=== PATIENT | female | born 1960 | race Caucasian/White ===

== ENCOUNTER 2019-10-11 13:31 | Outpatient (CLI) | payer BC, SELFPAY ==
--- NOTE | ~2019-10-11 | XR_ITS ---
EXAMINATION: XR knee RT 2V DATE: 10/11/2019 13:54 INDICATION: Right knee pain. TECHNIQUE: 2 views of right knee were obtained. COMPARISON: Right knee radiograph 11/10/2016 FINDINGS: There is varus attenuation at the knee. No fracture. There is severe osteoarthritis of medi al and patellofemoral compartments and moderate osteoarthritis of lateral compartment. No knee joint effusion. IMPRESSION: 1. Severe right knee osteoarthritis. Reviewed, dictated and finalized at location A.
--- NOTE | ~2019-10-11 | XR_ITS ---
EXAMINATION: XR knee LT 2V DATE: 10/11/2019 13:54 INDICATION: Left knee pain. TECHNIQUE: 2 views of left knee were obtained. COMPARISON: Left knee radiograph 11/10/2016 FINDINGS: There is varus angulation at the knee. No fracture. There is severe osteoarthritis of media l and patellofemoral compartments and moderate osteoarthritis of lateral compartment. No knee joint e ffusion. IMPRESSION: 1. Severe left knee osteoarthritis. Reviewed, dictated and finalized at location A.
== END 2019-10-11 13:32 | disposition home or self-care (01) ==
LOC: ANHIMG 13:38
PROVIDERS: PCP Internal Medicine; Visit Provider Nurse Practitioner Family
DX: M17.0 Bilateral primary osteoarthritis of knee (principal)
CPT/HCPCS: 73560

== ENCOUNTER 2020-03-22 12:52 | Outpatient (CLI) | payer BC, SELFPAY ==
--- NOTE | ~2020-03-22 | CT_ITS ---
EXAMINATION: CT cervical spine wo [facility] EXAM DATE: 03/22/2020 13:25 INDICATION: Neck pain posteriorly, cervicalgia. TECHNIQUE: Spiral CT of the cervical spine was performed without contrast. Axial images were reviewe d. Coronal and sagittal reformatted images were also reviewed. The dose-length product (DLP) for thi s examination was 396.77 mGy-cm. The exposure was tailored according to patient size (auto mA exposu re control), and iterative reconstruction (ASIR) was used as additional dose reduction technique. Com parison is made to prior examination from 11/10/2016. FINDINGS: The odontoid process is intact. The lateral masses of C1 line up with C2. Prevertebral so ft tissue and pre-dens space are within normal limits. There is moderate to severe disc disease at C5 -6 and 6-7, moderate at C4-5. The vertebral bodies are aligned in the AP dimension. Left thyroid lo be nodule with decrease in size. Level by level evaluation: C2-C3: Disc does not extend beyond the endplate margin. Uncovertebral joint arthropathy: None. Facet joint arthropathy: Mild left. Neural foraminal stenosis: No stenosis. Central canal stenosis: No stenosis. C3-C4: There is a mild diffuse disc bulge. Uncovertebral joint arthropathy: Mild left. Facet joint arthropathy: Mild bilateral. Neural foraminal stenosis: No stenosis. Central canal stenosis: No stenosis. C4-C5: There is mild to moderate disc osteophyte complex. Uncovertebral joint arthropathy: Mild to moderate left, mild right. Facet joint arthropathy: Mild bilateral. Neural foraminal stenosis: Mild left. Central canal stenosis: Mild. C5-C6: There is mild to moderate disc osteophyte complex. Uncovertebral joint arthropathy: Moderate to severe right, mild to moderate left. Facet joint arthropathy: Mild bilateral. Neural foraminal stenosis: Mild right. Central canal stenosis: Mild. C6-C7: There is mild to moderate disc osteophyte complex asymmetric to the right. Uncovertebral joint arthropathy: Severe right, moderate to severe left. Facet joint arthropathy: Mild bilateral. Neural foraminal stenosis: Moderate bilateral. Central canal stenosis: Mild to moderate. C7-T1: Disc does not extend beyond the endplate margin. Uncovertebral joint arthropathy: None. Facet joint arthropathy: Moderate left, mild right. Neural foraminal stenosis: Mild left. Central canal stenosis: No stenosis. Minimal interval progression in cervical spondylosis compared to prior study. IMPRESSION: 1. Overall moderate cervical spondylosis. Reviewed, dictated and finalized at location A.
--- NOTE | ~2020-03-22 | XR_ITS ---
EXAMINATION: XR shoulder LT min 2V EXAM DATE: 03/22/2020 13:38 INDICATION: Left shoulder pain 2-3 months. No known recent injury. Arthritis. TECHNIQUE: The following left shoulder projections obtained: frontal projection with internal rotatio n, frontal projection with external rotation, Grashey, and axillary (4+ views). There is no prior st udy for comparison. FINDINGS: No evidence of left shoulder rotator cuff calcific tendinosis. There is moderate glenohu meral and acromioclavicular joint primary osteoarthritis. There are no acute fractures or dislocation s identified. There is no subcutaneous gas. The soft tissue is unremarkable. Dual lead pacemaker. IMPRESSION: Moderate left shoulder osteoarthritis. Reviewed, dictated and finalized at location A.
== END 2020-03-22 12:53 | disposition home or self-care (01) ==
PROVIDERS: PCP Nurse Practitioner Family; Visit Provider Nurse Practitioner Family
DX: M54.2 Cervicalgia (principal); M19.012 Primary osteoarthritis, left shoulder; M47.812 Spondylosis without myelopathy or radiculopathy, cervical region
CPT/HCPCS: 72125; 73030

== ENCOUNTER → 2020-10-07 13:12 | Outpatient (CLI) | payer BC, SELFPAY ==
--- NOTE | ~2020-10-07 | XR_ITS ---
EXAMINATION: XR sacroiliac joints min 3V DATE: 10/07/2020 13:46 INDICATION: Sacroiliac joint pain TECHNIQUE: AP and left and right oblique views of the sacrum and joints were obtained. COMPARISON: None. FINDINGS: Bone alignment is normal. Mild to moderate joint space narrowing at the bilateral sacroiliac joints. No erosions or subarticular sclerosis to suggest an inflammatory arthritis. There is also mild bilate ral hip osteoarthritis. Postoperative change with small metallic coil at the inferior right hemipelvi s multiple phleboliths in the pelvis. IMPRESSION: 1. Mild to moderate bilateral sacroiliac osteoarthritis. No erosions to suggest inflammatory sacroili itis. Reviewed, dictated and finalized at location A. IMPRESSION: 1. Mild to moderate bilateral sacroiliac osteoarthritis. No erosions to suggest inflammatory sacroiliitis.
== END ==
PROVIDERS: Visit Provider Nurse Practitioner Family
DX: M53.3 Sacrococcygeal disorders, not elsewhere classified (principal); M47.898 Other spondylosis, sacral and sacrococcygeal region
CPT/HCPCS: 72202

== ENCOUNTER 2021-01-26 07:16 | Outpatient (CLI) | payer BC, SELFPAY ==
--- NOTE | ~2021-01-26 | CT_ITS ---
EXAMINATION: CT abdomen pelvis wo con DATE: 01/26/2021 08:00 INDICATION: Abdominal pain TECHNIQUE: Computed tomography (CT) of the abdomen and pelvis was performed without intravenous contr ast. The dose-length product (DLP) was 1126.75 mGy-cm. Automated exposure control and iterative recon struction technique were employed. COMPARISON: 09/26/2013 FINDINGS: The lung bases are clear. The heart size is normal. The gallbladder is surgically absent. T here is mild enlargement of the common bile duct and central intrahepatic ducts which is likely due t o post cholecystectomy state. The liver, spleen, pancreas, and adrenal glands are normal. There is a 2 cm cyst of the left kidney lower pole. No pathologically enlarged abdominal or pelvic lymph nodes a re identified. There is no free intraperitoneal gas or evidence of bowel obstruction. There are zhou es of mesh ventral hernia repair. No definite recurrent hernia is identified. There is mild lumbar sp ondylosis. IMPRESSION: 1. No CT correlate for the patient's symptoms. Reviewed, dictated and finalized at location A.
== END 2021-01-26 07:17 | disposition home or self-care (01) ==
DX: E65 Localized adiposity (principal); L98.7 Excessive and redundant skin and subcutaneous tissue; Z98.890 Other specified postprocedural states; Z98.84 Bariatric surgery status
CPT/HCPCS: 74176

== ENCOUNTER 2021-07-10 02:59 | Day surgery (SDC) | payer BC, SELFPAY ==
[2021-06-26 15:16] VITALS: BMI 40.4
[2021-07-10 11:30] VITALS: BP 145/62; PULSE 60; RESP 20; TEMP 36.6; O2SAT 98; BMI 39.8
[2021-07-10] MEDS: LACTATED RINGERS 1,000 ML 150 ML IV CONT (11:38)
[2021-07-10] MEDS: AMPICILLIN 2 GM/NS 100 ML 2 GM/100 ML BAG IVPB (11:47)
[2021-07-10 11:48] LABS: Glucose Point of Care 102 mg/dl (65-105)
--- NOTE | 2021-07-10 12:00 | WPDGICN ---
Assessment and Plan Assessment and plan (1) Encounter for screening colonoscopy: Code(s): Z12.11 - Encounter for screening for malignant neoplasm of colon Status: Acute Assessment and Plan: Screening colonoscopy advised because of her age. Also to assess her constipation. Further recommendations will be given after endoscopy. (2) Constipation: Code(s): K59.00 - Constipation, unspecified Status: Acute Assessment and Plan: Constipation likely secondary to narcotic use. Continued laxatives as needed to compensate for her constipation is encouraged. Limit narcotics as much as Feasible. (3) Hx of bariatric surgery: Code(s): Z98.84 - Bariatric surgery status Status: Acute (4) Chronic bilateral low back pain with sciatica: Code(s): M54.40 - Lumbago with sciatica, unspecified side; G89.29 - Other chronic pain Status: Acute (5) Body mass index (BMI) of 50-59.9 in adult: Onset Date: 05/05/18 Code(s): Z68.43 - Body mass index [BMI] 50.0-59.9, adult Status: Acute Assessment and Plan: Weight loss by increased activity calorie restriction encouraged. GI Consult Note Consult date/time: 07/10/21 12:00 HPI: Maribeth Bautista is a 60 year old female Presents for screening colonoscopy. Patient reports she had a colonoscopy many years ago she is uncertain on findings. She recently has had difficulty with constipation. She reports having back pain arthritis. For pain she receives OxyContin. This made her constipated. She has had difficulty with her bowel habits subsequently. Currently takes laxatives routinely to counteract this affect. She denies any bleeding. Has had no abdominal pain. Review of Systems Review of Systems: All systems reviewed & are unremarkable except as noted in HPI and below PMFSH Past Medical History Medical History (Updated 07/10/21 @ 12:01 by Morgan Ayala MD) Chronic, continuous use of opioids COPD (chronic obstructive pulmonary disease) Depression Essential hypertension GERD (gastroesophageal reflux disease) Hyperlipidemia Hypothyroidism (acquired) Lumbar spondylosis Pacemaker Surgical History Surgical History (Updated 07/09/21 @ 10:06 by Sander Riddle DO) History of tubal ligation Family History Family History Father Family history of lung cancer Patient's father is Sibling Family history of alcoholism Patient's sister is Mother Family history of Alzheimer's disease Diabetes mellitus Other Family history of coronary artery disease Social History Social History Smoking status: Former smoker Smoking end date: 05/30/75 Alcohol intake: current Substance use: current Substance use type: marijuana Other substance usage details: medical marijuana Living arrangements: with family Spiritual care concerns: No Meds Home Medications and Allergies Home Medications Medication Instructions Recorded Confirmed Type albuterol sulfate 2.5 mg INHALATION Q6H PRN 03/23/19 07/10/21 History aspirin 81 mg tablet,delayed 81 mg PO DAILY 03/23/19 07/10/21 History release lisinopril 5 mg tablet 5 mg PO DAILY 03/23/19 07/10/21 History methocarbamol 500 mg tablet 500 mg PO BID tablet 03/23/19 07/10/21 History risperidone 0.5 mg tablet 0.5 mg PO BID 03/23/19 07/10/21 History sertraline 100 mg tablet 150 mg PO DAILY tablet 03/23/19 07/10/21 History venlafaxine 150 mg 150 mg PO DAILY 03/23/19 07/10/21 History capsule,extended release 24 hr topiramate 25 mg tablet 25 mg PO BID 03/30/19 07/10/21 History pravastatin 40 mg tablet 40 mg PO DAILY #90 tablet 09/23/19 07/10/21 Rx albuterol sulfate 90 mcg/actuation 2 puff INHALATION Q4-6H PRN #8.5 gm 11/15/19 07/10/21 Rx aerosol inhaler primidone 50 mg tablet See Rx Instruction
--- NOTE | 2021-07-10 12:05 | WPDANESEPP ---
Anes - Eval Pre Procedure Procedure: Operation Date: 07/10/21 13:00 Proposed Procedures p Screening Colonoscopy - Morgan Ayala MD Date/Time: 07/10/21 12:05 Pre Op Diagnosis: neoplasm screening Patient Data Age: 60 Gender: F Height: 1.52 m Weight: 92.5 kg Last Vital Signs Temp 36.6 C 07/10/21 11:30 Pulse 60 07/10/21 11:30 Resp 20 07/10/21 11:30 BP 145/62 H 07/10/21 11:30 Pulse Ox 98 07/10/21 11:30 Allergies Allergy/AdvReac Type Severity Reaction Status Date / Time morphine Allergy Unknown Itching Verified 07/10/21 11:48 adhesive tape Allergy Other Verified 07/10/21 11:48 Home Medications Medication Instructions Recorded Confirmed Type albuterol sulfate 2.5 mg INHALATION Q6H PRN 03/23/19 07/10/21 History aspirin 81 mg tablet,delayed 81 mg PO DAILY 03/23/19 07/10/21 History release lisinopril 5 mg tablet 5 mg PO DAILY 03/23/19 07/10/21 History methocarbamol 500 mg tablet 500 mg PO BID tablet 03/23/19 07/10/21 History risperidone 0.5 mg tablet 0.5 mg PO BID 03/23/19 07/10/21 History sertraline 100 mg tablet 150 mg PO DAILY tablet 03/23/19 07/10/21 History venlafaxine 150 mg 150 mg PO DAILY 03/23/19 07/10/21 History capsule,extended release 24 hr topiramate 25 mg tablet 25 mg PO BID 03/30/19 07/10/21 History pravastatin 40 mg tablet 40 mg PO DAILY #90 tablet 09/23/19 07/10/21 Rx albuterol sulfate 90 mcg/actuation 2 puff INHALATION Q4-6H PRN #8.5 gm 11/15/19 07/10/21 Rx aerosol inhaler primidone 50 mg tablet See Rx Instructions .ROUTE 11/28/19 07/10/21 Rx .COMPLEX #180 tablet levothyroxine 75 mcg tablet See Rx Instructions .ROUTE 01/14/20 07/10/21 Rx .COMPLEX #90 tablet pantoprazole 40 mg tablet,delayed See Rx Instructions .ROUTE 08/27/20 02/11/22 Rx release .COMPLEX #90 tablet oxycodone myristate [Xtampza ER] See Rx Instructions .ROUTE .COMPLEX 06/26/21 07/10/21 History Laboratory Tests 07/10/21 11:46 POC Capillary Glucose 102 mg/dl mg/dl (65-105) Patient hx anesthesia problems: none Family hx anesthesia problems: none Results Review: All pre-operative results and documents have been reviewed as part of the pre-operative evaluation. [facility] Past Medical History Medical History Chronic, continuous use of opioids COPD (chronic obstructive pulmonary disease) Depression Essential hypertension GERD (gastroesophageal reflux disease) Hyperlipidemia Hypothyroidism (acquired) Lumbar spondylosis Pacemaker Surgical History Surgical History History of tubal ligation Family History Family History Father Family history of lung cancer Patient's father is Sibling Family history of alcoholism Patient's sister is Mother Family history of Alzheimer's disease Diabetes mellitus Other Family history of coronary artery disease Social History Social History Smoking status: Former smoker Smoking end date: 05/30/75 Alcohol intake: current Substance use: current Substance use type: marijuana Other substance usage details: medical marijuana Living arrangements: with family Spiritual care concerns: No Exam Day of Procedure 07/10/21 12:05 Patient weight: obese Heart: regular rate and rhythm (pacemaker) Lungs: normal air movement Airway: Mallampati scale class III Neurological: alert and oriented
[2021-07-10 12:33] VITALS: BP 87/58; PULSE 56; RESP 17; O2SAT 96
--- NOTE | 2021-07-10 12:34 | WPDANESEFPP ---
Anes - Eval Final PreProcedure Day of Procedure 07/10/21 12:34 Patient weight: normal Heart: regular rate and rhythm Lungs: clear to auscultation and normal air movement Airway: Mallampati scale class III Neurological: alert and oriented Last oral intake: >/= 8 hours ASA classification: III Emergent: no Anesthetic plan: proceed Anesthesia type and monitoring: general GIVS and standard monitoring Results Review: All pre-operative results and documents have been reviewed as part of the pre-operative evaluation. Informed Consent: The patient's anesthetic plan and its attendant risks and benefits were discussed with the patient/family/POA. Questions were solicited and answers provided to the satisfaction of the patient/family/POA.
[2021-07-10 12:43] VITALS: BP 112/70; PULSE 55; RESP 19; O2SAT 100
[2021-07-10 12:53] VITALS: BP 117/78; PULSE 58; RESP 17; O2SAT 100
== END 2021-07-10 13:17 | disposition home or self-care (01) ==
PROVIDERS: PCP Nurse Practitioner Family; Visit Provider Internal Medicine Gastroenterology
PROC: 0DJD8ZZ Inspection of Lower Intestinal Tract, Via Natural or Artificial Opening Endoscopic (ICD-10-PCS; CPT 45378; principal; 2021-07-10 13:00)
DX: Z12.11 Encounter for screening for malignant neoplasm of colon (principal); K59.00 Constipation, unspecified; K64.8 Other hemorrhoids; E03.9 Hypothyroidism, unspecified; Z79.82 Long term (current) use of aspirin; Z79.51 Long term (current) use of inhaled steroids; J44.9 Chronic obstructive pulmonary disease, unspecified; I10 Essential (primary) hypertension; K21.9 Gastro-esophageal reflux disease without esophagitis; E78.5 Hyperlipidemia, unspecified; M47.816 Spondylosis without myelopathy or radiculopathy, lumbar region; Z95.0 Presence of cardiac pacemaker; Z87.891 Personal history of nicotine dependence; F12.90 Cannabis use, unspecified, uncomplicated; E66.9 Obesity, unspecified; Z68.39 Body mass index [BMI] 39.0-39.9, adult; Z98.84 Bariatric surgery status
CPT/HCPCS: 45378; 82948; J0290; J2704; J7120

== ENCOUNTER 2021-09-01 00:20 | Day surgery (SDC) | payer BC, SELFPAY ==
[2021-08-31 15:11] VITALS: BMI 45.3
[2021-09-01] VITALS (14 sets, daily range): BP systolic 92–132; BP diastolic 60–83; PULSE 60–74; RESP 14–18; TEMP 36.2–36.4; O2SAT 99–100
--- NOTE | ~2021-09-01 | XR_ITS ---
EXAMINATION: XR chest 1V portable DATE: 09/01/2021 11:36 INDICATION: Pacemaker lead revision. TECHNIQUE: A single frontal view of the chest was obtained. COMPARISON: Chest 2 views 10/12/2018 FINDINGS: The chest demonstrates clear lungs without pneumonia, pleural effusion, or pneumothorax. Th e heart size is normal. There is a left chest wall pacer with leads in the right atrium and right stephane tricle. There is a retained lead in right ventricle. IMPRESSION: 1. No acute cardiopulmonary disease. Reviewed, dictated and finalized at location A.
[2021-09-01 07:29] LABS: Basophils Percent Auto 0.7 % (0.2-1.2); Eosinophils Absolute Auto 0.4 K/mm3 (0-0.3); Eosinophils Percent Auto 7.2 % (0-4.4); Hematocrit 44.1 % (37.0-47.0); Hemoglobin 14.6 g/dL (12.0-15.0); Immature Granulocyte Absolute 0.01 K/mm3 (0.00-0.031); Immature Granulocyte Percent A 0.2 % (0-0.5); Lymphocytes Absolute Auto 1.87 K/mm3 (0.9-3.2); Lymphocytes Percent Auto 33.7 % (18.3-44.2); Mean Corpuscular HGB Conc 33.1 g/dl (32-36); Mean Corpuscular Hemoglobin 31.5 pg (26-34); Mean Corpuscular Volume 95.2 fl (80-100); Mean Platelet Volume 11.3 fl (7.4-10.4); Monocytes Absolute Auto 0.5 K/mm3 (0.1-0.6); Monocytes Percent Auto 8.6 % (2.6-8.5); Neutrophils Absolute Auto 2.8 K/mm3 (1.3-6.7); Neutrophils Percent Auto 49.6 % (45.5-73.1); Platelet Count Result 185 k/mm3 (150-375); Red Blood Count 4.63 M/mm3 (4.2-5.4); Red Cell Distribution Width 13.9 % (11.5-14.5); White Blood Count 5.6 K/mm3 (4.5-10.0)
[2021-09-01 07:40] LABS: Anion Gap 4 mmol/L (8-16); Blood Urea Nitrogen 11 mg/dL (7-17); Calcium 8.9 mg/dL (8.4-10.2); Carbon Dioxide 24 mmol/L (22-30); Chloride 110 mmol/L (98-107); Estimated Glomerular Filt Rate > 60; Glucose 85 mg/dL (65-110); Potassium 3.9 mmol/L (3.4-5.0); Sodium 138 mmol/L (137-145)
[2021-09-01 07:45] LABS: INR 1.1; Prothrombin Time 14.2 Seconds (11.1-14.7)
--- NOTE | 2021-09-01 08:38 | PM.IMHP ---
H&P: HPI History of Present Illness Date/Time: 09/01/21 08:38 Chief Complaint: Pacemaker at elective replacement interval Malfunction right ventricular lead Narrative: Maribeth Bautista is a 61-year-old female with a [employer] pacemaker [place] [address] Bruno for symptomatic bradycardia. She is currently followed by Dr. Connolly for her pacemaker, hypertension, and brief paroxysmal atrial fibrillation. Her right ventricular lead had had poor sensing for the last few years and a lot of noise reversion. Her current R-wave sensing is only 1.6 mV. She does not pace much in the right ventricle but we will attempt a right ventricular lead revision while we are doing the generator change. She is feeling well today, no fevers or shortness of breath. She has been NPO. Review of Systems Constitutional: Constitutional: Denies fatigue Eyes: Eyes: Reports no additional eye complaints Cardiovascular: Cardiovascular: Denies chest pain and Denies leg edema Respiratory: Respiratory: Denies dyspnea Gastrointestinal: Gastrointestinal: Denies abdominal pain Genitourinary: Genitourinary: Denies hematuria Musculoskeletal: Musculoskeletal: Reports arthralgias (s/p TKR) Integumentary/Breasts: Skin/Breast: Denies rash Neurologic: Denies confusion Psychiatric: Psychiatric: Reports anxiety (H/O anxiety) [facility] [place] Past Medical History Medical History (Updated 09/01/21 @ 08:44 by Letitia Olsen MD) Chronic, continuous use of opioids COPD (chronic obstructive pulmonary disease) Depression Essential hypertension GERD (gastroesophageal reflux disease) Hyperlipidemia Hypothyroidism (acquired) Lumbar spondylosis Pacemaker Pacemaker battery depletion Pacemaker lead malfunction Surgical History Surgical History (Updated 09/01/21 @ 08:42 by Letitia Olsen MD) History of tubal ligation Family History Family History Father Family history of lung cancer Patient's father is Sibling Family history of alcoholism Patient's sister is Mother Family history of Alzheimer's disease Diabetes mellitus Other Family history of coronary artery disease Social History Social History (Updated 09/01/21 @ 08:42 by Letitia Olsen MD) Social History: Smoking status: Never smoker Smoking end date: 05/30/75 Alcohol intake: never Substance use: current Substance use type: does not use Other substance usage details: medical marijuana Living arrangements: with family Spiritual care concerns: No Meds Home Medications and Allergies Home Medications Medication Instructions Recorded Confirmed Type albuterol sulfate 2.5 mg INHALATION Q6H PRN 03/23/19 08/31/21 History aspirin 81 mg tablet,delayed 81 mg PO DAILY 03/23/19 08/31/21 History release lisinopril 5 mg tablet 5 mg PO DAILY 03/23/19 08/31/21 History methocarbamol 500 mg tablet 500 mg PO BID tablet 03/23/19 08/31/21 History risperidone 0.5 mg tablet 0.5 mg PO BID 03/23/19 08/31/21 History sertraline 100 mg tablet 150 mg PO DAILY tablet 03/23/19 08/31/21 History venlafaxine 150 mg 150 mg PO DAILY 03/23/19 08/31/21 History capsule,extended release 24 hr topiramate 25 mg tablet 50 mg PO BID 03/30/19 08/31/21 History pravastatin 40 mg tablet 40 mg PO DAILY #90 tablet 09/23/19 08/31/21 Rx albuterol sulfate 90 mcg/actuation 2 puff INHALATION Q4-6H PRN #8.5 gm 11/15/19 08/31/21 Rx aerosol inhaler levothyroxine 75 mcg tablet See Rx Instructions .ROUTE 01/14/20 08/31/21 Rx .COMPLEX #90 tablet oxycodone myristate [Xtampza ER] 9 mg PO BID 06/26/21 08/31/21 History pantoprazole 40 mg PO DAILY 08/31/21 08/31/21 History primidone 100 mg PO BID 08/31/21 08/31/21 History semaglutide (weight loss) [Wegovy] 7.7 mg SUBCUT WEEKLY 08/31/21 08/31/21 History Allergies Allergy/AdvReac Type Severity Reaction Status Date / Time morphine Allergy Unknown Itc
--- NOTE | 2021-09-01 08:39 | SUR.PREOP ---
DR. JOHNSON AT BEDSIDE TO SEE PT.
--- NOTE | 2021-09-01 08:45 | WPDMODSED ---
Moderate Sedation Note-Pt Data Patient Data Diagnosis: Narrative: Maribeth Bautista is a 61-year-old female with a [employer] pacemaker [place] [address] Bruno for symptomatic bradycardia. She is currently followed by Dr. Connolly for her pacemaker, hypertension, and brief paroxysmal atrial fibrillation. Her right ventricular lead had had poor sensing for the last few years and a lot of noise reversion. Her current R-wave sensing is only 1.6 mV. She does not pace much in the right ventricle but we will attempt a right ventricular lead revision while we are doing the generator change. Present Complaint: Pacemaker at CAIT Right ventricular lead malfunction Procedure to be performed/Plan: Conscious sedation Venogram Generator change Right ventricular lead revision Allergies Allergy/AdvReac Type Severity Reaction Status Date / Time morphine Allergy Unknown Itching Verified 08/31/21 14:54 adhesive tape Allergy Other Verified 08/31/21 14:54 Home Medications Medication Instructions Recorded Confirmed Type albuterol sulfate 2.5 mg INHALATION Q6H PRN 03/23/19 08/31/21 History aspirin 81 mg tablet,delayed 81 mg PO DAILY 03/23/19 08/31/21 History release lisinopril 5 mg tablet 5 mg PO DAILY 03/23/19 08/31/21 History methocarbamol 500 mg tablet 500 mg PO BID tablet 03/23/19 08/31/21 History risperidone 0.5 mg tablet 0.5 mg PO BID 03/23/19 08/31/21 History sertraline 100 mg tablet 150 mg PO DAILY tablet 03/23/19 08/31/21 History venlafaxine 150 mg 150 mg PO DAILY 03/23/19 08/31/21 History capsule,extended release 24 hr topiramate 25 mg tablet 50 mg PO BID 03/30/19 08/31/21 History pravastatin 40 mg tablet 40 mg PO DAILY #90 tablet 09/23/19 08/31/21 Rx albuterol sulfate 90 mcg/actuation 2 puff INHALATION Q4-6H PRN #8.5 gm 11/15/19 08/31/21 Rx aerosol inhaler levothyroxine 75 mcg tablet See Rx Instructions .ROUTE 01/14/20 08/31/21 Rx .COMPLEX #90 tablet oxycodone myristate [Xtampza ER] 9 mg PO BID 06/26/21 08/31/21 History pantoprazole 40 mg PO DAILY 08/31/21 08/31/21 History primidone 100 mg PO BID 08/31/21 08/31/21 History semaglutide (weight loss) [Wegovy] 7.7 mg SUBCUT WEEKLY 08/31/21 08/31/21 History Sedation/Anesthesia: No previous sedation/anesthesia problems (including family history). [facility] Past Medical History Medical History (Updated 09/01/21 @ 08:44 by Letitia Olsen MD) Chronic, continuous use of opioids COPD (chronic obstructive pulmonary disease) Depression Essential hypertension GERD (gastroesophageal reflux disease) Hyperlipidemia Hypothyroidism (acquired) Lumbar spondylosis Pacemaker Pacemaker battery depletion Pacemaker lead malfunction Surgical History Surgical History (Updated 09/01/21 @ 08:42 by Letitia Olsen MD) History of tubal ligation Family History Family History Father Family history of lung cancer Patient's father is Sibling Family history of alcoholism Patient's sister is Mother Family history of Alzheimer's disease Diabetes mellitus Other Family history of coronary artery disease Social History Social History (Updated 09/01/21 @ 08:42 by Letitia Olsen MD) Social History: Smoking status: Never smoker Smoking end date: 05/30/75 Alcohol intake: never Substance use: current Substance use type: does not use Other substance usage details: medical marijuana Living arrangements: with family Spiritual care concerns: No Mod Sed Physical Exam Physical Exam Pre Procedural Exam: Normal: Appearance, Eyes, Ears, Nose, Neck, Throat, Lungs, Heart Size, Heart Rate, Heart Rhythm, Neuro Exam, Abdomen, Liver, Extremities and Skin (Pacemaker site is well healed) and Variation: Airway (Edentulous) Hours since solid foods: 12 Hours since liquid intake: 12 Mallampati Classification: class III Internal Medicine - PN: Obj Da Vital Signs Vit
--- NOTE | 2021-09-01 11:12 | ECG_ITS ---
Measurements Intervals [place] Rate: 70 P: -80 AL: 262 QRS: -32 QRSD: 137 T: 17 QT: 417 QTc: 452 Interpretive Statements ELECTRONIC ATRIAL PACEMAKER LEFTWARD AXIS RIGHT BUNDLE BRANCH BLOCK Electronically Signed On 09-01-2021 11:44:32 CDT by Jesse Connolly M.D.
--- NOTE | 2021-09-01 11:16 | P.OPB_ITS ---
Procedure Note - Brief Procedure Note - Brief Date of procedure: 09/01/21 Pre-op diagnosis: CAIT Pacemaker at elective replacement RV lead malfunction Post-op diagnosis: Same Procedure performed: conscious sedation venogram Implantation of a new right ventricular center director lead teacher change Description of procedure: uneventful procedure Anesthesia: local ( with conscious sedation) Surgeon: Letitia Olsen MD Complications: No immediate complications Condition: Stable Disposition: Observation Findings: uneventful RV lead revision, generator change
--- NOTE | 2021-09-01 11:18 | W.PM.PROC2 ---
Procedure Note - Detailed Date of Procedure 09/01/21 Pre-op Diagnosis Pacemaker pulse generator at elective replacement interval Right ventricular lead malfunction Post-op Diagnosis Same Procedure Performed Conscious sedation Venogram Implantation of a new transvenous right ventricular pacing lead Pacemaker Generator change Surgeon Letitia Olsen MD Anesthesia Local ( with conscious sedation) Indications Maribeth Bautista is a 61-year-old female with a [employer] pacemaker [place] [address] Bruno for symptomatic bradycardia. She is currently followed by Dr. Connolly for her pacemaker, hypertension, and brief paroxysmal atrial fibrillation. Her right ventricular lead had had poor sensing for the last few years and a lot of noise reversion, with worsening sensing noted today. Her current R-wave sensing is only 1.6 mV. I recommend we perform a right ventricular lead revision while doing the generator change. 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 Description of Procedure PROCEDURE PERFORMED: Conscious sedation Venogram Implantation of a new transvenous right ventricular lead Pacemaker pulse generator change SITE: Left prepectoral area MEDICATIONS GIVEN IN BILLING ASSISTANT: Ancef 2 gram IV piggyback CONSCIOUS SEDATION: Assessment: The patient has no history of anesthesia problems. The patient's oropharynx is clear. The patient was deemed to be a good candidate for conscious sedation. The patient had continuous hemodynamic monitoring during the procedure. Start time: 9:20 a.m. Completion time: 11:02 a.m. Total conscious sedation time: 102 minutes Medications: Versed 6 mg, fentanyl 150 mcg IV push Trained observer: Valentine Grace RN and Ezra Felder RN Outcome: The patient tolerated the procedure well with no complications. PROCEDURE: After informed consent , the patient was brought to the bed laborer and the left prepectoral area was prepped and draped in usual fashion . The patient received preop antibiotic and conscious sedation . The left prepectoral area was anesthetized with lidocaine. A venogram was performed showing the course of the left subclavian vein,which was patent, though there is a stenosis of > 50% in the proximal 1/3. Next a skin incision was made and carried down to the prepectoral fascia. Hemostasis was obtained using the Plasma Blade. The pacer pocket was formed. The left subclavian vein was accessed with the micropuncture technique, and a J-tipped guide wire was passed into the inferior vena cava under fluoroscopic guidance. The needle was withdrawn. The wire was pulled into the pacemaker pocket. A 6 Turkish safety sheath was passed over the wire, the wire withdrawn, and the right ventricular lead was passed into the inferior vena cava under fluoroscopic guidance without difficulty. The lead was then prolapsed through the tricuspid valve and advanced into the right ventricular apex. When suitable sensing and pacing thresholds were obtained, it was screwed into place. No extra cardiac stimulation was obtained using 10 volts. The sheath was withdrawn. The lead was secured to the prepectoral fascia overt sleeve with 2-0 silk suture. The pocket was cleansed with antibiotic containing solution . The pulse generator was introduced into the operative field, and both leads were secured into the generator . The old right ventricular lead was capped. A gentle tug showed the leads were securely fastened. The device was introduced into the pocket. There was oozing noted, and meticulous attention to this with the plasma blade was performed. Topical thrombin was applied. The subcutaneous tissues were closed in a double layer fashion with interrupted sutures, using 2-0 Vicryl suture , and the skin was closed in a continuous fashion using 4-0 Vicryl suture in a continuous fashion. The area was cleansed, and an Aquacel dressing as well as a pressure dressing were applied .
[2021-09-01] MEDS: HYDROcodone/acetaminophen (*CRX) 5-325 MG TABLET 2 TAB PO (13:16)
[2021-09-01] MEDS: ceFAZolin 2 GM/D5W 50 ML 2 GM/50 ML BAG IVPB (17:35)
== END 2021-09-01 19:05 | disposition home or self-care (01) ==
LOC: ANHCATHLAB 12:10 → ANHCPC 16:27
PROVIDERS: PCP Nurse Practitioner Family; Visit Provider Internal Medicine Cardiovascular Disease
PROC: 0JH604Z Insertion of Pacemaker, Single Chamber into Chest Subcutaneous Tissue and Fascia, Open Approach (ICD-10-PCS; CPT 33210; principal; 2021-09-01 08:30)
DX: Z45.010 Encounter for checking and testing of cardiac pacemaker pulse generator [battery] (principal); T82.110A Breakdown (mechanical) of cardiac electrode, initial encounter; Y83.8 Other surgical procedures as the cause of abnormal reaction of the patient, or of later complication, without mention of misadventure at the time of the procedure; R00.1 Bradycardia, unspecified; I10 Essential (primary) hypertension; I48.0 Paroxysmal atrial fibrillation; J44.9 Chronic obstructive pulmonary disease, unspecified; E78.5 Hyperlipidemia, unspecified; E03.9 Hypothyroidism, unspecified; F32.9 Major depressive disorder, single episode, unspecified; K21.9 Gastro-esophageal reflux disease without esophagitis; M47.816 Spondylosis without myelopathy or radiculopathy, lumbar region; Z79.891 Long term (current) use of opiate analgesic; Z79.51 Long term (current) use of inhaled steroids; Z79.82 Long term (current) use of aspirin; F12.90 Cannabis use, unspecified, uncomplicated
CPT/HCPCS: 33207; 36415; 71045; 80048; 85025; 85610; 93005; A9270; C1785; C1898; J0690; J2250; J3010; J7040

== ENCOUNTER 2021-09-07 11:35 | Outpatient (CLI) | payer BC, SELFPAY ==
--- NOTE | ~2021-09-07 | XR_ITS ---
EXAMINATION: XR chest 2V DATE: 09/07/2021 12:08 INDICATION: Breakdown (mechanical) of cardiac electrode. TECHNIQUE: Frontal and lateral views of the chest were obtained. COMPARISON: Chest single view 09/01/2021 FINDINGS: The chest demonstrates clear lungs without pneumonia, pleural effusion, or pneumothorax. Th e heart size is normal. There is a left chest wall pacer with leads in the right atrium and right stephane tricle. There is an additional retained lead in right ventricle. Surgical clips in the right upper qu adrant are likely from cholecystectomy. IMPRESSION: 1. No acute cardiopulmonary disease. Reviewed, dictated and finalized at location A.
== END 2021-09-07 11:36 | disposition home or self-care (01) ==
PROVIDERS: PCP Nurse Practitioner Family; Visit Provider Nurse Practitioner
DX: T82.110A Breakdown (mechanical) of cardiac electrode, initial encounter (principal); Z45.010 Encounter for checking and testing of cardiac pacemaker pulse generator [battery]
CPT/HCPCS: 71046

== ENCOUNTER 2021-10-01 13:21 | Outpatient (CLI) | payer BC, SELFPAY ==
--- NOTE | ~2021-10-01 | CT_ITS ---
EXAMINATION: CT brain wo con DATE: 10/01/2021 13:47 INDICATION: Dizziness. Right sensory deficit. Blurry vision. Headaches. Generalized weakness. TECHNIQUE: Computed tomography (CT) of the head was performed without intravenous contrast. The mA wa s adjusted according to patient size. Iterative reconstruction technique was employed. Exam dose: 60 5.33 mGy-cm total exam DLP. COMPARISON: 12/14/2012 CT brain FINDINGS: There is cortical atrophy affecting predominantly the frontal lobes. No intracranial mass lesion or hemorrhage or cerebrovascular accident is evident. No midline shift or mass effect effect. Normal ventricular size. Bilateral carotid siphon internal carotid artery calcification. Minimal basal ganglia calcification. No subdural or epidural hematoma. Partial opacification of left mastoid air cells. Right mastoid air cells are normally developed and a erated. Included paranasal sinuses are unremarkable. No fracture or bone destruction of the cranial vault. IMPRESSION: Cerebral atherosclerosis No acute intracranial finding or significant change since 12/14/2012 Partial opacification of mastoid air cells, chronic Reviewed, dictated and finalized at Location A. Reviewed, dictated and finalized at location A.
== END 2021-10-01 13:22 | disposition home or self-care (01) ==
PROVIDERS: PCP Nurse Practitioner Family; Visit Provider Internal Medicine
DX: R20.8 Other disturbances of skin sensation (principal); I67.2 Cerebral atherosclerosis
CPT/HCPCS: 70450

== ENCOUNTER 2021-11-20 15:31 | Emergency (ER) | payer BC, SELFPAY ==
[2021-11-20] VITALS (10 sets, daily range): BP systolic 136; BP diastolic 69; PULSE 59–61; RESP 15–23; TEMP 36.8; O2SAT 96–100
--- NOTE | ~2021-11-20 | CT_ITS ---
EXAMINATION: CT abdomen pelvis w con DATE: 11/20/2021 16:44 INDICATION: Right lower quadrant abdominal pain, nausea, vomiting and diarrhea TECHNIQUE: Computed tomography (CT) of the abdomen and pelvis was performed with 100 mL Omnipaque-300 intravenous contrast. Automated exposure control and iterative reconstruction technique were employe d. The dose-length product was 827.47 mGy-cm. COMPARISON: 01/26/2021 FINDINGS: Lung bases are clear. Heart size is normal. No pericardial or pleural effusion. Cardiac pacemaker wit h 2 ventricular leads extending to the apex of the right ventricle and a third lead at the right atri al appendage. Small sliding-type hiatal hernia. Mild intra and extra hepatic biliary ductal dilation which is within normal limits post cholecystectomy with surgical clips at the gallbladder fossa. Sple en, pancreas, right kidney and right adrenal gland are normal. No interval change in a 9 mm left adre nal nodule with low-attenuation on prior noncontrast CT consistent with an adenoma. [address] at the lower pole of the left kidney. Normal appendix. Postoperative changes in the central abdome n with a couple surgical clips and a small bowel anastomotic suture line. Bladder, anteverted uterus and bilateral adnexa are unremarkable. No free intraperitoneal gas or fluid. No pathologically enlarg ed abdominal or pelvic lymphadenopathy. Postoperative change of prior ventral hernia mesh repair. Mil d lumbar levocurvature with mild to moderate thoracolumbar spondylosis. IMPRESSION: 1. No acute intra-abdominal/pelvic process. Reviewed, dictated and finalized at location B.
[2021-11-20 15:52] LABS: Basophils Percent Auto 0.4 % (0.2-1.2); Eosinophils Percent Auto 0.6 % (0-4.4); Hematocrit 44.3 % (37.0-47.0); Hemoglobin 14.7 g/dL (12.0-15.0); Immature Granulocyte Absolute 0.01 K/mm3 (0.00-0.031); Immature Granulocyte Percent A 0.1 % (0-0.5); Lymphocytes Absolute Auto 1.69 K/mm3 (0.9-3.2); Lymphocytes Percent Auto 25.1 % (18.3-44.2); Mean Corpuscular HGB Conc 33.2 g/dl (32-36); Mean Corpuscular Hemoglobin 30.6 pg (26-34); Mean Corpuscular Volume 92.3 fl (80-100); Mean Platelet Volume 11.5 fl (7.4-10.4); Monocytes Absolute Auto 0.4 K/mm3 (0.1-0.6); Monocytes Percent Auto 6.2 % (2.6-8.5); Neutrophils Absolute Auto 4.6 K/mm3 (1.3-6.7); Neutrophils Percent Auto 67.6 % (45.5-73.1); Platelet Count Result 199 k/mm3 (150-375); Red Cell Distribution Width 12.7 % (11.5-14.5); White Blood Count 6.7 K/mm3 (4.5-10.0)
[2021-11-20 16:04] LABS: Alanine Aminotransferase 22 U/L (6-35); Albumin Level 4.2 g/dL (3.5-5.1); Alkaline Phosphatase 82 U/L (38-126); Anion Gap 6 mmol/L (8-16); Aspartate Amino Transferase 33 U/L (14-36); Bilirubin,Total 0.3 mg/dL (0.2-1.3); Blood Urea Nitrogen 10 mg/dL (7-17); Calcium 9.4 mg/dL (8.4-10.2); Carbon Dioxide 24 mmol/L (22-30); Chloride 111 mmol/L (98-107); Estimated CRCL calculation 92 ml/min; Estimated Glomerular Filt Rate > 60; Glucose 128 mg/dL (65-110); Lipase 161 U/L (23-300); Potassium 4.3 mmol/L (3.4-5.0); Sodium 141 mmol/L (137-145)
--- NOTE | 2021-11-20 16:08 | ED.GENADULT ---
HPI - General Adult General Chief complaint: Nausea/Vomiting/Diarrhea Stated complaint: vomiting and diarrhea Time Seen by Provider: 11/20/21 16:01 Source: RN notes reviewed History of Present Illness HPI narrative: Patient presents emergency department from home for abdominal pain. Patient states that symptoms began yesterday states she has had numerous episodes of nausea vomiting as well as diarrhea states she has diffuse abdominal pain described as cramping in nature. She denies any fevers or chills, chest pain shortness of breath or any other symptoms states she does not take any medication for the symptoms today Related Data Home Medications Medication Instructions Recorded Confirmed albuterol sulfate 2.5 mg/3 mL 2.5 mg inhalation Q6H PRN 03/23/19 08/31/21 (0.083 %) solution for nebulization Shortness Of Breath aspirin 81 mg tablet,delayed 81 mg PO DAILY 03/23/19 08/31/21 release (Adult Low Dose Aspirin) lisinopril 5 mg tablet 5 mg PO DAILY 03/23/19 08/31/21 methocarbamol 500 mg tablet 500 mg PO BID 03/23/19 08/31/21 risperidone 0.5 mg tablet 0.5 mg PO BID 03/23/19 08/31/21 sertraline 100 mg tablet 150 mg PO DAILY 03/23/19 08/31/21 venlafaxine 150 mg 150 mg PO DAILY 03/23/19 08/31/21 capsule,extended release 24 hr topiramate 25 mg tablet (Topamax) 50 mg PO BID 03/30/19 08/31/21 oxycodone myristate 9 mg capsule 9 mg PO BID 06/26/21 08/31/21 sprinkle extended release 12 hr(DON'T CRUSH) (Xtampza ER) pantoprazole 40 mg tablet,delayed 40 mg PO DAILY 08/31/21 08/31/21 release primidone 50 mg tablet 100 mg PO BID 08/31/21 08/31/21 semaglutide (weight loss) 1.7 7.7 mg subcut WEEKLY 08/31/21 08/31/21 mg/0.75 mL subcutaneous pen injector ([employer]eg[employer]) Allergies Allergy/AdvReac Type Severity Reaction Status Date / Time morphine Allergy Unknown Itching Verified 08/31/21 14:54 adhesive tape Allergy Other Verified 08/31/21 14:54 Review of Systems Review of Systems: Gen.: Denies fevers or chills ENT: Denies congestion Respiratory: Denies shortness of breath or cough CV: Denies chest pain or palpitations GI: See HPI denies burning, urgency, frequency or hematuria Musculoskeletal: Denies back pain or muscle pain Neuro: Denies numbness, tingling, weakness or focal weakness Skin: Denies rash Except as documented, all other systems reviewed and negative PMFSH Past Medical History Medical History Chronic, continuous use of opioids COPD (chronic obstructive pulmonary disease) Depression Essential hypertension GERD (gastroesophageal reflux disease) Hyperlipidemia Hypothyroidism (acquired) Lumbar spondylosis Pacemaker Pacemaker battery depletion Pacemaker lead malfunction Surgical History Surgical History (Updated 09/01/21 @ 08:42 by Letitia Olsen MD) History of tubal ligation Family History Family History Father Family history of lung cancer Patient's father is Sibling Family history of alcoholism Patient's sister is Mother Family history of Alzheimer's disease Diabetes mellitus Other Family history of coronary artery disease Social History Social History Social History: Smoking status: Never smoker Smoking end date: 05/30/75 Alcohol intake: never Substance use: current Substance use type: does not use Other substance usage details: medical marijuana Spiritual care concerns: No Exam Narrative: APPEARANCE: No acute distress, nontoxic, resting in bed HEENT: Normocephalic, atraumatic, OMM RESPIRATORY: No respiratory distress, clear to auscultation bilaterally with no rhonchi wheezing or rales CARDIOVASCULAR: RRR s murmur ABDOMINAL: Soft nondistended diffusely tender to palpation no rebound or guarding MUSCULOSKELETAl: Moves all extremities. No club
[2021-11-20] MEDS: SODIUM CHLORIDE 0.9% IV 1,000 ML 999 ML IV CONT (16:22)
[2021-11-20] MEDS: FAMOTIDINE 20 MG/2 ML VIAL IV PUSH (16:23)
[2021-11-20] MEDS: ONDANSETRON INJ 4 MG/2 ML VIAL IV PUSH (16:23)
--- NOTE | 2021-11-20 18:57 | PC.NURSE ---
Patient given water and Annalisa Mist for PO challenge.
--- NOTE | 2021-11-20 19:10 | PC.NURSE ---
Patient vomited after she drank some water. Dr. Prieto notified by content writer.
[2021-11-20] MEDS: PROMETHAZINE HCL 25 MG/ML AMPUL 12.5 MG IV PUSH (19:24)
[2021-11-20] MEDS: SODIUM CHLORIDE 0.9% IV 50 ML (19:27)
[2021-11-20 20:50] LABS: Appearance Urine Slightly Cloudy (Clear); Bilirubin Urine Negative (Negative); Blood Urine Trace-lysed (Negative); Color Urine Yellow (Yellow); Glucose Urine UA Negative (Negative); Ketones Urine Negative (Negative); Leukocyte Esterase Ur 1+ LEU/UL (Negative); Nitrate Urine Negative (Negative); Protein Urine Negative (Negative); Specific Grav Ur 1.015 (1.001-1.035); Urobilinogen Urine 0.2 mg/dL (<2.0); pH Urine 8.5 (5.0-9.0)
[2021-11-20 20:55] LABS: Add Urine Microscopic? YES; Bacteria Urine Trace /hpf; Mucus Urine Rare /lpf; RBC Urine 0-2 /hpf (0-2); WBC Urine 31-50 /hpf
[2021-11-20] MEDS: NITROFURANTOIN MONOHYD MACROCR 100 MG CAP PO (21:18)
== END 2021-11-20 21:29 | disposition home or self-care (01) ==
PROVIDERS: Emergency Provider Emergency Medicine; PCP Nurse Practitioner Family
DX: N39.0 Urinary tract infection, site not specified (principal); R10.9 Unspecified abdominal pain; R11.2 Nausea with vomiting, unspecified; R19.7 Diarrhea, unspecified; Z79.82 Long term (current) use of aspirin; J44.9 Chronic obstructive pulmonary disease, unspecified; I10 Essential (primary) hypertension; K21.9 Gastro-esophageal reflux disease without esophagitis; E78.5 Hyperlipidemia, unspecified; E03.9 Hypothyroidism, unspecified; Z95.0 Presence of cardiac pacemaker
CPT/HCPCS: 36415; 74177; 80053; 81001; 83690; 85025; 87077; 87086; 87088; 96361; 96365; 96375; 99284; A9270; J0131; J2405; J2550; J7030; Q9967

== ENCOUNTER 2022-03-02 15:14 | Outpatient (CLI) | payer BC, SELFPAY ==
--- NOTE | ~2022-03-02 | CT_ITS ---
EXAMINATION: CT cervical spine wo con DATE: 03/02/2022 15:30 INDICATION: Neck pain. TECHNIQUE: Computed tomography (CT) of the cervical spine was performed without intravenous contrast. Automated exposure control and iterative reconstruction technique were employed. The dose-length pro duct was 277.75 mGy-cm. COMPARISON: Cervical spine CT 03/22/2020 FINDINGS: There is 10 degrees dextroscoliosis of cervical spine. There is kyphosis of cervical spine. Vertebral body heights are normal. There is mildly decreased disc height at C4-C5, severely decrease d disc height at C5-C6 and C6-C7, and mildly decreased disc height at C7-T1. There is ossification of posterior longitudinal ligament from C4 to C7. There is a left mastoid effusion. The following disc levels are specifically discussed: C2-C3: There is no uncovertebral joint osteoarthritis. There is mild right and severe left facet join t osteoarthritis. There is mild left neural foraminal stenosis. There is no central canal stenosis. C3-C4: There is mild bilateral uncovertebral joint osteoarthritis. There is mild right and moderate l eft facet joint osteoarthritis. There is mild left neural foraminal stenosis. There is mild central c anal stenosis. C4-C5: There is moderate bilateral uncovertebral joint osteoarthritis. There is mild right and severe left facet joint osteoarthritis. There is mild left neural foraminal stenosis. There is mild central canal stenosis. C5-C6: There is severe bilateral uncovertebral joint osteoarthritis. There is severe bilateral facet joint osteoarthritis. There is mild bilateral neural foraminal stenosis. There is mild central canal stenosis. C6-C7: There is severe bilateral uncovertebral joint osteoarthritis. There is moderate bilateral face t joint osteoarthritis. There is mild bilateral neural foraminal stenosis. There is mild central domenico l stenosis. C7-T1: There is no uncovertebral joint osteoarthritis. There is severe bilateral facet joint osteoart hritis. There is mild bilateral neural foraminal stenosis. There is no central canal stenosis. IMPRESSION: 1. Severe cervical spondylosis, stable from 03/22/2020. Reviewed, dictated and finalized at location A.
== END 2022-03-02 15:15 | disposition home or self-care (01) ==
PROVIDERS: PCP Nurse Practitioner Family; Visit Provider Nurse Practitioner Family
DX: M47.23 Other spondylosis with radiculopathy, cervicothoracic region (principal); M48.03 Spinal stenosis, cervicothoracic region
CPT/HCPCS: 72125

== ENCOUNTER 2022-07-27 16:26 | Emergency (ER) | payer BC, SELFPAY ==
[2022-07-27 16:58] VITALS: BP 138/72; PULSE 58; RESP 16; TEMP 37.3; O2SAT 100
[2022-07-27 17:23] LABS: Basophils Percent Auto 0.6 % (0.2-1.2); Eosinophils Absolute Auto 0.1 K/mm3 (0-0.3); Eosinophils Percent Auto 1.1 % (0-4.4); Hematocrit 42.8 % (37.0-47.0); Hemoglobin 14.3 g/dL (12.0-15.0); Immature Granulocyte Absolute 0.01 K/mm3 (0.00-0.031); Immature Granulocyte Percent A 0.2 % (0-0.5); Lymphocytes Absolute Auto 1.35 K/mm3 (0.9-3.2); Mean Corpuscular HGB Conc 33.4 g/dl (32-36); Mean Corpuscular Hemoglobin 31.2 pg (26-34); Mean Corpuscular Volume 93.2 fl (80-100); Mean Platelet Volume 10.6 fl (7.4-10.4); Monocytes Absolute Auto 0.3 K/mm3 (0.1-0.6); Monocytes Percent Auto 5.8 % (2.6-8.5); Neutrophils Absolute Auto 3.6 K/mm3 (1.3-6.7); Neutrophils Percent Auto 67.3 % (45.5-73.1); Platelet Count Result 196 k/mm3 (150-375); Red Blood Count 4.59 M/mm3 (4.2-5.4); Red Cell Distribution Width 14.2 % (11.5-14.5); White Blood Count 5.4 K/mm3 (4.5-10.0)
[2022-07-27 17:33] LABS: Alanine Aminotransferase 27 U/L (6-35); Alkaline Phosphatase 77 U/L (38-126); Anion Gap 6 mmol/L (8-16); Aspartate Amino Transferase 32 U/L (14-36); Bilirubin,Total 0.5 mg/dL (0.2-1.3); Blood Urea Nitrogen 8 mg/dL (7-17); Calcium 9.2 mg/dL (8.4-10.2); Carbon Dioxide 26 mmol/L (22-30); Chloride 111 mmol/L (98-107); Estimated CRCL calculation 89 ml/min; Estimated Glomerular Filt Rate > 60; Glucose 103 mg/dL (65-110); Lipase 190 U/L (23-300); Sodium 143 mmol/L (137-145)
[2022-07-27 17:50] LABS: Appearance Urine Clear (Clear); Bacteria Urine 4+ /hpf; Bilirubin Urine Negative (Negative); Blood Urine Negative (Negative); Color Urine Yellow (Yellow); Glucose Urine UA Negative (Negative); Ketones Urine Negative (Negative); Leukocyte Esterase Ur Trace LEU/UL (Negative); Nitrate Urine Positive (Negative); Non Pathogenic Casts 0-2; Protein Urine Negative (Negative); RBC Urine 0-2 /hpf (0-2); Specific Grav Ur 1.013 (1.001-1.035); Squamous Epithelial Cell Urine None seen /hpf (Few); Urobilinogen Urine 0.2 mg/dL (<2.0); pH Urine 8.5 (5.0-9.0)
[2022-07-27 17:57] LABS: Add Urine Microscopic? YES
--- NOTE | 2022-07-27 18:30 | PC.NURSE ---
Notified by the ED triage tech that the patient informed her that she no longer wanted to wait to be seen and that she didn't have all night to wait here .
== END 2022-07-27 18:30 | disposition left against medical advice (07) ==
LOC: ANHED 18:37
PROVIDERS: Emergency Provider Emergency Medicine; PCP Nurse Practitioner Family
DX: R11.2 Nausea with vomiting, unspecified (principal); R19.7 Diarrhea, unspecified; Z53.21 Procedure and treatment not carried out due to patient leaving prior to being seen by health care provider
CPT/HCPCS: 36415; 80053; 81001; 83690; 85025; 87086; 87147; 87181; 87186; 99199

== ENCOUNTER 2022-08-03 22:04 | Observation (INO) | payer BC, SELFPAY ==
[2022-08-03] VITALS (9 sets, daily range): BP systolic 109–122; BP diastolic 57–72; PULSE 60–62; RESP 10–20; O2SAT 99–100
--- NOTE | ~2022-08-03 | XR_ITS ---
EXAMINATION: XR chest 1V portable Exam Date/Time: 08/03/2022 22:35 NURSING HOME ASSISTANT ADMINISTRATOR HISTORY: CVA, PACEMAKER 12 YRS AGO Comparison: 09/07/2021. RESULT: Lines, tubes, and devices: Left chest pacer. One of the 3 leads remains disconnected and may represe nt a retained lead. Lungs and pleura: Clear. Cardiomediastinal silhouette: Stable. Other: No acute osseous or upper abdominal finding. IMPRESSION: No acute cardiopulmonary process. Reviewed, dictated and finalized at location K. ING HOME ASSISTANT ADMINISTRATOR
--- NOTE | ~2022-08-03 | CT_ITS ---
EXAMINATION: CTA brain carotid DATE: 08/03/2022 22:27 INDICATION: R hand numbness TECHNIQUE: Computed tomographic angiography (CTA) of the head and neck was performed with 100 mL Omni paque-350 intravenous contrast. Automated exposure control and iterative reconstruction technique wer e employed. The dose-length product was 971.87 mGy-cm. Maximum intensity projection and volume render ed 3D-reconstructions were created by the technologist on a separate workstation. COMPARISON: CT brain, same date. FINDINGS: CTA HEAD: No large vessel occlusion, aneurysm, high flow vascular malformation, nidus or extravasation. Calcifi ed plaques in the cavernous carotids, without significant stenosis. Slight irregularity of the bilate ral M1 segments likely due to mild noncalcified atherosclerotic disease. The communicating arteries a re patent. Symmetric parenchymal enhancement. Patent dural venous sinuses. Somewhat prominent drainin g cerebral veins in the right cerebral hemisphere. CTA NECK: Aortic arch and proximal great vessels: Mild arch ectasia. Minimal arch calcification. Normal arch an atomy. Right common carotid, carotid bifurcation, and internal carotid artery: No plaque.There is 0% stenosi s of the proximal right internal carotid artery relative to normal distal artery lumen diameter (NASC ET criteria). Left common carotid, carotid bifurcation, and internal carotid artery: No plaque.There is 0% stenosis of the proximal left internal carotid artery relative to normal distal artery lumen diameter (NASCET criteria). Vertebral arteries: No significant plaque or stenosis. The right vertebral artery is minimally domina nt. Other findings: 2.7 cm heterogeneous left thyroid nodule. 1.2 cm heterogeneous thyroid isthmus nodule . Tree-in-bud opacities in the lungs. Right mastoid fluid. Tortuous draining veins in the posterior n familia soft tissues. Degenerative changes in the cervical spine IMPRESSION: 1. No large vessel occlusion. No significant carotid or vertebral stenosis. 2. Prominent draining veins in the right cerebral hemisphere and posterior neck which may indicate an occult vascular malformation, recommend nonemergent MRI/MRA of the brain for further evaluation. 3. Pulmonary opacities may represent atypical infection or respiratory bronchiolitis. 4. 2.7 cm left thyroid nodule, recommend nonemergent thyroid ultrasound for characterization. Reviewed, dictated and finalized at location K. AGE BATTERY INSPECTOR AND TESTER IMPRESSION: 1. No large vessel occlusion. No significant carotid or vertebral stenosis. 2. Prominent draining veins in the right cerebral hemisphere and posterior neck which may indicate an occult vascular malformation, recommend nonemergent MRI/ MRA of the brain for further evaluation. 3. Pulmonary opacities may represent atypical infection or respiratory bronchio litis. 4. 2.7 cm left thyroid nodule, recommend nonemergent thyroid ultrasound for pelon racterization.
--- NOTE | ~2022-08-03 | CT_ITS ---
EXAMINATION: CT brain wo con DATE: 08/03/2022 22:13 INDICATION: CVA. L arm numbness . TECHNIQUE: Computed tomography (CT) of the head was performed without intravenous contrast. The mA wa s adjusted according to patient size. Iterative reconstruction technique was employed. The dose-lengt h product was 605.33 mGy-cm. COMPARISON: 10/01/2021. FINDINGS: No acute intracranial hemorrhage or extra-axial fluid collection. No hydrocephalus, mass, or herniation. No acute ischemic infarct. Unremarkable dural venous sinus attenuation. No acute osseous abnormality. Left mastoid fluid without erosion, the remaining aerated spaces are clear. Mild atrophy, particularly notable within the frontal lobes, and mild chronic white matter change. At herosclerotic intracranial calcification. Bilateral basal ganglia calcification. Bilateral lens repla cements. IMPRESSION: No acute intracranial process. Results reported telephonically to Dr. Caballero by Dr. Martinez at 10:23 PM on 08/03/2022. Reviewed, dictated and finalized at location K. OR SILVERER IMPRESSION: No acute intracranial process. Results reported telephonically to Dr. Caballero by Dr. Martinez at 10:23 PM on 08/04/19 23.
--- NOTE | 2022-08-03 22:07 | ECG_ITS ---
Measurements Intervals Turner Rate: 60 P: 147 MT: 191 QRS: -29 QRSD: 142 T: 4 QT: 440 QTc: 440 Interpretive Statements ELECTRONIC ATRIAL PACEMAKER RIGHT BUNDLE BRANCH BLOCK BASELINE ARTIFACT- I, II, III, AVR, AVL, AVF ABNORMAL ECG COMPARED TO ECG 09/01/2021 11:29:11 NO SIGNIFICANT CHANGES Electronically Signed On 08-04-2022 6:38:50 ASSISTANT CLINICAL NURSE MANAGER by Glynn Lovelace D.O.
--- NOTE | 2022-08-03 22:25 | ED.NEUROSD ---
HPI - Neuro Symptoms/Deficit General Chief Complaint: Suspected CVA Stated Complaint: cva Time Seen by Provider: 08/03/22 22:06 History of Present Illness HPI Narrative: This is a 61-year-old female presenting ED with stroke-like symptoms. Last known normal was 9:15 p.m. Patient had smoked her nightly marijuana and then 30 minutes later she to act bizarrely and said Do not shoot me! to her family. She then had altered speech and was speaking slowly. When EMS arrived they noticed left-sided facial droop and left arm weakness and numbness. She was then brought to the hospital and activated as a stroke alert. At the time my initial evaluation the facial droop and weakness had resolved but the patient did note decreased sensation over her left arm. Patient denies any other physical complaints at this time. Related Data Home Medications Medication Instructions Recorded Confirmed albuterol sulfate 2.5 mg/3 mL 2.5 mg inhalation Q6H PRN 03/23/19 05/17/22 (0.083 %) solution for nebulization Shortness Of Breath aspirin 81 mg tablet,delayed 81 mg PO DAILY 03/23/19 05/17/22 release (Adult Low Dose Aspirin) lisinopril 5 mg tablet 5 mg PO DAILY 03/23/19 05/17/22 methocarbamol 500 mg tablet 500 mg PO BID 03/23/19 05/17/22 risperidone 0.5 mg tablet 0.5 mg PO BID 03/23/19 05/17/22 sertraline 100 mg tablet 150 mg PO DAILY 03/23/19 05/17/22 venlafaxine 150 mg 150 mg PO DAILY 03/23/19 05/17/22 capsule,extended release 24 hr topiramate 25 mg tablet (Topamax) 50 mg PO BID 03/30/19 05/17/22 oxycodone myristate 9 mg capsule 9 mg PO BID 06/26/21 05/17/22 sprinkle extended release 12 hr(DON'T CRUSH) (Xtampza ER) pantoprazole 40 mg tablet,delayed 40 mg PO DAILY 08/31/21 05/17/22 release primidone 50 mg tablet 100 mg PO BID 08/31/21 05/17/22 semaglutide (weight loss) 1.7 7.7 mg subcut WEEKLY 04/04/22 12/19/22 mg/0.75 mL subcutaneous pen injector ([facility]) Allergies Allergy/AdvReac Type Severity Reaction Status Date / Time adhesive tape Allergy Intermediate Other Verified 07/27/22 17:02 morphine Allergy Mild Itching Verified 07/27/22 17:02 [facility] Past Medical History Medical History Anxiety Asthma Bulging disc Chronic, continuous use of opioids COPD (chronic obstructive pulmonary disease) Depression Diabetes Essential hypertension GERD (gastroesophageal reflux disease) Hyperlipidemia Hypothyroidism (acquired) Lumbar spondylosis Pacemaker Pacemaker battery depletion Pacemaker lead malfunction Pneumonia Scoliosis Surgical History Surgical History H/O abdominoplasty H/O total knee replacement bilateral History of 01/10/78 12/06/80 01/10/82 History of hernia repair 10/28/84 07/28/00 05/30/04 06/30/06 05/30/12 History of laparoscopic adjustable gastric banding (~2009) insertion and removal History of tubal ligation Family History Family History Father Family history of lung cancer Patient's father is Family history of alcoholism Sibling Family history of alcoholism Patient's sister is Mother Family history of Alzheimer's disease Diabetes mellitus Family history of alcoholism Other Family history of coronary artery disease Social History Social History Social History: Smoking status: Never smoker Smoking end date: 05/30/75 Alcohol intake: never Substance use: current Substance use type: marijuana Other substance usage details: medical marijuana Living arrangements: other Additional living arrangements comments: Occupation/Education: unemployed Additional occupation/education comments: disabled Gender identity (if verbalized by the patient): Female Sexual Orientation (if Silver
[2022-08-03 22:29] LABS: Basophils Absolute Auto 0.1 K/mm3 (0.0-0.1); Eosinophils Absolute Auto 0.3 K/mm3 (0-0.3); Hematocrit 35.3 % (37.0-47.0); Hemoglobin 11.4 g/dL (12.0-15.0); Immature Granulocyte Absolute 0.01 K/mm3 (0.00-0.031); Immature Granulocyte Percent A 0.2 % (0-0.5); Lymphocytes Absolute Auto 1.99 K/mm3 (0.9-3.2); Lymphocytes Percent Auto 41.5 % (18.3-44.2); Mean Corpuscular HGB Conc 32.3 g/dl (32-36); Mean Corpuscular Hemoglobin 31.5 pg (26-34); Mean Corpuscular Volume 97.5 fl (80-100); Mean Platelet Volume 11.4 fl (7.4-10.4); Monocytes Absolute Auto 0.5 K/mm3 (0.1-0.6); Monocytes Percent Auto 10.8 % (2.6-8.5); Neutrophils Absolute Auto 1.9 K/mm3 (1.3-6.7); Neutrophils Percent Auto 40.5 % (45.5-73.1); Platelet Count Result 151 k/mm3 (150-375); Red Blood Count 3.62 M/mm3 (4.2-5.4); White Blood Count 4.8 K/mm3 (4.5-10.0)
[2022-08-03 22:46] LABS: Alanine Aminotransferase 23 U/L (6-35); Alkaline Phosphatase 52 U/L (38-126); Anion Gap 3 mmol/L (8-16); Aspartate Amino Transferase 28 U/L (14-36); Bilirubin,Total 0.3 mg/dL (0.2-1.3); Blood Urea Nitrogen 13 mg/dL (7-17); Carbon Dioxide 25 mmol/L (22-30); Chloride 103 mmol/L (98-107); Estimated CRCL calculation 67 ml/min; Estimated Glomerular Filt Rate > 60; Glucose 59 mg/dL (65-110); Potassium 3.8 mmol/L (3.4-5.0); Sodium 131 mmol/L (137-145)
[2022-08-03 22:51] LABS: INR 1.4; Partial Thromboplastin Time 25.7 SECONDS (22.3-36.8); Prothrombin Time 16.5 Seconds (11.1-14.7); Troponin I < 0.012 ng/mL (0.000-0.034)
[2022-08-04] VITALS (15 sets, daily range): BP systolic 100–129; BP diastolic 52–79; PULSE 59–64; RESP 14–20; TEMP 36.6–36.9; O2SAT 97–100; BMI 36.6
--- NOTE | 2022-08-04 00:30 | ECHO_ITS ---
Patient Info Name: Maribeth Bautista Age: 61 years : 1960 Gender: Female Ht: 60 in Wt: 180 lbs BSA: 1.90 m2 HR: 60 bpm BP: 129 / 79 mmHg Heart Rhythm: Sinus Rhythm Technical Quality: Fair Exam Date: 08/04/2022 11:32 AM Exam Location: [facility] Exam Room: 254 Patient Status: Outpatient Admit Date: 08/04/2022 Staff Ordering Physician: Amanda Millan M.A., MD Alt[employer] Chamber Technician: Alisha San RDCS Attending Provider: Amanda Millan M.A., MD Referring Physician: Suhail JAMESON; Exam Type: CA echo doppler color flow Study Info Indications - TIA Complete two-dimensional, color flow and Doppler transthoracic echocardiogram is performed. Summary 1. Complete two-dimensional, color flow and Doppler transthoracic echocardiogram is performed. 2. Left ventricular chamber dimension is normal. 3. Left ventricular systolic function is normal, estimated at 60-65%. 4. The left ventricular diastolic function is grade I diastolic dysfunction. 5. Right ventricular systolic function is normal. 6. Linear artifact in right ventricle suggestive of catheter(s), pacemaker lead(s), or ICD lead(s). 7. Linear artifact in the right atrium suggestive of catheter(s), pacemaker lead(s), or ICD lead(s). 8. There is trace mitral valve regurgitation. 9. There is trace tricuspid valve regurgitation. Left Ventricle Left ventricular chamber dimension is normal. Left ventricular systolic function is normal, estimated at 60-65%. There is no increased left ventricular wall thickness. The left ventricular diastolic function is grade I diastolic dysfunction. Right Ventricle Linear artifact in right ventricle suggestive of catheter(s), pacemaker lead(s), or ICD lead(s). Right ventricular chamber dimension is normal. Right ventricular systolic function is normal. Left Atria Left atrial chamber dimension is normal. Right Atria Linear artifact in the right atrium suggestive of catheter(s), pacemaker lead(s), or ICD lead(s). Right atrial chamber dimension is normal. Atrial Septum Intact interatrial septum visualized by color flow imaging. Aortic Valve The aortic valve is trileaflet. There is mild aortic valve sclerosis. There is no aortic valve stenosis. There is no aortic valve regurgitation. Pulmonic Valve The pulmonic valve is not well visualized. Mitral Valve The mitral valve has normal leaflets. There is no mitral valve stenosis. There is trace mitral valve regurgitation. Tricuspid Valve There is no significant tricuspid valve stenosis. There is trace tricuspid valve regurgitation. Pericardium/Pleural There is no pericardial effusion. Inferior Vena Cava Normal inferior vena cava with >50% collapse upon inspiration consistent with normal right atrial pressure, 3 mmHg. Aorta The aortic root size at the sinus of Valsalva is normal. Left Ventricular Outflow Tract Name Value Normal LVOT 2D LVOT Diameter 2.0 cm LVOT Doppler LVOT Peak Gradient 6 mmHg LVOT Mean Gradient 3 mmHg LVOT VTI 25 cm
--- NOTE | 2022-08-04 00:33 | PM.IMHP ---
H&P: HPI History of Present Illness Date/Time: 08/04/22 00:33 Chief Complaint: 61 years old female with past medical history of asthma diabetes hypertension bradycardia status post pacemaker presented to the hospital with stroke-like symptoms patient was shopping done showed main was brought to the ER per her family was having facial droop slowed speech and left arm numbness and weakness his symptoms completely resolved in the ER CT scan of the head was negative for acute finding neurology was consulted patient was given aspirin statin admitted to the hospital for further evaluation and treatment of acute stroke Review of Systems Review of Systems: Twelve system review was done negative except above PMFSH Past Medical History Medical History Anxiety Asthma Bulging disc Chronic, continuous use of opioids COPD (chronic obstructive pulmonary disease) Depression Diabetes Essential hypertension GERD (gastroesophageal reflux disease) Hyperlipidemia Hypothyroidism (acquired) Lumbar spondylosis Pacemaker Pacemaker battery depletion Pacemaker lead malfunction Pneumonia Scoliosis Surgical History Surgical History H/O abdominoplasty H/O total knee replacement bilateral History of 01/10/78 12/06/80 01/10/82 History of hernia repair 10/28/84 07/28/00 05/30/04 06/30/06 05/30/12 History of laparoscopic adjustable gastric banding (~2009) insertion and removal History of tubal ligation Family History Family History Father Family history of lung cancer Patient's father is Family history of alcoholism Sibling Family history of alcoholism Patient's sister is Mother Family history of Alzheimer's disease Diabetes mellitus Family history of alcoholism Other Family history of coronary artery disease Social History Social History Social History: Smoking status: Never smoker Smoking end date: 05/30/75 Alcohol intake: never Substance use: current Substance use type: marijuana Other substance usage details: medical marijuana Living arrangements: other Additional living arrangements comments: Occupation/Education: unemployed Additional occupation/education comments: disabled Gender identity (if verbalized by the patient): Female Sexual Orientation (if Verbalized by the Patient): Straight or Heterosexual Spiritual care concerns: No Meds Home Medications and Allergies Home Medications Medication Instructions Recorded Confirmed Type albuterol sulfate 2.5 mg/3 mL 2.5 mg inhalation Q6H PRN 03/23/19 05/17/22 History (0.083 %) solution for nebulization Shortness Of Breath aspirin 81 mg tablet,delayed 81 mg PO DAILY 03/23/19 05/17/22 History release (Adult Low Dose Aspirin) lisinopril 5 mg tablet 5 mg PO DAILY 03/23/19 05/17/22 History methocarbamol 500 mg tablet 500 mg PO BID 03/23/19 05/17/22 History risperidone 0.5 mg tablet 0.5 mg PO BID 03/23/19 05/17/22 History sertraline 100 mg tablet 150 mg PO DAILY 03/23/19 05/17/22 History venlafaxine 150 mg 150 mg PO DAILY 03/23/19 05/17/22 History capsule,extended release 24 hr topiramate 25 mg tablet (Topamax) 50 mg PO BID 03/30/19 05/17/22 History pravastatin 40 mg tablet 40 mg PO DAILY #90 tabs 09/23/19 05/17/22 Rx albuterol sulfate 90 mcg/actuation 2 puff inhalation Q4-6H PRN 11/15/19 05/17/22 Rx aerosol inhaler (ProAir HFA) shortness of breath or wheezing #8.5 grams levothyroxine 75 mcg tablet See Rx Instructions .Route 01/14/20 05/17/22 Rx .COMPLEX #90 tabs oxycodone myristate 9 mg capsule 9 mg PO BID 06/26/21 05/17/22 History sprinkle extended release 12 hr(DON'T CRUSH) (Xtampza ER) pantoprazole 40 mg tablet,delayed 40 mg PO
[2022-08-04 01:03] LABS: Appearance Urine Clear (Clear); Bilirubin Urine Negative (Negative); Blood Urine Negative (Negative); Color Urine Yellow (Yellow); Glucose Urine UA 1+ mg/dL (Negative); Ketones Urine Negative (Negative); Leukocyte Esterase Ur Negative LEU/UL (Negative); Nitrate Urine Negative (Negative); Protein Urine Negative (Negative); pH Urine 6.5 (5.0-9.0)
[2022-08-04 01:07] LABS: Add Urine Microscopic? NO; Specific Grav Ur 1.067 (1.001-1.035)
[2022-08-04 02:14] LABS: Glucose Point of Care 91 mg/dl (65-105)
--- NOTE | 2022-08-04 02:19 | ADMGEN ---
This patient, Maribeth Bautista, was admitted to 2 Medical Room 251-01. Patient/family oriented to hospital policies and general routines including ID bracelet, bed and alarms, visiting hours, pain management, procedures, bathroom and other care routines, personal items, smoking policy, room service/diet, and visiting hours. Information on how to activate the Rapid Response Team has been discussed. Patient/Family are encouraged to report perceived risks to care and to ask questions if they do not understand what they are told or what they should do.
[2022-08-04 06:38] LABS: Alanine Aminotransferase 24 U/L (6-35); Albumin Level 3.1 g/dL (3.5-5.1); Alkaline Phosphatase 65 U/L (38-126); Anion Gap 4 mmol/L (8-16); Aspartate Amino Transferase 26 U/L (14-36); Bilirubin,Total 0.3 mg/dL (0.2-1.3); Blood Urea Nitrogen 15 mg/dL (7-17); Calcium 8.5 mg/dL (8.4-10.2); Carbon Dioxide 26 mmol/L (22-30); Chloride 109 mmol/L (98-107); Estimated CRCL calculation 79 ml/min; Estimated Glomerular Filt Rate > 60; Glucose 92 mg/dL (65-110); Potassium 3.8 mmol/L (3.4-5.0); Sodium 139 mmol/L (137-145)
--- NOTE | 2022-08-04 09:02 | PC.NURSE ---
Spoke to Dr Encarnacion regarding 324mg of aspirin ordered in ed at 0024. Should it be given now or give aspirin 81 mg po as ordered for 9am. Give the 81 mg as ordered.
[2022-08-04] MEDS: ATORVASTATIN 40 MG TABLET 80 MG PO (09:57)
[2022-08-04] MEDS: methocarbamoL 500 MG TABLET PO (09:57)
[2022-08-04] MEDS: ASPIRIN 81 MG ENTERIC TABLET PO (09:57)
[2022-08-04] MEDS: FLUTICASONE PROPIONATE 0.05% NA SPR 16 GM BTL (*BKC) 2 SPRAY NASAL (09:57)
[2022-08-04] MEDS: PRAVASTATIN SODIUM 20 MG TABLET 40 MG PO (09:57)
[2022-08-04] MEDS: PANTOPRAZOLE 40 MG TABLET PO (09:57)
[2022-08-04] MEDS: VENLAFAXINE HCL XR 75 MG CAP.ER.24H 150 MG PO (09:58)
[2022-08-04] MEDS: TOPIRAMATE 25 MG TABLET 75 MG PO (09:58)
[2022-08-04] MEDS: PRIMIDONE 50 MG TABLET 150 MG PO (09:58)
[2022-08-04] MEDS: SERTRALINE HCL 50 MG TABLET 200 MG PO (09:58)
[2022-08-04] MEDS: CEPHALEXIN 500 MG CAPSULE PO (12:04)
--- NOTE | 2022-08-04 12:17 | PM.DS ---
DS: Admitting Diagnosis Discharge Date August 04, 2022 Admitting Diagnosis TIA, marijuana intoxication DS: Discharge Diagnosis Discharge Diagnosis (1) Hypothyroidism (acquired): Code(s): E03.9 - Hypothyroidism, unspecified Status: Acute Assessment and Plan: TSH Resume home medication once reconciled (2) Mixed hyperlipidemia: Code(s): E78.2 - Mixed hyperlipidemia Status: Acute Assessment and Plan: Started atorvastatin check lipid panel (3) Moderate asthma: Code(s): J45.909 - Unspecified asthma, uncomplicated Status: Acute Assessment and Plan: Stable resume home medication (4) GERD (gastroesophageal reflux disease): Code(s): K21.9 - Gastro-esophageal reflux disease without esophagitis Status: Acute Assessment and Plan: Pepcid stable (5) Essential hypertension: Code(s): I10 - Essential (primary) hypertension Status: Acute Assessment and Plan: Permissive hypertension goal blood pressure in the next 24 hours less than 180/100 (6) Impaired glucose tolerance (oral): Code(s): R73.02 - Impaired glucose tolerance (oral) Status: Acute Assessment and Plan: Insulin sliding scale (7) Stroke-like symptoms: Code(s): R29.90 - Unspecified symptoms and signs involving the nervous system Status: Acute Assessment and Plan: Review CT scan of the head Discussed with ER physician Neurology eval Echo was ordered Mentation may need MRI of the brain DS: Summary Hospital Course Hospital Course: 61-year-old female came in with altered mental status thought to be related to a TIA however she gives me a different history of smoking marijuana which caused her to be confused. She has no focal deficits today. Workup was unrevealing. Patient can be discharged home. Follow-up with neurology as outpatient. Continue aspirin and statin. Time Spent with Patient Time attestation: Total time spent providing and/or coordinating discharge services: Exam Narrative: GENERAL: Well appearing, well-nourished, non-toxic, in no acute distress. HEAD: Normocephalic, atraumatic. NECK: Supple. No adenopathy, no masses. RESPIRATORY: Airway patent, respirations nonlabored. Clear to auscultation bilaterally, no rales, rhonchi, wheezing. CARDIOVASCULAR: Regular rate and rhythm without murmurs, rubs, or gallops. Peripheral pulses 2+ and equal bilaterally. ABDOMINAL: Soft, nontender, nondistended, no hepatosplenomegaly. Normoactive BS. MUSCULOSKELETAL: Moves all extremities. Strength/ROM intact without gross deformities or TTP. No edema. No calf tenderness. No chest wall tenderness palpation. SKIN: Warm, dry, normal color. No rashes. NEURO: A&O X3. Speech clear. Cranial nerves II-XII grossly intact. Steady gait. No ataxic movements. PSYCHIATRIC: Appropriate mood and affect. Normal interaction. DS: Data Data Completed and Pending Labs on day of discharge: Labs from last 24 hours 08/04/22 08/04/22 08/04/22 05:56 02:11 00:43 WBC RBC Hgb Hct MCV MCH MCHC RDW Plt Count MPV Immature Gran % (Auto) Neut % (Auto) Lymph % (Auto) [place] % (Auto) Eos % (Auto) Baso % (Auto) Lymph # (Auto) [place] # (Auto) Eos # (Auto) Baso # (Auto) Abs Immat Gran (auto) Absolute Neuts (auto) Absolute Nucleated RBC Nucleated RBC % PT INR APTT Sodium 139 Potassium 3.8 Chloride 109 H Carbon Dioxide 26 Anion Gap 4 L BUN 15 Creatinine 0.60 L Estim Creat Clear Calc 79 Estimated GFR > 60 Glucose 92 POC Capillary Glucose 91 Calcium 8.5 Total Bilirubin 0.3 AST 26 ALT 24 Alkaline Phosphatase 65 Troponin I Total Protein 6.0 L Albumin 3.1 L TSH (Reflex) 0.840 Urine Color Urine Appearance Urine pH Ur Specific [place] Urine Protein Urine Glucose (UA) Urine Ketones Ur Blood (Man)
--- NOTE | 2022-08-04 12:20 | WPDNEURCNPN ---
Assessment and Plan Assessment and plan (1) Brain TIA: Code(s): G45.9 - Transient cerebral ischemic attack, unspecified Status: Acute Plan question TIA considering multiple underlying factors surface echocardiogram will be obtained in addition to the MRV to clarify the abnormality noted on CTA of the brain Consult date: 08/04/22 HPI: Maribeth Bautista is a 61 year old femaleAdmitted to the hospital through the emergency room for the possibility of the stroke with information that last known normal was 9:15 p.m. and patient had a smoker nightly marijuana and 30 minutes later she started acting bizarre and started saying do not shoot me her family her speech became altered and she started speaking slowly when the EMS arrived to the scene they noted left-sided facial droop and left upper extremity weakness and she was brought to the hospital with activated stroke alert at the time of initial evaluation in the emergency room had left-sided face was drooping. By the time she was evaluated by the physician the left-sided neuro deficit had resolved. Patient had been taking multiple medication as an outpatient which include aspirin 81 mg daily, lisinopril 5 mg daily, sertraline 150 mg daily, venlafaxine 150 mg daily, topiramate 50 mg b.i.d., primidone 50 mg 2 of them twice a day, and semi grew tied 1.7 mg subcu weekly. She is reportedly allergic to morphine and has gone ongoing history of chronic continuous use of opioids, COPD, diabetes mellitus, hypertension, hyperlipidemia, hypothyroidism, pacemaker, with history of battery depletion in the past and scoliosis, she has never smoked never alcohol intake current substance user, initial NIH stroke scale was 1 vital signs were normal CT of the head documented chronic white matter disease but no epidural or subdural bleed prominence of the veins in the right cerebral hemisphere and posterior neck raising the possibility of occult vascular malformation for which an MRA was recommended by the radiologist on CTA there was 2.75cm left thyroid nodule also EKG was without atrial fibrillation her routine lab work with BUN of 59 and sodium of 131 otherwise normal [facility] Past Medical History Medical History Anxiety Asthma Bulging disc Chronic, continuous use of opioids COPD (chronic obstructive pulmonary disease) Depression Diabetes Essential hypertension GERD (gastroesophageal reflux disease) Hyperlipidemia Hypothyroidism (acquired) Lumbar spondylosis Pacemaker Pacemaker battery depletion Pacemaker lead malfunction Pneumonia Scoliosis Surgical History Surgical History H/O abdominoplasty H/O total knee replacement bilateral History of 01/10/78 12/06/80 01/10/82 History of hernia repair 10/28/84 07/28/00 05/30/04 06/30/06 05/30/12 History of laparoscopic adjustable gastric banding (~2009) insertion and removal History of tubal ligation Family History Family History Father Family history of lung cancer Patient's father is Family history of alcoholism Sibling Family history of alcoholism Patient's sister is Mother Family history of Alzheimer's disease Diabetes mellitus Family history of alcoholism Other Family history of coronary artery disease Social History Social History Social History: Smoking status: Former smoker Tobacco type: cigarettes Second hand tobacco smoke exposure: Yes Smoking end date: 05/30/75 Alcohol intake: never Substance use: current Substance use type: marijuana Other substance usage details: medical marijuana Lack of Transportation: No Lack of Food: Never True Current Housing: I Have Housing Concerned About Future Housing: No Difficulty Paying Gas/Electric Bi
== END 2022-08-04 14:46 | disposition home or self-care (01) ==
LOC: ANHED 08-04 00:40 → ANH2MED 08-04 12:17
PROVIDERS: Admitting Provider Internal Medicine; Emergency Provider Emergency Medicine; PCP Nurse Practitioner Family; Visit Provider Chiropractor
DX: E03.9 Hypothyroidism, unspecified (principal); E78.2 Mixed hyperlipidemia; J45.909 Unspecified asthma, uncomplicated; K21.9 Gastro-esophageal reflux disease without esophagitis; I11.9 Hypertensive heart disease without heart failure; R29.90 Unspecified symptoms and signs involving the nervous system; R47.89 Other speech disturbances; R53.1 Weakness; R06.02 Shortness of breath; F41.9 Anxiety disorder, unspecified; R00.1 Bradycardia, unspecified; F32.A Depression, unspecified; R94.02 Abnormal brain scan; E11.9 Type 2 diabetes mellitus without complications; F12.90 Cannabis use, unspecified, uncomplicated; Z95.0 Presence of cardiac pacemaker; Z79.82 Long term (current) use of aspirin; Z79.51 Long term (current) use of inhaled steroids; Z79.891 Long term (current) use of opiate analgesic; Z79.899 Other long term (current) drug therapy; Z83.3 Family history of diabetes mellitus
CPT/HCPCS: 36415; 70450; 70496; 70498; 71045; 80053; 81003; 82948; 84443; 84484; 85025; 85610; 85730; 93005; 93306; 97161; 97165; 99285; A9270; G0378; Q9967

== ENCOUNTER → 2023-03-17 14:30 | Outpatient (CLI) | payer BC, SELFPAY ==
--- NOTE | ~2023-03-17 | XR_ITS ---
EXAMINATION: XR hip RT min 2V DATE: 03/17/2023 14:43 INDICATION: Right hip pain TECHNIQUE: Two views of right hip were obtained. COMPARISON: 07/24/2010 FINDINGS: Bone alignment is normal. There is no fracture. There is mild osteoarthritis of the hip. Ph leboliths are noted in the pelvis. IMPRESSION: 1. Osteoarthritis without acute osseous abnormality. Reviewed, dictated and finalized at location F.
== END ==
PROVIDERS: PCP Nurse Practitioner Family; Visit Provider Nurse Practitioner Family
DX: M16.11 Unilateral primary osteoarthritis, right hip (principal); M25.551 Pain in right hip
CPT/HCPCS: 73502

== ENCOUNTER 2023-04-05 07:59 | Outpatient (CLI) | payer BC, SELFPAY ==
[2023-04-05 09:12] LABS: Basophils Percent Auto 0.8 % (0.2-1.2); Eosinophils Absolute Auto 0.3 K/mm3 (0-0.3); Eosinophils Percent Auto 5.7 % (0-4.4); Hematocrit 45.9 % (37.0-47.0); Hemoglobin 14.4 g/dL (12.0-15.0); Lymphocytes Absolute Auto 2.14 K/mm3 (0.9-3.2); Lymphocytes Percent Auto 40.9 % (18.3-44.2); Mean Corpuscular HGB Conc 31.4 g/dl (32-36); Mean Corpuscular Hemoglobin 30.6 pg (26-34); Mean Corpuscular Volume 97.7 fl (80-100); Mean Platelet Volume 11.1 fl (7.4-10.4); Monocytes Absolute Auto 0.5 K/mm3 (0.1-0.6); Monocytes Percent Auto 9.6 % (2.6-8.5); Neutrophils Absolute Auto 2.3 K/mm3 (1.3-6.7); Platelet Count Result 171 k/mm3 (150-375); Red Cell Distribution Width 12.8 % (11.5-14.5); White Blood Count 5.2 K/mm3 (4.5-10.0)
[2023-04-05 09:16] LABS: Appearance Urine Cloudy (Clear); Bacteria Urine 4+ /hpf; Bilirubin Urine Negative (Negative); Blood Urine Negative (Negative); Color Urine Yellow (Yellow); Glucose Urine UA 2+ mg/dL (Negative); Ketones Urine Negative (Negative); Leukocyte Esterase Ur 2+ LEU/UL (Negative); Nitrate Urine Positive (Negative); Non Pathogenic Casts 0-2; Protein Urine Negative (Negative); RBC Urine 0-2 /hpf (0-2); Specific Grav Ur 1.012 (1.001-1.035); Squamous Epithelial Cell Urine None seen /hpf (Few); WBC Urine 51-100 /hpf; pH Urine 6.5 (5.0-9.0)
[2023-04-05 09:26] LABS: Add Urine Microscopic? YES
[2023-04-05 09:59] LABS: Vitamin D 25 Hydroxy 68.4 ng/mL
[2023-04-05 10:14] LABS: Alanine Aminotransferase 30 U/L (6-35); Albumin Level 3.2 g/dL (3.5-5.1); Alkaline Phosphatase 56 U/L (38-126); Anion Gap 3 mmol/L (8-16); Aspartate Amino Transferase 33 U/L (14-36); Bilirubin,Total 0.5 mg/dL (0.2-1.3); Blood Urea Nitrogen 11 mg/dL (7-17); Calcium 8.7 mg/dL (8.4-10.2); Carbon Dioxide 28 mmol/L (22-30); Chloride 109 mmol/L (98-107); Cholesterol 144 mg/dL (0-200); Creatine Kinase 82 U/L (30-135); Estimated Glomerular Filt Rate > 60; Glucose 79 mg/dL (65-110); HDL Direct 52 mg/dL; Magnesium 2.1 mg/dL (1.6-2.3); Potassium 3.9 mmol/L (3.4-5.0); Sodium 140 mmol/L (137-145); Triglycerides 82 mg/dL (<150); Uric Acid 3.9 mg/dL (2.5-7.5)
[2023-04-05 10:27] LABS: LDL Cholesterol Direct 72 mg/dL
[2023-04-05 11:23] LABS: Folic Acid > 20.0 ng/mL (2.76->20); Vitamin B12 > 1000.0 pg/mL (239-931)
[2023-04-05 11:54] LABS: Microalbumin Urine Random < 6.0 mg/L (0-16.7)
[2023-04-05 11:55] LABS: MALB Creatinine Ratio < 8.5 mg/g (0-30)
== END 2023-04-05 08:00 | disposition home or self-care (01) ==
PROVIDERS: PCP Nurse Practitioner Family; Visit Provider Nurse Practitioner Family
DX: E78.2 Mixed hyperlipidemia (principal); E53.8 Deficiency of other specified B group vitamins; I10 Essential (primary) hypertension; E03.9 Hypothyroidism, unspecified
CPT/HCPCS: 36415; 80053; 80061; 81001; 82043; 82306; 82550; 82607; 82746; 83735; 84443; 84550; 85025; 87077; 87086; 87186

== ENCOUNTER 2023-10-06 13:20 | Inpatient (IN) | payer BC, MEDICARE, SELFPAY ==
--- NOTE | ~2023-10-06 | CT_ITS ---
EXAMINATION: CT abdomen pelvis w con DATE: 10/06/2023 17:08 INDICATION: Left pelvis cellulitis. TECHNIQUE: Computed tomography (CT) of the abdomen and pelvis was performed with 100 mL Omnipaque 350 intravenous contrast. Automated exposure control and iterative reconstruction technique were employe d. The dose-length product was 1257.85 mGy-cm. COMPARISON: CT abdomen and pelvis 11/20/2021 FINDINGS: The visualized portions of the lung bases demonstrate mild atelectasis. No pleural effusion . The heart size is normal. There are pacer wires in right atrium and right ventricle. No pericardial effusion. The liver is normal. There are changes of cholecystectomy. The spleen, pancreas, and adren al glands are normal. There is cortical thinning of the kidneys. There are no dilated loops of bowel. The appendix is normal. There are no pathologically enlarged lymph nodes. There is no free intraperi toneal fluid. There is subcutaneous fat stranding in left buttock. There is mild thoracic and lumbar spondylosis. IMPRESSION: 1. Subcutaneous fat stranding in left buttock, consistent with cellulitis. No abscess. Reviewed, dictated and finalized at location A. IMPRESSION: 1. Subcutaneous fat stranding in left buttock, consistent with cellulitis. No a bscess.
[2023-10-06 13:38] VITALS: BP 147/92; PULSE 62; RESP 14; O2SAT 99
--- NOTE | 2023-10-06 15:20 | ED.GENADULT ---
HPI - General Adult General Chief complaint: Skin/Abscess/Foreign Body <Demi Jauregui, ROOM SERVICE MANAGER - Last Filed: 10/06/23 21:01> Stated complaint: cellulitis <Demi Jauregui, ROOM SERVICE MANAGER - Last Filed: 10/06/23 21:01> Time Seen by Provider: 10/06/23 15:20 <Demi Jauregui, ROOM SERVICE MANAGER - Last Filed: 10/06/23 21:01> Focused HPI: Maribeth Bautista is a 63 y/o female with reports of having left buttock hip pain with a fever that started Tuesday 4 days ago, she went to an on Tuesday and was told she had cellulitis and started on antibiotics. She has been taking the antibiotics Bactrim but she feels that the area looks worse. Area to left buttock/ hip + erythema/ ecchymosis - possible signs of shingles near the hip? No trauma/falls GENERAL: Well-appearing, well-nourished, and in no acute distress. HEAD: Normocephalic, atraumatic. CHEST: Clear to auscultation. ?No respiratory distress. HEART: Regular rate and rhythm.? NEURO: ?Alert and oriented x3. Patient screened in triage and initial orders placed.? ?Additional care and disposition to be based upon?diagnostic testing and treatment. <Demi Jauregui, ROOM SERVICE MANAGER - Last Filed: 10/06/23 21:01> History of Present Illness HPI narrative: As per MSE <Akbar Valdes III DO - Last Filed: 10/06/23 22:17> Related Data Home medications: Home Medications Medication Instructions Recorded Confirmed aspirin 81 mg tablet,delayed 81 mg PO DAILY 03/23/19 10/06/23 release (Adult Low Dose Aspirin) methocarbamol 500 mg tablet 500 mg PO BID 03/23/19 10/06/23 sertraline 100 mg tablet 200 mg PO DAILY 03/23/19 10/06/23 venlafaxine 150 mg 150 mg PO DAILY 03/23/19 10/06/23 capsule,extended release 24 hr topiramate 25 mg tablet (Topamax) 75 mg PO BID 03/30/19 10/06/23 oxycodone myristate 9 mg capsule 9 mg PO BID 06/26/21 10/06/23 sprinkle extended release 12 hr(DON'T CRUSH) (Xtampza ER) primidone 50 mg tablet 150 mg PO BID 08/31/21 10/06/23 semaglutide (weight loss) 1.7 7.7 mg subcut WEEKLY 08/31/21 10/06/23 mg/0.75 mL subcutaneous pen injector (Wegovy) aripiprazole 5 mg tablet 5 mg PO HS 08/04/22 10/06/23 empagliflozin 10 mg tablet 10 mg PO DAILY 08/04/22 10/06/23 (Jardiance) fluticasone propionate 50 2 spray intranasal DAILY 08/04/22 10/06/23 mcg/actuation nasal spray,suspension levothyroxine 75 mcg tablet 75 mcg PO DAILY 08/04/22 10/06/23 naloxegol 25 mg tablet (Movantik) 25 mg PO DAILY 08/04/22 10/06/23 pantoprazole 40 mg tablet,delayed 40 mg PO DAILY 08/04/22 10/06/23 release <Demi Jauregui, ROOM SERVICE MANAGER - Last Filed: 10/06/23 21:01> Allergies/adverse reactions: Allergies Allergy/AdvReac Type Severity Reaction Status Date / Time adhesive tape Allergy Intermediate Other Verified 07/27/22 17:02 morphine Allergy Mild Itching Verified 07/27/22 17:02 <Demi Jauregui, ROOM SERVICE MANAGER - Last Filed: 10/06/23 21:01> Review of Systems Review of Systems: All systems reviewed & are unremarkable except as noted in HPI and below <Akbar Valdes III, DO - Last Filed: 10/06/23 22:17> [facility] Past Medical History Medical History: Medical History Anxiety Asthma Bulging disc Chronic, continuous use of opioids COPD (chronic obstructive pulmonary disease) Depression Diabetes Essential hypertension GERD (gastroesophageal reflux disease) Hyperlipidemia Hypothyroidism (acquired) Lumbar spondylosis Pacemaker Pacemaker battery depletion Pacemaker lead malfunction Pneumonia Scoliosis <Demi Jauregui, ROOM SERVICE MANAGER - Last Filed: 10/06/23 21:01> Surgical History Surgical History: Surgical History H/O abdominoplasty H/O total knee replacement bilateral History of 01/10/78 12/06/80 01/10/82 History of hernia repair 10/28/84 07/28/00 05/30/04 06/30/06 05/30/12 History of laparoscopic adjustable gastric banding (~2009) insertion and removal History of tubal ligation
[2023-10-06 15:38] VITALS: BP 125/73; PULSE 63; RESP 15; O2SAT 99
[2023-10-06 15:45] LABS: Basophils Percent Auto 0.4 % (0.2-1.2); Eosinophils Percent Auto 0.8 % (0-4.4); Hematocrit 43.1 % (37.0-47.0); Hemoglobin 14.5 g/dL (12.0-15.0); Immature Granulocyte Absolute 0.02 K/mm3 (0.00-0.031); Immature Granulocyte Percent A 0.4 % (0-0.5); Lymphocytes Absolute Auto 1.06 K/mm3 (0.9-3.2); Lymphocytes Percent Auto 22.1 % (18.3-44.2); Mean Corpuscular HGB Conc 33.6 g/dl (32-36); Mean Corpuscular Hemoglobin 31.8 pg (26-34); Mean Corpuscular Volume 94.5 fl (80-100); Mean Platelet Volume 11.1 fl (7.4-10.4); Monocytes Absolute Auto 0.4 K/mm3 (0.1-0.6); Monocytes Percent Auto 8.5 % (2.6-8.5); Neutrophils Absolute Auto 3.3 K/mm3 (1.3-6.7); Neutrophils Percent Auto 67.8 % (45.5-73.1); Platelet Count Result 176 k/mm3 (150-375); Red Blood Count 4.56 M/mm3 (4.2-5.4); Red Cell Distribution Width 12.9 % (11.5-14.5); White Blood Count 4.8 K/mm3 (4.5-10.0)
[2023-10-06 15:56] LABS: Alanine Aminotransferase 31 U/L (6-35); Alkaline Phosphatase 67 U/L (38-126); Anion Gap 8 mmol/L (4-12); Aspartate Amino Transferase 37 U/L (14-36); Bilirubin,Total 0.5 mg/dL (0.2-1.3); Blood Urea Nitrogen 8 mg/dL (7-17); Calcium 9.2 mg/dL (8.4-10.2); Carbon Dioxide 23 mmol/L (22-30); Chloride 108 mmol/L (98-107); Estimated CRCL calculation 84 ml/min; Estimated Glomerular Filt Rate > 60; Glucose 103 mg/dL (65-110); Potassium 3.7 mmol/L (3.4-5.0); Sodium 139 mmol/L (137-145)
[2023-10-06 15:57] LABS: INR 1.1; Prothrombin Time 14.7 Seconds (11.1-14.7)
[2023-10-06 15:58] LABS: Partial Thromboplastin Time 25.8 Seconds (22.3-36.8)
[2023-10-06] MEDS: fentaNYL CITRATE INJ (*CRX) 100 MCG/2 ML VIAL 25 MCG IV PUSH (17:06)
[2023-10-06 18:26] VITALS: BP 124/77; PULSE 59; RESP 16; O2SAT 100
[2023-10-06] MEDS: VANCOMYCIN 1,250 MG/NS 250 ML 1,250 MG/250 ML BAG 166.67 MG IVPB ×2 (18:28→20:15)
[2023-10-06 19:03] VITALS: BP 126/60; PULSE 60; RESP 16; TEMP 36.4; O2SAT 100
[2023-10-06 20:00] VITALS: O2SAT 100
--- NOTE | 2023-10-06 20:34 | PM.IMHP ---
H&P: HPI History of Present Illness Date/Time: 10/06/23 20:34 Chief Complaint: tenderness left buttock Narrative: This is a 63-year-old female with past medical history significant for obesity, type diabetes mellitus, hypothyroidism, COPD, GERD, hypertension, asthma, pacemaker in situs, gastric lap band. patient presents to the emergency room due to 1 week of left buttock redness, swelling, tenderness, warmth had been to the urgent care which she was prescribed p.o. antibiotics but did not resolve got worse. Patient denies any fevers, rigors, chills, nausea, vomiting, diarrhea, abdominal pain, generalized malaise, body aches or pains. CT of abdomen and pelvis was significant for subcutaneous fat stranding of the left buttock. patient has been admitted for further evaluation management and treatment. EXAMINATION: CT abdomen pelvis w con DATE: 10/06/2023 17:08 INDICATION: Left pelvis cellulitis. TECHNIQUE: Computed tomography (CT) of the abdomen and pelvis was performed with 100 mL Omnipaque 350 intravenous contrast. Automated exposure control and iterative reconstruction technique were employed. The dose-length product was 1257.85 mGy-cm. COMPARISON: CT abdomen and pelvis 11/20/2021 FINDINGS: The visualized portions of the lung bases demonstrate mild atelectasis. No pleural effusion. The heart size is normal. There are pacer wires in right atrium and right ventricle. No pericardial effusion. The liver is normal. There are changes of cholecystectomy. The spleen, pancreas, and adrenal glands are normal. There is cortical thinning of the kidneys. There are no dilated loops of bowel. The appendix is normal. There are no pathologically enlarged lymph nodes. There is no free intraperitoneal fluid. There is subcutaneous fat stranding in left buttock. There is mild thoracic and lumbar spondylosis. IMPRESSION: 1. Subcutaneous fat stranding in left buttock, consistent with cellulitis. No abscess. Review of Systems Review of Systems: left buttock tenderness, redness, warmth for 1 week duration Constitutional: Constitutional: Denies chills, Denies fever(s), Denies malaise, Denies night sweats, Denies poor appetite and Denies weakness Eyes: Eyes: Denies change in vision ENT: Denies dysphagia and Denies odynophagia Cardiovascular: Cardiovascular: Denies chest pain, Denies radiating jaw, neck or arm pain and Denies palpitations Respiratory: Respiratory: Denies chest congestion and Denies cough Gastrointestinal: Gastrointestinal: Denies abdominal pain, Denies diarrhea, Denies nausea and Denies vomiting Genitourinary: Genitourinary: Denies dysuria Musculoskeletal: Musculoskeletal: Denies myalgias Integumentary/Breasts: Skin/Breast: Reports swelling, Reports erythema, Reports rash, Reports skin pain and Reports skin swelling Neurologic: Denies focal weakness and Denies Sensory deficit (Neuro) Psychiatric: Psychiatric: Reports no additional psychiatric complaints and Reports as per HPI Endocrine: Endocrine: Denies cold intolerance, Denies fatigue, Denies flushing, Denies heat intolerance, Denies polyphagia, Denies polydipsia, Denies polyuria and Denies palpitations Hematologic/Lymphatic: Hematologic/Lymphatic: Reports no additional hematologic/lymphatic complaints and Reports as per HPI Allergic/Immunologic: Allergic/Immunologic: Reports no additional allergic/immunologic complaints and Reports as per HPI PMFSH Past Medical History Medical History (Updated 10/07/23 @ 01:37 by Uche Gagnon MD) Anxiety Asthma Bulging disc Chronic, continuous use of opioids COPD (chronic obstructive pulmonary disease) Depression Diabetes Essential hypertension GERD (gastroesophageal reflux disease) Hyperlipidemia Hypothyroidism (acquired) Lumbar spondylosis Pacemaker Pacemaker battery depletion Pacemaker lead malfunction Pneumonia Scoliosis Surgical History Surgical History H/O abd
[2023-10-06 22:00] VITALS: BP 120/68; PULSE 62; RESP 18; TEMP 36.8; O2SAT 100
[2023-10-06] MEDS: traMADol HCL (*CRX) 50 MG TABLET PO (22:41)
[2023-10-07] MEDS: LEVOTHYROXINE SODIUM 75 MCG TABLET PO (05:24)
[2023-10-07] MEDS: VANCOMYCIN 1,500 MG/NS 500 ML 1,500 MG/500 ML BAG 250 MG IVPB ×2 (05:24→18:03)
[2023-10-07 06:00] VITALS: BP 115/71; PULSE 60; RESP 18; TEMP 36.5; O2SAT 97
[2023-10-07 06:16] LABS: Estimated CRCL calculation 84 ml/min; Estimated Glomerular Filt Rate > 60
[2023-10-07 08:03] LABS: Hematocrit 37.8 % (37.0-47.0); Hemoglobin 12.3 g/dL (12.0-15.0); Mean Corpuscular HGB Conc 32.5 g/dl (32-36); Mean Corpuscular Hemoglobin 31.2 pg (26-34); Mean Corpuscular Volume 95.9 fl (80-100); Mean Platelet Volume 11.8 fl (7.4-10.4); Platelet Count Result 154 k/mm3 (150-375); Red Blood Count 3.94 M/mm3 (4.2-5.4); Red Cell Distribution Width 12.9 % (11.5-14.5); White Blood Count 4.2 K/mm3 (4.5-10.0)
[2023-10-07 08:06] LABS: Anion Gap 4 mmol/L (4-12); Blood Urea Nitrogen 7 mg/dL (7-17); Calcium 8.8 mg/dL (8.4-10.2); Carbon Dioxide 23 mmol/L (22-30); Chloride 112 mmol/L (98-107); Estimated CRCL calculation 84 ml/min; Estimated Glomerular Filt Rate > 60; Glucose 80 mg/dL (65-110); Potassium 4.1 mmol/L (3.4-5.0); Sodium 139 mmol/L (137-145)
[2023-10-07] MEDS: SERTRALINE HCL 50 MG TABLET 200 MG PO (08:09)
[2023-10-07] MEDS: VENLAFAXINE HCL XR 75 MG CAP.ER.24H 150 MG PO (08:09)
[2023-10-07] MEDS: PRIMIDONE 50 MG TABLET 150 MG PO ×2 (08:09→20:55)
[2023-10-07] MEDS: PRAVASTATIN SODIUM 20 MG TABLET 40 MG PO (08:09)
[2023-10-07] MEDS: methocarbamoL 500 MG TABLET PO ×2 (08:10→16:11)
[2023-10-07] MEDS: ASPIRIN 81 MG ENTERIC TABLET PO (08:10)
[2023-10-07] MEDS: PANTOPRAZOLE 40 MG TABLET PO (08:10)
[2023-10-07] MEDS: FLUTICASONE PROPIONATE 0.05% NA SPR 16 GM BTL (*BKC) 2 SPRAY NASAL (09:33)
[2023-10-07] MEDS: TOPIRAMATE 25 MG TABLET 75 MG PO ×2 (09:34→20:55)
--- NOTE | 2023-10-07 13:51 | PM.IMPN ---
Progress Note: A&P Assessment and Plan (1) Cellulitis: Code(s): L03.90 - Cellulitis, unspecified Status: Acute Assessment and Plan: CT abdomen pelvis showing subcutaneous fat stranding in the left buttock consistent with cellulitis. Patient started on vancomycin and Rocephin on 10/06 Blood cultures pending. Analgesics p.r.n.. (2) Hypothyroidism (acquired): Code(s): E03.9 - Hypothyroidism, unspecified Status: Acute Assessment and Plan: Continue home med (3) Moderate asthma: Code(s): J45.909 - Unspecified asthma, uncomplicated Status: Acute Assessment and Plan: not actively wheezing continue home meds (4) Recurrent major depressive disorder in partial remission: Code(s): F33.41 - Major depressive disorder, recurrent, in partial remission Status: Acute Assessment and Plan: continue home med follow-up in outpatient setting (5) GERD (gastroesophageal reflux disease): Code(s): K21.9 - Gastro-esophageal reflux disease without esophagitis Status: Acute Assessment and Plan: PPI (6) Essential hypertension: Code(s): I10 - Essential (primary) hypertension Status: Acute Assessment and Plan: continue home meds (7) Pacemaker: Code(s): Z95.0 - Presence of cardiac pacemaker Status: Acute Assessment and Plan: continue to monitor Subjective Date/time seen: 10/07/23 13:51 Interval history: Patient is resting pleasantly in bed. She is having discomfort in her buttock. Upon visualizing patient's buttock there was no signs of abscess, induration, fluctuance or drainage. Patient states that she did have body aches and chills while she was at home but it is did not check a temperature. She denies history of cellulitis. There is no trauma to the site of infection Exam Narrative: GENERAL: Comfortable, no acute distress , obesity HENMT: moist mucous membranes EYES: EOM intact b/l NECK: no lymphadenopathy RESPIRATORY: clear to auscultation, no increased respiratory effort CARDIO: Regular rate and rhythm GI: soft, nontender, bowel sounds present SKIN/EXTREMITIES: left buttock erythema, light pink in nature. no signs of fluctuance, induration, or drainage. NEURO: PROM intact, answers questions appropriately, A&O x4 Objective Data Vital Signs Vital Signs: Vital Signs - 24 hr 10/06/23 15:38 05/09/24 18:26 10/06/23 19:03 Temperature 97.5 F L Pulse Rate 63 59 L 60 Respiratory Rate 15 16 16 Blood Pressure 125/73 124/77 126/60 Pulse Oximetry 99 100 100 Oxygen Delivery 10/06/23 22:00 10/06/23 20:00 10/07/23 06:00 Temperature 98.2 F 97.7 F Pulse Rate 62 60 Respiratory Rate 18 18 Blood Pressure 120/68 115/71 Pulse Oximetry 100 100 97 Oxygen Delivery Room Air 10/07/23 08:00 Temperature Pulse Rate Respiratory Rate Blood Pressure Pulse Oximetry Oxygen Delivery Room Air Intake/Output Intake/Output: Intake & Output 10/04/23 10/05/23 10/06/23 10/07/23 23:59 23:59 23:59 23:59 Intake Total 368 Output Total 600 Balance -232 Meds/Results Medications: Active Medications Generic Name Dose Route Start Last Admin Trade Name Freq PRN Reason Stop Dose Admin Albuterol 2 puff 10/07/23 01:33 Albuterol Sulfate (*Sp) Aerosol 1 Puff INHALATION Q4-6H PRN shortness of breath or wheezing Aripiprazole 5 mg 10/07/23 21:00 Aripiprazole 5 Mg Tablet PO HS CALI Aspirin 81 mg 10/07/23 09:00 10/07/23 08:10 Aspirin 81 Mg Enteric Tablet PO 81 mg DAILY CALI Administration Fluticasone Propionate 2 spray 10/07/23 09:00 10/07/23 09:33 Fluticasone Propionate 0.05% Na Spr 16 Gm Btl (*Bkc) NASAL 2 spray DAILY CALI Administration Vancomycin HCl 1,500 mg in 500 mls @ 250 mls/hr 10/07/23 06:00 10/07/23 05:24 Vancomycin 1,500 Mg/Ns 500 Ml IVPB 250 mls/hr Q12H CALI Administration Levothy
[2023-10-07 14:00] VITALS: BP 120/68; PULSE 58; RESP 16; TEMP 36.3; O2SAT 98
--- NOTE | 2023-10-07 15:00 | PHAR ---
RX [id number] IDNETIFIED TO CONTAIN DRUG NAME: XTAMPZA ER INGREDIENTS: OXYCODONE -- 13.5 MG COLOR: ORANGE , WHITE SHAPE: CAPSULE-SHAPE IMPRINT: XTAMPZA ER; 13.5 MG ROUTE: ORAL ROUTE FORM: CAPSULE, EXTENDED RELEASE RX [id number] IDENTIFIED TO CONTAIN DRUG NAME: MOVANTIManjinder INGREDIENTS: NALOXEGOL -- 25 MG COLOR: PINK SHAPE: OVAL IMPRINT: NGL ; 25 IMPRINT CODE DESCRIPTION: INTAGLIATED WITH NGL ON ONE SIDE AND 25 ON THE OTHER SIDE. FORM: ORAL TABLET
[2023-10-07] MEDS: ARIPiprazole 5 MG TABLET PO (20:55)
[2023-10-07 21:33] VITALS: BP 116/64; PULSE 59; RESP 13; TEMP 36.3; O2SAT 97
[2023-10-08 05:32] VITALS: BP 114/59; PULSE 59; RESP 12; TEMP 36.2; O2SAT 99
[2023-10-08 05:51] LABS: Hematocrit 38.3 % (37.0-47.0); Hemoglobin 12.4 g/dL (12.0-15.0); Mean Corpuscular HGB Conc 32.4 g/dl (32-36); Mean Corpuscular Volume 95.8 fl (80-100); Mean Platelet Volume 10.8 fl (7.4-10.4); Platelet Count Result 176 k/mm3 (150-375); Red Cell Distribution Width 12.9 % (11.5-14.5); White Blood Count 4.1 K/mm3 (4.5-10.0)
[2023-10-08 06:05] LABS: Anion Gap 4 mmol/L (4-12); Blood Urea Nitrogen 8 mg/dL (7-17); Calcium 8.8 mg/dL (8.4-10.2); Carbon Dioxide 22 mmol/L (22-30); Chloride 113 mmol/L (98-107); Estimated CRCL calculation 99 ml/min; Estimated Glomerular Filt Rate > 60; Glucose 89 mg/dL (65-110); Potassium 3.5 mmol/L (3.4-5.0); Sodium 139 mmol/L (137-145)
[2023-10-08 06:10] LABS: Vancomycin Trough 17.7 ug/mL (10.0-20.0)
[2023-10-08] MEDS: VANCOMYCIN 1,500 MG/NS 500 ML 1,500 MG/500 ML BAG 250 MG IVPB (06:42)
[2023-10-08] MEDS: LEVOTHYROXINE SODIUM 75 MCG TABLET PO (06:43)
[2023-10-08] MEDS: ASPIRIN 81 MG ENTERIC TABLET PO (09:22)
[2023-10-08] MEDS: methocarbamoL 500 MG TABLET PO (09:22)
[2023-10-08] MEDS: VENLAFAXINE HCL XR 75 MG CAP.ER.24H 150 MG PO (09:22)
[2023-10-08] MEDS: TOPIRAMATE 25 MG TABLET 75 MG PO (09:22)
[2023-10-08] MEDS: PRAVASTATIN SODIUM 20 MG TABLET 40 MG PO (09:22)
[2023-10-08] MEDS: PRIMIDONE 50 MG TABLET 150 MG PO (09:22)
[2023-10-08] MEDS: PANTOPRAZOLE 40 MG TABLET PO (09:22)
[2023-10-08] MEDS: SERTRALINE HCL 50 MG TABLET 200 MG PO (09:22)
[2023-10-08] MEDS: FLUTICASONE PROPIONATE 0.05% NA SPR 16 GM BTL (*BKC) 2 SPRAY NASAL (09:23)
[2023-10-08] MEDS: ACETAMINOPHEN 325 MG TABLET 650 MG PO (09:23)
--- NOTE | 2023-10-08 13:49 | PM.DS ---
DS: Admitting Diagnosis Discharge Date 10/08/23 Admitting Diagnosis Cellulitis DS: Discharge Diagnosis Discharge Diagnosis (1) Cellulitis: Code(s): L03.90 - Cellulitis, unspecified Status: Acute (2) Hypothyroidism (acquired): Code(s): E03.9 - Hypothyroidism, unspecified Status: Acute (3) Moderate asthma: Code(s): J45.909 - Unspecified asthma, uncomplicated Status: Acute (4) Recurrent major depressive disorder in partial remission: Code(s): F33.41 - Major depressive disorder, recurrent, in partial remission Status: Acute (5) GERD (gastroesophageal reflux disease): Code(s): K21.9 - Gastro-esophageal reflux disease without esophagitis Status: Acute (6) Essential hypertension: Code(s): I10 - Essential (primary) hypertension Status: Acute (7) Pacemaker: Code(s): Z95.0 - Presence of cardiac pacemaker Status: Acute DS: Summary Hospital Course Hospital Course: this is a 63-year-old female with past medical history of diabetes, obesity, hypothyroidism, COPD, GERD, hypertension, asthma, pacemaker in situs, gastric lap band the presents to the ED on 10/06/2023 due to left buttock redness swelling and tenderness. Patient had been prescribed p.o. antibiotics an urgent care but swelling did not resolve. CT abdomen pelvis showed subcutaneous fat stranding of the left buttock. She was admitted started on vancomycin. Patient improved during hospital stay. Blood cultures negative times 48 hours. Patient transition to doxycycline for total antibiotic therapy of 10 days. Her labs and vital signs are stable and she is medically clear for discharge is this time Time Spent with Patient Time attestation: Total time spent providing and/or coordinating discharge services: Exam Narrative: GENERAL: Comfortable, no acute distress , obesity HENMT: moist mucous membranes EYES: EOM intact b/l NECK: no lymphadenopathy RESPIRATORY: clear to auscultation, no increased respiratory effort CARDIO: Regular rate and rhythm GI: soft, nontender, bowel sounds present SKIN/EXTREMITIES: left buttock light pink coloring. Difficult to differentiate between cellulitis or pink tint due to pressure of sitting on her bottom. no signs of fluctuance, induration, or drainage. NEURO: PROM intact, answers questions appropriately, A&O x4 DS: Data Data Completed and Pending Labs on day of discharge: Labs from last 24 hours 10/08/23 05:41 WBC 4.1 L RBC 4.00 L Hgb 12.4 Hct 38.3 MCV 95.8 MCH 31.0 MCHC 32.4 RDW 12.9 Plt Count 176 MPV 10.8 H Sodium 139 Potassium 3.5 Chloride 113 H Carbon Dioxide 22 Anion Gap 4 BUN 8 Creatinine 0.50 L Estim Creat Clear Calc 99 Estimated GFR > 60 Glucose 89 Calcium 8.8 Vancomycin Trough 17.7 Preliminary micro results at discharge 10/06/23 18:29 Blood Culture - Preliminary Blood 10/06/23 18:29 Blood Culture - Preliminary Blood Discharge Plan Discharge Consulting providers: Demi Jauregui Discharging Clinician: Jyothi Small Patient Disposition: Home, Self-Care Activity: no preference Diet: heart healthy Discharge Instructions: Return to the emergency department if: -your wound gets larger and more painful -you feel cracking under skin when you touch it. -you purple dots or bones under skin or you see bleeding under your skin. -you see red streaks coming from the infected area. Call your doctor if: -the red/warm, swollen area gets larger. -your fever or pain does not go away or gets worse. -the areas does not get smaller after 3 days of antibiotics. -you have questions or concerns about your conditioner care. Medications: Doxycycline 100 mg twice a day for 8 more days. Next dose tonight. Can take acetaminophen or ibuprofen for pain and fever. Care: -wash the area with soap and water every day. -apply cream or ointment as directed. -placed a
[2023-10-08 13:52] VITALS: BP 123/72; PULSE 65; RESP 20; TEMP 37.2; O2SAT 98
== END 2023-10-08 14:35 | disposition home or self-care (01) | DRG 603 ==
LOC: ANHED 17:44 → ANH3MEDSUR 18:05
PROVIDERS: Internal Medicine Critical Care Medicine; Nurse Practitioner Family; Admitting Provider Hospitalist; Emergency Provider Emergency Medicine; PCP Nurse Practitioner Family; Visit Provider Hospitalist
DX: L03.317 Cellulitis of buttock (principal); Z68.41 Body mass index [BMI] 40.0-44.9, adult; E03.9 Hypothyroidism, unspecified; E11.9 Type 2 diabetes mellitus without complications; J45.909 Unspecified asthma, uncomplicated; E78.5 Hyperlipidemia, unspecified; K21.9 Gastro-esophageal reflux disease without esophagitis; I10 Essential (primary) hypertension; J44.9 Chronic obstructive pulmonary disease, unspecified; M47.816 Spondylosis without myelopathy or radiculopathy, lumbar region; M41.9 Scoliosis, unspecified; F17.210 Nicotine dependence, cigarettes, uncomplicated; F33.41 Major depressive disorder, recurrent, in partial remission; E66.9 Obesity, unspecified; Z96.653 Presence of artificial knee joint, bilateral; Z95.0 Presence of cardiac pacemaker; Z79.82 Long term (current) use of aspirin; Z98.84 Bariatric surgery status
CPT/HCPCS: 36415; 74177; 80048; 80053; 80202; 82565; 85025; 85027; 85610; 85730; 87040; 96374; 99285; A9270; J3010; J3370; Q9967

== ENCOUNTER 2024-02-28 12:27 | Outpatient (CLI) | payer BC, SELFPAY ==
--- NOTE | 2024-02-28 14:00 | NEURO_ITS ---
Impression: # Complains of numbness in upper extremities. # Normal Nerve Conduction Study; No Carpal Tunnel Syndrome or ulnar neuropathy. # Needle/EMG exam not requested. # Clinical correlation recommended; Higher involvement cannot be ruled out. Nerve Conduction Studies Anti Sensory Summary Table Stim Site NR Peak (ms) P-T Amp (?V) Site1 Site2 Delta-P (ms) Dist (cm) Rico (m/s) Left Median Anti Sensory (2-3nd Digit) Wrist 2.5 40.3 Wrist 2-3nd Digit 2.5 14.0 56 Wrist 2.5 43.8 Wrist 2-3nd Digit 2.5 14.0 56 Right Median Anti Sensory (2-3nd Digit) Wrist 2.5 69.6 Wrist 2-3nd Digit 2.5 14.0 56 Wrist 2.5 50.6 Wrist 2-3nd Digit 2.5 14.0 56 Left Radial Anti Sensory (Base 1st Digit) Wrist 1.8 22.5 Wrist Base 1st Digit 1.8 0.0 Right Radial Anti Sensory (Base 1st Digit) Wrist 2.1 17.5 Wrist Base 1st Digit 2.1 0.0 Left Ulnar Anti Sensory (5th Digit) Wrist 2.2 50.0 Wrist 5th Digit 2.2 14.0 64 Right Ulnar Anti Sensory (5th Digit) Wrist 2.0 56.0 Wrist 5th Digit 2.0 14.0 70 Motor Summary Table Stim Site NR Onset (ms) O-P Amp (mV) Site1 Site2 Delta-0 (ms) Dist (cm) Rico (m/s) Left Median Motor (Abd Poll Brev) Wrist 3.0 3.5 Elbow Wrist 4.5 28.0 62 Elbow 7.5 6.3 Right Median Motor (Abd Poll Brev) Wrist 2.9 1.9 Elbow Wrist 4.1 26.0 63 Elbow 7.0 3.9 Left Ulnar Motor (Abd Dig Minimi) Wrist 2.4 6.7 A Elbow Wrist 4.8 30.0 62 A Elbow 7.2 5.4 Right Ulnar Motor (Abd Dig Minimi) Wrist 2.0 5.8 A Elbow Wrist 4.6 27.0 59 A Elbow 6.6 3.0 F Wave Studies NR F-Lat (ms) L-R F-Lat (ms) Left Median (Mrkrs) (Abd Poll Brev) 24.38 2.49 Right Median (Mrkrs) (Abd Poll Brev) 26.86 2.49 Left Ulnar (Mrkrs) (Abd Dig Min) 25.29 0.03 Right Ulnar (Mrkrs) (Abd Dig Min) 25.31 0.03 MTDD
== END 2024-02-28 12:28 | disposition home or self-care (01) ==
PROVIDERS: PCP Nurse Practitioner Family; Visit Provider Nurse Practitioner Family
DX: R20.0 Anesthesia of skin (principal)
CPT/HCPCS: 95911

== ENCOUNTER 2024-06-01 14:30 | Outpatient (CLI) | payer BC, SELFPAY ==
--- NOTE | ~2024-06-01 | XR_ITS ---
XR abdomen/kub 1V Ordering provider: Theresa Somers APRN History: . change in bowel habits-diarrhea X 2 MONTHS . Comparison: None. FINDINGS: BOWEL: Nonobstructive bowel gas pattern. ORGANOMEGALY: None. SIGNIFICANT PATHOLOGIC CALCIFICATIONS: None. OTHER: No free air is seen under the diaphragm. Degenerative changes of the spine. Bilateral hip oste oarthritic changes. Opacification in the mid pelvis most likely metastatic fibroid. IMPRESSION: NO ACUTE ABDOMINAL FINDINGS. Reviewed, dictated and finalized at location A. EL ENGINE II PIPE FITTER
[2024-06-04 11:24] LABS: Lactoferrin, Stool COMMENT:
== END 2024-06-01 14:31 | disposition home or self-care (01) ==
PROVIDERS: PCP Nurse Practitioner Family; Visit Provider Nurse Practitioner Family
DX: K59.00 Constipation, unspecified (principal); R19.7 Diarrhea, unspecified
CPT/HCPCS: 74018; 82653; 83630

== ENCOUNTER 2024-07-19 13:36 | Outpatient (CLI) | payer BC, SELFPAY ==
--- OUTSIDE RECORDS SUMMARY | 2024-07-19 13:46 | XMS_ITS | Encounter Summary ---
Author Organization [facility] Address [address] [place] [address] Care Team Providers Care Clergy Member Name Role Phone Diamond Clark Primary Care Provider [phone] Encounter Details Date Type Department Care Team (Late st Contact Info) Description 11/24/2022 MyChart Message [facility] [address] [place], [place] [id number] [place], [facility] Provider Air Quality Message Social History Tobacco Use Types Packs/Day Years Used Date Smoking Tobacco: Former Cigarettes 0.3 1 Passive Smoke Exposure: Current Smokeless Tobacco: Never Alcohol Use Standard Drinks/Week Comments Yes 1.7 (1 standard drink = 0.6 oz p ure alcohol) occ glass of wine PHQ-2 Answer Date Recorded Patient Health Questionnaire-2 Score 0 06/24/2022 Comments No Sex and Gender Information Value Date Recorded Sex Assigned at Female 06/19/2024 2:08 PM MESS COOK Legal Sex Female 5:20 PM CDT Gender Identity Female 09/18/2021 9:21 AM CDT Sexual Orientation Not on file documented as of this encounter Plan of Treatment Not on file documented as of this encounter Visit Diagnoses Not on filedocumented in this encounter Additional Health Concerns Assessment Noted Time PHQ-9 Depression Total Score: 3 06/24/19 23 2:35 PM MESS COOK documented as of this encounter Care Teams Clergy Member Relationship Specialty Start Date End Date Diamond Clark FNP [address] [place] [address] PCP - General Nurse Practitioner Family 01/02/20 documented as of this encounter
--- OUTSIDE RECORDS SUMMARY | 2024-07-19 13:46 | XMS_ITS | Encounter Summary ---
Author Organization [facility] Facility Care Team Providers Care Town Administrator Name Role Phone Imelda Trinidad Primary Care Pr ovider Rachel Garces VIDEO EDITING INTERNSHIP Primary Care Provider Todd Lima DO Primary Care Provider [phone] Ree Ca MD Primary Care Provider [phone] Todd Lima DO Primary Care Provider [phone] Diamond Clark NP Primary Care Provider + [phone] Jesse Connolly MD Unavailable Mary Bethea MD Unavailable [phone] Erki Gamble DPM Unavailable [phone] Encounter Details Date Type Department Care Team (Latest Contact Info) Description 01/12/2016 Orders Only [facility] CLINCONV ProviderGinny MD [address] [place] [id number] Social History Tobacco Use Types Packs/Day Years Used Date Smoking Tobacco: Never Alcohol Use Standard Drinks/Week Comments Yes 0 (1 standard drink = 0.6 oz pur e alcohol) Comments Unknown Sex and Gender Information Value Date Recorded Sex Assigned at Not on file 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 us Historical Provider Final Res ult documented in this encounter Visit Diagnoses Not on filedocumented in this encounter Care Teams Town Administrator Relationship Specialty Start Date End Date Imelda Trinidad PA PCP - General 07/17/14 01/12/17 Rachel Garces NP [address] [id number] PCP - General Nurse Practitioner 01/13/17 07/04/18 Todd Lima DO [address] [address] PCP - General Internal Medicine 07/05/18 10/09/18 Ree Ca MD [address] [facility] [address] [place] [address] [place] [address] PCP - General Internal Medicine 10/10/18 07/03/19 Todd Lima DO [address] [facility] [address] [place] [address] [place] [address] PCP - General Internal Medicine 07/04/19 05/04/20 Diamond Clark NP [address] [place] [address] PCP - General Nurse Practitioner 05/05/20 Jesse Connolly MD [address] [facility] [address] [place] [address] Consulting Physician Cardiology 11/20/21 Mary Bethea MD [address] [id number] Fellow Neurology 11/20/21 Erik Gamble, DPMadiha [address] [address] Consulting Physician Podiatry 11/25/21 documented as of this encounter
--- OUTSIDE RECORDS SUMMARY | 2024-07-19 13:46 | XMS_ITS | Encounter Summary ---
Author Organization [facility] Facility Care Team Providers Care Justice Professor Name Role Phone Imelda Trinidda Primary Care Pr ovider Rachle Garces ROOM SERVICE FOOD SERVER Primary Care Provider Todd Lima DO Primary Care Provider [phone] Ree Ca MD Primary Care Provider [phone] Todd Lima DO Primary Care Provider [phone] Diamond Clark NP Primary Care Provider [phone] Jesse Connolly MD Unavailable Mary Bethea MD Unavailable [phone] Erik Gamble DPM Unavailable [phone] Encounter Details Date Type Department Care Team (Latest Contact Info) Description 12/04/2015 Orders Only [facility] CLINCONV ProviderGinny MD [address] [place] [address] Social History Tobacco Use Types Packs/Day Years Used Date Smoking Tobacco: Never Alcohol Use Standard Drinks/Week Comments Yes 0 (1 standard drink = 0.6 oz pur e alcohol) Comments Unknown Sex and Gender Information Value Date Recorded Sex Assigned at Not on file Legal Sex Female 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 us Historical Provider MD Final Res ult documented in this encounter Visit Diagnoses Not on filedocumented in this encounter Care Teams Justice Professor Relationship Specialty Start Date End Date Imelda Trinidad PA PCP - General 07/17/14 01/12/17 Rachel Garces NP [address] [address] PCP - General Nurse Practitioner 01/13/17 07/04/18 Todd Lima DO [address] [address] PCP - General Internal Medicine 07/05/18 10/09/18 Ree Ca MD [address] [facility] [address] [address] [place] [address] PCP - General Internal Medicine 10/10/18 07/03/19 Todd Lima DO [address] [facility] [address] [place] [address] PCP - General Internal Medicine 07/04/19 05/04/20 Diamond Clark NP [address] [place] [address] PCP - General Nurse Practitioner 05/05/20 Jesse Connolly MD [address] [facility] [address] [place] [address] Consulting Physician Cardiology 11/20/21 Mary Bethea MD [address] [id number] Fellow Neurology 11/20/21 Erik Gamble, DPMadiha [address] [address] Consulting Physician Podiatry 11/25/21 documented as of this encounter
--- OUTSIDE RECORDS SUMMARY | 2024-07-19 13:46 | XMS_ITS | Clinical Summary ---
Author Organization [facility] Address [address] [place] [address] Care Team Providers Care Manager Truck Name Role Phone Diamond Clark NP Primary Care Provider [phone] Jesse Connolly MD Unavailable Mary Bethea MD Unavailable [phone]- [phone] Erik Gamble DPM Unavailable [phone] Allergies Active Allergy Reactions Criticality Noted Date Comments Adhesive Tape-Silicones Rash Medium 10/10/2018 Morphine Sulfate Itching,Nausea & Vomiting Low 10/10/2018 abdominal pain, breathing issues Medications methocarbamol (ROBAXIN) 750 mg tablet take 1 tablet (750MG) by oral route 2 times every day 0 1 Active Additional Information Patient taking differently: 500 mg oral As needed, Reported on 04/18/2024 aspirin (ASPIRIN LOW DOSE) 81 mg tablet take 1 tablet (81MG) by oral route every day 0 2 Active Additional Information Patient taking differently:81 mgoral Daily, Informant: Self, Reported on 04/18/2024 pravastatin (PRAVACHOL) 40 mg tablet take 1 tablet by oral route every day 0 0 5 Active Additional Information Patient taking differently:40 mgoral Nightly, Informant: Self, Reported on 10/06/[address] (PROTONIX) 40 mg EC tablet take 1 tablet by oral route every day 0 0 5 Active Additional Information Patient taking differently:40 mgoral Daily, Informant: Self, Reported on 04/18/2024 topiramate (QUDEXY XR) 50 mg capsule,sprinkl e,ER 24hr take 1 capsule by oral route every day 0 0 6 Active Additional Information Patient taking differently:50 mgoral 2 times daily, Take 3 tablets BID, Informant: Self, Reported on 04/18/2024 albuterol HFA (PROAIR HFA) 90 mcg/actuation inhaler inhale 2 puff by inhalation route every 4 - 6 hours as needed 0 Inhaler 0 6 Active sertraline (ZOLOFT) 50 mg tablet Take 2 tablets (100 mg total) by mouth daily Take 2 tablets by mouth once daily 5 7 Active venlafaxine XR (EFFEXOR-XR) 150 mg 24 hr capsule Take 1 capsule (150 mg total) by mouth daily 5 7 Active fluticasone propionate (FLONASE) 50 mcg/actuation nasal spray Administer 2 sprays into each nostril 2 (two) times a day 1 Inhaler 3 9 Active Additional Information Patient taking differently:2 spray each nostrilAs needed, Reported on 08/05/2021 loratadine (CLARITIN) 10 mg tablet Take 1 tablet (10 mg total) by mouth daily Active primidone (MYSOLINE) 50 mg tablet Take 3 tablets (150 mg total) by mouth 2 (two) times a day Take 3 tablets in the AM and 3 tables in the PM. 0 Active traZODone (DESYREL) 50 mg tablet Take 2 tablets (100 mg total) by mouth nightly Take 2 tablets at bedtime. 0 Active oqulcjpq-ekn-AE -lycopen-lutein 0.4-300-250 mg-mcg-mcg tabletIndicatio ns:Vitamin Deficiency Prevention Take 1 tablet by mouth daily Active ferrous sulfate ER 324 mg (65 mg iron) EC tabletIndicatio ns:Iron Deficiency Anemia Take 65 mg by mouth daily with breakfast Active ARIPiprazole (ABILIFY) 5 mg tablet Take 1 tablet (5 mg total) by mouth nightly 0 Active cyanocobalamin (Vitamin B-12) 100 mcg tabletIndicatio ns:Prevention of Vitamin B12 Deficiency Take 1 tablet (100 mcg total) by mouth daily Active cholecalciferol (VITAMIN D-3) 2000 unit capsule Take 1 capsule (2,000 Units total) by mouth daily Active calcium carbonate (CALCIUM 600 ORAL) Take 600 mg by mouth daily Active Xtampza ER 9 mg capsule,sprinkl e,ER 12hr tmprr Take 9 mg by mouth 2 (two) times a day as needed 2 Active Nystop powder Apply 1 application topically as needed 2 Active levothyroxine (SYNTHROID) 75 mcg tablet Take 1 tablet (75 mcg total) by mouth communication clerk before breakfast Active alendronate (FOSAMAX) 70 mg tablet Take 1 tablet (70 mg total) by mouth once a week 4 Active cetirizine (ZyrTEC) 10 mg tablet Take 1 tablet (10 mg total) by mouth daily Active eszopiclone (LUNESTA) 2 mg tablet Take 1 tablet (2 mg total) by mouth nightly Active krxcwoxv-yuu-lu on-FA-vit K-lut 8 mg iron-400 mcg-50 mcg tablet 1 tablet(s), Oral, daily, 30 tablet(s), Tablet(s), 0 1 Active hydroCHLOROthia zide (HYDRODIURIL) 25 mg tablet Take 1 tablet (25 mg total) by mouth communication clerk before breakfast 4 Active benzonatate (TESSALON) 200 mg capsule Take 1 capsule (200 mg total) by mouth 3 (three) times a day as needed 4 Active semaglutide (Ozempic) 2 mg/dose (8 mg/3 mL) pen injector injection Inject 2 mg under the skin every 7 days 9 mL 3 4 Active Jardiance 10 mg tabletIndicatio ns:Metabolic syndrome Take 1 tablet (10 mg total) by mouth daily 90 tablet 1 4 Active Active Problems Problem Noted Date Diagnosed Date Urinary tract infection 05/17/2024 Assessment & Plan (05/17/2024 3:14 PM STATION EXAMINER): Keflex sent in, feeling better H/O papillary adenocarcinoma of thyroid 04/18/20 24 Encounter for weight loss counseling 03/21/2024 Assessment & Plan (05/17/2024 3:21 PM STATION EXAMINER): Relevant weight management chart notes reviewed. I counseled the patient on nutrition: Implementing First Line therapy was discussed. Furthermore, we recommend a diet with a slightly higher high protein content, lower glycemic index with carbohydrate restriction yet without daily energy restriction. This approach will need to a weight loss because of higher satiety sensation. Recommend avoiding food persevered in plastic, eating out or processed food. Avoid eating out and ultraprocessed foods. Recommend fresh/frozen protein and vegetables. Study YES and NO list. I counseled the patient on exercise: Recommend 36 min. cardio daily. Based on availiable data on the secondary prevention of coronary heart disease, stroke and prediabetes, physical activity is potentially as active as many drug interventions.Arlet Sanchez: BMJ 2013 [id number]:f5577;02/2013; Diabetes Care, Volume 35, Apr 2012. Pharmacotherapy: Reviewed medications; discussed with the patient changes in details, discussed side effects and risks of taking the medications in details with the patient. Patient expressed understanding of the new orders; see attached new treatment and orders. Jardiance 10 mg daily - decrease to every other day due to UTI Semaglutide 2.0mg weekly - off label for metabolic syndrome Metabolic syndrome 03/21/2024 Assessment & Plan (05/17/2024 3:21 PM STATION EXAMINER): Continue ozempic 2mg and jardiance every other day Acquired hypothyroidism 03/21/2024 Assessment & Plan (05/17/2024 3:14 PM STATION EXAMINER): Recent labs faxed to PCP to adjust thyroid medication Weight gain due to medication 03/21/2024 Class 3 obesity with alveola r hypoventilation without serious comorbidity with body mass index (BMI) greater than or equal to 70 in adult 03/21/2024 Assessment & Plan (05/17/2024 3:14 PM STATION EXAMINER): High weight 438 Obesity is one of the leading risk factor for mortality. Metabolically healthy obese individuals had 49% increased risk of coronary artery disease, 7% increased risk of cerebrovascular disease and 96% increased risk of heart failure. In other words, even individuals who are normal weight can have metabolic abnormalities and similar risk for cardiac vascular disease events. Thus, the complications that may result from metabolic syndrome and frequently serious and chronic. They include atherosclerosis, diabetes, myocardial infarction, renal disease, cardiovascular events such as stroke, nonalcoholic fatty liver disease, peripheral artery disease, and cardiovascular diseases. His diabetes develops; there is an increased risk of retinopathy, neuropathy, renal disease and amputation of labs. Therefore, treating obesity, obesity related diseases is exceedingly crucial. Improving the hypertrophic adipocytes function and decrease insulin resistance is the main goal of the treatment. Furthermore, an emerging concept that the anti-obesity agents must not only reduce the hypertrophic adipocytes but must also correct the fat dysfunction, adiposopathy. Weight loss is associated with increases in mean suppression of glucose production from baseline, is associated with increase insulin stimulated in glucose disposal from fat-free mass and weight loss increased beta cell function. In other words, weight loss change in hepatic insulin sensitivity and muscle insulin sensitivity, beta cell function and a 24-hour plasma glucose and insulin profiles. Our goal is and decreasing the weight between 16 and 20% which will significantly decrease the risk of morbidity and mortality. Lymphedema 03/21/2024 Assessment & Plan (05/17/2024 3:21 PM STATION EXAMINER): In therapy at [facility] Cardiac pacemaker in situ 11/04/2017 Overview (09/01/2021): [employer] Assurity Dual Pacemaker. Dx; SSS, PAF. Generator Replacement and new RV lead 09/01/2021-Dr Olsen. Chronic A-Lead 12/22/2010. Chronic V-Lead capped. [place] remote monitoring Q3 mo, office pacer checks Q1 yr. Atypical chest pain 07/17/2014 Overview (09/03/2016): Atypical chest pain Hernia of anterior abdominal wall 07/19/2012 Morbid obesity with BMI of 40.0-44.9, adult 07/01 Mild intermittent asthma, uncomplicated Encounters Date Type Department Care Team Description 06/11/2024 Orders Only [facility] Cardiology [address] [place] [address] SASHA Hernandez [phone] Jesse Connolly MD Cardiac pacemaker in situ (Primary Dx); SSS (sick sinus syndrome) (CMS/HCC) (HCC); Paroxysmal atrial fibrillation (CMS/HCC) (HCC) 06/05/2024 7:30 AM STATION EXAMINER Ancillary Procedure [facility] Cardiology [address] [place] [address] [address] [id number] SSS (sick sinus syndrome) (CMS/HCC) (HCC); Paroxysmal atrial fibrillation (CMS/HCC) (HCC); Cardiac pacemaker in situ 05/28/2024 Telephone [facility] [address] [place] [address] Floor [address] [place] [phone] Stefanie Thompson DPT 05/17/2024 3:00 PM STATION EXAMINER Telemedicine [facility] [address] [place] [address] Medical Office Building [address], [address] [place] [phone] July Weaver PA Class 3 obesity with alveolar hypoventilation without serious comorbidity with body mass index (BMI) greater than or equal to 70 in adult (HCC) (Primary Dx); Acquired hypothyroidism; Acute cystitis without hematuria; Encounter for weight loss counseling; Lymphedema; Metabolic syndrome 05/14/2024 Telephone [facility] [address] [place] [address] Medical Office [address], [address] [place] [phone] Ximena Jolley, DIGESTER OPERATOR HELPER Labs Only 05/01/2024 11:30 AM STATION EXAMINER Therapy [facility] [address] [place] [address] 1st Floor [address] [place] [phone] Tiara López PTA Lymphedema (Primary Dx) 04/18/2024 1:20 PM STATION EXAMINER Office Visit [facility] [address] [place] [address] Medical Office [address], [address] [place] [phone] Gypsy Fontana MD Encounter for weight management (Primary Dx); Metabolic disorder; Dietary counseling; Exercise counseling; H/O papillary adenocarcinoma of thyroid; Weight gain due to medication; Lymphedema; Class 3 obesity with alveolar hypoventilation without serious comorbidity with body mass index (BMI) greater than or equal to 70 in adult (HCC) from Last 3 Months Immunizations Immunization Administration Dates Next Due Influenza, Quadrivalent, Split, Intramuscular Influenza, Quadrivalent, Spl it, Preservative Free, Intramuscular 04/05/2018 Surgical History Surgery Date Site/Laterality Comments HERNIA REPAIR Hernia repair umbilical x 5 CARDIAC PACEMAKER PLACEMENT Cardiac pacemaker; L chest; 2010; [facility] CHOLECYSTECTOMY COLONOSCOPY 2020 SECTION x 3 LAPAROSCOPIC GASTRIC BANDING 2009; lost band after 15 months OTHER SURGICAL HISTORY pacemaker generator change w/lead replacement 09/01/2021 JOINT REPLACEMENT Bilateral knee arthroscopies; R 05/2020, L 02/2021 BREAST SURGERY Right per EMR Medical History Medical History Date Comments Hypertension Hypertension Sleep apnea pt reports she n o longer has sleep apnea since wt loss Hypothyroidism Hypothyroidism Obesity Hyperlipidemia GERD (gastroesophageal reflux disease) Depression PONV (postoperative nausea and vomiting) Bipolar disorder (HCC) Anemia DJD (degenerative joint disease) bulging discs in my back and neck Chronic back pain Chronic anxiety History of atrial fibrillation Covid positive 05/2020 not hospitalized History of cardiovascular stress test on 11/11/21 (had CP on 2021) reports none since Pacemaker placed 2010, L c hest, [facility] History of pneumonia 2014 History of migraine last one 0 Cataracts, bilateral Wears glasses reading History of cellulitis to arms Arthritis Teeth missing no dentures yet , may get implants Asthma Lung disease COPD PTSD (post-traumatic stress disorder) per EMR Family History Medical History Relation Name Comments Other Brother 2 healthy; Lung cancer Father Cancer, lung; C ause of : Cancer, lung Diabetes type II Mother Diabetes Ty pe II; Cause of : Diabetes Type II Cirrhosis Sister 4 Cirrhosis; Caus e of : Cirrhosis Valvular heart disease Sister 5 Valvu lar Heart Disease; Other Sister 6 healthy; Relation Name Status Comments Brother 1 Alive Brother 2 Father (Age 73) Mother (Age 80) Sister 1 (Age 47) Sister 2 Alive Sister 3 Alive Sister 4 Sister 5 Sister 6 Social History Tobacco Use Types Packs/Day Years Used Date Smoking Tobacco: Every Day Cigarettes Smokeless Tobacco: Never Tobacco Cessation:Ready to Q uit: No; Counseling Given: Not Answered Alcohol Use Standard Drinks/Week Comments Not Currently 0 (1 standard drink = 0.6 oz pur e alcohol) AUDIT-C Answer Date Recorded Q1: How often do you have a drink containing alc ohol? Monthly or less 04/18/2024 Q2: How many drinks containi ng alcohol do you have on a typical day when you are drinking? 1 or 2 04/18/2024 Q3: How often do you have si x or more drinks on one occasion? Never 04/18/2024 PHQ-2 Answer Date Recorded PHQ-2 Score 1 01/18/2019 Comments No Sex and Gender Information Value Date Recorded Sex Assigned at Not on file Legal Sex Female 9:33 AM STATION EXAMINER Gender Identity Not on file Sexual Orientation Not on file Obstetrics History Last Filed Vital Signs Vital Sign Reading Time Taken Comments Blood Pressure 116/79 04/18/2024 1:10 PM STATION EXAMINER Pulse 65 04/18/2024 1:10 PM STATION EXAMINER Temperature 36.3 C (97.4 F) 04/18/2024 1:10 PM STATION EXAMINER Respiratory Rate 18 04/18/2024 1:10 PM STATION EXAMINER Oxygen Saturation 98% 04/18/2024 1:10 PM STATION EXAMINER Inhaled Oxygen Concentration - - Weight 99.9 kg (220 lb 3.2 oz) 04/18/2024 1:10 P M STATION EXAMINER Height 152.4 cm (5') 04/18/2024 1:10 PM STATION EXAMINER Body Mass Index 43 04/18/2024 1:10 PM STATION EXAMINER Plan of Treatment Health Maintenance Due Date Last Done Comments Cervical Cancer Screening 1960 Colon Cancer Screening-Colonoscopy 1960 Hepatitis C Screening 1958 Hepatitis B Screening 1976 Depression Screening 10/11/2019 10/10/2018 Pneumococcal vaccine 65+ (2 of 2 - PCV) 03/17/2022 03/17/2021, 02/11/2012 Fall Risk Assessment 11/25/2022 11/25/2021, 10/11/19 19 Well Visit 65+ 08/15/2023 Covid-19 Vaccine ( - 2023-2 5 season) 2024 06/30/2021, 09/07/2020, 08/12/2020 Breast Cancer Screening-Mammogram 03/16/2024 03/16/2023, 03/16/2023, 01/21/2020 Osteoporosis Screening-Bone Density Scan 03/16/2025 03/16/2023, 01/21/2020 DTaP/Tdap/Td Vaccine (3 - Td or Tdap) 05/21/2034 05/21/2024, 08/09/2013 Zoster Vaccine Completed 11/03/2022, 08/25/2022 Influenza Vaccine Completed 02/10/2024, , 04/28/2022, Additional history exists Medical Devices Implanted Type Area Chemical Dependency Professional Device Identifier Shelf Expiration Date Model / Serial / Lot Pacemaker-12/22 Implanted:11/28 (Quantity not on file) Pacemaker Chest [facility] [employer] SSS, Afib Knee Components Bilateral : Knee [employer] Fuseforce L10 Mm X W10 Mm Hand Staple Bone Sterile 2 Mm Reamer [id number] - Sn/A - [id number] Implanted:Qty: 1 on 11/25/2021 by Erik Gamble DPM at [facility] Right: Foot [employer] 10/07/2026 [id number] / N/A / [id number] Procedures Procedure Name Priority Date/Time Associated Diagnosis Comments DEVICE CHECK - REMOTE Routine 06/11/2024 2:24 PM STATION EXAMINER SSS (sick sinus syndrome) (CMS/HCC) (HCC) Paroxysmal atrial fibrillation (CMS/HCC) (HCC) Cardiac pacemaker in situ SELENIUM Routine 05/09/2024 9:57 AM STATION EXAMINER VITAMIN E Routine 05/09/2024 9:57 AM STATION EXAMINER VITAMIN A Routine 05/09/2024 9:57 AM STATION EXAMINER ZINC Routine 05/09/2024 9:57 AM STATION EXAMINER COPPER, SERUM Routine 05/09/2024 9:57 AM STATION EXAMINER VITAMIN B1 Routine 05/09/2024 9:57 AM STATION EXAMINER VITAMIN B6 Routine 05/09/2024 9:57 AM STATION EXAMINER LIPASE Routine 05/09/2024 9:57 AM STATION EXAMINER AMYLASE Routine 05/09/2024 9:57 AM STATION EXAMINER T4, FREE Routine 05/09/2024 9:57 AM STATION EXAMINER PTH Routine 05/09/2024 9:57 AM STATION EXAMINER T3, FREE Routine 05/09/2024 9:57 AM STATION EXAMINER CRP, HIGH SENSITIVITY Routine 05/09/2024 9:57 AM STATION EXAMINER PROTIME-INR Routine 05/09/2024 9:57 AM STATION EXAMINER ALBUMIN CREATININE RATIO, URINE Routine 05/09/2024 9:57 AM STATION EXAMINER URIC ACID Routine 05/09/2024 9:57 AM STATION EXAMINER PHOSPHORUS Routine 05/09/2024 9:57 AM STATION EXAMINER MAGNESIUM Routine 05/09/2024 9:57 AM STATION EXAMINER GAMMA GT Routine 05/09/2024 9:57 AM STATION EXAMINER CBC WITHOUT DIFFERENTIAL Routine 05/09/2024 9:57 AM STATION EXAMINER Encounter for weight management Metabolic disorder Dietary counseling Exercise counseling H/O papillary adenocarcinoma of thyroid Weight gain due to medication Lymphedema Class 3 obesity with alveolar hypoventilation without serious comorbidity with body mass index (BMI) greater than or equal to 70 in adult (HCC) COMPREHENSIVE METABOLIC PANEL Routine 05/09/2024 9:57 AM STATION EXAMINER Encounter for weight management Metabolic disorder Dietary counseling Exercise counseling H/O papillary adenocarcinoma of thyroid Weight gain due to medication Lymphedema Class 3 obesity with alveolar hypoventilation without serious comorbidity with body mass index (BMI) greater than or equal to 70 in adult (HCC) FERRITIN Routine 05/09/2024 9:57 AM STATION EXAMINER Encounter for weight management Metabolic disorder Dietary counseling Exercise counseling H/O papillary adenocarcinoma of thyroid Weight gain due to medication Lymphedema Class 3 obesity with alveolar hypoventilation without serious comorbidity with body mass index (BMI) greater than or equal to 70 in adult (HCC) FOLATE Routine 05/09/2024 9:57 AM STATION EXAMINER Encounter for weight management Metabolic disorder Dietary counseling Exercise counseling H/O papillary adenocarcinoma of thyroid Weight gain due to medication Lymphedema Class 3 obesity with alveolar hypoventilation without serious comorbidity with body mass index (BMI) greater than or equal to 70 in adult ([facility]) HEMOGLOBIN A1C Routine 05/09/2024 9:57 AM STATION EXAMINER Encounter for weight management Metabolic disorder Dietary counseling Exercise counseling H/O papillary adenocarcinoma of thyroid Weight gain due to medication Lymphedema Class 3 obesity with alveolar hypoventilation without serious comorbidity with body mass index (BMI) greater than or equal to 70 in adult ([facility]) INSULIN, TOTAL Routine 05/09/2024 9:57 AM STATION EXAMINER Encounter for weight management Metabolic disorder Dietary counseling Exercise counseling H/O papillary adenocarcinoma of thyroid Weight gain due to medication Lymphedema Class 3 obesity with alveolar hypoventilation without serious comorbidity with body mass index (BMI) greater than or equal to 70 in adult ([facility]) IRON PROFILE W/ IBC Routine 05/09/2024 9 :57 AM STATION EXAMINER Encounter for weight management Metabolic disorder Dietary counseling Exercise counseling H/O papillary adenocarcinoma of thyroid Weight gain due to medication Lymphedema Class 3 obesity with alveolar hypoventilation without serious comorbidity with body mass index (BMI) greater than or equal to 70 in adult ([facility]) LIPID PANEL Routine 05/09/2024 9:57 AM STATION EXAMINER Encounter for weight management Metabolic disorder Dietary counseling Exercise counseling H/O papillary adenocarcinoma of thyroid Weight gain due to medication Lymphedema Class 3 obesity with alveolar hypoventilation without serious comorbidity with body mass index (BMI) greater than or equal to 70 in adult ([facility]) VITAMIN D 25 HYDROXY Routine 05/09/2024 9:57 AM STATION EXAMINER Encounter for weight management Metabolic disorder Dietary counseling Exercise counseling H/O papillary adenocarcinoma of thyroid Weight gain due to medication Lymphedema Class 3 obesity with alveolar hypoventilation without serious comorbidity with body mass index (BMI) greater than or equal to 70 in adult ([facility]) VITAMIN B12 Routine 05/09/2024 9:57 AM STATION EXAMINER Encounter for weight management Metabolic disorder Dietary counseling Exercise counseling H/O papillary adenocarcinoma of thyroid Weight gain due to medication Lymphedema Class 3 obesity with alveolar hypoventilation without serious comorbidity with body mass index (BMI) greater than or equal to 70 in adult (HCC) THYROID FUNCTION CASCADE Routine 05/09/2024 9:57 AM STATION EXAMINER Encounter for weight management Metabolic disorder Dietary counseling Exercise counseling H/O papillary adenocarcinoma of thyroid Weight gain due to medication Lymphedema Class 3 obesity with alveolar hypoventilation without serious comorbidity with body mass index (BMI) greater than or equal to 70 in adult (HCC) URINE CULTURE Routine 05/09/2024 9:57 AM STATION EXAMINER REFLEXIVE URINE CULTURE Routine 05/09/2024 9:57 AM STATION EXAMINER URINALYSIS AND REFLEX TO MICROSCOPIC AND CULTURE Routine 05/09/2024 9:57 AM STATION EXAMINER from Last 3 Months Results * DEVICE CHECK - REMOTE (06/11/2024 2:24 PM STATION EXAMINER) Anatomical Region Laterality Modality Other Narrative 07/06/2024 3:49 PM STATION EXAMINER [employer] Assurity Dual Pacemaker. Dx; SSS, PAF. Generator Replacement and new RV lead 09/01/2021-Dr Olsen. Chronic A-Lead 12/22/2010. Chronic V-Lead capped. [place] remote monitoring. Routine DDD Pacemaker remote. Normal device function. Battery function-3.01V, 7.2 years remaining battery life to CAIT. Appropriate lead measurements noted. Presenting rhythm: AP-VS. AP-70%, WELT WHEELER-1.5%. 91-Atrial high rate episode noted, <1 minute duration, iegm's oversensing noise. 1 Ventricular high rate episode noted, iegm suggestive of NSVT, 7 beat duration. Medications; ASA. See scanned report. Office pacemaker f/u and ROV with Dr Connolly scheduled 12/12/2024. [place] remote f/u 09/04/2024. Sheyla More, RN us Jesse Connolly MD [facility] C[facility] SERVICES PROCEDURES F inal Result * REFLEXIVE URINE CULTURE (05/09/2024 9:57 AM STATION EXAMINER) Urine culture [facility] Comment:CULTURE INDICATED - RESULTS TO FOLLOW 05/09/2024 9:57 AM STATION EXAMINER 05/09/2024 10:04 AM STATION EXAMINER Narrative [facility] - 05/14/2024 10:56 AM STATION EXAMINER FASTING:YES FASTING: YES us Gypsy Fontana MD LAB MICROBIOLOGY - GENERAL ORD ERABLES Final Result Performing Organization Address [facility] Co de Phone Number [facility] [address] [place] [address] * (ABNORMAL) Thyroid Function [place] (05/09/2024 9:57 AM STATION EXAMINER) Pathologist [facility] TSH 4.98(H) 0.40 - 4.50 mIU/L [facility] Blood 05/09/2024 9:57 AM STATION EXAMINER 05/09/2024 10:04 AM STATION EXAMINER Narrative [facility] - 05/14/2024 10:56 AM STATION EXAMINER FASTING:YES FASTING: YES us Gypsy Fontana MD LAB BLOOD ORDERABLES Final Res ult Performing Organization Address [facility] Co de Phone Number [facility] [address] [place] [address] * (ABNORMAL) Iron profile w/ IBC (05/09/2024 9:57 AM STATION EXAMINER) Iron 94 45 - 160 mcg/dL [facility] TIBC 205(L) 250 - 450 mcg/dL (calc) [facility] Iron saturation 46(H) 16 - 45 % (calc) [facility] Blood 05/09/2024 9:57 AM STATION EXAMINER 05/09/2024 10:04 AM STATION EXAMINER Narrative QUEST - 05/14/2024 10:56 AM STATION EXAMINER FASTING:YES FASTING: YES us Gypsy Fontana MD LAB BLOOD ORDERABLES Final Res ult QUEST [facility] [address] [phone] * (ABNORMAL) Urinalysis reflex to microscopic and culture (05/09/2024 9:57 AM STATION EXAMINER) Color, ur YELLOW YELLOW [facility] Appearance, ur TURBID(A) CLEAR [facility] Specific gravity 1.014 1.001 - 1.035 [facility] pH, ur 7.0 5.0 - 8.0 [facility] Glucose, ur NEGATIVE NEGATIVE [facility] Bilirubin, ur NEGATIVE NEGATIVE [facility] Ketones, ur NEGATIVE NEGATIVE [facility] Blood, ur NEGATIVE NEGATIVE [facility] Protein, ur, quant NEGATIVE NEGATIVE [facility] Nitrites, ur POSITIVE(A) NEGATIVE [facility] Leukocyte esterase, ur 3+(A) NEGATIVE [facility] WBC, ur > OR = 60(A) < OR = 5 /HPF [facility] RBC, ur NONE SEEN < OR = 2 /HPF [facility] Epithelial cells, squamous, ur 0-5 < OR = 5 /HPF [facility] Bacteria, ur, quant MANY(A) NONE SEEN /HPF [facility] Hyaline cast NONE SEEN NONE SEEN /LPF [facility] 05/09/2024 9:57 AM STATION EXAMINER 05/09/2024 10:04 AM STATION EXAMINER Narrative QUEST - 05/14/2024 10:56 AM STATION EXAMINER FASTING:YES FASTING: YES us Gypsy Fontana MD LAB MICROBIOLOGY - GENERAL ORD ERABLES Final Result Performing Organization Address [facility]/ZIP Co de Phone Number CARISA [facility] [address] [phone] * Copper, serum (05/09/2024 9:57 AM STATION EXAMINER) Copper 104 70 - 175 mcg/dL [facility] Comment: This test was developed and its analytical performance characteristics have been determined by [facility] [employer]. It has not been cleared or approved by the FDA. This assay has been validated pursuant to the CLIA regulations and is used for clinical purposes. 05/09/2024 9:57 AM STATION EXAMINER 05/09/2024 10:04 AM STATION EXAMINER Narrative QUEST - 05/14/2024 10:56 AM STATION EXAMINER FASTING:YES FASTING: YES Gypsy Fontana MD LAB BLOOD ORDERABLES Final Res ult Performing Organization Address [facility] Co de Phone Number QUEST [facility] [address] [place] [address] * Albumin Creatinine Ratio, Urine (05/09/2024 9:57 AM STATION EXAMINER) [facility] Creatinine, ur 89 20 - 275 mg/dL [facility] Microalbumin, ur 0.4 See Note: mg/dL [facility] Comment: Reference Range: Reference Range Not established Microalbumin/creat ratio 4 <30 mg/g creat [facility] Comment: The ADA defines abnormalities in albumin excretion as follows: Albuminuria Category Result (mg/g creatinine) Normal to Mildly increased <30 Moderately increased 30-299 Severely increased > OR = 300 The ADA recommends that at least two of three specimens collected within a 3-6 month period be abnormal before considering a patient to be within a diagnostic category. 05/09/2024 9:57 AM STATION EXAMINER 05/09/2024 10:04 AM STATION EXAMINER Narrative QUEST - 05/14/2024 10:56 AM STATION EXAMINER FASTING:YES FASTING: YES Gypsy Fontana MD LAB URINE ORDERABLES Final Res ult QUEST [facility] [address] [place] [address] * Zinc (05/09/2024 9:57 AM STATION EXAMINER) ZINC 79 60 - 130 mcg/dL [facility] Comment: This test was developed and its analytical performance characteristics have been determined by [employer]. It has not been cleared or approved by the FDA. This assay has been validated pursuant to the CLIA regulations and is used for clinical purposes. 05/09/2024 9:57 AM STATION EXAMINER 05/09/2024 10:04 AM STATION EXAMINER Narrative QUEST - 05/14/2024 10:56 AM STATION EXAMINER FASTING:YES FASTING: YES Gypsy Fontana MD LAB BLOOD ORDERABLES Final Res ult Performing Organization Address City/[facility]/ZIP Co de Phone Number [facility] [address] [place] [address] * Vitamin A (05/09/2024 9:57 AM STATION EXAMINER) [facility] VITAMIN A (RETINOL) 48 38 - 98 mcg/dL [facility] Comment: (Note) Clin Chem Vol. 34.No.8. [id number]. 1998 Vitamin supplementation within 24 hours prior to blood draw may affect the accuracy of results. This test was developed and its analytical performance characteristics have been determined by [employer]. It has not been cleared or approved by the FDA. This assay has been validated pursuant to the CLIA regulations and is used for clinical purposes. [facility] [address] [address],[address] [facility] [id number] Jewels Hardin MD, PhD 05/09/2024 9:57 AM STATION EXAMINER 05/09/2024 10:04 AM STATION EXAMINER Narrative QUEST - 05/14/2024 10:56 AM STATION EXAMINER FASTING:YES FASTING: YES Gypsy Fontana MD LAB BLOOD ORDERABLES Final Res ult Kera[facility] [address] [place] [address], [address] [place] [address] * Selenium (05/09/2024 9:57 AM STATION EXAMINER) [facility] Selenium 119 63 - 160 mcg/L [facility] Comment: (Note) This test was developed and its analytical performance characteristics have been determined by [employer]. It has not been cleared or approved by the FDA. This assay has been validated pursuant to the CLIA regulations and is used for clinical purposes. [facility] med fusion [address] [facility] [address] [facility] [id number] Jewels Hardin MD, PhD 05/09/2024 9:57 AM STATION EXAMINER 05/09/2024 10:04 AM STATION EXAMINER Narrative QUEST - 05/14/2024 10:56 AM STATION EXAMINER FASTING:YES FASTING: YES Gypsy Fontana MD LAB BLOOD ORDERABLES Final Res ult [facility] [address] [place] [address], [address] [place] [address] * Vitamin D 25 hydroxy (05/09/2024 9:57 AM STATION EXAMINER) [facility] Vitamin D 25-OH 68 30 - 100 ng/mL [facility] Comment: Vitamin D Status 25-OH Vitamin D: Deficiency: <20 ng/mL Insufficiency: 20 - 29 ng/mL Optimal: > or = 30 ng/mL For 25-OH Vitamin D testing on patients on D2-supplementation and patients for whom quantitation of D2 and D3 fractions is required, the QuestAssureD(TM) 25-OH VIT D, (D2,D3), LC/MS/MS is recommended: order code 50385 (patients >2yrs). See Note 1 Note 1 For additional information, please refer to http://education.[email or web address]/faq/AMI472 (This link is being provided for informational/ educational purposes only.) Blood 05/09/2024 9:57 AM STATION EXAMINER 05/09/2024 10:04 AM STATION EXAMINER Narrative QUEST - 05/14/2024 10:56 AM STATION EXAMINER FASTING:YES FASTING: YES Gypsy Fontana MD LAB BLOOD ORDERABLES Final Res ult Performing Organization Address [facility] de Phone Number [facility] [address] [place] [address] * Insulin, total (05/09/2024 9:57 AM STATION EXAMINER) Pathologist [facility] INSULIN 9.0 uIU/mL [facility] Comment: Reference Range < or = 18.4 Risk: Optimal < or = 18.4 Moderate NA High >18.4 Adult cardiovascular event risk category cut points (optimal, moderate, high) are based on Insulin Reference Interval studies performed at [facility] in 2021. Blood 05/09/2024 9:57 AM STATION EXAMINER 05/09/2024 10:04 AM STATION EXAMINER Narrative QUEST - 05/14/2024 10:56 AM STATION EXAMINER FASTING:YES FASTING: YES us Gypsy Fontana MD LAB BLOOD ORDERABLES Final Res ult Performing Organization Address [facility] de Phone Number [facility] [address] [place] [address] * (ABNORMAL) Protime-INR (05/09/2024 9:57 AM STATION EXAMINER) [facility] INR 1.1 [facility]very Comment: Reference Range 0.9-1.1 Moderate-intensity Warfarin Therapy 2.0-3.0 Higher-intensity Warfarin Therapy 3.0-4.0 PT 12.2(H) 9.0 - 11.5 sec gro[facility]olar[facility]to [facility] Avery Comment: For additional information, please refer to http://education.[email or web address]/faq/CPR091 (This link is being provided for informational/ educational purposes only.) 05/09/2024 9:57 AM STATION EXAMINER 05/09/2024 10:04 AM STATION EXAMINER Narrative QUEST - 05/14/2024 10:56 AM STATION EXAMINER FASTING:YES FASTING: YES Gypsy Fontana MD LAB BLOOD ORDERABLES Final Res ult Performing Organization Address [facility] Co de Phone Number [facility] [address] [place] [address] * CBC without differential (05/09/2024 9:57 AM STATION EXAMINER) WBC 5.1 3.8 - 10.8 Thousand/u L [facility] RBC, POC 4.36 3.80 - 5.10 Million/uL [facility] Hgb 14.1 11.7 - 15.5 g/dL [facility] Hct 42.4 35.0 - 45.0 % [facility] MCV 97.2 80.0 - 100.0 fL [facility] MCH 32.3 27.0 - 33.0 pg [facility] MCHC 33.3 32.0 - 36.0 g/dL [facility] Comment: For adults, a slight decrease in the calculated MCHC value (in the range of 30 to 32 g/dL) is most likely not clinically significant; however, it should be interpreted with caution in correlation with other red cell parameters and the patient's clinical condition. Rdw 12.4 11.0 - 15.0 % [facility] Platelets 178 140 - 400 Thousand/u L [facility] MPV 11.4 7.5 - 12.5 fL [facility] Blood 05/09/2024 9:57 AM STATION EXAMINER 05/09/2024 10:04 AM STATION EXAMINER Narrative QUEST - 05/14/2024 10:56 AM STATION EXAMINER FASTING:YES FASTING: YES us Gypsy Fontana MD LAB BLOOD ORDERABLES Final Res ult QUEST [facility] [address] [place] [address] * (ABNORMAL) Urine culture (05/09/2024 9:57 AM STATION EXAMINER) Urine culture (A) [facility] Comment: CULTURE, URINE, ROUTINE Micro Number: [id number] Test Status: Final Specimen Source: Urine Specimen Quality: Adequate Result: Greater than 100,000 CFU/mL of Klebsiella species Klebsiella sp. INT DRISS AMOX/CLAVULANATE R 4 AMP/SULBACTAM R 4 CEFAZOLIN R <=4 1 CEFEPIME S <=0.12 CEFTAZIDIME S <=1 CEFTRIAXONE S <=0.25 CIPROFLOXACIN S <=0.06 GENTAMICIN S <=1 IMIPENEM S <=0.25 LEVOFLOXACIN S <=0.12 MEROPENEM S <=0.25 NITROFURANTOIN I 64 PIP/TAZOBACTAM S <=4 TRIMETHOPRIM/SULFA S <=20 S = Susceptible I = Intermediate R = Resistant NS = Not susceptible SDD = Susceptible Dose Dependent * = Not Tested NR = Not Reported NN = See Therapy Comments THERAPY COMMENTS Note 1: For uncomplicated UTI caused by E. coli, K. pneumoniae or P. mirabilis: Cefazolin is susceptible if DRISS <32 mcg/mL and predicts susceptible to the oral agents cefaclor, cefdinir, cefpodoxime, cefprozil, cefuroxime, cephalexin and loracarbef. 05/09/2024 9:57 AM STATION EXAMINER 05/09/2024 10:04 AM STATION EXAMINER Narrative QUEST - 05/14/2024 10:56 AM STATION EXAMINER FASTING:YES FASTING: YES us Gypsy Fontana MD LAB MICROBIOLOGY - GENERAL ORD ERABLES Final Result [facility] [address] [place] [address] * CRP (cardiac risk) (05/09/2024 9:57 AM STATION EXAMINER) Pathologist [facility] hsCRP 0.6 mg/L [facility] Comment: Reference Range Optimal <1.0 Jeanna PS et al. Endocr Pract.2017;23(Suppl 2):1-87. For ages >17 Years: hs-CRP mg/L Risk According to AHA/CDC Guidelines <1.0 Lower relative cardiovascular risk. 1.0-3.0 Average relative cardiovascular risk. 3.1-10.0 Higher relative cardiovascular risk. Consider retesting in 1 to 2 weeks to exclude a benign transient elevation in the baseline CRP value secondary to infection or inflammation. >10.0 Persistent elevation, upon retesting, may be associated with infection and inflammation. Kala TA, Carolyn GA, Jared RW, et al. Markers of inflammation and cardiovascular disease: application to clinical and public health practice: A statement for healthcare professionals from the Centers for Disease Control and Prevention and the [place] [employer] Association. Circulation 2003; 107(3): 499-511. 05/09/2024 9:57 AM STATION EXAMINER 05/09/2024 10:04 AM STATION EXAMINER Narrative QUEST - 05/14/2024 10:56 AM STATION EXAMINER FASTING:YES FASTING: YES Gypsy Fontana MD LAB BLOOD ORDERABLES Final Res ult Performing Organization Address [facility] Co de Phone Number QUEST [facility] [address] [place] [address] * Uric acid (05/09/2024 9:57 AM STATION EXAMINER) Uric acid 3.6 2.5 - 7.0 mg/dL [facility] Comment: Therapeutic target for gout patients: <6.0 mg/dL 05/09/2024 9:57 AM STATION EXAMINER 05/09/2024 10:04 AM STATION EXAMINER Narrative QUEST - 05/14/2024 10:56 AM STATION EXAMINER FASTING:YES FASTING: YES Gypys Fontana MD LAB BLOOD ORDERABLES Final Res ult Performing Organization Address [facility] Co de Phone Number QUEST [facility] [address] [place] [address] * T3, free (05/09/2024 9:57 AM STATION EXAMINER) Free T3 2.5 2.3 - 4.2 pg/mL [facility] 05/09/2024 9:57 AM STATION EXAMINER 05/09/2024 10:04 AM STATION EXAMINER Narrative QUEST - 05/14/2024 10:56 AM STATION EXAMINER FASTING:YES FASTING: YES us Gypsy Fontana MD LAB BLOOD ORDERABLES Final Res ult QUEST [facility] [address] [place] [address] * Vitamin E (05/09/2024 9:57 AM STATION EXAMINER) Alpha-tocopherol 14.8 5.7 - 19.9 mg/L [facility] Comment:Levels of alpha-toco pherol <5 mg/L are consistent with Vitamin E deficiency in adults. Jgvo-Cojlm-Jxwvcurcv l 1.7 <4.4 mg/L [facility] Comment: (Note) Vitamin supplementation within 24 hours prior to blood draw may affect the accuracy of results. This test was developed and its analytical performance characteristics have been determined by [employer]. It has not been cleared or approved by the FDA. This assay has been validated pursuant to the CLIA regulations and is used for clinical purposes. [facility] [address] [address],[address] [place], [place] [id number] Jewels Hardin MD, PhD 05/09/2024 9:57 AM STATION EXAMINER 05/09/2024 10:04 AM STATION EXAMINER Narrative QUEST - 05/14/2024 10:56 AM STATION EXAMINER FASTING:YES FASTING: YES Gypsy Fontana MD LAB BLOOD ORDERABLES Final Res ult QUEST [facility] [address] [address], [address] [place] [address] * (ABNORMAL) T4, free (05/09/2024 9:57 AM STATION EXAMINER) Free T4 0.7(L) 0.8 - 1.8 ng/dL [facility] 05/09/2024 9:57 AM STATION EXAMINER 05/09/2024 10:04 AM STATION EXAMINER Narrative QUEST - 05/14/2024 10:56 AM STATION EXAMINER FASTING:YES FASTING: YES Gypsy Fontana MD LAB BLOOD ORDERABLES Final Res ult QUEST [facility] [address] [place] [address] * Vitamin B1 (05/09/2024 9:57 AM STATION EXAMINER) Thiamine (Vit B1) 138 78 - 185 nmol/L [facility] Comment: (Note) Vitamin supplementation within 24 hours prior to blood draw may affect the accuracy of the results. This test was developed and its analytical performance characteristics have been determined by [employer]. It has not been cleared or approved by FDA. This assay has been validated pursuant to the CLIA regulations and is used for clinical purposes. [facility] [address] [place] [address],[address] [place] [address] Jewels Hardin MD, PhD 05/09/2024 9:57 AM STATION EXAMINER 05/09/2024 10:04 AM STATION EXAMINER Narrative QUEST - 05/14/2024 10:56 AM STATION EXAMINER FASTING:YES FASTING: YES Gypsy Fontana MD LAB BLOOD ORDERABLES Final Res ult [facility] [address] [place] [address], [address] [place] [address] * Vitamin B6 (05/09/2024 9:57 AM STATION EXAMINER) VITAMIN B6 13.9 2.1 - 21.7 ng/mL [facility] Comment: (Note) Vitamin supplementation within 24 hours prior to blood draw may affect the accuracy of results. This test was developed and its analytical performance characteristics have been determined by [employer]. It has not been cleared or approved by the FDA. This assay has been validated pursuant to the CLIA regulations and is used for clinical purposes. [facility] [address] [address],[address] [place] [address] Jewels Hardin MD, PhD 05/09/2024 9:57 AM STATION EXAMINER 05/09/2024 10:04 AM STATION EXAMINER Narrative QUEST - 05/14/2024 10:56 AM STATION EXAMINER FASTING:YES FASTING: YES Gypsy Fontana MD LAB BLOOD ORDERABLES Final Res ult [facility] [address] [facility] [address], [address] [place] [address] * Phosphorus (05/09/2024 9:57 AM STATION EXAMINER) Phosphorus, sr 3.9 2.1 - 4.3 mg/dL [facility] 05/09/2024 9:57 AM STATION EXAMINER 05/09/2024 10:04 AM STATION EXAMINER Narrative QUEST - 05/14/2024 10:56 AM STATION EXAMINER FASTING:YES FASTING: YES Gypsy Fontana MD LAB BLOOD ORDERABLES Final Res ult Performing Organization Address [facility] de Phone Number [facility] [address] [place] [address] * PTH (05/09/2024 9:57 AM STATION EXAMINER) Parathyroid hormone, intact 41 16 - 77 pg/mL [facility] Comment: Interpretive Guide Intact PTH Calcium ------- Normal Parathyroid Normal Normal Hypoparathyroidism Low or Low Normal Low Hyperparathyroidism Primary Normal or High High Secondary High Normal or Low Tertiary High High Non-Parathyroid Hypercalcemia Low or Low Normal High 05/09/2024 9:57 AM STATION EXAMINER 05/09/2024 10:04 AM STATION EXAMINER Narrative QUEST - 05/14/2024 10:56 AM STATION EXAMINER FASTING:YES FASTING: YES Gypsy Fontana MD LAB BLOOD ORDERABLES Final Res ult Performing Organization Address City/[facility]/ZIP Co de Phone Number [facility] [address] [place] [address] * Magnesium (05/09/2024 9:57 AM STATION EXAMINER) Magnesium 2.0 1.5 - 2.5 mg/dL [facility] 05/09/2024 9:57 AM STATION EXAMINER 05/09/2024 10:04 AM STATION EXAMINER Narrative QUEST - 05/14/2024 10:56 AM STATION EXAMINER FASTING:YES FASTING: YES Gypsy Fontana MD LAB BLOOD ORDERABLES Final Res ult Performing Organization Address City/[facility] Co de Phone Number QUEST [facility] [address] [place] [address] * Lipase (05/09/2024 9:57 AM STATION EXAMINER) Pathologist [facility] LIPASE 29 7 - 60 U/L [facility] 05/09/2024 9:57 AM STATION EXAMINER 05/09/2024 10:04 AM STATION EXAMINER Narrative QUEST - 05/14/2024 10:56 AM STATION EXAMINER FASTING:YES FASTING: YES Gypsy Fontana MD LAB BLOOD ORDERABLES Final Res ult Performing Organization Address [facility] de Phone Number [facility] [address] [place] [address] * Hemoglobin A1c (05/09/2024 9:57 AM STATION EXAMINER) Pathologist [facility] Hgb A1C 4.9 <5.7 % of total Hgb [facility] Comment: For the purpose of screening for the presence of diabetes: <5.7% Consistent with the absence of diabetes 5.7-6.4% Consistent with increased risk for diabetes (prediabetes) > or =6.5% Consistent with diabetes This assay result is consistent with a decreased risk of diabetes. Currently, no consensus exists regarding use of hemoglobin A1c for diagnosis of diabetes in children. According to [place] [employer] (ADA) guidelines, hemoglobin A1c <7.0% represents optimal control in non- diabetic patients. Different metrics may apply to specific patient populations. Standards of Medical Care in Diabetes(ADA). Blood 05/09/2024 9:57 AM STATION EXAMINER 05/09/2024 10:04 AM STATION EXAMINER Narrative QUEST - 05/14/2024 10:56 AM STATION EXAMINER FASTING:YES FASTING: YES Gypsy Fontana MD LAB BLOOD ORDERABLES Final Res ult [facility] [address] [place] [address] * Gamma GT (05/09/2024 9:57 AM STATION EXAMINER) GGT 19 3 - 65 U/L [facility] 05/09/2024 9:57 AM STATION EXAMINER 05/09/2024 10:04 AM STATION EXAMINER Narrative QUEST - 05/14/2024 10:56 AM STATION EXAMINER FASTING:YES FASTING: YES Gypsy Fontana MD LAB BLOOD ORDERABLES Final Res ult Performing Organization Address [facility] de Phone Number QUEST [facility] [address] [place] [address] * Folate (05/09/2024 9:57 AM STATION EXAMINER) Pathologist [facility] Folate, Serum >24.0 ng/mL [facility] Comment: Reference Range Low: <3.4 Borderline: 3.4-5.4 Normal: >5.4 Blood 05/09/2024 9:57 AM STATION EXAMINER 05/09/2024 10:04 AM STATION EXAMINER Narrative QUEST - 05/14/2024 10:56 AM STATION EXAMINER FASTING:YES FASTING: YES Gypsy Fontana MD LAB BLOOD ORDERABLES Final Res ult Performing Organization Address [facility] Co de Phone Number QUEST [facility] [address] [place] [address] * Ferritin (05/09/2024 9:57 AM STATION EXAMINER) Pathologist [facility] Ferritin 49 16 - 288 ng/mL [facility] Blood 05/09/2024 9:57 AM STATION EXAMINER 05/09/2024 10:04 AM STATION EXAMINER Narrative QUEST - 05/14/2024 10:56 AM STATION EXAMINER FASTING:YES FASTING: YES Gypsy Fontana MD LAB BLOOD ORDERABLES Final Res ult Performing Organization Address [facility]/ZIP Co de Phone Number QUEST [facility] [address] [place] [address] * (ABNORMAL) Vitamin B12 (05/09/2024 9:57 AM STATION EXAMINER) Vitamin B12 >2000(H) 200 - 1100 pg/mL [facility] Blood 05/09/2024 9:57 AM STATION EXAMINER 05/09/2024 10:04 AM STATION EXAMINER Narrative QUEST - 05/14/2024 10:56 AM STATION EXAMINER FASTING:YES FASTING: YES Gypsy Fontana MD LAB BLOOD ORDERABLES Final Res ult Performing Organization Address [facility] de Phone Number QUEST [facility] [address] [place] [address] * Amylase (05/09/2024 9:57 AM STATION EXAMINER) Amylase 59 21 - 101 U/L [facility] 05/09/2024 9:57 AM STATION EXAMINER 05/09/2024 10:04 AM STATION EXAMINER Narrative QUEST - 05/14/2024 10:56 AM STATION EXAMINER FASTING:YES FASTING: YES Gypsy Fontana MD LAB BLOOD ORDERABLES Final Res ult Performing Organization Address [facility] de Phone Number QUEST [facility] [address] [place] [address] * Lipid panel (05/09/2024 9:57 AM STATION EXAMINER) Cholesterol 169 <200 mg/dL [facility] HDL 69 > OR = 50 mg/dL [facility] Triglycerides 73 <150 mg/dL [facility] LDL 84 mg/dL (calc) [facility] Comment: Reference range: <100 Desirable range <100 mg/dL for primary prevention; <70 mg/dL for patients with CHD or diabetic patients with > or = 2 CHD risk factors. LDL-C is now calculated using the Lakisha calculation, which is a validated novel method providing better accuracy than the Friedewald equation in the estimation of LDL-C. Gaurang SS et al. MARLYS. 2013;310(19): 5843-9405 (http://education.[employer].com/faq/WWR268) Chol/HDL ratio 2.4 <5.0 (calc) [facility] Non-HDL, (LDL+VLDL) 100 <130 mg/dL (calc) [facility] Comment: For patients with diabetes plus 1 major ASCVD risk factor, treating to a non-HDL-C goal of <100 mg/dL (LDL-C of <70 mg/dL) is considered a therapeutic option. Blood 05/09/2024 9:57 AM STATION EXAMINER 05/09/2024 10:04 AM STATION EXAMINER Narrative [facility] - 05/14/2024 10:56 AM STATION EXAMINER FASTING:YES FASTING: YES us Gypsy Fontana MD LAB BLOOD ORDERABLES Final Res ult [facility] [address] [place] [address] * (ABNORMAL) Comprehensive metabolic panel (05/09/2024 9:57 AM STATION EXAMINER) [facility] Glucose 81 65 - 99 mg/dL [facility] Comment: Fasting reference interval BUN 8 7 - 25 mg/dL [facility] Creatinine 0.60 0.50 - 1.05 mg/dL [facility] eGFR 100 > OR = 60 mL/min/1.7 3m2 [facility] BUN/creat ratio SEE NOTE: 6 - 22 (calc) [facility] Comment: Not Reported: BUN and Creatinine are within reference range. Sodium 141 135 - 146 mmol/L [facility] Potassium, pl 4.0 3.5 - 5.3 mmol/L [facility] Chloride 110 98 - 110 mmol/L [facility] CO2 25 20 - 32 mmol/L [facility] Calcium 8.6 8.6 - 10.4 mg/dL [facility] Protein, sr 6.0(L) 6.1 - 8.1 g/dL [facility] Albumin 3.7 3.6 - 5.1 g/dL [facility] GLOBULIN 2.3 1.9 - 3.7 g/dL (calc) [facility] Alb/glob ratio 1.6 1.0 - 2.5 (calc) [facility] Bilirubin, total 0.4 0.2 - 1.2 mg/dL [facility] Alk phos 60 37 - 153 U/L [facility] AST 21 10 - 35 U/L [facility] ALT (SGPT) 21 6 - 29 U/L [facility] Blood 05/09/2024 9:57 AM STATION EXAMINER 05/09/2024 10:04 AM STATION EXAMINER Narrative [facility] - 05/14/2024 10:56 AM STATION EXAMINER FASTING:YES FASTING: YES us Gypsy Fontana MD LAB BLOOD ORDERABLES Final Res ult [facility] [address] [place] [address] from Last 3 [place] [id number] [facility] Just [employer] [address] [employer] [address] MEDICARE Care Teams Manager Truck Relationship Specialty Start Date End Date Diamond Clark NP [address] [place] [address] PCP - General Nurse Practitioner 05/05/20 Jesse Connolly MD [address] [facility] [address] [address] Consulting Physician Cardiology 11/20/21 Mary Bethea MD [address] [address] Fellow Neurology 11/20/21 Erik Gamble, DPMadiha [address] [address] Consulting Physician Podiatry 11/25/21
--- OUTSIDE RECORDS SUMMARY | 2024-07-19 13:46 | XMS_ITS | Encounter Summary ---
Author Organization [facility] Facility Care Team Providers Care Director Of Neurology Name Role Phone Imelda Trinidad Primary Care Pr ovider Rachel Garces CUTTING AND PRINTING MACHINE OPERATOR Primary Care Provider Todd Lima DO Primary Care Provider [phone] Ree Ca MD Primary Care Provider [phone] Todd Lima DO Primary Care Provider [phone] Diamond Clark NP Primary Care Provider + [phone] Jesse Connolly MD Unavailable Mary Bethea MD Unavailable [phone]- [phone] Erik Gamble DPM Unavailable [phone] Encounter Details Date Type Department Care Team (Latest Contact Info) Description 08/19/2016 Orders Only [facility] CLINCON[facility] ProviderGinny MD [address] [place] [address] Social History Tobacco Use Types Packs/Day Years Used Date Smoking Tobacco: Never Alcohol Use Standard Drinks/Week Comments Yes 0 (1 standard drink = 0.6 oz pur e alcohol) Comments Unknown Sex and Gender Information Value Date Recorded Sex Assigned at Not on file 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 us Historical Provider MD Final Res ult documented in this encounter Visit Diagnoses Not on filedocumented in this encounter Care Teams Director Of Neurology Relationship Specialty Start Date End Date Imelda Trinidad PA PCP - General 07/17/14 01/12/17 Rachel Garces NP [address] [address] PCP - General Nurse Practitioner 01/13/17 07/04/18 Todd Lima DO [address] [address] PCP - General Internal Medicine 07/05/18 10/09/18 Ree Ca MD [address] [facility] [address] [place] [address] PCP - General Internal Medicine 10/10/18 07/03/19 Todd Lima DO [address] [facility] [place] [address] PCP - General Internal Medicine 07/04/19 05/04/20 Diamond Clark NP [address] [place] [address] PCP - General Nurse Practitioner 05/05/20 Jesse Connolly MD [address] [facility] [address] [place] [address] Consulting Physician Cardiology 11/20/21 Mary Bethea MD [address] [place] [id number] Fellow Neurology 11/20/21 Erik Gamble, DPMadiha [address] [address] Consulting Physician Podiatry 11/25/21 documented as of this encounter
--- OUTSIDE RECORDS SUMMARY | 2024-07-19 13:46 | XMS_ITS | Encounter Summary ---
Author Organization [facility]/Health system Facility Care Team Providers Care Sales Appointment Coordinator Name Role Phone Imelda Trinidad Primary Care Pr ovider Rachel Garces [employer] DEAN Primary Care Provider Todd Lima DO Primary Care Provider [phone] Ree Ca MD Primary Care Provider [phone] Todd Lima DO Primary Care Provider [phone] Diamond Clark NP Primary Care Provider + [phone] Jesse Connolly MD Unavailable Mary Bethea MD Unavailable [phone]- [phone] Erik Gamble DPM Unavailable [phone] Encounter Details Date Type Department Care Team (Latest Contact Info) Description 08/15/2015 Orders Only [facility] CLINCONV ProviderGinny MD [address] [place] [address] Social History Tobacco Use Types Packs/Day Years Used Date Smoking Tobacco: Never Alcohol Use Standard Drinks/Week Comments Yes 0 (1 standard drink = 0.6 oz pur e alcohol) Comments Unknown Sex and Gender Information Value Date Recorded Sex Assigned at Not on file 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 us Historical Provider MD Final Res ult documented in this encounter Visit Diagnoses Not on filedocumented in this encounter Care Teams Sales Appointment Coordinator Relationship Specialty Start Date End Date Imelda Trinidad PA PCP - General 07/17/14 01/12/17 Rachel Garces NP [address] [address] PCP - General Nurse Practitioner 01/13/17 07/04/18 Todd Lima DO [address] [address] PCP - General Internal Medicine 07/05/18 10/09/18 Ree Ca MD [address] [facility] [address] [place] [address] PCP - General Internal Medicine 10/10/18 07/03/19 Todd Lima DO [address] [facility] [place] [address] PCP - General Internal Medicine 07/04/19 05/04/20 Diamond Clark NP [address] [place] [address] PCP - General Nurse Practitioner 05/05/20 Jesse Connolly MD [address] [facility] [address] [place] [address] Consulting Physician Cardiology 11/20/21 Mary Bethea MD [address] [place] [id number] Fellow Neurology 11/20/21 Erik Gamble, DPMadiha [address] [address] Consulting Physician Podiatry 11/25/21 documented as of this encounter
--- OUTSIDE RECORDS SUMMARY | 2024-07-19 13:46 | XMS_ITS | Referral Summary ---
Author Organization [facility] Address [address] [place] [phone] Care Team Providers Care Steward/Stewardess Lounge Name Role Phone Diamond Clark NP Primary Care Provider [phone] Jesse Connolly MD Unavailable Mary Bethea MD Unavailable + [phone] Erik Gambel DPM Unavailable [phone] Encounters Date Type Department Care Team Description 06/11/2024 Orders Only [facility] [address] [place] [address] [place] [phone] Jesse Connolly MD Cardiac pacemaker in situ (Primary Dx); SSS (sick sinus syndrome) (CMS/HCC) (HCC); Paroxysmal atrial fibrillation (CMS/HCC) (HCC) 06/05/2024 7:30 AM MEND WORKER Ancillary Procedure [facility] [address] [place] [address] [place] [phone] SSS (sick sinus syndrome) (CMS/HCC) (HCC); Paroxysmal atrial fibrillation (CMS/HCC) (HCC); Cardiac pacemaker in situ 05/28/2024 Telephone [facility] [address] [facility] 1st Floor [address] [place] [address] Stefanie Thompson DPT 05/17/2024 3:00 PM MEND WORKER Telemedicine [facility] [address] [place] [address] Medical Office [address], [address] [place] [address] July Weaver PA Class 3 obesity with alveolar hypoventilation without serious comorbidity with body mass index (BMI) greater than or equal to 70 in adult (HCC) (Primary Dx); Acquired hypothyroidism; Acute cystitis without hematuria; Encounter for weight loss counseling; Lymphedema; Metabolic syndrome 05/14/2024 Telephone [facility] [address] [place] [address] Medical [address], [address] [place] [phone] Ximena Jolley, SOLAR SALES SPECIALIST Labs Only 05/01/2024 11:30 AM MEND WORKER Therapy [facility] [address] [place] [phone] Tiara López PTA Lymphedema (Primary Dx) 04/18/2024 1:20 PM MEND WORKER Office Visit [facility] [address] [place] [address] Medical [address] [place] [phone] Gypsy Fontana MD Encounter for weight management (Primary Dx); Metabolic disorder; Dietary counseling; Exercise counseling; H/O papillary adenocarcinoma of thyroid; Weight gain due to medication; Lymphedema; Class 3 obesity with alveolar hypoventilation without serious comorbidity with body mass index (BMI) greater than or equal to 70 in adult (HCC) from Last 3 Months Allergies Active Allergy Reactions Criticality Noted Date [...] Take 2 tablets at bedtime. 0 Active jafojxfm-zkj-XF -lycopen-lutein 0.4-300-250 mg-mcg-mcg tabletIndicatio ns:Vitamin Deficiency Prevention [...] 1 tablet (75 mcg total) by mouth can reconditioner before breakfast Active alendronate (FOSAMAX) 70 mg tablet Take 1 tablet (70 mg total) by mouth once a week 4 Active cetirizine (ZyrTEC) 10 mg tablet Take 1 tablet (10 mg total) by mouth daily Active eszopiclone (LUNESTA) 2 mg tablet Take 1 tablet (2 mg total) by mouth nightly Active rbzxhyov-svd-pa on-FA-vit K-lut 8 mg iron-400 mcg-50 mcg tablet 1 tablet(s), Oral, daily, 30 tablet(s), Tablet(s), 0 1 Active hydroCHLOROthia zide (HYDRODIURIL) 25 mg tablet Take 1 tablet (25 mg total) by mouth can reconditioner before breakfast 4 Active benzonatate (TESSALON) 200 [...] 05/17/2024 Assessment & Plan (05/17/2024 3:14 PM MEND WORKER): Keflex sent in, feeling better H/O papillary adenocarcinoma of thyroid 04/18/20 24 Encounter for weight loss counseling 03/21/2024 Assessment & Plan (05/17/2024 3:21 PM MEND WORKER): Relevant weight management chart notes reviewed. I [...] 03/21/2024 Assessment & Plan (05/17/2024 3:21 PM MEND WORKER): Continue ozempic 2mg and jardiance every other day Acquired hypothyroidism 03/21/2024 Assessment & Plan (05/17/2024 3:14 PM MEND WORKER): Recent labs faxed to PCP to adjust thyroid medication Weight gain due to medication 03/21/2024 Class 3 obesity with alveola r hypoventilation without serious comorbidity with body mass index (BMI) greater than or equal to 70 in adult 03/21/2024 Assessment & Plan (05/17/2024 3:14 PM MEND WORKER): High weight 438 Obesity is one of [...] 03/21/2024 Assessment & Plan (05/17/2024 3:21 PM MEND WORKER): In therapy at [facility] Cardiac pacemaker in situ 11/04/2017 Overview (09/01/2021): Singletary Assurity Dual Pacemaker. Dx; SSS, PAF. Generator Replacement and new RV lead 09/01/2021-Dr Olsen. Chronic A-Lead 12/22/2010. Chronic V-Lead capped. Reilly remote monitoring Q3 mo, office pacer checks Q1 yr. Atypical chest pain 07/17/2014 Overview (09/03/2016): Atypical chest pain Hernia of anterior abdominal wall 07/19/2012 Morbid obesity with BMI of 40.0-44.9, adult 07/01 Mild intermittent asthma, uncomplicated Immunizations Immunization Administration Dates Next Due Influenza, Quadrivalent, Split, Intramuscular Influenza, Quadrivalent, Spl it, Preservative Free, Intramuscular 04/05/2018 Social History Tobacco Use Types Packs/Day Years [...] on file Legal Sex Female 9:33 AM MEND WORKER Gender Identity Not on file Sexual Orientation Not on file Last Filed Vital Signs Vital Sign Reading Time Taken Comments Blood Pressure 116/79 04/18/2024 1:10 PM MEND WORKER Pulse 65 04/18/2024 1:10 PM MEND WORKER Temperature 36.3 C (97.4 F) 04/18/2024 1:10 PM MEND WORKER Respiratory Rate 18 04/18/2024 1:10 PM MEND WORKER Oxygen Saturation 98% 04/18/2024 1:10 PM MEND WORKER Inhaled Oxygen Concentration - - Weight 99.9 kg (220 lb 3.2 oz) 04/18/2024 1:10 P M MEND WORKER Height 152.4 cm (5') 04/18/2024 1:10 PM MEND WORKER Body Mass Index 43 04/18/2024 1:10 PM MEND WORKER Plan of Treatment Not on file Medical Devices Implanted Type Area Soldering Machine Setter Device Identifier Shelf Expiration Date Model / Serial / Lot Pacemaker-12/22 Implanted:11/28 (Quantity not on file) Pacemaker Chest [employer] SSS, Afib Knee Components Bilateral : Knee [employer] Fuseforce L10 Mm X W10 Mm Hand Staple Bone Sterile 2 Mm Reamer [id number] - Sn/A - [id number] Implanted:Qty: 1 on 11/25/2021 by Erik Gamble DPM at [facility] Right: [employer] 10/07/2026 [id number] / N/A / [id number] Procedures Procedure Name Priority Date/Time Associated Diagnosis Comments DEVICE CHECK - REMOTE Routine 06/11/2024 2:24 PM MEND WORKER SSS (sick sinus syndrome) (CMS/HCC) (HCC) Paroxysmal atrial fibrillation (CMS/HCC) (HCC) Cardiac pacemaker in situ SELENIUM Routine 05/09/2024 9:57 AM MEND WORKER VITAMIN E Routine 05/09/2024 9:57 AM MEND WORKER VITAMIN A Routine 05/09/2024 9:57 AM MEND WORKER ZINC Routine 05/09/2024 9:57 AM MEND WORKER COPPER, SERUM Routine 05/09/2024 9:57 AM MEND WORKER VITAMIN B1 Routine 05/09/2024 9:57 AM MEND WORKER VITAMIN B6 Routine 05/09/2024 9:57 AM MEND WORKER LIPASE Routine 05/09/2024 9:57 AM MEND WORKER AMYLASE Routine 05/09/2024 9:57 AM MEND WORKER T4, FREE Routine 05/09/2024 9:57 AM MEND WORKER PTH Routine 05/09/2024 9:57 AM MEND WORKER T3, FREE Routine 05/09/2024 9:57 AM MEND WORKER CRP, HIGH SENSITIVITY Routine 05/09/2024 9:57 AM MEND WORKER PROTIME-INR Routine 05/09/2024 9:57 AM MEND WORKER ALBUMIN CREATININE RATIO, URINE Routine 05/09/2024 9:57 AM MEND WORKER URIC ACID Routine 05/09/2024 9:57 AM MEND WORKER PHOSPHORUS Routine 05/09/2024 9:57 AM MEND WORKER MAGNESIUM Routine 05/09/2024 9:57 AM MEND WORKER GAMMA GT Routine 05/09/2024 9:57 AM MEND WORKER CBC WITHOUT DIFFERENTIAL Routine 05/09/2024 9:57 AM MEND WORKER Encounter for weight management Metabolic disorder Dietary counseling Exercise counseling H/O papillary adenocarcinoma of thyroid Weight gain due to medication Lymphedema Class 3 obesity with alveolar hypoventilation without serious comorbidity with body mass index (BMI) greater than or equal to 70 in adult (HCC) COMPREHENSIVE METABOLIC PANEL Routine 05/09/2024 9:57 AM MEND WORKER Encounter for weight management Metabolic disorder Dietary counseling Exercise counseling H/O papillary adenocarcinoma of thyroid Weight gain due to medication Lymphedema Class 3 obesity with alveolar hypoventilation without serious comorbidity with body mass index (BMI) greater than or equal to 70 in adult (HCC) FERRITIN Routine 05/09/2024 9:57 AM MEND WORKER Encounter for weight management Metabolic disorder Dietary counseling Exercise counseling H/O papillary adenocarcinoma of thyroid Weight gain due to medication Lymphedema Class 3 obesity with alveolar hypoventilation without serious comorbidity with body mass index (BMI) greater than or equal to 70 in adult (HCC) FOLATE Routine 05/09/2024 9:57 AM MEND WORKER Encounter for weight management Metabolic disorder Dietary counseling Exercise counseling H/O papillary adenocarcinoma of thyroid Weight gain due to medication Lymphedema Class 3 obesity with alveolar hypoventilation without serious comorbidity with body mass index (BMI) greater than or equal to 70 in adult (HCC) HEMOGLOBIN A1C Routine 05/09/2024 9:57 AM MEND WORKER Encounter for weight management Metabolic disorder Dietary counseling Exercise counseling H/O papillary adenocarcinoma of thyroid Weight gain due to medication Lymphedema Class 3 obesity with alveolar hypoventilation without serious comorbidity with body mass index (BMI) greater than or equal to 70 in adult (HCC) INSULIN, TOTAL Routine 05/09/2024 9:57 AM MEND WORKER Encounter for weight management Metabolic disorder Dietary counseling Exercise counseling H/O papillary adenocarcinoma of thyroid Weight gain due to medication Lymphedema Class 3 obesity with alveolar hypoventilation without serious comorbidity with body mass index (BMI) greater than or equal to 70 in adult (HCC) IRON PROFILE W/ IBC Routine 05/09/2024 9 :57 AM MEND WORKER Encounter for weight management Metabolic disorder Dietary counseling Exercise counseling H/O papillary adenocarcinoma of thyroid Weight gain due to medication Lymphedema Class 3 obesity with alveolar hypoventilation without serious comorbidity with body mass index (BMI) greater than or equal to 70 in adult (HCC) LIPID PANEL Routine 05/09/2024 9:57 AM MEND WORKER Encounter for weight management Metabolic disorder Dietary counseling Exercise counseling H/O papillary adenocarcinoma of thyroid Weight gain due to medication Lymphedema Class 3 obesity with alveolar hypoventilation without serious comorbidity with body mass index (BMI) greater than or equal to 70 in adult (HCC) VITAMIN D 25 HYDROXY Routine 05/09/2024 9:57 AM MEND WORKER Encounter for weight management Metabolic disorder Dietary counseling Exercise counseling H/O papillary adenocarcinoma of thyroid Weight gain due to medication Lymphedema Class 3 obesity with alveolar hypoventilation without serious comorbidity with body mass index (BMI) greater than or equal to 70 in adult (HCC) VITAMIN B12 Routine 05/09/2024 9:57 AM MEND WORKER Encounter for weight management Metabolic disorder Dietary counseling Exercise counseling H/O papillary adenocarcinoma of thyroid Weight gain due to medication Lymphedema Class 3 obesity with alveolar hypoventilation without serious comorbidity with body mass index (BMI) greater than or equal to 70 in adult (HCC) THYROID FUNCTION CASCADE Routine 05/09/2024 9:57 AM MEND WORKER Encounter for weight management Metabolic disorder Dietary counseling Exercise counseling H/O papillary adenocarcinoma of thyroid Weight gain due to medication Lymphedema Class 3 obesity with alveolar hypoventilation without serious comorbidity with body mass index (BMI) greater than or equal to 70 in adult (HCC) URINE CULTURE Routine 05/09/2024 9:57 AM MEND WORKER REFLEXIVE URINE CULTURE Routine 05/09/2024 9:57 AM MEND WORKER URINALYSIS AND REFLEX TO MICROSCOPIC AND CULTURE Routine 05/09/2024 9:57 AM MEND WORKER from Last 3 Months Results * DEVICE CHECK - REMOTE (06/11/2024 2:24 PM MEND WORKER) Anatomical Region Laterality Modality Other Narrative 07/06/2024 3:49 PM MEND WORKER Singletary Assurity Dual Pacemaker. Dx; SSS, PAF. Generator Replacement and new RV lead 09/01/2021-Dr Olsen. Chronic A-Lead 12/22/2010. Chronic V-Lead capped. Reilly remote monitoring. Routine DDD Pacemaker remote. Normal device function. Battery function-3.01V, 7.2 years remaining battery life to CAIT. Appropriate lead measurements noted. Presenting rhythm: AP-VS. AP-70%, PAYMENT REP-1.5%. 91-Atrial high rate episode noted, <1 minute duration, iegm's oversensing noise. 1 Ventricular high rate episode noted, iegm suggestive of NSVT, 7 beat duration. Medications; ASA. See scanned report. Office pacemaker f/u and ROV with Dr Connolly scheduled 12/12/2024. Reilly remote f/u 09/04/2024. Sheyla More, RN Jesse Connolly MD [facility] PROCEDURES F inal Result * REFLEXIVE URINE CULTURE (05/09/2024 9:57 AM MEND WORKER) Urine culture [facility] Comment:CULTURE INDICATED - RESULTS TO FOLLOW 05/09/2024 9:57 AM MEND WORKER 05/09/2024 10:04 AM MEND WORKER Narrative [facility] - 05/14/2024 10:56 AM MEND WORKER FASTING:YES FASTING: YES Gypsy Fontana MD LAB MICROBIOLOGY - GENERAL ORD ERABLES Final Result Performing Organization Address [facility] de Phone Number [facility] [address] [facility] [place] [address] * (ABNORMAL) Thyroid Function Estill (05/09/2024 9:57 AM MEND WORKER) TSH 4.98(H) 0.40 - 4.50 mIU/L [facility] Blood 05/09/2024 9:57 AM MEND WORKER 05/09/2024 10:04 AM MEND WORKER Narrative [facility] - 05/14/2024 10:56 AM MEND WORKER FASTING:YES FASTING: YES us Gypsy Fontana MD LAB BLOOD ORDERABLES Final Res ult Performing Organization Address [facility] Phone Number [facility] [address] [facility] [place] [address] * (ABNORMAL) Iron profile w/ IBC (05/09/2024 9:57 AM MEND WORKER) Pathologist [facility] Iron 94 45 - 160 mcg/dL [facility] TIBC 205(L) 250 - 450 mcg/dL (calc) [facility] Iron saturation 46(H) 16 - 45 % (calc) [facility] Blood 05/09/2024 9:57 AM MEND WORKER 05/09/2024 10:04 AM MEND WORKER Narrative [facility] - 05/14/2024 10:56 AM MEND WORKER FASTING:YES FASTING: YES us Gypsy Fontana MD LAB BLOOD ORDERABLES Final Res ult Performing Organization Address [facility] Co de Phone Number [facility] [address] [facility] [place] [address] * (ABNORMAL) Urinalysis reflex to microscopic and culture (05/09/2024 9:57 AM MEND WORKER) Color, ur YELLOW YELLOW [facility] [place] Appearance, ur TURBID(A) CLEAR [facility] [place] Specific gravity 1.014 1.001 - 1.035 [facility] [place] pH, ur 7.0 5.0 - 8.0 [facility] [place] Glucose, ur NEGATIVE NEGATIVE [facility] [place] Bilirubin, ur NEGATIVE NEGATIVE [facility] [place] Ketones, ur NEGATIVE NEGATIVE [facility] [place] Blood, ur NEGATIVE NEGATIVE [facility] [place] Protein, ur, quant NEGATIVE NEGATIVE [facility] [place] Nitrites, ur POSITIVE(A) NEGATIVE [facility] [place] Leukocyte esterase, ur 3+(A) NEGATIVE [facility] [place] WBC, ur > OR = 60(A) < OR = 5 /HPF [facility] [place] RBC, ur NONE SEEN < OR = 2 /HPF [facility] [place] Epithelial cells, squamous, ur 0-5 < OR = 5 /HPF [facility] [place] Bacteria, ur, quant MANY(A) NONE SEEN /HPF [facility] [place] Hyaline cast NONE SEEN NONE SEEN /LPF [facility] [place] 05/09/2024 9:57 AM MEND WORKER 05/09/2024 10:04 AM MEND WORKER Narrative [facility] - 05/14/2024 10:56 AM MEND WORKER FASTING:YES FASTING: YES Gypsy Fontana MD LAB MICROBIOLOGY - GENERAL ORD ERABLES Final Result Performing Organization Address City/State/[facility] Co de Phone Number [facility] [address] [place] [address] * Copper, serum (05/09/2024 9:57 AM MEND WORKER) Copper 104 70 - 175 mcg/dL [facility] Comment: This test was developed and its analytical performance characteristics have been determined by [employer]. It has not been cleared or approved by the FDA. This assay has been validated pursuant to the CLIA regulations and is used for clinical purposes. 05/09/2024 9:57 AM MEND WORKER 05/09/2024 10:04 AM MEND WORKER Narrative [facility] - 05/14/2024 10:56 AM MEND WORKER FASTING:YES FASTING: YES Gypsy Fontana MD LAB BLOOD ORDERABLES Final Res ult Performing Organization Address City/[facility] de Phone Number [facility] [address] [place] [address] * Albumin Creatinine Ratio, Urine (05/09/2024 9:57 AM MEND WORKER) Creatinine, ur 89 20 - 275 mg/dL [...] within a diagnostic category. 05/09/2024 9:57 AM MEND WORKER 05/09/2024 10:04 AM MEND WORKER Narrative [facility] - 05/14/2024 10:56 AM MEND WORKER FASTING:YES FASTING: YES Gypsy Fontana MD LAB URINE ORDERABLES Final Res ult Performing Organization Address [facility] de Phone Number [facility] [address] [place] [address] * Zinc (05/09/2024 9:57 AM MEND WORKER) ZINC 79 60 - 130 mcg/dL [facility] Comment: This test was developed and its analytical performance characteristics have been determined by [employer]. It has not been cleared or approved by the FDA. This assay has been validated pursuant to the CLIA regulations and is used for clinical purposes. 05/09/2024 9:57 AM MEND WORKER 05/09/2024 10:04 AM MEND WORKER Narrative [facility] - 05/14/2024 10:56 AM MEND WORKER FASTING:YES FASTING: YES Gypsy Fontana MD LAB BLOOD ORDERABLES Final Res ult Performing Organization Address [facility]/ZIP Co de Phone Number [facility] [address] [place] [address] * Vitamin A (05/09/2024 9:57 AM MEND WORKER) VITAMIN A (RETINOL) 48 38 - 98 mcg/dL [facility] Comment: (Note) Clin Chem Vol. 34.No.8. [id number]. 1998 Vitamin supplementation within 24 hours prior to blood draw may affect the accuracy of results. This test was developed and its analytical performance characteristics have been determined by [employer]. It has not been cleared or approved by the FDA. This assay has been validated pursuant to the CLIA regulations and is used for clinical purposes. [facility] [address] [place] [address],[address] [address] Jewels Hardin MD, PhD 05/09/2024 9:57 AM MEND WORKER 05/09/2024 10:04 AM MEND WORKER Narrative [facility] - 05/14/2024 10:56 AM MEND WORKER FASTING:YES FASTING: YES us Gypsy Fontana MD LAB BLOOD ORDERABLES Final Res ult Performing Organization Address [facility] Co de Phone Number [employer] [address] [place] [address], [address] [address] * Selenium (05/09/2024 9:57 AM MEND WORKER) [facility] Selenium 119 63 - 160 mcg/L [facility] Comment: (Note) This test was developed and its analytical performance characteristics have been determined by [employer]. It has not been cleared or approved by the FDA. This assay has been validated pursuant to the CLIA regulations and is used for clinical purposes. [facility] [address] [place] [address],[address] [place] [id number] Jewels Hardin MD, PhD 05/09/2024 9:57 AM MEND WORKER 05/09/2024 10:04 AM MEND WORKER Narrative [facility] - 05/14/2024 10:56 AM MEND WORKER FASTING:YES FASTING: YES Gypsy Fontana MD LAB BLOOD ORDERABLES Final Res ult [facility] [address] [facility] [address] [place] [address] * Vitamin D 25 hydroxy (05/09/2024 9:57 AM MEND WORKER) Vitamin D 25-OH 68 30 - 100 ng/mL [facility] Comment: Vitamin D Status 25-OH Vitamin D: Deficiency: <20 ng/mL Insufficiency: 20 - 29 ng/mL Optimal: > or = 30 ng/mL For 25-OH Vitamin D testing on patients on D2-supplementation and patients for whom quantitation of D2 and D3 fractions is required, the [facility]ure[facility](TM) 25-OH VIT D, (D2,D3), LC/MS/MS is recommended: order code 72088 (patients >2yrs). See Note 1 Note 1 For additional information, please refer to http://education.[employer]/faq/TGR171 (This link is being provided for informational/ educational purposes only.) Blood 05/09/2024 9:57 AM MEND WORKER 05/09/2024 10:04 AM MEND WORKER Narrative [facility] - 05/14/2024 10:56 AM MEND WORKER FASTING:YES FASTING: YES Gypsy Fontana MD LAB BLOOD ORDERABLES Final Res ult [facility] [address] [place] [address] * Insulin, total (05/09/2024 9:57 AM MEND WORKER) INSULIN 9.0 uIU/mL [facility] Comment: Reference Range < or = 18.4 Risk: Optimal < or = 18.4 Moderate NA High >18.4 Adult cardiovascular event risk category cut points (optimal, moderate, high) are based on Insulin Reference Interval studies performed at [facility] in 2021. Blood 05/09/2024 9:57 AM MEND WORKER 05/09/2024 10:04 AM MEND WORKER Narrative [facility] - 05/14/2024 10:56 AM MEND WORKER FASTING:YES FASTING: YES Gypsy Fontana MD LAB BLOOD ORDERABLES Final Res ult Performing Organization Address [facility] Co de Phone Number [facility] [address] [address] [address] * (ABNORMAL) Protime-INR (05/09/2024 9:57 AM MEND WORKER) Pathologist [facility] INR 1.1 [facility] Comment: Reference Range 0.9-1.1 Moderate-intensity Warfarin Therapy 2.0-3.0 Higher-intensity Warfarin Therapy 3.0-4.0 PT 12.2(H) 9.0 - 11.5 sec [facility] Comment: For additional information, please refer to http://education.[employer]/faq/YDM593 (This link is being provided for informational/ educational purposes only.) 05/09/2024 9:57 AM MEND WORKER 05/09/2024 10:04 AM MEND WORKER Narrative [facility] - 05/14/2024 10:56 AM MEND WORKER FASTING:YES FASTING: YES Result [facility] Gypsy Fontana MD LAB BLOOD ORDERABLES Final Res ult Performing Organization Address [facility] Co de Phone Number QUEST [facility] [address] [place] [address] * CBC without differential (05/09/2024 9:57 AM MEND WORKER) WBC 5.1 3.8 - 10.8 Thousand/u L [...] [facility] Blood 05/09/2024 9:57 AM MEND WORKER 05/09/2024 10:04 AM MEND WORKER Narrative [facility] - 05/14/2024 10:56 AM MEND WORKER FASTING:YES FASTING: YES us Gypsy Fontana MD LAB BLOOD ORDERABLES Final Res ult [facility] [address] [place] [address] * (ABNORMAL) Urine culture (05/09/2024 9:57 AM MEND WORKER) Urine culture (A) [facility] Comment: CULTURE, URINE, ROUTINE Micro Number: [id number] Test Status: Final Specimen Source: Urine Specimen [...] cefuroxime, cephalexin and loracarbef. 05/09/2024 9:57 AM MEND WORKER 05/09/2024 10:04 AM MEND WORKER Narrative [facility] - 05/14/2024 10:56 AM MEND WORKER FASTING:YES FASTING: YES Gypsy Fontana MD LAB MICROBIOLOGY - GENERAL ORD ERABLES Final Result [facility] [address] [address] [address] * CRP (cardiac risk) (05/09/2024 9:57 AM MEND WORKER) hsCRP 0.6 mg/L [facility] Comment: Reference Range Optimal <1.0 Jeanna [...] may be associated with infection and inflammation. Armendariz TA, Carolyn GA, Jared RW, et al. Markers of inflammation and cardiovascular disease: application to clinical and public health practice: A statement for healthcare professionals from the Centers for Disease Control and Prevention and the [employer]. Circulation 2003; 107(3): 499-511. 05/09/2024 9:57 AM MEND WORKER 05/09/2024 10:04 AM MEND WORKER Narrative [facility] - 05/14/2024 10:56 AM MEND WORKER FASTING:YES FASTING: YES Gypsy Fontana MD LAB BLOOD ORDERABLES Final Res ult Performing Organization Address [facility] [facility] Co de Phone Number [facility] [address] [place] [address] * Uric acid (05/09/2024 9:57 AM MEND WORKER) Uric acid 3.6 2.5 - 7.0 mg/dL [facility] Comment: Therapeutic target for gout patients: <6.0 mg/dL 05/09/2024 9:57 AM MEND WORKER 05/09/2024 10:04 AM MEND WORKER Narrative [facility] - 05/14/2024 10:56 AM MEND WORKER FASTING:YES FASTING: YES Gypsy Fontana MD LAB BLOOD ORDERABLES Final Res ult Performing Organization Address [facility] Co de Phone Number [facility] [address] [facility] [place] [address] * T3, free (05/09/2024 9:57 AM MEND WORKER) Free T3 2.5 2.3 - 4.2 pg/mL [facility] 05/09/2024 9:57 AM MEND WORKER 05/09/2024 10:04 AM MEND WORKER Narrative [facility] - 05/14/2024 10:56 AM MEND WORKER FASTING:YES FASTING: YES Gypsy Fontana MD LAB BLOOD ORDERABLES Final Res ult Performing Organization Address [facility] Co de Phone Number [facility] [address] [facility] [place] [address] * Vitamin E (05/09/2024 9:57 AM MEND WORKER) Alpha-tocopherol 14.8 5.7 - 19.9 mg/L [facility] Comment:Levels of alpha-toco pherol <5 mg/L are consistent with Vitamin E deficiency in adults. Bzfp-Odayl-Tkojtmpgo l 1.7 <4.4 mg/L [facility] Comment: [...] regulations and is used for clinical purposes. [facility] [address] [facility] [place] [address],[address] [facility] [address] Jewels Hardin MD, PhD 05/09/2024 9:57 AM MEND WORKER 05/09/2024 10:04 AM MEND WORKER Narrative [facility] - 05/14/2024 10:56 AM MEND WORKER FASTING:YES FASTING: YES Gypsy Fontana MD LAB BLOOD ORDERABLES Final Res ult Performing Organization Address City/[facility]/ZIP Co de Phone Number [facility] [address] [place] [address], [address] [place] [address] * (ABNORMAL) T4, free (05/09/2024 9:57 AM MEND WORKER) Free T4 0.7(L) 0.8 - 1.8 ng/dL [facility] 05/09/2024 9:57 AM MEND WORKER 05/09/2024 10:04 AM MEND WORKER Narrative [facility] - 05/14/2024 10:56 AM MEND WORKER FASTING:YES FASTING: YES Gypsy Fontana MD LAB BLOOD ORDERABLES Final Res ult [facility] [address] [place] [address] * Vitamin B1 (05/09/2024 9:57 AM MEND WORKER) Thiamine (Vit B1) 138 78 - 185 nmol/L [facility] Comment: (Note) Vitamin supplementation within 24 hours prior to blood draw may affect the accuracy of the results. This test was developed and its analytical performance characteristics have been determined by [employer]. It has not been cleared or approved by FDA. This assay has been validated pursuant to the CLIA regulations and is used for clinical purposes. [facility] [address] [place] [address],[address] [place] [address] Jewels Hardin MD, PhD 05/09/2024 9:57 AM MEND WORKER 05/09/2024 10:04 AM MEND WORKER Narrative [facility] - 05/14/2024 10:56 AM MEND WORKER FASTING:YES FASTING: YES Gypsy Fontana MD LAB BLOOD ORDERABLES Final Res ult [facility] [address] [place] [address], [address] [place] [phone] * Vitamin B6 (05/09/2024 9:57 AM MEND WORKER) [facility] VITAMIN B6 13.9 2.1 - 21.7 ng/mL [facility] Comment: (Note) Vitamin supplementation within 24 hours prior to blood draw may affect the accuracy of results. This test was developed and its analytical performance characteristics have been determined by [employer]. It has not been cleared or approved by the FDA. This assay has been validated pursuant to the CLIA regulations and is used for clinical purposes. [facility] [address] [place] [address],[address] [place] [address] eJwels Hardin MD, PhD 05/09/2024 9:57 AM MEND WORKER 05/09/2024 10:04 AM MEND WORKER Narrative [facility] - 05/14/2024 10:56 AM MEND WORKER FASTING:YES FASTING: YES Gypsy Fontana MD LAB BLOOD ORDERABLES Final Res ult [facility] [address] [place] [address], [address] [place] [phone] * Phosphorus (05/09/2024 9:57 AM MEND WORKER) Pathologist [facility] Phosphorus, sr 3.9 2.1 - 4.3 mg/dL [facility] 05/09/2024 9:57 AM MEND WORKER 05/09/2024 10:04 AM MEND WORKER Narrative [facility] - 05/14/2024 10:56 AM MEND WORKER FASTING:YES FASTING: YES Gypsy Fontana MD LAB BLOOD ORDERABLES Final Res ult Performing Organization Address [facility] Co de Phone Number [facility] [address] [place] [address] * PTH (05/09/2024 9:57 AM MEND WORKER) Parathyroid hormone, intact 41 16 - 77 pg/mL [facility] Comment: Interpretive Guide Intact PTH Calcium ------- Normal Parathyroid Normal Normal Hypoparathyroidism Low or Low Normal Low Hyperparathyroidism Primary Normal or High High Secondary High Normal or Low Tertiary High High Non-Parathyroid Hypercalcemia Low or Low Normal High 05/09/2024 9:57 AM MEND WORKER 05/09/2024 10:04 AM MEND WORKER Narrative [facility] - 05/14/2024 10:56 AM MEND WORKER FASTING:YES FASTING: YES Gypsy Fontana MD LAB BLOOD ORDERABLES Final Res ult Performing Organization Address [facility] de Phone Number [facility] [address] [place] [address] * Magnesium (05/09/2024 9:57 AM MEND WORKER) Pathologist [facility] Magnesium 2.0 1.5 - 2.5 mg/dL [facility] 05/09/2024 9:57 AM MEND WORKER 05/09/2024 10:04 AM MEND WORKER Narrative [facility] - 05/14/2024 10:56 AM MEND WORKER FASTING:YES FASTING: YES Gypsy Fontana MD LAB BLOOD ORDERABLES Final Res ult Performing Organization Address [facility] Co de Phone Number [facility] [address] [place] [address] * Lipase (05/09/2024 9:57 AM MEND WORKER) LIPASE 29 7 - 60 U/L [facility] 05/09/2024 9:57 AM MEND WORKER 05/09/2024 10:04 AM MEND WORKER Narrative [facility] - 05/14/2024 10:56 AM MEND WORKER FASTING:YES FASTING: YES Gypsy Fontana MD LAB BLOOD ORDERABLES Final Res ult [facility] [address] [place] [address] * Hemoglobin A1c (05/09/2024 9:57 AM MEND WORKER) Hgb A1C 4.9 <5.7 % of total Hgb [facility] Comment: For the purpose of screening for the presence of diabetes: <5.7% Consistent with the absence of diabetes 5.7-6.4% Consistent with increased risk for diabetes (prediabetes) > or =6.5% Consistent with diabetes This assay result is consistent with a decreased risk of diabetes. Currently, no consensus exists regarding use of hemoglobin A1c for diagnosis of diabetes in children. According to [place] [employer] (ADA) guidelines, hemoglobin A1c <7.0% represents optimal control in non- diabetic patients. Different metrics may apply to specific patient populations. Standards of Medical Care in Diabetes(ADA). Blood 05/09/2024 9:57 AM MEND WORKER 05/09/2024 10:04 AM MEND WORKER Narrative [facility] - 05/14/2024 10:56 AM MEND WORKER FASTING:YES FASTING: YES us Gypsy Fontana MD LAB BLOOD ORDERABLES Final Res ult [facility] [address] [place] [address] * Gamma GT (05/09/2024 9:57 AM MEND WORKER) GGT 19 3 - 65 U/L [facility] 05/09/2024 9:57 AM MEND WORKER 05/09/2024 10:04 AM MEND WORKER Narrative [facility] - 05/14/2024 10:56 AM MEND WORKER FASTING:YES FASTING: YES Gypsy Fontana MD LAB BLOOD ORDERABLES Final Res ult Performing Organization Address [facility] Co de Phone Number [facility] [address] [place] [address] * Folate (05/09/2024 9:57 AM MEND WORKER) Pathologist [facility] Folate, Serum >24.0 ng/mL [facility] Comment: Reference Range Low: <3.4 Borderline: 3.4-5.4 Normal: >5.4 Blood 05/09/2024 9:57 AM MEND WORKER 05/09/2024 10:04 AM MEND WORKER Narrative [facility] - 05/14/2024 10:56 AM MEND WORKER FASTING:YES FASTING: YES Gypsy Fontana MD LAB BLOOD ORDERABLES Final Res ult Performing Organization Address [facility] de Phone Number [facility] [address] [place] [address] * Ferritin (05/09/2024 9:57 AM MEND WORKER) Pathologist [facility] Ferritin 49 16 - 288 ng/mL [facility] Blood 05/09/2024 9:57 AM MEND WORKER 05/09/2024 10:04 AM MEND WORKER Narrative [facility] - 05/14/2024 10:56 AM MEND WORKER FASTING:YES FASTING: YES Gypsy Fontana MD LAB BLOOD ORDERABLES Final Res ult Performing Organization Address [facility] Co de Phone Number [facility] [address] [place] [address] * (ABNORMAL) Vitamin B12 (05/09/2024 9:57 AM MEND WORKER) Pathologist [facility] Vitamin B12 >2000(H) 200 - 1100 pg/mL [facility] Blood 05/09/2024 9:57 AM MEND WORKER 05/09/2024 10:04 AM MEND WORKER Narrative [facility] - 05/14/2024 10:56 AM MEND WORKER FASTING:YES FASTING: YES Gypsy Fontana MD LAB BLOOD ORDERABLES Final Res ult Performing Organization Address [facility]/ZIP Co de Phone Number [facility] [address] [place] [address] * Amylase (05/09/2024 9:57 AM MEND WORKER) Amylase 59 21 - 101 U/L [facility] 05/09/2024 9:57 AM MEND WORKER 05/09/2024 10:04 AM MEND WORKER Narrative [facility] - 05/14/2024 10:56 AM MEND WORKER FASTING:YES FASTING: YES Gypsy Fontana MD LAB BLOOD ORDERABLES Final Res ult Performing Organization Address [facility] de Phone Number [facility] [address] [place] [address] * Lipid panel (05/09/2024 9:57 AM MEND WORKER) Cholesterol 169 <200 mg/dL [facility] [...] equation in the estimation of LDL-C. Gaurang CASTRO et al. MARLYS. 2013;310(19): 5549-1936 (http://education.[employer]faq/DYN732) Chol/HDL ratio 2.4 <5.0 (calc) [facility] Non-HDL, (LDL+VLDL) 100 <130 mg/dL (calc) [facility] Comment: For patients with diabetes plus 1 major ASCVD risk factor, treating to a non-HDL-C goal of <100 mg/dL (LDL-C of <70 mg/dL) is considered a therapeutic option. Blood 05/09/2024 9:57 AM MEND WORKER 05/09/2024 10:04 AM MEND WORKER Narrative [facility] - 05/14/2024 10:56 AM MEND WORKER FASTING:YES FASTING: YES us Gypsy Fontana MD LAB BLOOD ORDERABLES Final Res ult [facility] [address] [facility] [place] [address] * (ABNORMAL) Comprehensive metabolic panel (05/09/2024 9:57 AM MEND WORKER) Pathologist [facility] Glucose 81 65 - 99 mg/dL [facility] [...] [facility] Blood 05/09/2024 9:57 AM MEND WORKER 05/09/2024 10:04 AM MEND WORKER Narrative [facility] - 05/14/2024 10:56 AM MEND WORKER FASTING:YES FASTING: YES us Gypsy Fontana MD LAB BLOOD ORDERABLES Final Res ult [facility] [address] [place] [address] from Last 3 Months Insurance [employer] [place] [employer] [place] [employer] [place] [facility] Address: [address] [address] [place] [address] Care Teams Steward/Stewardess Lounge Relationship Specialty Start Date End Date Diamond Clark, CERAMICS MACHINE OPERATOR [facility] [place] [address] PCP - General Nurse Practitioner 05/05/20 Jesse Connolly MD [address] [address] Consulting Physician Cardiology 11/20/21 Mary Bethea MD [address] [address] Fellow Neurology 11/20/21 Erik Gamble, DPM [address] [address] Consulting Physician Podiatry 11/25/21
--- OUTSIDE RECORDS SUMMARY | 2024-07-19 13:46 | XMS_ITS | Encounter Summary ---
Author Organization [facility] Address [address] [place] [address] Care Team Providers Care Veterans Rehabilitation Counselor Name Role Phone Diamond Clark Primary Care Provider [phone] Encounter Details Date Type Department Care Team (Latest Contact Info) Description 07/12/2024 Scan HEALTH INFO SRVCS Scanned, Doc [facility] Social History Tobacco Use Types Packs/Day Years Used Date Smoking Tobacco: Every Day Cigarettes 0.3 1 Passive Smoke Exposure: Current Smokeless Tobacco: Never Comments:Quit 2019 Alcohol Use Standard Drinks/Week Comments Not Currently 1.7 (1 standard drink = 0.6 oz p ure alcohol) occ glass of wine PHQ-2 Answer Date Recorded Patient Health Questionnaire-2 Score 2 08/16/2023 Comments No Sex and Gender Information Value Date Recorded Sex Assigned at Female 06/19/2024 2:08 PM LAUNDRY MACHINE OPERATOR Legal Sex Female 5:20 PM CDT Gender Identity Female 09/18/2021 9:21 AM CDT Sexual Orientation Not on file documented as of this encounter Plan of Treatment Not on file documented as of this encounter Visit Diagnoses Not on filedocumented in this encounter Additional Health Concerns Assessment Noted Time PHQ-9 Depression Total Score: 6 08/16/19 24 9:37 AM CDT documented as of this encounter Care Teams [facility] Rehabilitation Counselor Relationship Specialty Start Date End Date Diamond Clark FNP [address] [place] [id number] PCP - General Nurse Practitioner Family 01/02/20 documented as of this encounter
--- OUTSIDE RECORDS SUMMARY | 2024-07-19 13:46 | XMS_ITS | Encounter Summary ---
Author Organization [facility] Address [address] [address] Care Team Providers Care Broodmare Foreman Name Role Phone Imelda Trinidad Primary Care Pr ovider Rachel Garces BULLET SWAGING MACHINE ADJUSTER Primary Care Provider Todd Lima DO Primary Care Provider [phone] Ree aC MD Primary Care Provider [phone] Todd Lima DO Primary Care Provider [phone] Diamond Clark BULLET SWAGING MACHINE ADJUSTER Primary Care Provider + [phone] Jesse Connolly MD Unavailable Mary Bethea MD Unavailable + [phone] Erik Gamble DPM Unavailable [phone] Encounter Details Date Type Department Care Team (Late st Contact Info) Description 09/07/2016 Orders Only [facility] ProviderGinny MD [address] [place] [address] Social History Tobacco Use Types Packs/Day Years Used Date Smoking Tobacco: Never Alcohol Use Standard Drinks/Week Comments Yes 0 (1 standard drink = 0.6 oz pur e alcohol) Comments Unknown Sex and Gender Information Value Date Recorded Sex Assigned at Not on file Legal Sex Female 9:33 AM TUTORING ASSISTANT Gender Identity Not on file Sexual Orientation Not on file documented as of this encounter Plan of Treatment Not on file documented as of this encounter Procedures Procedure Name Priority Date/Time Associated Diagnosis Comments CARDIOLOGY REPORT 09/07/2016 documented in this encounter Results * CARDIOLOGY REPORT (09/07/2016) Anatomical Region Laterality Modality Other Narrative 09/07/2016 Ordered by an unspecified provider. us Historical Provider [facility] Final Result documented in this encounter Visit Diagnoses Not on filedocumented in this encounter Care Teams Broodmare Foreman Relationship Specialty Start Date End Date Imelda Trinidad PA PCP - General 07/17/14 01/12/17 Rachel Garces NP [address] [address] PCP - General Nurse Practitioner 01/13/17 07/04/18 Todd Lima DO [address] [facility] [address] [id number] PCP - General Internal Medicine 07/05/18 10/09/18 Ree Ca MD [address] [facility] [address] [place] [address] [place] [address] PCP - General Internal Medicine 10/10/18 07/03/19 Todd Lima DO [address] [facility] [address] [place] [address] [place] [address] PCP - General Internal Medicine 07/04/19 05/04/20 Diamond Clark NP [address] [place] [address] PCP - General Nurse Practitioner 05/05/20 Jesse Connolly MD [address] [address] Consulting Physician Cardiology 11/20/21 Mary Bethea MD [address] [address] Fellow Neurology 11/20/21 Erik Gamble, ROSEANNE [address] [address] Consulting Physician Podiatry 11/25/21 documented as of this encounter
--- OUTSIDE RECORDS SUMMARY | 2024-07-19 13:46 | XMS_ITS | Continuity of Care Document ---
Author Organization [id number] [facility] Address [address] [place] [address] Phone Care Team Providers Care Battery Inspector Name Role Phone Gypsy Fontana MD Unavailable Unavailable Allergies, Adverse Reactions, Alerts Substance Reaction Status Criticality No Known Allergies Active No Inform ation Medications Medication Instructions Dosage Effective Dates (start - stop) Status Comments Qudexy XR 50 mg capsule sprinkle,extended release TAKE 1 CAPSULE BY ORAL ROUTE EVERY DAY 50 MG - Active aspirin 81 mg tablet,delayed release take 1 tablet by oral route every day 81 MG - Active Victoza 3-George 0.6 mg/0.1 mL (18 mg/3 mL) subcutaneous pen injector 2.4 mg Sub cut q d - Active nystatin 100,000 unit/gram topical cream apply by topical route 3 times every day to the affected area(s) Not Available - Active levothyroxine 75 mcg tablet take 1 tablet by oral route every day 75 MCG - Active Amitiza 24 mcg capsule take 1 capsule by oral route every day with food and water 24 MCG - Active ProAir HFA 90 mcg/actuation aerosol inhaler inhale 2 puff by inhalation route every 4 - 6 hours as needed - Active Novofine 32 32 gauge x 1/4 needle inject by Subcutaneous route use with victoza pen - Active albuterol sulfate HFA 90 mcg/actuation aerosol inhaler inhale 2 puff by inhalation route every 4 - 6 hours as needed - Active Effexor XR 37.5 mg capsule,extended release take 1 capsule by oral route every day with food 37.5 MG - Active Align 4 mg capsule one po qd - Active clonazepam 0.5 mg tablet take 1 tablet by oral route 4 times every day as needed - Active methocarbamol 750 mg tablet take 1 tablet by oral route 2 times every day - Active [place]-3 1,050 mg-1,200 mg capsule take 2 tablets by oral route every day - Active pravastatin 40 mg tablet take 1 tablet by oral route every day 40 MG - Active trazodone 50 mg tablet take 1 tablet by oral route every bedtime - Active diclofenac sodium 75 mg tablet,delayed release take 1 tablet by oral route 2 times every day 75 MG - Active Breo Ellipta 100 mcg-25 mcg/dose powder for inhalation inhale 1 puff by inhalation route every day at the same time each day 1.00 puff - Active Viibryd 20 mg tablet take 2 tablet by oral route every day with food 40 MG - Active Qudexy XR 50 mg capsule sprinkle,extended release take 1 capsule by oral route every day 50 MG - No Longer Active Procedures Procedure Date OFFICE/OUTPT EM EST DETAILED/MODERATE 25 MINS OFFICE/OUTPT EM EST EXP PROB FOCUS/LOW 1 5 MINS OFFICE/OUTPT EM EST DETAILED/MODERATE 25 MINS OFFICE/OUTPT EM EST DETAILED/MODERATE 25 MINS OFFICE/OUTPT EM EST DETAILED/MODERATE 25 MINS OFFICE/OUTPT EM EST DETAILED/MODERATE 25 MINS OFFICE/OUTPT EM EST DETAILED/MODERATE 25 MINS OFFICE/OUTPT EM EST DETAILED/MODERATE 25 MINS OFFICE/OUTPT EM EST DETAILED/MODERATE 25 MINS OFFICE/OUTPT EM EST DETAILED/MODERATE 25 MINS OFFICE/OUTPT EM EST DETAILED/MODERATE 25 MINS OFFICE/OUTPT EM EST DETAILED/MODERATE 25 MINS OFFICE/OUTPT EM EST DETAILED/MODERATE 25 MINS OFFICE/OUTPT EM EST DETAILED/MODERATE 25 MINS OFFICE/OUTPT EM EST DETAILED/MODERATE 25 MINS OFFICE/OUTPT EM EST DETAILED/MODERATE 25 MINS Advance Directives Directive Yes / No Effective Date File Name No Information Encounters Encounter Description Practice Location Reason(s) For Visit Diagnoses Date Provider Providers Copied on Encounter [id number] - Mysterio, [address], [place], [address], tel: [phone] PMS Katerina Aissatou 2 No Information 7 Addi Betancur. [address], [place], [place], [id number]. tel:[phone] [id number] - Mysterio, [address] [facility] [address], [place], [address], tel: [phone] [facility] Katerina Aissatou 2 No Information 6 Addi Betancur. [address], [place], [place], [address]. tel:[phone] OFFICE/OUTPT EM EST DETAILED/MOD ERATE 25 MINS [id number] - Mysterio, [address], [place], [address], tel: [phone] [facility] Katerina Aissatou 2 obesity (chief complaint) Body mass index (BMI) 45.0-49.9, adultMetabolic syndromeIntestinal motility disorderParoxysmal atrial fibrillationMixed hyperlipidemiaEssent ial hypertensionElectrol yte and fluid disorderObesity, Class III, BMI 40-49.9 (morbid obesity)Dietary counseling and surveillanceExercise counselingPrimary osteoarthritis involving multiple jointsOther assisted (current) drug therapy 6 Addi Betancur. [address], [place], [place], [address]. tel:[phone] Referring Provider: Gypsy Mandel, [address] [facility] [address], [place], [address] . tel:[phone] [id number] - [employer], [address] [address], [place], [address], [place] tel: [phone] [facility] Katerina Reyez 2 No Information 6 Addi Betancur. [address] [place] [address] [address], [place], [place], [address]. tel:[phone] OFFICE/OUTPT EM EST EXP PROB FOCUS/LOW 15 MINS [id number] - [employer], [address] [facility] [address], [place], [address], [place] tel: [phone] [facility] Katerina Reyez 2 Obesity (chief complaint) Body mass index (BMI) 45.0-49.9, adultParoxysmal atrial fibrillationIntestin al motility disorderEssential hypertensionMetaboli c syndromeMixed hyperlipidemiaElectr olyte and fluid disorderMorbid obesity with BMI of 45.0-49.9, adultDietary counseling and surveillanceExercise counselingGall bladder stones 6 Addi Betancur. [address] [place] [address], [place], [place], [address]. tel:[phone] Referring Provider: Gypsy Mandel, [address] [place] [address], [place], [address] . tel:[phone] OFFICE/OUTPT EM EST DETAILED/MOD ERATE 25 MINS [id number] - [employer], [address] [facility] [address], [place], [address], [place] tel: [phone] [facility] Katerina Leijas 2 obesity (chief complaint) abnormal CXR (chief complaint) Body mass index (BMI) 45.0-49.9, adultIntestinal motility disorderEssential hypertensionParoxysm al atrial fibrillationMixed hyperlipidemiaWheezi ngElectrolyte and fluid disorderMorbid obesity with body mass index of 45.0-49.9 in adultDietary counseling and surveillanceExercise counselingMetabolic syndromeAbnormal CXR (chest x-ray) 6 Addi Betancur. [address], [place], [place], [address]. tel:[phone] Referring Provider: Gypsy Mandel, [address], [place], [address] . tel:[phone] [id number] - [facility] [employer], [address] [facility] [address], [place], [address], [place] tel: [phone] PMS Katerina Aissatou 2 No Information Addi Betancur. [address] [facility] [address], [place], [place], [address]. tel:[phone] OFFICE/OUTPT EM EST DETAILED/MOD ERATE 25 MINS [id number] - [facility] [employer], [address] [facility] [address], [place], [address], [place] tel: [phone] [facility] Katerina Aissatou 2 obesity (chief complaint) cough (chief complaint) anxiety (chief complaint) Body mass index (BMI) 45.0-49.9, adultWheezingEssenti al (primary) hypertensionParoxysm al atrial fibrillationMixed hyperlipidemiaElectr olyte and fluid disorderMorbid obesity with body mass index of 45.0-49.9 in adultDietary counseling and surveillanceExercise counselingMetabolic syndromeIntestinal motility disorder 6 Addi Betancur. [address] [facility] [address], [place], [place], [address]. tel:[phone] Referring Provider: Gypsy Mandel, [address], [place], [address] . tel:[phone] OFFICE/OUTPT EM EST DETAILED/MOD ERATE 25 MINS [id number] - [facility] [employer], [address] [facility] [address], [place], [address], [place] tel: [phone] PMS Katerina Aissatou 2 obesity (chief complaint) cough (chief complaint) Body mass index (BMI) 45.0-49.9, adultMetabolic disorderEssential hypertensionParoxysm al atrial fibrillationHyperlip idemia, unspecifiedOther disorders of electrolyte and fluid balance, not elsewhere classifiedMorbid obesity with BMI of 45.0-49.9, adultDietary surveillance and counselingExercise counselingWheezing 5 Tashiarigoberto Cunninghamyarely. [address] [address], [place], [place], [address]. tel:[phone] Referring Provider: Gypsy Mandel, [address] [facility] [address], [place], [address] . tel:[phone] OFFICE/OUTPT EM EST DETAILED/MOD ERATE 25 MINS [id number] - [facility] [employer], [address] [facility] [address], [place], [address], [place] tel: [phone] [facility] Katerina Reyez 2 Obesity (chief complaint) Body mass index (BMI) 45.0-49.9, adultLipoedemaParoxy smal a-fibDietary surveillance and counselingEssential hypertensionExercise counselingMetabolic disorderObesity, morbid, BMI 40.0-49.9Oth disorders of electrolyte and fluid balance, NECOther and unspecified hyperlipidemia 5 Tashiarigoberto Gypsy. [address] [address], [place], [place], [address]. tel:[phone] Referring Provider: Gypsy Mandel, [facility] [address] [address], [place], [address] . tel:[phone] [id number] - [facility] [employer] [facility] [employer], [address] [facility] [address], [place], [address], [place] tel: [phone] [facility] Katerina Reyez No Information 5 Addi Betancur. [address] [address], [place], [place], [address]. tel:[phone] Referring Provider: Gypsy Mandel, [facility] [address] [facility] [address], [place], [address] . tel:[phone] OFFICE/OUTPT EM EST DETAILED/MOD ERATE 25 MINS [id number] - [place] [employer], [address] [facility] [address], [place], [address], [place] tel: [phone] PMS Katerina Aissatou Obesity (chief complaint) Cardiac (chief complaint) Body mass index (BMI) 45.0-49.9, adultLipoedemaObesit y, Class III, BMI 40-49.9 (morbid obesity)Dietary surveillance and counselingEssential hypertensionExercise counselingMetabolic disorderOth disorders of electrolyte and fluid balance, NECOther and unspecified hyperlipidemiaPrimar y osteoarthritis of left kneeParoxysmal a-fibHypothyroidism, unspecified hypothyroidism type Oct 5 Addi Betancur. [address], [place], [place], [address]. tel:[phone] Referring Provider: Gypsy Mandel, [address] [facility] [address], [place], [address] . tel:[phone] OFFICE/OUTPT EM EST DETAILED/MOD ERATE 25 MINS [id number] - [facility] [employer], [address] [facility] [address], [place], [address], [place] tel: [phone] PMS Katerina Aissatou Obesity (chief complaint) Dietary counseling and surveillanceElectrol yte and fluid disorderEssential hypertensionExercise counselingHyperlipid emiaLipoedemaObesity , MorbidUnspecified disorder of metabolismOA (osteoarthritis) of knee 5 Addi Betancur. [address] [facility] [address], [place], [place], [address]. tel:[phone] Referring Provider: Gypsy Mandel, [address] [facility] [address], [place], [address] . tel:[phone] OFFICE/OUTPT EM EST DETAILED/MOD ERATE 25 MINS [id number] - [facility] [employer], [address] [facility] [address], [place], [address], [place] tel: [phone] PMS Katerina Aissatou Obesity (chief complaint) Dietary counseling and surveillanceElectrol yte and fluid disorderEssential hypertensionExercise counselingHyperlipid emiaLipoedemaUnspeci fied disorder of metabolismObesity, Morbid Aug- 7-201 5 Addi Betancur. [address], [place], [place], [address]. tel:[phone] Referring Provider: Gypsy Mandel, [address] [facility] [address], [place], [address] . tel:[phone] OFFICE/OUTPT EM EST DETAILED/MOD ERATE 25 MINS [id number] - [facility] [employer], [address] [facility] [address], [place], [address], [place] tel: [phone] PMS Katerina Aissatou Obesity (chief complaint) ObesityMetabolic syndromeEssential hypertensionHyperlip idemiaLipoedemaConst ipationElectrolyte and fluid disorderDietary counseling and surveillanceExercise counseling Jul-0 9201 5 Addi Betancur. [address] [facility] [address], [place], [place], [address]. tel:[phone] Referring Provider: Gypsy Mandel, [address] [facility] [address], [place], [address] . tel:[phone] OFFICE/OUTPT EM EST DETAILED/MOD ERATE 25 MINS [id number] - [facility], [address] [facility] [address], [place], [address], [place] tel: [phone] PMS Katerina Aissatou Obesity (chief complaint) abdominal pain (chief complaint) ObesityMetabolic syndromeConstipation Essential hypertensionLipoedem aElectrolyte and fluid disorderDietary counseling and surveillanceExercise counseling Apr-0 8201 4 Addi Betancur. [address], [place], [place], [address]. tel:[phone] Referring Provider: Gypsy Mandel, [address] [facility] [address], [place], [address] . tel:[phone] OFFICE/OUTPT EM EST DETAILED/MOD ERATE 25 MINS [id number] - [facility] [employer], [address] [facility] [address], [place], [address], tel: [phone] PMS Katerina Aissatou Obesity (chief complaint) ObesityEssential hypertensionHyperlip idemiaMetabolic syndromeArthralgiaEl ectrolyte and fluid disorderExercise counselingDietary counseling and surveillanceLipoedem a 4 Addi Betancur. [address], [place], [place], [address]. tel:[phone] Referring Provider: Gypsy Mandel, [address], [place], [address] . tel:[phone] OFFICE/OUTPT EM EST DETAILED/MOD ERATE 25 MINS [id number] - [facility], [address] [facility] [address], [place], [address], tel: [phone] PMS Katerina Aissatou Obesity (chief complaint) ObesityMetabolic syndromeEssential hypertensionHyperlip idemiaArthralgiaElec trolyte and fluid disorderDietary counseling and surveillanceExercise counseling 4 Addi Betancur. [address], [place], [place], [address]. tel:[phone] Referring Provider: Gypsy Mandel, [address] [address], [place], [address] . tel:[phone] OFFICE/OUTPT EM EST DETAILED/MOD ERATE 25 MINS [id number] - [facility], [address] [facility] [address], [place], [address], tel: [phone] PMS Katerina Aissatou Obesity (chief complaint) Obesity, MorbidMetabolic syndromeEssential hypertensionHyperlip idemiaDietary counseling and surveillanceMixed disorder as reaction to stressArthralgiaExer cise counseling 4 Addi Betancur. [address], [place], [place], [address]. tel:[phone] Referring Provider: Gypsy Mandel, [address] [facility] [address], [place], [address] . tel:[phone] OFFICE/OUTPT EM EST DETAILED/MOD ERATE 25 MINS [id number] - [facility], [address] [facility] [address], [place], [address], tel: [phone] PMS Katerina Aissatou obesity (chief complaint) constipati on (chief complaint) Obesity, MorbidUnspecified disorder of metabolismHypertensi on, Unspec.Other and unspecified hyperlipidemiaConsti pationDietary counseling and surveillanceExercise counseling 4 Addi Betancur. [address] [facility] [address], [place], [place], [address]. tel:[phone] Referring Provider: Gypsy Mandel, [address] [facility] [address], [place], [address] . tel:[phone] OFFICE/OUTPT EM EST DETAILED/MOD ERATE 25 MINS [id number] - [employer],[facility], [address] [facility] [address], [place], [address], tel: [phone] PMS Katerina Aissatou obesity (chief complaint) URI (chief complaint) Obesity, MorbidUnspecified disorder of metabolismOther and unspecified hyperlipidemiaHypert ension Unspecified essentialBronchitisD ietary counseling and surveillanceExercise counseling 4 Addi Betancur. [address] [facility] [address], [place], [place], [address]. tel:[phone] Referring Provider: Gypsy Mandel, [address] [facility] [address], [place], [address] . tel:[phone] [id number] - [facility] [employer] [facility], [address] [facility] [address], [place], [address], tel: [phone] PMS Katerina Aissatou No Information 4 Add[address] Betanc[address]. [address] [facility] [address], [place], [place], [address]. tel:[phone] Family History Family Member Type Diagnosis Age At Onset No Information Payers Payer name Insurance type Covered alliance party ID Serenity gregorio(nadiya Kinsey [facility] [id number] Social History Type Description Quantity Date Captured Comments Sex Female Smoking Status No Information Chief Complaint And Reason For Visit No Information Reason For Referral Reason For Referral No Information Plan Of Treatment Date Type Action Status Patient Education Body Mass Index: Care I nstructions completed Patient Education Body Mass Index: Care I nstructions completed Patient Education Diet and Exercise for Madiha Zavala completed Future Order: Lab Order T3, Free , Dialysis, LC/MS-MS ([id number]), Ordered on: Ordered Future Order: Lab Order TSH ([id number]), Ord ered on: Ordered Future Order: Lab Order Thyroxin e (T4) Free, Direct, S ([id number]), Ordered on: Ordered History Of Present Illness Encounter Date Complaint History Of Prese nt Illness obesity Onset: gradually ., Date of First Bariatric Visit: 01/05/2016. Patient's initial weight: 148. The severity of the problem is mild. The patient is gaining weight. Risk factors include annual weight gain of > 2 lbs (1kg) / year, high fat diet and sedentary lifestyle. Associated conditions include hyperlipidemia, hypertension, hypothyroidism, Past Procedures include:Lab Band and Laparoscopic. Aggravating factors include high fat diet, lack of exercise and stress. The denies relieving factors. Symptoms are not relieved by medication. Pertinent negatives include abdominal pain, anhidrosis, anorexia, anxiety, cold intolerance, constipation, depression, fatigue, generalized weakness, headache, hirsutism, hoarseness, lethargy, low self-esteem, paresthesias, striae or vision changes. Additional information: See attached symptom sheet. Obesity , Date of First Bariatric Visit: 10/02/2010. Risk factors include high fat diet. Associated conditions include hyperlipidemia, hypertension, Past Procedures include:Lab Band and Laparoscopic. Relieving factors include diet(s) and exercise. Associated symptoms include abdominal pain, anxiety, depression and fatigue. Pertinent negatives include cold intolerance, constipation, generalized weakness, headache, hirsutism, lethargy, low self-esteem, paresthesias or vision changes. abnormal CXR (comments) Recent c hest x-ray showed a questionable abnormal positioning of the atrial lead. It would have only the report. However the patient reports no symptoms. abnormal CXR obesity Risk factors inc lude high fat diet. Associated conditions include hyperlipidemia, hypertension, Past Procedures include: Lab Band and . Relieving factors include diet(s) and exercise. Pertinent negatives include abdominal pain, anxiety, cold intolerance, constipation, depression, fatigue, hair loss, headache, hirsutism, lethargy, low self-esteem or vision changes. anxiety This is a follow up visit. The patient reports functioning as somewhat difficult. The patient does not present with anxious/fearful thoughts, compulsive thoughts, depressed mood, difficulty concentrating, difficulty staying asleep, diminished interest or pleasure, fatigue, feelings of guilt, hallucinations, restlessness or thoughts of or suicide. The patient's risk factors include family history of depression and family history of anxiety. The patient's risk factors exclude relationship problems and social isolation. The anxiety is not with drug use or lack of sleep. The patient's relieving factors are medication. The anxiety is associated with nausea and weight gain. The patient denies any headache and vomiting. Additional information: Increasaed stress 2/2 living situation of her daughter. cough The patient desc ribes the cough as hacking and productive (of yellow sputum). Context: known asthmatic. Symptoms are aggravated by allergens, exertion and lying down. There are no relieving factors. Associated symptoms include dyspnea, fatigue, fever, nasal congestion and wheezing. Pertinent negatives include chills, cough, hoarseness, night sweats and post-nasal drainage. obesity Risk factors inc lude high fat diet. Associated conditions include hyperlipidemia, hypertension, Past Procedures include: Lab Band and . Relieving factors include diet(s) and exercise. Pertinent negatives include abdominal pain, anxiety, cold intolerance, constipation, depression, fatigue, hair loss, headache, hirsutism, lethargy, low self-esteem or vision changes. cough The patient desc ribes the cough as hacking and productive (of yellow sputum). Context: known asthmatic. Symptoms are aggravated by allergens, exertion and lying down. There are no relieving factors. Associated symptoms include dyspnea, fatigue, fever, nasal congestion, sinus pressure and wheezing. Pertinent negatives include chills, cough, hoarseness, night sweats and post-nasal drainage. Additional information: her pmd gave her po abx. obesity Risk factors inc lude high fat diet. Associated conditions include hyperlipidemia, hypertension, Past Procedures include: Lab Band and . Relieving factors include diet(s) and exercise. Pertinent negatives include abdominal pain, anxiety, cold intolerance, constipation, depression, fatigue, hair loss, headache, hirsutism, lethargy, low self-esteem or vision changes. Obesity Associated condi tions include hyperlipidemia, hypertension, hypothyroidism, Past Procedures include: Lab Band and . The denies relieving factors. Pertinent negatives include abdominal pain, anxiety, cold intolerance, constipation, depression, fatigue, hair loss, headache, hirsutism or vision changes. Cardiac Pain severity le haritha is 0/10. The patient describes it as Paroxysmal afib. Associated symptoms include dizziness, fatigue, headache and nausea. Pertinent negatives include chest pain, claudication, dyspnea, edema, irregular heartbeat/palpitations and visual changes. Additional information: has a pacemaker and She was found to have afib when she got her pacemaker checked in December.. Obesity Associated condi tions include hypertension, Past Procedures include: Lab Band and . Relieving factors include diet(s) and medication. Associated symptoms include abdominal pain, anxiety, depression, fatigue and headache. Pertinent negatives include cold intolerance, constipation, hair loss, hirsutism or vision changes. Obesity , Date of first Bariatric Visit: 20101002. The problem is severe. The patient is gaining weight. Associated conditions include hypertension. Aggravating factors include high fat diet. The denies relieving factors. Associated symptoms include anxiety, cold intolerance, depression, fatigue and headache. Pertinent negatives include abdominal pain, constipation, hair loss, hirsutism or vision changes. Obesity , Date of first Bariatric Visit: [id number]. The problem is severe. The patient is maintaining weight. Associated conditions include hypertension. Aggravating factors include high fat diet. The denies relieving factors. Associated symptoms include abdominal pain, anxiety, cold intolerance, constipation, depression and fatigue. Pertinent negatives include hair loss, headache, hirsutism or vision changes. Obesity , Date of first Bariatric Visit: 20101002. Risk factors include annual weight gain of > 2 lbs (1kg) / year and socioeconomic status. Associated conditions include hypertension. Aggravating factors include high fat diet. Symptoms are not relieved by diet(s), exercise, medication and surgery. Associated symptoms include anorexia, anxiety, cold intolerance, fatigue, generalized weakness, headache and striae. Pertinent negatives include abdominal pain, constipation, depression, delayed development, facial plethora, hirsutism, hoarseness, lethargy, low self-esteem or vision changes. Obesity Onset: gradually ., Date of first Bariatric Visit: 20101002. The severity of the problem is moderate. Risk factors include annual weight gain of > 2 lbs (1kg) / year and socioeconomic status. Associated conditions include hypertension. Aggravating factors include high fat diet. Symptoms are not relieved by diet(s), exercise, medication and surgery. Associated symptoms include anorexia, anxiety, cold intolerance, fatigue, generalized weakness, headache and striae. Pertinent negatives include abdominal pain, constipation, depression, delayed development, facial plethora, hirsutism, hoarseness, lethargy, low self-esteem or vision changes. abdominal pain Pain scale: 8/10 . Associated symptoms include bloating, change in appetite, diarrhea and flatulence. Pertinent negatives include blood in stool, constipation, diaphoresis, dyspnea, fever, hematuria, jaundice, myalgia, nausea, rash, vaginal discharge and vomiting. Obesity Onset: gradually ., Date of first Bariatric Visit: 20101002. The problem is severe. The patient is losing weight. Associated conditions include Insulin Dependent , hyperlipidemia and hypertension. Aggravating factors include high fat diet, lack of exercise and stress. Relieving factors include diet(s) and exercise. Associated symptoms include abdominal pain, anxiety, constipation, depression and fatigue. Pertinent negatives include cold intolerance, headache, hirsutism or vision changes. Obesity Onset: gradually ., Date of first Bariatric Visit: 20101002. The problem is severe. Associated conditions include Insulin Dependent , hyperlipidemia, hypertension and hypothyroidism. Aggravating factors include high fat diet, lack of exercise and stress. Relieving factors include diet(s) and exercise. Associated symptoms include abdominal pain, cold intolerance, constipation, fatigue and headache. Pertinent negatives include anxiety, depression, hirsutism or vision changes. Obesity Onset: gradually ., Date of first Bariatric Visit: 20101002., Patient's initial weight: 275. The problem is severe. The patient is losing weight. Associated conditions include hyperlipidemia and hypothyroidism. Aggravating factors include high fat diet, lack of exercise and stress. Relieving factors include diet(s) and exercise. Associated symptoms include abdominal pain, anxiety, cold intolerance, constipation, depression, fatigue, hair loss and headache. Pertinent negatives include vision changes. constipation Onset: gradual. Severity level 5. The patient describes it as pus. It occurs daily. She is also experiencing abdominal pain, bloating, flatulence and weight loss. Pertinent negatives include black tarry stools, bleeding with bowel movement, sedentary activity, vomiting and weight gain. Additional information: colonoscopy 5 years ago was negative. obesity Onset: gradually . The severity of the problem is moderate. Risk factors include high fat diet and socioeconomic status. Associated conditions include hyperlipidemia and hypertension. The denies aggravating factors such as high fat diet, medications and recent surgery. Relieving factors include diet(s) and exercise. Associated symptoms include abdominal pain, anxiety, cold intolerance, constipation, depression and headache. Pertinent negatives include fatigue, hirsutism or vision changes. URI The patient pres ents with back pain, cough, fatigue, headache and nausea. The patient does not present with abdominal pain, anorexia, chills, diarrhea, fever, generalized weakness or vomiting. The illness is associated with weight loss. The patient denies constipation, dyspnea, hoarseness, pruritus and rash. Additional information: had po abx consevative. obesity Onset: gradually . The severity of the problem is moderate. Associated conditions include hyperlipidemia and hypertension. Aggravating factors include high fat diet, lack of exercise and stress. Relieving factors include diet(s) and exercise. Associated symptoms include cold intolerance, fatigue and headache. Pertinent negatives include abdominal pain, acne, amenorrhea, anhidrosis, anorexia, anxiety, constipation, depression, delayed development, facial plethora, generalized weakness, hair loss, hirsutism, hoarseness, lethargy, low self-esteem, oligomenorrhea, paresthesias, striae or vision changes. Functional Status Date Functional Assessmen t No Information Instructions Date Instruction Additional Infor mation No Information Assessments Type Assessment Date No Information Patient Care Teams Name Effective Dates (start - stop) Status Members No Information
--- OUTSIDE RECORDS SUMMARY | 2024-07-19 13:46 | XMS_ITS | Clinical Summary ---
Author Organization [facility] Address [facility] [place] [address] Care Team Providers Care Business Continuity Analyst Name Role Phone Delbert Coleman CLAISTA Primary Care Provider [phone] Allergies Active Allergy Reactions Criticality Noted Date Comments Morphine Itching,Nausea and Vomiting,Other (see comment) Low 10/10/2018 abdominal pain, breathing issues Tape Rash Medium 10/10/2018 Plastic tape Medications traZODone 50 MG tablet Take 2 tablets (100 mg total) by mouth nightly at bedtime. 11/30/19 20 Active methocarbamol 500 MG tablet Take 1 tablet (500 mg total) by mouth 2 (two) times a day. 12/27/19 20 Active sertraline 100 MG tablet Take 2 tablets (200 mg total) by mouth daily. 12/22/19 20 Active NOVOFINE 32G X 6 MM Misc USE ONE D WITH INJECTION 01/27/20 19 Active NARCAN 4 MG/0.1ML nasal spray DAVID REP ALN 10/13/19 20 Active calcium carbonate 1500 (600 Ca) MG tablet Take 1 tablet (1,500 mg total) by mouth daily. Active cetirizine 10 MG tablet Take 1 tablet (10 mg total) by mouth daily. Active vitamin D3, cholecalciferol, 1000 UNIT Tab tablet Take 1 tablet (1,000 Units total) by mouth daily. Active albuterol (2.5 MG/3ML) 0.083% nebulizer solution albuterol sulfate 2.5 mg/3 mL (0.083 %) solution for nebulization Active ferrous sulfate EC 324 (65 Fe) MG tablet Take 65 mg by mouth. Active docusate sodium (COLACE) 100 MG capsule 1 capsule (100 mg total). 01/28/20 22 Active Blood Glucose Monitoring Suppl ([employer]) w/Device KitIndications:Typ e 2 diabetes mellitus with diabetic polyneuropathy, without long-term current use of insulin ([facility]) Use to check blood glucose daily 1 kit 08/21/19 23 Active Lancets (iYogi ULTRASOFT) lancetsIndications :Type 2 diabetes mellitus with diabetic polyneuropathy, without long-term current use of insulin ([facility]) Use to check blood glucose daily 100 each 2 08/21/19 23 Active Glucose Blood ([employer]) test stripIndications:T ype 2 diabetes mellitus with diabetic polyneuropathy, without long-term current use of insulin ([facility]) 1 strip by Other route daily. Use to check blood glucose daily 100 strip 2 08/21/19 23 Active ondansetron (ZOFRAN-ODT) 4 MG disintegrating tablet Take 1 tablet (4 mg total) by mouth every 8 (eight) hours as needed for Nausea. 10 tablet 10/08/19 23 Active Cyanocobalamin 100 MCG Tab Take 100 mcg by mouth daily. Active JARDIANCE 10 MG tablet Take 1 tablet (10 mg total) by mouth daily. 11/21/19 23 Active XTAMPZA ER 13.5 MG Capsule Extended Release 12 hour Abuse-Deterrent 12 hr abuse-deterrent capsule Take 1 capsule by mouth 2 (two) times a day. 12/18/19 23 Active fluticasone propionate (FLONASE) 50 MCG/ACT nasal sprayIndications:A llergic rhinitis, unspecified seasonality, unspecified trigger 2 sprays by Each Nostril route 2 (two) times daily. 16 g 5 08/16/19 24 Active pantoprazole EC (PROTONIX) 40 MG tabletIndications: Gastroesophageal reflux disease, unspecified whether esophagitis present Take 1 tablet (40 mg total) by mouth every morning. 90 tablet 3 08/16/19 24 Active pravastatin (PRAVACHOL) 40 MG tabletIndications: Mixed hyperlipidemia Take 1 tablet (40 mg total) by mouth daily. 90 tablet 3 08/16/19 24 Active ARIPiprazole (ABILIFY) 10 MG tabletIndications: Mixed anxiety depressive disorder Take 1 tablet (10 mg total) by mouth nightly at bedtime. 90 tablet 3 10/12/19 24 Active semaglutide (OZEMPIC) 1 mg/dose injection (PEN)Indications:T ype 2 diabetes mellitus with diabetic polyneuropathy, without long-term current use of insulin ([facility]/HCC HHS/HCC) Inject 1 mg into the skin once a week. 9 mL 1 10/12/19 24 Active primidone (MYSOLINE) 50 MG tabletIndications: Tremor, essential TAKE 3 TABLETS(150 MG) BY MOUTH TWICE DAILY 180 tablet 5 11/18/19 24 Active topiramate (TOPAMAX) 25 MG tabletIndications: Essential tremor Take 3 tablets (75 mg total) by mouth 2 (two) times daily. 540 tablet 3 11/18/19 24 025 Active albuterol sulfate HFA 108 (90 Base) MCG/ACT inhalerIndications :Mild intermittent asthma, uncomplicated ([facility]) INHALE 2 PUFFS BY MOUTH EVERY 4 TO 6 HOURS NEEDED FOR SHORTNESS OF BREATH OR WHEEZING 8.5 g 1 04/10/20 24 Active alendronate (FOSAMAX) 70 MG tabletIndications: Osteopenia of multiple sites TAKE ONE TABLET BY MOUTH EVERY 7 DAYS ON FRIDAYS 4 tablet 3 05/14/20 24 Active eszopiclone (LUNESTA) 2 MG tablet Take 1 tablet (2 mg total) by mouth nightly at bedtime. at bedtime 03/27/20 24 Active venlafaxine XR (EFFEXOR-XR) 37.5 MG 24 hr capsule Take 1 capsule (37.5 mg total) by mouth daily. 03/27/20 24 Active levothyroxine (SYNTHROID) 100 MCG tabletIndications: Acquired hypothyroidism Take 1 tablet (100 mcg total) by mouth every morning. 90 tablet 1 05/21/20 24 Active potassium chloride CR (K-TAB) 20 MEQ tabletIndications: Hypokalemia TAKE 1 TABLET(20 MEQ) BY MOUTH TWICE DAILY 60 tablet 06/13/19 25 Active nicotine (NICODERM CQ) 21 MG/24HRIndications :Encounter for smoking cessation counseling Place 1 patch (21 mg total) onto the skin daily for 30 days. 28 patch 05/21/20 24 025 Active Problems Problem Noted Date Diagnosed Date Diarrhea, unspecified type 05/21/2024 Prediabetes 01/25/2024 Cigarette smoker 01/25/2024 Intestinal malabsorption ([facility]/HCC) 10/12/2023 Allergic rhinitis, unspecifi ed seasonality, unspecified trigger 08/16/2023 Osteopenia of multiple sites 08/16/2023 Sacroiliitis 06/28/2023 Facet hypertrophy of lumbar region 06/28/2023 Other intervertebral disc degeneration, lumbar r egion 06/28/2023 Radiculopathy, lumbar region 05/16/2023 Adrenal nodule (CMS/HCC HHS/HCC) 12/30/2022 Left adrenal mass (CMS/HCC HHS/HCC) 11/15/2022 Adrenal mass 1 cm to 4 cm in diameter (CMS/HCC H HS/HCC) 11/15/2022 Acquired hypothyroidism 09/13/2022 TIA (transient ischemic attack) 08/11/2022 Marijuana use 08/11/2022 Cervical spondylosis with radiculopathy 06/25/19 23 Vitamin B 12 deficiency 06/24/2022 Osteoarthritis 01/07/2022 Mixed anxiety depressive disorder 01/07/2022 Panniculitis 08/25/2021 Chronic midline low back pain with bilateral sci atica 05/25/2021 Tremor, essential 10/01/2020 Family history of Parkinson's disease 10/01/2020 Seasonal allergic rhinitis due to pollen 021 Gastroesophageal reflux dise ase, unspecified whether esophagitis present 08/11/2020 Status post right knee replacement 08/11/2020 Hyperlipidemia 05/08/2020 Primary osteoarthritis of right knee 05/08/2020 History of sick sinus syndrome 05/08/2020 Mild intermittent asthma, uncomplicated (HHS/HCC ) 02/07/2020 Rash and nonspecific skin eruption 01/06/2020 Post-menopausal 01/06/2020 Irritable bowel syndrome with constipation 01/05 Primary hypertension 01/06/2020 Vitamin D deficiency 01/06/2020 Neuropathy 01/06/2020 History of colonic polyps 01/06/2020 Cardiac pacemaker in situ 11/04/2017 Overview (02/07/2020): [employer] Dual Pacemaker. Dx; SSS, PAF. DOI 12/22/2010. Reilly remote monitoring Q3 mo, office pacer checks Q1 yr. Class 3 severe obesity due t o excess calories with serious comorbidity and body mass index (BMI) of 40.0 to 44.9 in adult ([facility]) 07/19/2012 Hernia of anterior abdominal wall 07/19/2012 Resolved Problems Problem Noted Date Diagnosed Date Resolved Date Leg swelling 01/25/2024 05/21/2024 Cellulitis of buttock 10/12/20232023 Thoracolumbar back pain 05/16/202304/30 Spondylolisthesis of lumbar region 05/16/2023 05/21/2024 Spinal stenosis of lumbar re gion with neurogenic claudication 05/16/2023 05/21/2024 Phlebitis 06/25/2022 05/21/2024 Clicking left shoulder 06/25/202205/21 Sick sinus syndrome ([facility]) 01/07/2022 05/21/2024 Bunion of right foot 11/06/2021 024 Acute cystitis without hematuria 08/25/2021 09/13/2022 Ear popping, left 04/27/2021 05/21/2024 Axillary mass, right 08/13/2020 023 Abscess 08/13/2020 04/27/2021 Abscess of right axilla 08/11/202003/31 Asthma ([facility]) 05/08/2020 04/27/2021 Breast lump 05/08/2020 05/21/2024 Dyspareunia 05/08/2020 05/21/2024 Pain of breast 05/08/2020 04/27/2021 Obesity 05/08/2020 04/27/2021 JELLY (obstructive sleep apnea) 05/08/2020 11/15/2022 Generalized abdominal pain 02/10/2020 1 06/27/2020 Need for immunization against influenza 02/10/2020 02/18/2020 Leukocytes in urine 02/10/2020 04/27/20 Drug-induced constipation 02/10/2020 Type 2 diabetes mellitus wit h diabetic polyneuropathy, without long-term current use of insulin ([facility]) 01/06/2020 01/25/2024 Atypical chest pain 07/17/2014 04/27/20 Overview (02/07/2020): Atypical chest pain Encounters Date Type Department Care Team Description 07/12/2024 12:30 PM PHARMACY CUSTOMER CARE SPECIALIST - 07/12/2024 11:59 PM PHARMACY CUSTOMER CARE SPECIALIST Hospital Encounter [facility] [address] Munir Cheung MD Discharge Disposition: Home or Self Care (Routine Discharge) 07/12/2024 Scan [facility] SRVCS Scanned, [facility] 07/12/2024 Travel 07/04/2024 Scan [facility] INFO SRVCS Scanned, Doc Med [facility] 06/26/2024 Scan [facility] INFO SRVCS Scanned, Doc Med [facility] 06/19/2024 2:12 PM PHARMACY CUSTOMER CARE SPECIALIST - 06/19/2024 11:59 PM PHARMACY CUSTOMER CARE SPECIALIST Hospital Encounter [facility] [address] Munir Cheung MD Discharge Disposition: Home or Self Care (Routine Discharge) 06/19/2024 Travel 06/01/2024 Scan [facility] INFO SRVCS Scanned, Doc [facility] Image (SCAN); Lab (SCAN) 05/22/2024 Telephone [facility] [address] [address] Delbert Coleman FNP Prior Authorization 05/21/2024 1:20 PM PHARMACY CUSTOMER CARE SPECIALIST Office Visit [facility] [address] [address] Delbert Coleman FNP Follow Up; Stomach Pains (C/o of having diarehha for couple months now) 05/21/2024 Scan [facility] INFO SRVCS Scanned, Doc Med [facility] 05/21/2024 Travel 05/14/2024 Scan [facility] INFO SRVCS Scanned, Doc [facility] Lab (SCAN) 05/09/2024 Scan [facility] INFO SRVCS Scanned, Doc [facility] Lab (SCAN) 05/09/2024 Scan [facility] INFO SRVCS Scanned, Doc [facility] Lab (SCAN) from Last 3 Months Immunizations Name Administration Dates Next Due Arexvy Respiratory Syncytial Virus (RSV, adjuvanted) 0.5 mL, PF 01/29/2023 FLUAD (IIV, Trivalent, 0.5 M L Pre-filled Syringe) 02/10/2024 Fluarix 02/11/2015 Flucelvax 6 Months+ (Prefill ed Syringe) 08/01/2019 Fluzone 6 Months+ Quad (0.5 mL Prefilled Syringe) 03/15/2023,04/28/2022,02/07/2020 Influenza (Generic) 02/23/2021 Influenza Adult (Generic) 04/05/2018,08/2015,02/09/2014,2012 Influenza Virus, Split 6-35 Mo 02/20/2013,2012 PFIZER COVID-19 (BURNETTE CAP), MRNA, LNP-S, PF, 30 MCG/0.3 ML JASMIN-SUCROSE, IM 01/07/2022,06/30/2021 PFIZER COVID-19 (ORIGINAL FORMULATION, PURPLE CAP) mRNA, LNP-S, PF, 30 MCG/0.3 ML DOSE 09/07/2020,08/12/2020 Pneumococcal (Pneumovax 23) 03/17/2021 Pneumococcal (Prevnar 20) 12/30/2022 Pneumococcal Vaccine 02/11/2012 Shingrix 11/03/2022,08/25/2022 Tdap (Adacel) 05/21/2024 Tdap (Generic) 08/09/2013 Family History Medical History Relation Comments Seizures Brother Thyroid Brother Cancer Father lung Alzheimers Mother Thyroid Mother Relation Status Comments Brother Father Mother Social History Tobacco Use Types Packs/Day Years Used Date Smoking Tobacco: Every Day Cigarettes 0.3 1 Passive Smoke Exposure: Current Smokeless Tobacco: Never Tobacco Cessation:Ready to Q uit: Yes; Counseling Given: Yes Comments:Quit 2019 Alcohol Use Standard Drinks/Week Comments Not Currently 1.7 (1 standard drink = 0.6 oz p ure alcohol) occ glass of wine PHQ-2 Answer Date Recorded Patient Health Questionnaire-2 Score 2 08/16/2023 Comments No Sex and Gender Information Value Date Recorded Sex Assigned at Female 06/19/2024 2:08 PM PHARMACY CUSTOMER CARE SPECIALIST Legal Sex Female 5:20 PM CDT Gender Identity Female 09/18/2021 9:21 AM CDT Sexual Orientation Not on file Last Filed Vital Signs Vital Sign Reading Time Taken Comments Blood Pressure 116/75 05/21/2024 1:08 PM PHARMACY CUSTOMER CARE SPECIALIST Pulse 62 05/21/2024 1:08 PM PHARMACY CUSTOMER CARE SPECIALIST Temperature 36.7 C (98.1 F) 05/21/2024 1:08 PM PHARMACY CUSTOMER CARE SPECIALIST Respiratory Rate 16 05/21/2024 1:08 PM PHARMACY CUSTOMER CARE SPECIALIST Oxygen Saturation 95% 05/21/2024 1:08 PM PHARMACY CUSTOMER CARE SPECIALIST Inhaled Oxygen Concentration - - Weight 99.6 kg (219 lb 9.6 oz) 05/21/2024 1:08 P M PHARMACY CUSTOMER CARE SPECIALIST Height 152.4 cm (5') 05/21/2024 1:08 PM PHARMACY CUSTOMER CARE SPECIALIST Body Mass Index 42.89 05/21/2024 1:08 PM PHARMACY CUSTOMER CARE SPECIALIST Plan of Treatment Health Maintenance Due Date Last Done Comments Diabetes: Retinopathy Eye Exam 1978 Hepatitis C 1978 PHQ-2 ([facility]) 05/30/2024 08/16/2023 Lipid Panel 08/15/2024 08/16/2023, 09/27, 03/09/2021, Additional history exists Hemoglobin A1C 11/12/2024 05/14/2024, 04/29, 12/27/2023, Additional history exists Mammogram Screening 03/16/2025 03/16/2023, Kidney Health Evaluation 05/09/2025 05/09/2024 Colorectal Cancer Screening Colonoscopy (10 Years) 07/10/2031 07/10/2021 DTaP, Tdap and Td Vaccines (3 - Td or Tdap) 05/21/2034 05/21/2024, 08/09/2013 Zoster Vaccines Completed 11/03/2022, 08/25/2022 Pneumococcal Vaccine: 65+ Years Completed 12/30/2022, 03/17/2021 Pneumococcal Vaccine: Pediatrics (0 to 5 Years) and At-Risk Patients (6 to 64 Years) Completed 12/30/2022, 03/17/2021, 02/11/2012 RSV Immunization or 60+ Years Completed 01/29/2023 Dexa Scan (General) Completed 03/16/2023, 0 COVID-19 Vaccine Completed 02/10/2024, , 01/07/2022, Additional history exists Influenza Adult Completed 02/10/2024, 02/27, 04/28/2022, Additional history exists Meningococcal B Vaccine Aged Out No l onger eligible based on patient's age to complete this topic Meningococcal Vaccine Aged Out No kalen rob eligible based on patient's age to complete this topic RSV Immunizations Under 20 Months Aged Out No longer eligible based on patient's age to complete this topic Procedures Procedure Name Priority Date/Time Associated Diagnosis Comments US GD LYMPH NODE BX Routine 07/12/2024 1 :13 PM PHARMACY CUSTOMER CARE SPECIALIST Adenopathy, cervical CYTOLOGY GENERIC Routine 07/12/2024 12:0 0 AM PHARMACY CUSTOMER CARE SPECIALIST Adenopathy, cervical US THYROID Routine 06/19/2024 3:09 PM PHARMACY CUSTOMER CARE SPECIALIST Thyroid nodule OUTSIDE LAB (SCAN ORDER) 06/01/2024 IMAGE GENERIC 06/01/2024 OUTSIDE LAB (SCAN ORDER) Routine 05/14/2024 OUTSIDE LAB (SCAN ORDER) Routine 05/09/2024 OUTSIDE LAB (SCAN ORDER) 05/09/2024 OUTSIDE LAB (SCAN ORDER) 05/09/2024 OUTSIDE LAB (SCAN ORDER) 05/09/2024 OUTSIDE LAB (SCAN ORDER) 05/09/2024 OUTSIDE LAB (SCAN ORDER) 05/09/2024 OUTSIDE LAB (SCAN ORDER) 05/09/2024 OUTSIDE LAB (SCAN ORDER) 05/09/2024 OUTSIDE LAB (SCAN ORDER) 05/09/2024 OUTSIDE LAB (SCAN ORDER) 05/09/2024 OUTSIDE LAB (SCAN ORDER) 05/09/2024 OUTSIDE LAB (SCAN ORDER) 05/09/2024 OUTSIDE LAB (SCAN ORDER) 05/09/2024 OUTSIDE LAB (SCAN ORDER) 05/09/2024 OUTSIDE LAB (SCAN ORDER) 05/09/2024 OUTSIDE LAB (SCAN ORDER) 05/09/2024 OUTSIDE LAB (SCAN ORDER) 05/09/2024 OUTSIDE LAB (SCAN ORDER) 05/09/2024 OUTSIDE LAB (SCAN ORDER) 05/09/2024 OUTSIDE LAB (SCAN ORDER) 05/09/2024 OUTSIDE LAB (SCAN ORDER) 05/09/2024 OUTSIDE LAB (SCAN ORDER) 05/09/2024 OUTSIDE LAB (SCAN ORDER) 05/09/2024 OUTSIDE LAB (SCAN ORDER) 05/09/2024 OUTSIDE LAB (SCAN ORDER) 05/09/2024 OUTSIDE LAB (SCAN ORDER) 05/09/2024 OUTSIDE LAB (SCAN ORDER) 05/09/2024 OUTSIDE PT/INR (SCAN ORDER) 05/09/2024 OUTSIDE LAB (SCAN ORDER) 05/09/2024 OUTSIDE LAB (SCAN ORDER) 05/09/2024 OUTSIDE LAB (SCAN ORDER) 05/09/2024 OUTSIDE LAB (SCAN ORDER) 05/09/2024 LIPID PANEL Routine 08/16/2023 10:17 AM CDT Type 2 diabetes mellitus with diabetic polyneuropathy, without long-term current use of insulin ([facility]) Mixed hyperlipidemia BONE DENSITY/DEXA Routine 03/16/2023 3:3 2 PM CDT Post-menopausal MG SCREENING W ALESSIO JAZ DIGI Routine 03/16/2023 9:12 AM CDT Encounter for screening mammogram for breast cancer COLONOSCOPY GENERIC (SCAN ORDER) 07/10/2021 from Last 3 Months or Most Recently Relevant to Health Maintenance Results * US GD LYMPH NODE BX (07/12/2024 1:13 PM PHARMACY CUSTOMER CARE SPECIALIST) Anatomical Region Laterality Modality Undefined Ultrasound 07/12/2024 8:44 PM PHARMACY CUSTOMER CARE SPECIALIST Impressions 07/12/2024 8:45 PM PHARMACY CUSTOMER CARE SPECIALIST IMPRESSION: 1. Ultrasound performed for imaging guidance of lymph node biopsy performed by Dr. Cheung without radiologist present. Referred By: MUNIR CHEUNG Interpreted By: Raúl Cheung MD, 07/12/2024 8:44 PM Narrative 07/12/2024 8:45 PM PHARMACY CUSTOMER CARE SPECIALIST [address] [address] Examination: Ultrasound guided lymph node biopsy. Exam Date/Time: 07/12/2024 12:34 PM Reason For Exam: adenopathy Comparison: Thyroid ultrasound 06/19/2024 Technique: Transcutaneous ultrasound evaluation of the left neck was performed for analysis of grayscale imaging characteristics and guidance for FNA. Findings: Multiple lymph nodes are identified in the left neck. A dominant mass labelled lymph node is demonstrated with needle placement within the mass lesion for biopsy. Procedure Note Raúl Cheung MD - 07/12/[address] [address] Examination: Ultrasound guided lymph node biopsy. Exam Date/Time: 07/12/2024 12:34 PM Reason For Exam: adenopathy Comparison: Thyroid ultrasound 06/19/2024 Technique: Transcutaneous ultrasound evaluation of the left neck wasperformed for analysis of grayscale imaging characteristics and guidancefor FNA. Findings: Multiple lymph nodes are identified in the left neck. Adominant mass labelled lymph node is demonstrated with needle placementwithin the mass lesion for biopsy. IMPRESSION: 1. Ultrasound performed for imaging guidance of lymph node biopsyperformed by Dr. Cheung without radiologist present. Referred By: MUNIR CHEUNG Interpreted By: Raúl Cheung MD, 07/12/2024 8:44 PM us Munir Cheung MD ULTRASOUND Final Result * CYTOLOGY GENERIC (07/12/2024 12:00 AM PHARMACY CUSTOMER CARE SPECIALIST) CYTOLOGY OTHER [facility] Medicine [address] [place] [address] , extension [phone] Pathology Report FNA Cytology Report Name: TRU BAUTISTA Specimen #: [id number] Age: 3 1960 (Age: 63) Location: [facility] Sex: F Procedure Date: 07/12/2024 Hospital #: [id number] Date Received: 07/13/2024 Date Reported: 07/17/2024 Provider: MUNIR CHEUNG MD Source: LYMPH NODE, LEFT LEVEL 2 CERVICAL, FINE NEEDLE ASPIRATION Clinical History: History of thyroid cancer FINAL DIAGNOSIS: Lymph node, left level 2 cervical, fine needle aspiration: -Satisfactory for evaluation -Negative for malignant cells -Lymphocytes present Diagnosis Comment: The history of thyroid carcinoma is noted. There is no evidence of metastatic thyroid carcinoma in this sample. Immunohistochemical stains performed on the cell block demonstrate the following: CD45: Highlights the lymphocytes Cam5.2: Essentially negative PAX8: Highlights a subset of lymphocytes; no evidence of thyroid-derived elements IC: CEF Gross Description: PASSES MADE: 3 SPECIMEN RECEIVED: 2 Diff-Quik slides, 2 alcohol-fixed slides and cell block slide(s), all microscopically examined by a pathologist SLIDES PREPARED: 4 smears STAINS: Papanicolaou, Diff-Quik, H&E Initial cytologic screening, interpretation, and sign out were performed at [facility], [address] [place] [address]. All immunohistochemical and histochemical tests were developed by and performed at [facility], [address] [place] [address]. All tests reported here have not been cleared or approved by the U.S. Food and Drug Administration (FDA). This laboratory is regulated under CLIA as qualified to perform high-complexity testing. These tests are used for clinical purposes. They should not be regarded as investigational or for research. Positive and negative controls show appropriate reactivity. Electronically Signed Out BETTYE DALE MD [facility] 07/12/2024 07/13/2024 7:3 8 AM PHARMACY CUSTOMER CARE SPECIALIST Comment:LYMPH NODE, LEFT LEV EL 2 CERVICAL, FINE NEEDLE ASPIRATION us Munir Cheung MD PATHOLOGY/CYTOLOGY ORDERABLES F inal Result [facility] [address] [place] [address], [place] [phone] [id number] * US THYROID (06/19/2024 3:09 PM PHARMACY CUSTOMER CARE SPECIALIST) Anatomical Region Laterality Modality Neck Ultrasound 06/22/2024 4:05 PM PHARMACY CUSTOMER CARE SPECIALIST Impressions 06/22/2024 4:36 PM PHARMACY CUSTOMER CARE SPECIALIST =====IMPRESSION:===== 1. Two small right thyroid nodules that do not meet imaging criteria for sampling or follow-up, 2. Status post left thyroidectomy with residual subcentimeter thyroid tissue versus TR 3 nodule. Initial 6 month short-term follow-up recommended to exclude growth. 2 additional left neck lymph nodes can also be reassessed at the time. Ordered By: MUNIR CHEUNG Interpreted By: Ap Hunter MD, 06/22/2024 4:05 PM Narrative 06/22/2024 4:36 PM PHARMACY CUSTOMER CARE SPECIALIST [facility] [address] [place], [place] [address] Exam: Thyroid ultrasound Exam date and time: 06/19/2024 2:21 PM Indication: 63 female. Thyroid nodule follow-up. Reported thyroid CA status post left thyroidectomy November 2023. Comparison: Ultrasound thyroid 06/16/2023 Technique: Grayscale and color flow ultrasound examination of the thyroid gland was performed. Ultrasound findings: Right lobe: Size: Measures 2.7 x 1.1 x 1.2 cm. Parenchyma: Homogeneous echotexture. Normal echogenicity and vascularity. Nodule(s): 1. Superior round isoechoic with hypoechoic 0.7 cm. TR 3 2. Mid isoechoic solid 0.5 cm. TR 3 Left lobe: The reported left thyroidectomy. There is a round isoechoic nodule in the left thyroid bed measuring 0.8 x 0.8 x 0.5 cm. Uncertain reasons residual thyroid tissue or a TR 3 nodule. There are couple of regional mildly prominent lymph nodes in the left neck. Index largest lymph node measures 1.9 x 0.5 x 1.2 cm. Isthmus: Not seen Procedure Note Ap Hunter MD - 06/22/2024 [facility] [address] [place], [place] [address] Exam: Thyroid ultrasound Exam date and time: 06/19/2024 2:21 PM Indication: 63 female. Thyroid nodule follow-up. Reported thyroid CAstatus post left thyroidectomy November 2023. Comparison: Ultrasound thyroid 06/16/2023 Technique: Grayscale and color flow ultrasound examination of the thyroidgland was performed. Ultrasound findings: Right lobe: Size: Measures 2.7 x 1.1 x 1.2 cm. Parenchyma: Homogeneous echotexture. Normal echogenicity andvascularity. Nodule(s): 1. Superior round isoechoic with hypoechoic 0.7 cm. TR 3 2. Mid isoechoic solid 0.5 cm. TR 3 Left lobe: The reported left thyroidectomy. There is a round isoechoic nodule in the left thyroid bed measuring 0.8 x0.8 x 0.5 cm. Uncertain reasons residual thyroid tissue or a TR 3nodule. There are couple of regional mildly prominent lymph nodes in the leftneck. Index largest lymph node measures 1.9 x 0.5 x 1.2 cm. Isthmus: Not seen =====IMPRESSION:===== 1. Two small right thyroid nodules that do not meet imaging criteria forsampling or follow-up, 2. Status post left thyroidectomy with residual subcentimeter thyroidtissue versus TR 3 nodule. Initial 6 month short-term follow-uprecommended to exclude growth. 2 additional left neck lymph nodes can alsobe reassessed at the time. Ordered By: MUNIR CHEUNG Interpreted By: Ap Hunter MD, 06/22/2024 4:05 PM Munir Cheung MD ULTRASOUND Final Result * OUTSIDE LAB (SCAN ORDER) (06/01/2024) Only the most recent of33 resultswithin the time period is included. 06/01/2024 [facility] Scanned SCANNING Final Resu lt * IMAGE GENERIC (06/01/2024) Anatomical Region Laterality Modality Other 06/01/2024 [facility] Scanned SCANNING Final Resu lt * OUTSIDE PT/INR (SCAN ORDER) (05/09/2024) 05/09/2024 Result [employer] [facility] Scanned SCANNING Final Resu lt * (ABNORMAL) LIPID PANEL (08/16/2023 10:17 AM CDT) CHOLESTEROL 195 <200 MG/DL 08/16/2023 8:53 PM CDT [facility] TRIGLYCERIDES 49 <150 MG/DL 08/16/2023 8:53 PM CDT [facility] HDL 75 >40 MG/DL 08/16/2023 8:53 PM CDT [facility] LDL-C 110(H) <100 MG/DL 08/16/2023 8:53 PM CDT [facility] VLDL CALCULATION 10 5 - 28 MG/DL 08/16/2023 8:53 PM CDT [facility] CHOL/HDL RATIO 2.6 0.0 - 4.0 08/16/2023 8:53 PM CDT [facility] LDL/HDL 1.5 0.41 - 2.13 08/16/2023 8:53 PM CDT [facility] NON HDL CHOLESTEROL 120 <140 MG/DL 08/16/2023 8:53 PM CDT [facility] 08/16/2023 10:1 7 AM CDT us Delbert Coleman [facility] [employer] Final Result [facility] [address] [place] [address], * BONE DENSITY/DEXA (03/16/2023 3:32 PM CDT) Anatomical Region Laterality Modality Bone Mammography 03/16/2023 10:3 4 AM CDT Impressions 03/16/2023 10:36 AM CDT IMPRESSION: WHO Classification: osteopenia. FRAX: 0.7% chance of hip fracture and 7.7% chance of major osteoporotic fracture over the next 10 years. Referred By: DELBERT COLEMAN Interpreted By: Raúl Cheung MD, 03/16/2023 10:34 AM Narrative 03/16/2023 10:36 AM CDT Examination: Bone Density Axial Exam Date/Time: 03/16/2023 8:45 AM Reason For Exam: Screening for osteoporosis. Postmenopausal. Comparison: None Findings: DEXA bone densitometry The bone mineral density (BMD) was determined by dual-energy x-ray absorptiometry, the results are as follows: AP Lumbar Spine L1 through L4 BMD Patient (GM/SQCM): 1.001 T-Score (Standard deviations from young adult peak bone density): -0.4 Left femoral neck: BMD Patient (GM/SQCM): 0.678 T-Score (Standard deviations from young adult peak bone density): -1.5 Total Right femur: BMD Patient (GM/SQCM): 0.734 T-Score (Standard deviations from young adult peak bone density): -1.7 Recommendations: All patients should ensure an adequate intake of dietary calcium and vitamin D. The NOF recommend adults under the age of 50 need 1000 mg of calcium and 400-800 IU of vitamin D daily. Effective therapy for the prevention and treatment of osteoporosis include biphosphonates. Follow-up: People with diagnosed cases of osteoporosis or at high risk for fracture should have regular bone mineral density test. For patients eligible for Medicare, routine testing is allowed once every 2 years. Testing frequency can be increased to one year for patients who have rapidly progressing disease, those who are receiving or discontinuing medical therapy to restore bone mass, or have additional risk factors. Procedure Note Raúl Cheung MD - 03/16/2023 Examination: Bone Density Axial Exam Date/Time: 03/16/2023 8:45 AM Reason For Exam: Screening for osteoporosis. Postmenopausal. Comparison: None Findings: DEXA bone densitometry The bone mineral density (BMD) was determined bydual-energy x-ray absorptiometry, the results are as follows: AP Lumbar Spine L1 through L4 BMD Patient (GM/SQCM): 1.001 T-Score (Standard deviations from young adult peak bonedensity): -0.4 Left femoral neck: BMD Patient (GM/SQCM): 0.678 T-Score (Standard deviations from young adult peak bonedensity): -1.5 Total Right femur: BMD Patient (GM/SQCM): 0.734 T-Score (Standard deviations from young adult peak bonedensity): -1.7 Recommendations: All patients should ensure an adequate intake of dietary calcium andvitamin D. The NOF recommend adults under the age of 50 need 1000 mg ofcalcium and 400-800 IU of vitamin D daily. Effective therapy for theprevention and treatment of osteoporosis include biphosphonates. Follow-up: People with diagnosed cases of osteoporosis or at high risk for fractureshould have regular bone mineral density test. For patients eligible forMedicare, routine testing is allowed once every 2 years. Testing frequencycan be increased to one year for patients who have rapidly progressingdisease, those who are receiving or discontinuing medical therapy torestore bone mass, or have additional risk factors. IMPRESSION: WHO Classification: osteopenia. FRAX: 0.7% chance of hip fracture and 7.7% chance of major osteoporoticfracture over the next 10 years. Referred By: DELBERT COLEMAN Interpreted By: Raúl Cheung MD, 03/16/2023 10:34 AM Delbert Coleman GEM SETTER DEXA Final Result * MG SCREENING W ALESSIO JAZ SUDHAKARI (03/16/2023 9:12 AM CDT) Anatomical Region Laterality Modality Breast Bilateral Mammography 03/22/2023 10:1 8 AM CDT Narrative 03/22/2023 10:19 AM CDT Examination: Screening bilateral mammogram Exam Date/Time: 03/16/2023 8:46 AM Clinical history: Benign right biopsy in the 1980s. No current complaints. Comparison: 01/21/2020 Technique: Digital screening mammography of both breasts was performed. Breast tomosynthesis acquisitions were obtained and reviewed. This study was read with the assistance of a computer-aided detection system. Tissue density: The breast tissue is almost entirely fatty. Findings: No suspicious masses, malignant appearing calcifications, skin thickening or other abnormalities are present. No significant change from the prior exam. IMPRESSION: No suspicious mammographic findings. Recommendation: 1. Routine Screening, Bilateral Assessment: ACR BI-RADS 2 - BENIGN FINDING(S) Ordered By: DELBERT COLEMAN Interpreted By: Joe Manriquez, 03/22/2023 10:18 AM us Delbert CRISTOBALP MAMMO Final Result * COLONOSCOPY GENERIC (07/10/2021) 07/10/2021 Narrative 07/10/2021 Ordered by an unspecified provider. us Documents Scanned SCANNING Final Result from Last 3 Months or Most Recently Relevant to Health Maintenance Insurance MEDICARE PART A Care Teams Business Continuity Analyst Relationship Specialty Start Date End Date Delbert Coleman FNP [address] [place] [id number] PCP - General Nurse Practitioner Family 01/02/20
--- OUTSIDE RECORDS SUMMARY | 2024-07-19 13:46 | XMS_ITS | Clinical Summary ---
Author Organization [facility] Address [address] [place] [address] Phone Care Team Providers Care Reading Efficiency Course Director Name Role Phone Unavailable Primary Care Provider Unavailabl e Social History Tobacco Use Types Packs/Day Years Used Date Smoking Tobacco: Never Assessed Comments Unknown Sex and Gender Information Value Date Recorded Sex Assigned at Not on file Legal Sex Female 10:38 AM CDT Gender Identity Not on file Sexual Orientation Not on file Plan of Treatment Health Maintenance Due Date Last Done Comments DTAP/TDAP/TD VACCINES (1 - Tdap) 1977 BREAST CANCER SCREENING 1998 COLORECTAL SCREENING 08/15/2003 Colorectal Cancer Screening 08/15/2003 FIT-DNA Q 3 years 08/15/2003 FIT/FOBT Q 1 year 08/15/2003 Flex Sig/CT Colonography Q 5 years 08/15/2003 PNEUMOCOCCAL VACCINE 65+ YEARS (1 of 1 - PCV) 08/15/19 09 ZOSTER VACCINE (1 of 2) 2008 OSTEOPOROSIS SCREENING 08/15/2023 INFLUENZA VACCINE (#1) 2023 RSV VACCINE (60+ or ) (1 - 1-dose 75+ series) 2033
--- OUTSIDE RECORDS SUMMARY | 2024-07-19 13:46 | XMS_ITS | Encounter Summary ---
Author Organization [facility] Address [address] [address] Care Team Providers Care Slag Production Worker Name Role Phone Imelda Trinidad Primary Care Pr ovider Rachel Garces PALEOBOTANIST Primary Care Provider Todd Lima DO Primary Care Provider [phone] Ree Ca MD Primary Care Provider [phone] Todd Lima DO Primary Care Provider [phone] Diamond Clark PALEOBOTANIST Primary Care Provider + [phone] Jesse oCnnolly MD Unavailable Mary Bethea MD Unavailable + [phone] Erik Gamble DPM Unavailable [phone] Encounter Details Date Type Department Care Team (Late st Contact Info) Description 06/02/2016 Orders Only [facility] ProviderGinny MD [address] [place] [address] Social History Tobacco Use Types Packs/Day Years Used Date Smoking Tobacco: Never Alcohol Use Standard Drinks/Week Comments Yes 0 (1 standard drink = 0.6 oz pur e alcohol) Comments Unknown Sex and Gender Information Value Date Recorded Sex Assigned at Not on file Legal Sex Female 9:33 AM MASTER CONTROL SUPERVISOR Gender Identity Not on file Sexual Orientation Not on file documented as of this encounter Plan of Treatment Not on file documented as of this encounter Procedures Procedure Name Priority Date/Time Associated Diagnosis Comments CARDIOLOGY REPORT 06/02/2016 documented in this encounter Results * CARDIOLOGY REPORT (06/02/2016) Anatomical Region Laterality Modality Other Narrative 06/02/2016 Ordered by an unspecified provider. us Historical Provider [facility] JAGRUTI AUGUSTE Final Result documented in this encounter Visit Diagnoses Not on filedocumented in this encounter Care Teams Slag Production Worker Relationship Specialty Start Date End Date Imelda Trinidad PA PCP - General 07/17/14 01/12/17 Rachel Garces NP [address] [address] PCP - General Nurse Practitioner 01/13/17 07/04/18 Todd Lima DO [address] [facility] [address] [address] PCP - General Internal Medicine 07/05/18 10/09/18 Ree Ca MD [address] [facility] [address] [place] [address] PCP - General Internal Medicine 10/10/18 07/03/19 Todd Lima DO [address] [facility] [address] [place] [address] PCP - General Internal Medicine 07/04/19 05/04/20 Diamond Clark NP [address] [place] [address] PCP - General Nurse Practitioner 05/05/20 Jesse Connolly MD [address] [address] Consulting Physician Cardiology 11/20/21 Mary Bethea MD [address] [address] Fellow Neurology 11/20/21 Erik Gamble, ROSEANNE [address] [address] Consulting Physician Podiatry 11/25/21 documented as of this encounter
[2024-07-19 14:50] LABS: Toxigenic C. Diff NEGATIVE (NEGATIVE)
[2024-07-22 21:54] LABS: Norovirus RNA PCR, Stool NOT DETECTED
== END 2024-07-19 13:37 | disposition home or self-care (01) ==
LOC: ANHLAB 13:38
PROVIDERS: PCP Nurse Practitioner Family; Visit Provider Nurse Practitioner Family
DX: R19.4 Change in bowel habit (principal); R19.7 Diarrhea, unspecified
CPT/HCPCS: 83993; 87045; 87425; 87427; 87449; 87493; 87798

== ENCOUNTER 2024-08-22 11:29 | Outpatient (CLI) | payer BC, SELFPAY ==
--- NOTE | ~2024-08-22 | MM_ITS ---
EXAMINATION: MM screening [facility] BI w pat HISTORY: Screening TECHNIQUE: Craniocaudal and mediolateral oblique 3-D tomosynthesis images were obtained and synthetic 2-D images were generated. CAD analysis was submitted and interpreted. COMPARISON: 12/26/2007 BREAST PARENCHYMAL COMPOSITION: There are scattered areas of fibroglandular density. FINDINGS: Punctate and bulky calcifications are detected bilaterally, stable and benign in appearance . Punctate calcifications detected bilaterally, vascular in origin and benign in appearance. Stable parenchymal pattern without suspicious microcalcifications, architectural distortion, discrete masses or significant asymmetry. IMPRESSION: 1. No mammographic evidence of malignancy. 2. Recommend routine screening mammography in one year. BI-RADS Category 2: Benign finding(s). Reviewed, dictated and finalized at location A.
--- NOTE | ~2024-08-22 | DEXA_ITS ---
Bone Density Report Name: TRU SLOAN Age: 64 Sex: Female Ethnicity: White Date of : 1960 Indication: hyperparathyroidism; parental hip fracture; height loss; Referring Provider: SUSAN SANTAMARIA Study: Bone densitometry was performed. Exam Date: August 22, 2024 Accession number: [id number] Bone Density: Region BMD T-score Z-score Classification AP Spine(L1-L4) 1.039 -0.1 1.8 Normal Femoral Neck (Left) 0.646 -1.8 -0.3 Osteopenia Total Hip (Left) 0.867 -0.6 0.7 Normal Femoral Neck (Right) 0.686 -1.5 0.1 Osteopenia Total Hip (Right) 0.842 -0.8 0.5 Normal Femoral Neck Mean 0.666 -1.6 -0.1 Osteopenia Total Hip Mean 0.854 -0.7 0.6 Normal World Health Organization criteria for BMD impression classify patients as: Normal (T-score at or above -1.0), Osteopenia (T-score between -1.0 and -2.5), or Osteoporosis (T-score at or below -2.5). 10-year Fracture Risk: FRAX not reported because: Treated for osteoporosis Clinical Information Provided by Patient: Parent has had a hip fracture Smokes Is being treated for osteoporosis Has used the following medications: Fosamax (i.e. alendronate), Vitamin D Has the following medical conditions: Hyperparathyroidism Patient maximum height was 62 Menopause Age: 48 Drinks caffeinated beverages Onset of menses at age 9 Number of children 3 Impression: The patient has low bone mass, based on the Left Femoral Neck T-score. The patient has risk factors, including: parental hip fracture, smoking. Discussion: It is important to ask patients whether they are taking their medications and to encourage continued and appropriate compliance with their osteoporosis therapies to reduce fracture risk. It is also important to review their risk factors and encourage appropriate calcium and vitamin D intakes, exercise, fall prevention and other lifestyle measures. Follow-Up: Consider a repeat BMD and Vertebral Fracture Assessment (VFA) exam in 2 years or sooner if medically necessary, to reassess this patient's status. Reported by: ELIDA on 08/22/2024 12:09:00 PM. Reviewed, dictated and finalized at location Dagmar PRESCOTT
--- OUTSIDE RECORDS SUMMARY | 2024-08-22 13:06 | XMS_ITS | Clinical Summary ---
Author Organization [facility] Address [address] [place] [address] Phone Care Team Providers Care Retail Support Specialist Name Role Phone Unavailable Primary Care Provider [...] Colonography Q 5 years 08/15/2003 PNEUMOCOCCAL VACCINE 50+ YEARS (1 of 1 - PCV) 08/15/19 09 ZOSTER VACCINE (1 of 2) 2008 OSTEOPOROSIS SCREENING 08/15/2023 INFLUENZA VACCINE (#1) 2023 RSV VACCINE (60+ or ) (1 - 1-dose 75+ series) 2033
--- OUTSIDE RECORDS SUMMARY | 2024-08-22 13:06 | XMS_ITS | Encounter Summary ---
Author Organization [facility] Care Team Providers Care Communications Intern Name Role Phone Imelda Trinidad Primary Care Pr ovider Rachel Garces DRAWING MACHINE OPERATOR Primary Care Provider Todd Lima DO Primary Care Provider [phone] Ree Ca MD Primary Care Provider [phone] Todd Lima DO Primary Care Provider [phone] Diamond Clark NP Primary Care Provider + [phone] Jesse Connolly MD Unavailable Mary Bethea MD Unavailable +- [phone] Erik Gamble DPM Unavailable [phone] Encounter Details Date Type Department Care Team (Latest Contact Info) Description 08/19/2016 Orders Only [facility] ProviderGinny MD [address] [place] [address] Social History Tobacco Use Types Packs/Day Years Used Date Smoking Tobacco: Never Alcohol Use Standard Drinks/Week Comments Yes 0 (1 standard drink = 0.6 oz pur e alcohol) Comments Unknown Sex and Gender Information Value Date Recorded Sex Assigned at Not on file 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 Sex Female 9:33 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 Gender Identity Not on file Sexual Orientation [...] on filedocumented in this encounter Care Teams Communications Intern Relationship Specialty Start Date End Date Imelda Trinidad PA PCP - General 07/17/14 01/12/17 Rachel Garces NP [address] [address] PCP - General Nurse Practitioner 01/13/17 07/04/18 Todd Lima DO [address] [address] PCP - General Internal Medicine 07/05/18 10/09/18 Ree Ca MD [address] [facility] [address] [place] [address] PCP - General Internal Medicine 10/10/18 07/03/19 Todd Lima DO [address] [facility] [place] [address] PCP - General Internal Medicine 07/04/19 05/04/20 Diamond Clark NP [address] [place] [address] PCP - General Nurse Practitioner 05/05/20 Jesse Connolly MD [address] [facility] [address] [place] [address] Consulting Physician Cardiology 11/20/21 Mary Bethea MD [address] [place] [id number] Fellow Neurology 11/20/21 Erik Gamble, DPMadiha [address] [address] Consulting Physician Podiatry 11/25/21 documented as of this encounter
--- OUTSIDE RECORDS SUMMARY | 2024-08-22 13:06 | XMS_ITS | Encounter Summary ---
Author Organization [facility] Address [address] [place] [address] Care Team Providers Care Make Up Arranger Name Role Phone Diamond Clark [place] Primary Care Provider [phone] Encounter Details Date Type Department Care Team (Late Contact Info) Description 11/24/2022 MyChart Message Enc [facility] [address] [place], [place] [address] [employer] Provider Air Quality Message Social [...] Sex Assigned at Female 06/19/2024 2:08 PM SAMPLING EXPERT Legal Sex Female 5:20 PM CDT Gender Identity Female 09/18/2021 9:21 AM CDT Sexual Orientation Not on file documented as of this encounter Plan of Treatment Upcoming Encounters Date Type Department Care Team (Late Contact Info) Description 07/15/2025 2:30 PM SAMPLING EXPERT [address]ment [facility] [address] [facility] [address] [place], [place] [id number] Munir Cheung MD [facility] [address] [address] documented as of this encounter Visit Diagnoses Not on filedocumented in this encounter Additional Health Concerns Assessment Noted Time PHQ-9 Depression Total Score: 3 06/24/19 23 2:35 PM SAMPLING EXPERT documented as of this encounter Care Teams Make Up Arranger Relationship Specialty Start Date End Date Diamond Clark FNP [address] [place] [address] PCP - General Nurse Practitioner Family 01/02/20 documented as of this encounter
--- OUTSIDE RECORDS SUMMARY | 2024-08-22 13:06 | XMS_ITS | Clinical Summary ---
Author Organization [facility] Address [address] [place] [address] Care Team Providers Care Cap Coverer Name Role Phone Diamond Clark NP Primary Care Provider [phone] Jesse Connolly MD Unavailable Mary Bethea MD Unavailable [phone] Erik Gamble DPM Unavailable [phone] Allergies Active Allergy Reactions Criticality Noted Date [...] Take 2 tablets at bedtime. 0 Active zxzwnsne-ljd-HO -lycopen-lutein 0.4-300-250 mg-mcg-mcg tabletIndicatio ns:Vitamin Deficiency Prevention [...] 1 tablet (75 mcg total) by mouth food processing plant manager before breakfast Active alendronate (FOSAMAX) 70 mg tablet Take 1 tablet (70 mg total) by mouth once a week 4 Active cetirizine (ZyrTEC) 10 mg tablet Take 1 tablet (10 mg total) by mouth daily Active eszopiclone (LUNESTA) 2 mg tablet Take 1 tablet (2 mg total) by mouth nightly Active jhfbaksv-uhv-tm on-FA-vit K-lut 8 mg iron-400 mcg-50 mcg tablet 1 tablet(s), Oral, daily, 30 tablet(s), Tablet(s), 0 1 Active hydroCHLOROthia zide (HYDRODIURIL) 25 mg tablet Take 1 tablet (25 mg total) by mouth food processing plant manager before breakfast 4 Active benzonatate (TESSALON) 200 [...] 05/17/2024 Assessment & Plan (05/17/2024 3:14 PM DIE ATTACHING MACHINE TENDER): Keflex sent in, feeling better H/O papillary adenocarcinoma of thyroid 04/18/20 24 Encounter for weight loss counseling 03/21/2024 Assessment & Plan (05/17/2024 3:21 PM DIE ATTACHING MACHINE TENDER): Relevant weight management chart notes reviewed. I [...] 03/21/2024 Assessment & Plan (05/17/2024 3:21 PM DIE ATTACHING MACHINE TENDER): Continue ozempic 2mg and jardiance every other day Acquired hypothyroidism 03/21/2024 Assessment & Plan (05/17/2024 3:14 PM DIE ATTACHING MACHINE TENDER): Recent labs faxed to PCP to adjust thyroid medication Weight gain due to medication 03/21/2024 Class 3 obesity with alveola r hypoventilation without serious comorbidity with body mass index (BMI) greater than or equal to 70 in adult 03/21/2024 Assessment & Plan (05/17/2024 3:14 PM DIE ATTACHING MACHINE TENDER): High weight 438 Obesity is one of [...] 03/21/2024 Assessment & Plan (05/17/2024 3:21 PM DIE ATTACHING MACHINE TENDER): In therapy at [facility] Cardiac pacemaker in situ 11/04/2017 Overview (09/01/2021): Singletary Assurity Dual Pacemaker. Dx; SSS, PAF. Generator Replacement and new RV lead 09/01/2021-Dr Olsen. Chronic A-Lead 12/22/2010. Chronic V-Lead capped. [employer] remote monitoring Q3 mo, office pacer checks Q1 yr. Atypical chest pain 07/17/2014 Overview (09/03/2016): Atypical chest pain Hernia of anterior abdominal wall 07/19/2012 Morbid obesity with BMI of 40.0-44.9, adult 07/01 Mild intermittent asthma, uncomplicated Encounters Date Type Department Care Team Description 06/11/2024 Orders Only [facility] Cardiology [address] [place] [address] SASHA Hernandez [address] Jesse Connolly MD Cardiac pacemaker in situ (Primary Dx); SSS (sick sinus syndrome) (HCC); Paroxysmal atrial fibrillation (HCC) 06/05/2024 7:30 AM DIE ATTACHING MACHINE TENDER Ancillary Procedure [facility] Cardiology [address] [facility] [address], [place] [phone] SSS (sick sinus syndrome) (HCC); Paroxysmal atrial fibrillation (HCC); Cardiac pacemaker in situ 05/28/2024 Telephone [facility] [address] [place] [address] Stefanie Thompson DPT from Last 3 Months Immunizations Immunization Administration [...] pneumonia 2014 History of migraine last one 202 0 Cataracts, bilateral Wears glasses reading History [...] on file Legal Sex Female 9:33 AM DIE ATTACHING MACHINE TENDER Gender Identity Not on file Sexual Orientation Not on file Obstetrics History Last Filed Vital Signs Vital Sign Reading Time Taken Comments Blood Pressure 116/79 04/18/2024 1:10 PM DIE ATTACHING MACHINE TENDER Pulse 65 04/18/2024 1:10 PM DIE ATTACHING MACHINE TENDER Temperature 36.3 C (97.4 F) 04/18/2024 1:10 PM DIE ATTACHING MACHINE TENDER Respiratory Rate 18 04/18/2024 1:10 PM DIE ATTACHING MACHINE TENDER Oxygen Saturation 98% 04/18/2024 1:10 PM DIE ATTACHING MACHINE TENDER Inhaled Oxygen Concentration - - Weight 99.9 kg (220 lb 3.2 oz) 04/18/2024 1:10 P M DIE ATTACHING MACHINE TENDER Height 152.4 cm (5') 04/18/2024 1:10 PM DIE ATTACHING MACHINE TENDER Body Mass Index 43 04/18/2024 1:10 PM DIE ATTACHING MACHINE TENDER Plan of Treatment Health Maintenance Due Date Last Done Comments Colon Cancer Screening-Colonoscopy 1958 Hepatitis C Screening 1958 Hepatitis B Screening 1976 Depression Screening 10/11/2019 10/10/2018 Pneumococcal vaccine 65+ (2 of 2 - PCV) 03/17/2022 03/17/2021, 02/11/2012 Fall Risk Assessment 11/25/2022 11/25/2021, 10/11/19 19 Well Visit 65+ 08/15/2023 Covid-19 Vaccine (2023-2 5 season) 2024 06/30/2021, 09/07/2020, 08/12/2020 Breast Cancer Screening-Mammogram 03/16/2024 03/16/2023, 03/16/2023, 01/21/2020 Osteoporosis Screening-Bone Density Scan 03/16/2025 03/16/2023, 01/21/2020 DTaP/Tdap/Td Vaccine (3 - Td or Tdap) 05/21/2034 05/21/2024, 08/09/2013 Zoster Vaccine Completed 11/03/2022, 08/25/2022 Influenza Vaccine Completed 02/10/2024, , 04/28/2022, Additional history exists Medical Devices Implanted Type Area Client Hr Manager Device Identifier Shelf Expiration Date Model / Serial / Lot Pacemaker-12/22 Implanted:11/28 (Quantity not on file) Pacemaker Chest [employer] SSS, Afib Knee Components Bilateral : Knee Ticket Mavrix Fuseforce L10 Mm X W10 Mm Hand Staple Bone Sterile 2 Mm Reamer [id number] - Sn/A - [id number] Implanted:Qty: 1 on 11/25/2021 by Erik Gamble DPM at [facility] Right: Foot [email or web address] 10/07/2026 [id number] / N/A / [id number] Procedures Procedure Name Priority Date/Time Associated Diagnosis Comments DEVICE CHECK - REMOTE Routine 06/11/2024 2:24 PM DIE ATTACHING MACHINE TENDER SSS (sick sinus syndrome) (HCC) Paroxysmal atrial fibrillation (HCC) Cardiac pacemaker in situ from Last 3 Months Results * DEVICE CHECK - REMOTE (06/11/2024 2:24 PM DIE ATTACHING MACHINE TENDER) Anatomical Region Laterality Modality Other Narrative 07/06/2024 3:49 PM DIE ATTACHING MACHINE TENDER Singletary Assurity Dual Pacemaker. Dx; SSS, PAF. Generator Replacement and new RV lead 09/01/2021-Dr Olsen. Chronic A-Lead 12/22/2010. Chronic V-Lead capped. Lincoln remote monitoring. Routine DDD Pacemaker remote. Normal device function. Battery function-3.01V, 7.2 years remaining battery life to CAIT. Appropriate lead measurements noted. Presenting rhythm: AP-VS. AP-70%, UX ENGINEER-1.5%. 91-Atrial high rate episode noted, <1 minute duration, iegm's oversensing noise. 1 Ventricular high rate episode noted, iegm suggestive of NSVT, 7 beat duration. Medications; ASA. See scanned report. Office pacemaker f/u and ROV with Dr Connolly scheduled 12/12/2024. Reilly remote f/u 09/04/2024. Sheyla More, RN Jesse Connolly MD [facility] PROCEDURES F inal Result from Last 3 Months Insurance GAMINSIDE ME GAMINSIDE ME [facility] MEDICARE Care Teams Cap Coverer Relationship Specialty Start Date End Date Diamond Clark NP [address] [place] [address] PCP - General Nurse Practitioner 05/05/20 Jesse Connolly MD [address] [facility] [address] [place] [address] Consulting Physician Cardiology 11/20/21 Mary Bethea MD [address] [address] Fellow Neurology 11/20/21 Erik Gamble, DPMadiha [address] [address] Consulting Physician Podiatry 11/25/21
--- OUTSIDE RECORDS SUMMARY | 2024-08-22 13:06 | XMS_ITS | Encounter Summary ---
Author Organization [facility] Facility Care Team Providers Care Grain Manager Name Role Phone Imelda Trinidad Primary Care Pr ovider Rachel Garces PHARMACEUTICAL PROCESS ENGINEER Primary Care Provider Todd Lima DO Primary Care Provider [phone] Ree Ca MD Primary Care Provider [phone] Todd Lima DO Primary Care Provider [phone] Diamond Clark NP Primary Care Provider + [phone] Jesse Connolly MD Unavailable Mary Bethea MD Unavailable +- [phone] Erik Gamble DPM Unavailable [phone] Encounter Details Date Type Department Care Team (Latest Contact Info) Description 12/04/2015 Orders Only [facility] ProviderGinny MD [address] [place] [address] Social History Tobacco Use Types Packs/Day Years Used Date Smoking Tobacco: Never Alcohol Use Standard Drinks/Week Comments Yes 0 (1 standard drink = 0.6 oz pur e alcohol) Comments Unknown Sex and Gender Information Value Date Recorded Sex Assigned at Not on file Legal Sex Female 9:33 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 Gender Identity Not on file Sexual Orientation [...] on filedocumented in this encounter Care Teams Grain Manager Relationship Specialty Start Date End Date Imelda Trinidad PA PCP - General 07/17/14 01/12/17 Rachel Garces NP [address] [address] PCP - General Nurse Practitioner 01/13/17 07/04/18 Todd Lima DO [address] [address] PCP - General Internal Medicine 07/05/18 10/09/18 Ree Ca MD [address] [facility] [address] [place] [address] PCP - General Internal Medicine 10/10/18 07/03/19 Todd Lima DO [address] [facility] [address] [place] [address] PCP - General Internal Medicine 07/04/19 05/04/20 Diamond Clark NP [address] [place] [address] PCP - General Nurse Practitioner 05/05/20 Jesse Connolly MD [address] [facility] [address] [place] [address] Consulting Physician Cardiology 11/20/21 Mary Bethea MD [address] [address] Fellow Neurology 11/20/21 Erik Gamble, DPMadiha [address] [address] Consulting Physician Podiatry 11/25/21 documented as of this encounter
--- OUTSIDE RECORDS SUMMARY | 2024-08-22 13:06 | XMS_ITS | Encounter Summary ---
Author Organization [facility] Facility Care Team Providers Care Correction Warden Name Role Phone Imelda Trinidad Primary Care Pr ovider Rachel Garces CHEF TEACHER Primary Care Provider Todd Lima DO Primary Care Provider [phone] Ree Ca MD Primary Care Provider [phone] Todd Lima DO Primary Care Provider [phone] Diamond Clark NP Primary Care Provider + [phone] Jesse Connolly MD Unavailable Mary Bethea MD Unavailable +- [phone] Erik Gamble DPM Unavailable [phone] Encounter Details Date Type Department Care Team (Latest Contact Info) Description 01/12/2016 Orders Only [facility] CLINCON[facility] ProviderGinny MD [address] [place] [address] Social History Tobacco Use Types Packs/Day Years Used Date Smoking Tobacco: Never Alcohol Use Standard Drinks/Week Comments Yes 0 (1 standard drink = 0.6 oz pur e alcohol) Comments Unknown Sex and Gender Information Value Date Recorded Sex Assigned at Not on file Legal Sex Female 9:33 AM WATER TREATMENT PLANT SUPERVISOR Gender Identity Not on file Sexual [...] on filedocumented in this encounter Care Teams Correction Warden Relationship Specialty Start Date End Date Imedla Trinidad PA PCP - General 07/17/14 01/12/17 Rachel Garces NP [address] [id number] PCP - General Nurse Practitioner 01/13/17 07/04/18 Todd Lima DO [address] [address] PCP - General Internal Medicine 07/05/18 10/09/18 Ree Ca MD [address] [facility] [address] [place] [address] PCP - General Internal Medicine 10/10/18 07/03/19 Todd Lima DO [address] [facility] [address] [place] [address] PCP - General Internal Medicine 07/04/19 05/04/20 Diamond Clark NP [address] [place] [address] PCP - General Nurse Practitioner 05/05/20 Jesse Connolly MD [address] [facility] [address] [place] [address] Consulting Physician Cardiology 11/20/21 Mary Bethea MD [address] [id number] Fellow Neurology 11/20/21 Erik Gamble, DPMadiha [address] [address] Consulting Physician Podiatry 11/25/21 documented as of this encounter
--- OUTSIDE RECORDS SUMMARY | 2024-08-22 13:06 | XMS_ITS | Referral Summary ---
Author Organization [facility] Address [address] [place] [address] Care Team Providers Care Drawer In Stitch Bonding Machine Name Role Phone Diamond Clark NP Primary Care Provider [phone] Jeses Connolly MD Unavailable Mary Bethea MD Unavailable + [phone] Erik Gamble DPM Unavailable [phone] Encounters Date Type Department Care Team Description 06/11/2024 Orders Only [facility] Cardiology [address] [place] [phone] Jesse Connolly MD Cardiac pacemaker in situ (Primary Dx); SSS (sick sinus syndrome) (HCC); Paroxysmal atrial fibrillation (HCC) 06/05/2024 7:30 AM LEAF STRIPPER Ancillary Procedure [facility] Cardiology [address] [place] [phone] SSS (sick sinus syndrome) (HCC); Paroxysmal atrial fibrillation (HCC); Cardiac pacemaker in situ 05/28/2024 Telephone [facility] Physical Therapy [address] [place] [address] Floor [address] [place] [address] Stefanie Thompson DPT from Last 3 Months Allergies Active Allergy [...] Take 2 tablets at bedtime. 0 Active rtfrirgp-eky-ZK -lycopen-lutein 0.4-300-250 mg-mcg-mcg tabletIndicatio ns:Vitamin Deficiency Prevention [...] 1 tablet (75 mcg total) by mouth melter caster before breakfast Active alendronate (FOSAMAX) 70 mg tablet Take 1 tablet (70 mg total) by mouth once a week 4 Active cetirizine (ZyrTEC) 10 mg tablet Take 1 tablet (10 mg total) by mouth daily Active eszopiclone (LUNESTA) 2 mg tablet Take 1 tablet (2 mg total) by mouth nightly Active bwxvdnjd-qfk-pd on-FA-vit K-lut 8 mg iron-400 mcg-50 mcg tablet 1 tablet(s), Oral, daily, 30 tablet(s), Tablet(s), 0 1 Active hydroCHLOROthia zide (HYDRODIURIL) 25 mg tablet Take 1 tablet (25 mg total) by mouth melter caster before breakfast 4 Active benzonatate (TESSALON) 200 [...] 05/17/2024 Assessment & Plan (05/17/2024 3:14 PM LEAF STRIPPER): Keflex sent in, feeling better H/O papillary adenocarcinoma of thyroid 04/18/20 24 Encounter for weight loss counseling 03/21/2024 Assessment & Plan (05/17/2024 3:21 PM LEAF STRIPPER): Relevant weight management chart notes reviewed. I [...] 03/21/2024 Assessment & Plan (05/17/2024 3:21 PM LEAF STRIPPER): Continue ozempic 2mg and jardiance every other day Acquired hypothyroidism 03/21/2024 Assessment & Plan (05/17/2024 3:14 PM LEAF STRIPPER): Recent labs faxed to PCP to adjust thyroid medication Weight gain due to medication 03/21/2024 Class 3 obesity with alveola r hypoventilation without serious comorbidity with body mass index (BMI) greater than or equal to 70 in adult 03/21/2024 Assessment & Plan (05/17/2024 3:14 PM LEAF STRIPPER): High weight 438 Obesity is one of [...] 03/21/2024 Assessment & Plan (05/17/2024 3:21 PM LEAF STRIPPER): In therapy at [facility] Cardiac pacemaker in situ 11/04/2017 Overview (09/01/2021): Singletary Assurity Dual Pacemaker. Dx; SSS, PAF. Generator Replacement and new RV lead 09/01/2021-Dr Olsen. Chronic A-Lead 12/22/2010. Chronic V-Lead capped. [place] remote monitoring Q3 mo, office pacer checks [...] on file Legal Sex Female 9:33 AM LEAF STRIPPER Gender Identity Not on file Sexual Orientation Not on file Last Filed Vital Signs Vital Sign Reading Time Taken Comments Blood Pressure 116/79 04/18/2024 1:10 PM LEAF STRIPPER Pulse 65 04/18/2024 1:10 PM LEAF STRIPPER Temperature 36.3 C (97.4 F) 04/18/2024 1:10 PM LEAF STRIPPER Respiratory Rate 18 04/18/2024 1:10 PM LEAF STRIPPER Oxygen Saturation 98% 04/18/2024 1:10 PM LEAF STRIPPER Inhaled Oxygen Concentration - - Weight 99.9 kg (220 lb 3.2 oz) 04/18/2024 1:10 P M LEAF STRIPPER Height 152.4 cm (5') 04/18/2024 1:10 PM LEAF STRIPPER Body Mass Index 43 04/18/2024 1:10 PM LEAF STRIPPER Plan of Treatment Not on file Medical Devices Implanted Type Area Roofer Vinyl Coating Device Identifier Shelf Expiration Date Model / Serial / Lot Pacemaker-12/22 Implanted:11/28 (Quantity not on file) Pacemaker Chest [employer] SSS, Afib Knee Components Bilateral : Knee [employer] Fuseforce L10 Mm X W10 Mm Hand Staple Bone Sterile 2 Mm Reamer [id number] - Sn/A - [id number] Implanted:Qty: 1 on 11/25/2021 by Erik Gamble DPM at [facility] Right: Foot [employer] 10/07/2026 [id number] / N/A / [id number] Procedures Procedure Name Priority Date/Time Associated Diagnosis Comments DEVICE CHECK - REMOTE Routine 06/11/2024 2:24 PM LEAF STRIPPER SSS (sick sinus syndrome) (HCC) Paroxysmal atrial fibrillation (HCC) Cardiac pacemaker in situ from Last 3 Months Results * DEVICE CHECK - REMOTE (06/11/2024 2:24 PM LEAF STRIPPER) Anatomical Region Laterality Modality Other Narrative 07/06/2024 3:49 PM LEAF STRIPPER Singletary Assurity Dual Pacemaker. Dx; SSS, PAF. Generator Replacement and new RV lead 09/01/2021-Dr Olsen. Chronic A-Lead 12/22/2010. Chronic V-Lead capped. [place] remote monitoring. Routine DDD Pacemaker remote. Normal device function. Battery function-3.01V, 7.2 years remaining battery life to CAIT. Appropriate lead measurements noted. Presenting rhythm: AP-VS. AP-70%, EXERCISE EQUIPMENT SPECIALIST-1.5%. 91-Atrial high rate episode noted, <1 minute duration, iegm's oversensing noise. 1 Ventricular high rate episode noted, iegm suggestive of NSVT, 7 beat duration. Medications; ASA. See scanned report. Office pacemaker f/u and ROV with Dr Connolly scheduled 12/12/2024. [place] remote f/u 09/04/2024. Sheyla More, BREONNA Jesse Connolly MD CV CARDIAC SERVICES PROCEDURES F inal Result from Last 3 Months Insurance [employer] [place] [address] [employer] [place] MEDIC[place] Care Teams Drawer In Stitch Bonding Machine Relationship Specialty Start Date End Date Diamond Clark NETWORK SECURITY ENGINEER [address] [place] [address] PCP - General Nurse Practitioner 05/05/20 Jesse Connolly MD [address] [address] Consulting Physician Cardiology 11/20/21 Mary Bethea MD [address] [address] [place] [address] Fellow Neurology 11/20/21 Erik Gamble, ROSEANNE [address] [address] Consulting Physician Podiatry 11/25/21
--- OUTSIDE RECORDS SUMMARY | 2024-08-22 13:06 | XMS_ITS | Encounter Summary ---
Author Organization [facility] Address [address] [address] Care Team Providers Care Procurement Manager Name Role Phone Imelda Trinidad Primary Care Pr ovider Rachel Garces HORSEBACK RIDING INSTRUCTOR Primary Care Provider Todd Lima DO Primary Care Provider [phone] Ree Ca MD Primary Care Provider [phone] Todd Lima DO Primary Care Provider [phone] Diamond Clark HORSEBACK RIDING INSTRUCTOR Primary Care Provider [phone] Jesse Connolly MD Unavailable Mary Bethea MD Unavailable + [phone] Erik Gamble DPM Unavailable [phone] Encounter Details Date Type Department Care Team (Late st Contact Info) Description 06/02/2016 Orders Only [facility] ProviderGinny MD [address] [place] [address] Social History Tobacco Use Types Packs/Day Years Used Date Smoking Tobacco: Never Alcohol Use Standard Drinks/Week Comments Yes 0 (1 standard drink = 0.6 oz pur e alcohol) Comments Unknown Sex and Gender Information Value Date Recorded Sex Assigned at Not on file Legal Sex Female 9:33 AM OIL WELL CABLE TOOL DRILLER Gender Identity Not on file Sexual Orientation [...] on filedocumented in this encounter Care Teams Procurement Manager Relationship Specialty Start Date End Date Imelda Trinidad PA PCP - General 07/17/14 01/12/17 Rachel Garces NP [address] [address] PCP - General Nurse Practitioner 01/13/17 07/04/18 Todd Lima DO [address] [facility] [address] [address] PCP - General Internal Medicine 07/05/18 10/09/18 Ree Ca MD [address] [facility] [address] [place] [address] PCP - General Internal Medicine 10/10/18 07/03/19 Todd Lima DO [address] [facility] [address] [place] [address] PCP - General Internal Medicine 07/04/19 05/04/20 Diamond Clark NP [address] [place] [address] PCP - General Nurse Practitioner 05/05/20 Jesse Connolly MD [address] [address] Consulting Physician Cardiology 11/20/21 Mary Bethea MD [address] [address] Fellow Neurology 11/20/21 Erik Gamble, ROSEANNE [address] [address] Consulting Physician Podiatry 11/25/21 documented as of this encounter
--- OUTSIDE RECORDS SUMMARY | 2024-08-22 13:06 | XMS_ITS | Clinical Summary ---
Author Organization [facility] Address [facility] [place] [address] Care Team Providers Care Car Seat Upholsterer Name Role Phone Delbert Coleman CALISTA Primary Care Provider [phone] Allergies Active Allergy Reactions Criticality Noted Date Comments Morphine Itching,Nausea and Vomiting,Other (see comment) Low 10/10/2018 abdominal pain, breathing issues Tape Rash Medium 10/10/2018 Plastic tape Medications traZODone 50 MG tablet Take 2 tablets (100 mg total) by mouth nightly at bedtime. Active methocarbamol 500 MG tablet Take 1 tablet (500 mg total) by mouth 2 (two) times a day. Active sertraline 100 MG tablet Take 2 tablets (200 mg total) by mouth daily. Active NOVOFINE 32G X 6 MM Misc USE ONE D WITH INJECTION Active NARCAN 4 MG/0.1ML nasal spray DAVID REP ALN Active calcium carbonate 1500 (600 Ca) MG [...] MG capsule 1 capsule (100 mg total). 022 Active Blood Glucose Monitoring Suppl (Vapore VERIO) w/Device KitIndications:Ty pe 2 diabetes mellitus with diabetic polyneuropathy, without long-term current use of insulin ([facility]) Use to check blood glucose daily 1 kit 023 Active Lancets (Vapore ULTRASOFT) lancetsIndication s:Type 2 diabetes mellitus with diabetic polyneuropathy, without long-term current use of insulin ([facility]) Use to check blood glucose daily 100 each 2 023 Active Glucose Blood (Vapore VERIO) test stripIndications: Type 2 diabetes mellitus with diabetic polyneuropathy, without long-term current use of insulin ([facility]) 1 strip by Other route daily. Use to check blood glucose daily 100 strip 2 023 Active ondansetron (ZOFRAN-ODT) 4 MG disintegrating tablet Take 1 tablet (4 mg total) by mouth every 8 (eight) hours as needed for Nausea. 10 tablet 023 Active Cyanocobalamin 100 MCG Tab Take 100 mcg by mouth daily. Active JARDIANCE 10 MG tablet Take 1 tablet (10 mg total) by mouth daily. 023 Active XTAMPZA ER 13.5 MG Capsule Extended Release 12 hour Abuse-Deterrent 12 hr abuse-deterrent capsule Take 1 capsule by mouth 2 (two) times a day. 023 Active fluticasone propionate (FLONASE) 50 MCG/ACT nasal sprayIndications: Allergic rhinitis, unspecified seasonality, unspecified trigger 2 sprays by Each Nostril route 2 (two) times daily. 16 g 5 024 Active pantoprazole EC (PROTONIX) 40 MG tabletIndications :Gastroesophageal reflux disease, unspecified whether esophagitis present Take 1 tablet (40 mg total) by mouth every morning. 90 tablet 3 024 Active ARIPiprazole (ABILIFY) 10 MG tabletIndications :Mixed anxiety depressive disorder Take 1 tablet (10 mg total) by mouth nightly at bedtime. 90 tablet 3 024 Active semaglutide (OZEMPIC) 1 mg/dose injection (PEN)Indications: Type 2 diabetes mellitus with diabetic polyneuropathy, without long-term current use of insulin ([facility]) Inject 1 mg into the skin once a week. 9 mL 1 Active primidone (MYSOLINE) 50 MG tabletIndications :Tremor, essential TAKE 3 TABLETS(150 MG) BY MOUTH TWICE DAILY 180 tablet 5 024 Active albuterol sulfate HFA 108 (90 Base) MCG/ACT inhalerIndication s:Mild intermittent asthma, uncomplicated ([facility]) INHALE 2 PUFFS BY MOUTH EVERY 4 TO 6 HOURS NEEDED FOR SHORTNESS OF BREATH OR WHEEZING 8.5 g 1 Active eszopiclone (LUNESTA) 2 MG tablet Take 1 tablet (2 mg total) by mouth nightly at bedtime. at bedtime Active venlafaxine XR (EFFEXOR-XR) 37.5 MG 24 hr capsule Take 1 capsule (37.5 mg total) by mouth daily. 024 Active levothyroxine (SYNTHROID) 100 MCG tabletIndications :Acquired hypothyroidism Take 1 tablet (100 mcg total) by mouth every morning. 90 tablet 1 024 Active potassium chloride CR (K-TAB) 20 MEQ tabletIndications :Hypokalemia TAKE 1 TABLET(20 MEQ) BY MOUTH TWICE DAILY 60 tablet 025 Active alendronate (FOSAMAX) 70 MG tabletIndications :Osteopenia of multiple sites TAKE ONE TABLET BY MOUTH EVERY 7 DAYS ON FRIDAYS 4 tablet 025 Active topiramate (TOPAMAX) 25 MG tabletIndications :Essential tremor TAKE 3 TABLETS(75 MG) BY MOUTH TWICE DAILY 540 tablet 3 025 Active pravastatin (PRAVACHOL) 40 MG tabletIndications :Mixed hyperlipidemia TAKE 1 TABLET(40 MG) BY MOUTH DAILY 90 tablet 025 Active pravastatin (PRAVACHOL) 40 MG tabletIndications :Mixed hyperlipidemia Take 1 tablet (40 mg total) by mouth daily. 90 tablet 3 024 2024 Discontinued topiramate (TOPAMAX) 25 MG tabletIndications :Essential tremor Take 3 tablets (75 mg total) by mouth 2 (two) times daily. 540 tablet 3 024 2024 Discontinued alendronate (FOSAMAX) 70 MG tabletIndications :Osteopenia of multiple sites TAKE ONE TABLET BY MOUTH EVERY 7 DAYS ON FRIDAYS 4 tablet 3 024 2024 Discontinued Active Problems Problem Noted Date Diagnosed Date Diarrhea, unspecified type 05/21/2024 Prediabetes 01/25/2024 Cigarette smoker 01/25/2024 Intestinal malabsorption ([facility]) 10/12/2023 Allergic rhinitis, unspecifi ed seasonality, unspecified trigger 08/16/2023 Osteopenia of multiple sites 08/16/2023 Sacroiliitis 06/28/2023 Facet hypertrophy of lumbar region 06/28/2023 Other intervertebral disc degeneration, lumbar r egion 06/28/2023 Radiculopathy, lumbar region 05/16/2023 Adrenal nodule ([facility]/HCC) 12/30/2022 Left adrenal mass ([facility]) 11/15/2022 Adrenal mass 1 cm to 4 cm in diameter ([facility]) 11/15/2022 Acquired hypothyroidism 09/13/2022 TIA (transient ischemic [...] (BMI) of 40.0 to 44.9 in adult 07/19/2012 Hernia of anterior abdominal wall 07/19/2012 Resolved Problems Problem Noted Date Diagnosed Date Resolved Date Leg swelling 01/25/2024 05/21/2024 Cellulitis of buttock 10/12/20232023 Thoracolumbar back pain 05/16/202304/30 Spondylolisthesis of lumbar region 05/16/2023 05/21/2024 Spinal stenosis of lumbar re gion with neurogenic claudication 05/16/2023 05/21/2024 Phlebitis 06/25/2022 05/21/2024 Clicking left shoulder 06/25/202205/21 Sick sinus syndrome ([facility]) 01/07/2022 05/21/2024 Bunion of right foot 11/06/2021 024 Acute cystitis without hematuria 08/25/2021 09/13/2022 Ear popping, left 04/27/2021 05/21/2024 Axillary mass, right 08/13/2020 023 Abscess 08/13/2020 04/27/2021 Abscess of right axilla 08/11/202003/31 Asthma ([facility]) 05/08/2020 04/27/2021 Breast lump 05/08/2020 05/21/2024 Dyspareunia 05/08/2020 05/21/2024 Pain of breast 05/08/2020 04/27/2021 Obesity 05/08/2020 04/27/2021 JELLY (obstructive sleep apnea) 05/08/2020 11/15/2022 Generalized abdominal pain 02/10/2020 1 06/27/2020 Need for immunization against influenza 02/10/2020 02/18/2020 Leukocytes in urine 02/10/2020 11/29/20 21 Drug-induced constipation 02/10/2020 Type 2 diabetes mellitus wit h diabetic polyneuropathy, without long-term current use of insulin ([facility]) 01/06/2020 01/25/2024 Atypical chest pain 07/17/2014 04/27/20 21 Overview (02/07/2020): Atypical chest pain Encounters Date Type Department Care Team Description 07/19/2024 Scan [facility] Scanned, [facility] Lab (SCAN) 07/19/2024 Scan [facility] Scanned, [facility] (SCAN) 07/12/2024 12:30 PM OYSTER PICKER - 07/12/2024 11:59 PM OYSTER PICKER Hospital Encounter [facility] [place] [address] Munir Cheung MD Discharge Disposition: Home or Self Care (Routine Discharge) 07/12/2024 Scan [facility] Scanned, [facility] 07/12/2024 Travel 07/10/2024 Scan [facility] Scanned, [facility] 07/04/2024 Scan [facility] Scanned, [facility] 06/26/2024 Scan [facility] Scanned, [facility] 06/19/2024 2:12 PM OYSTER PICKER - 06/19/2024 11:59 PM OYSTER PICKER Hospital Encounter [facility] [place] [address] Munir Cheung MD Discharge Disposition: Home or Self Care (Routine Discharge) 06/19/2024 Travel 06/01/2024 Scan [facility]VCS Scanned, [facility] Image (SCAN); Lab (SCAN) from Last 3 Months Immunizations [...] Sex Assigned at Female 06/19/2024 2:08 PM OYSTER PICKER Legal Sex Female 5:20 PM CDT Gender Identity Female 09/18/2021 9:21 AM CDT Sexual Orientation Not on file Last Filed Vital Signs Vital Sign Reading Time Taken Comments Blood Pressure 116/75 05/21/2024 1:08 PM OYSTER PICKER Pulse 62 05/21/2024 1:08 PM OYSTER PICKER Temperature 36.7 C (98.1 F) 05/21/2024 1:08 PM OYSTER PICKER Respiratory Rate 16 05/21/2024 1:08 PM OYSTER PICKER Oxygen Saturation 95% 05/21/2024 1:08 PM OYSTER PICKER Inhaled Oxygen Concentration - - Weight 99.6 kg (219 lb 9.6 oz) 05/21/2024 1:08 P M OYSTER PICKER Height 152.4 cm (5') 05/21/2024 1:08 PM OYSTER PICKER Body Mass Index 42.89 05/21/2024 1:08 PM OYSTER PICKER Plan of Treatment Upcoming Encounters Date Type Department Care Team (Late st Contact Info) Description 07/15/2025 2:30 PM OYSTER PICKER Appointment [facility] Ultrasound [address] [place], [place] [id number] Munir Cheung MD [address] [place] [id number] Health Maintenance Due Date Last Done Comments Diabetes: Retinopathy Eye Exam 1978 Hepatitis C 1978 PHQ-2 (Physician [place]) 05/30/2024 08/16/2023 COVID-19 Vaccine ( season) 2024 02/10/2024, 03/14/2023, 01/07/2022, Additional history exists ASCVD LDL 08/15/2024 08/16/2023, 02/27, 01/02/2020 Lipid Panel 08/15/2024 08/16/2023, 09/27, 03/09/2021, Additional history exists Hemoglobin A1C 11/12/2024 05/14/2024, 04/29, 12/27/2023, Additional history exists Mammogram Screening 03/16/2025 03/16/2023, Kidney Health Evaluation 05/09/2025 05/09/2024 Colorectal Cancer Screening Colonoscopy (10 Years) 07/10/2031 07/10/2021 DTaP, Tdap and Td Vaccines (3 - Td or Tdap) 05/21/2034 05/21/2024, 08/09/2013 Zoster Vaccines Completed 11/03/2022, 08/25/2022 Pneumococcal Vaccine: 65+ Years Completed 12/30/2022, 03/17/2021 RSV Immunization or 60+ Years Completed 01/29/2023 Dexa Scan (General) Completed 03/16/2023, 0 Influenza Adult Completed 02/10/2024, 02/27, 04/28/2022, Additional [...] Procedure Name Priority Date/Time Associated Diagnosis Comments OUTSIDE LAB (SCAN ORDER) Routine 07/19/2024 OUTSIDE LAB (SCAN ORDER) 07/19/2024 OUTSIDE LAB (SCAN ORDER) 07/19/2024 US GD LYMPH NODE BX Routine 07/12/2024 1 :13 PM OYSTER PICKER Adenopathy, cervical CYTOLOGY GENERIC Routine 07/12/2024 12:0 0 AM OYSTER PICKER Adenopathy, cervical US THYROID Routine 06/19/2024 3:09 PM OYSTER PICKER Thyroid nodule OUTSIDE LAB (SCAN ORDER) 06/01/2024 IMAGE GENERIC 06/01/2024 OUTSIDE LAB (SCAN ORDER) Routine 05/14/2024 LIPID PANEL Routine 08/16/2023 10:17 AM CDT Type 2 diabetes mellitus with diabetic polyneuropathy, without long-term current use of insulin Mixed hyperlipidemia BONE DENSITY/DEXA Routine 03/16/2023 3:3 2 PM CDT Post-menopausal MG SCREENING W ALESSIO JAZ DIGI Routine 03/16/2023 9:12 AM CDT Encounter for screening mammogram for breast cancer COLONOSCOPY GENERIC (SCAN ORDER) 07/10/2021 from Last 3 Months or Most Recently Relevant to Health Maintenance Results * OUTSIDE LAB (07/19/2024) Only the most recent of5 resultswithin the time period is included. 07/19/2024 us [facility] Scanned SCANNING Final Resu lt [facility] ONBASE * US GD LYMPH NODE BX (07/12/2024 1:13 PM OYSTER PICKER) Anatomical Region Laterality Modality Undefined Ultrasound 07/12/2024 8:44 PM OYSTER PICKER Impressions 07/12/2024 8:45 PM OYSTER PICKER IMPRESSION: 1. Ultrasound performed for imaging guidance of lymph node biopsy performed by Dr. Cheung without radiologist present. Referred By: MUNIR CHEUNG Interpreted By: Raúl Cheung MD, 07/12/2024 8:44 PM Narrative 07/12/2024 8:45 PM OYSTER PICKER [address] [address] Examination: Ultrasound guided lymph node biopsy. Exam [...] Procedure Note Raúl Cheung MD - 07/12/2024 [address] [place] [address], [place] [address] Examination: Ultrasound guided lymph node biopsy. Exam [...] Result * CYTOLOGY GENERIC (07/12/2024 12:00 AM OYSTER PICKER) CYTOLOGY OTHER [facility] Department of Laboratory Medicine [address] [place] [phone] , extension [phone] Pathology Report FNA Cytology Report Name: TRU BAUTISTA Specimen #: [id number] Age: 3 1960 (Age: 63) Location: [facility] Sex: F Procedure Date: 07/12/2024 Hospital #: [id number] Date Received: 07/13/2024 Date Reported: 07/17/2024 Provider: [...] interpretation, and sign out were performed at [facility], [address] [place] [address]. All immunohistochemical and histochemical tests were developed by and performed at [facility], [address] [place] [address]. All tests reported here have not been cleared or approved by the U.S. Food and Drug Administration (FDA). This laboratory is regulated under CLIA as qualified to perform high-complexity testing. These tests are used for clinical purposes. They should not be regarded as investigational or for research. Positive and negative controls show appropriate reactivity. Electronically Signed Out BETTYE DALE MD [facility] 07/12/2024 07/13/2024 7:3 8 AM OYSTER PICKER Comment:LYMPH NODE, LEFT LEV EL 2 CERVICAL, FINE NEEDLE ASPIRATION us Munir Cheung MD PATHOLOGY/CYTOLOGY ORDERABLES F inal Result [facility] [address] [place] [address], [id number] * US THYROID (06/19/2024 3:09 PM OYSTER PICKER) Anatomical Region Laterality Modality Neck Ultrasound 06/22/2024 4:05 PM OYSTER PICKER Impressions 06/22/2024 4:36 PM OYSTER PICKER =====IMPRESSION:===== 1. Two small right thyroid nodules [...] 06/22/2024 4:05 PM Narrative 06/22/2024 4:36 PM OYSTER PICKER [address] [address] Exam: Thyroid ultrasound Exam date and time: [...] Procedure Note Ap Hunter MD - 06/22/2024 [facility] [address] [place], [place] [address] Exam: Thyroid ultrasound Exam date and time: [...] Munir Cheung MD ULTRASOUND Final Result * IMAGE GENERIC (06/01/2024) Anatomical Region Laterality Modality Other 06/01/2024 us [facility] Scanned SCANNING Final Resu lt * (ABNORMAL) LIPID PANEL (08/16/2023 10:17 AM CDT) CHOLESTEROL 195 <200 MG/DL 08/16/2023 8:53 PM CDT -[facility] TRIGLYCERIDES 49 <150 MG/DL 08/16/2023 8:53 PM CDT [facility] HDL 75 >40 MG/DL 08/16/2023 8:53 PM CDT [facility] LDL-C 110(H) <100 MG/DL 08/16/2023 8:53 PM CDT [facility] VLDL CALCULATION 10 5 - 28 MG/DL 08/16/2023 8:53 PM CDT [facility] CHOL/HDL RATIO 2.6 0.0 - 4.0 08/16/2023 8:53 PM CDT [facility] LDL/HDL 1.5 0.41 - 2.13 08/16/2023 8:53 PM CDT [facility] NON HDL CHOLESTEROL 120 <140 MG/DL 08/16/2023 8:53 PM CDT [facility] 08/16/2023 10:1 7 AM CDT Delbert Coleman [facility] Final Result [facility] [address] [place] [address], * BONE DENSITY/DEXA (03/16/2023 3:32 PM CDT) [...] Cheung MD, 03/16/2023 10:34 AM Delbert Coleman MIRROR DEPARTMENT SUPERVISOR DEXA Final Result * MG SCREENING W ALESSIO JAZ DIGI (03/16/2023 9:12 AM CDT) Anatomical Region Laterality [...] Interpreted By: Joe Manriquez, 03/22/2023 10:18 AM Delbert Coleman MIRROR DEPARTMENT SUPERVISOR MAMMO Final Result * COLONOSCOPY GENERIC (07/10/2021) 07/10/2021 Narrative 07/10/2021 Ordered by an unspecified provider. Documents Scanned SCANNING Final Result from Last 3 Months or Most Recently Relevant to Health Maintenance Insurance MEDICARE PART A Care Teams Car Seat Upholsterer Relationship Specialty Start Date End Date Delbert Coleman FNP [address] [place] [address] [id number] PCP - General Nurse Practitioner Family 01/02/20
--- OUTSIDE RECORDS SUMMARY | 2024-08-22 13:06 | XMS_ITS | Encounter Summary ---
Author Organization [facility] Medical [facility] Address [address] [address] Care Team Providers Care Duck Bill Operator Name Role Phone Imelda Trinidad Primary Care Pr ovider Rachel Garces YARN MERCERIZER OPERATOR HELPER Primary Care Provider Todd Lima DO Primary Care Provider [phone] Ree Ca MD Primary Care Provider [phone] Todd Lima DO Primary Care Provider [phone] Diamond Clark YARN MERCERIZER OPERATOR HELPER Primary Care Provider + [phone] Jesse Connolly MD Unavailable Mary Bethea MD Unavailable + [phone] Erik Gamble DPM Unavailable [phone] Encounter Details Date Type Department Care Team (Late st Contact Info) Description 09/07/2016 Orders Only [facility] ProviderGinny MD [address] [place] [address] Social History Tobacco Use Types Packs/Day Years Used Date Smoking Tobacco: Never Alcohol Use Standard Drinks/Week Comments Yes 0 (1 standard drink = 0.6 oz pur e alcohol) Comments Unknown Sex and Gender Information Value Date Recorded Sex Assigned at Not on file Legal Sex Female 9:33 AM 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 INSTALLER Gender Identity Not on file Sexual Orientation [...] on filedocumented in this encounter Care Teams Duck Bill Operator Relationship Specialty Start Date End Date Imelda Trinidad PA PCP - General 07/17/14 01/12/17 Rachel Garces NP [address] [address] PCP - General Nurse Practitioner 01/13/17 07/04/18 Todd Lima DO [address] [id number] PCP - General Internal Medicine 07/05/18 10/09/18 Ree Ca MD [address] [facility] [address] [place] [address] PCP - General Internal Medicine 10/10/18 07/03/19 Todd Lima DO [address] [facility] [address] [place] [address] PCP - General Internal Medicine 07/04/19 05/04/20 Diamond Clark NP [address] [place] [address] PCP - General Nurse Practitioner 05/05/20 Jesse Connolly MD [address] [address] Consulting Physician Cardiology 11/20/21 Mary Bethea MD [address] [address] Fellow Neurology 11/20/21 Erik Gamble, ROSEANNE [address] [address] Consulting Physician Podiatry 11/25/21 documented as of this encounter
--- OUTSIDE RECORDS SUMMARY | 2024-08-22 13:06 | XMS_ITS | CONTINUITY OF CARE DOCUMENT ---
Author Name diana ortiz Address Unknown Organization [facility] Address [address] [facility] [address] [place] [address] Phone [phone] Care Team Providers Care Endband Sizer Name Role Phone diana ortiz Unavailable Unavailable INSURANCE PROVIDERS Payer name Policy type / Coverage type Yasmeen red democrat ID [facility] [id number]
--- OUTSIDE RECORDS SUMMARY | 2024-08-22 13:06 | XMS_ITS | Encounter Summary ---
Author Organization [facility] Care Team Providers Care Property Insurance Inspector Name Role Phone Imelda Trinidad Primary Care Pr ovider Rachel Garces WIRELESS TELEGRAPHER Primary Care Provider Todd Lima DO Primary Care Provider [phone] Ree Ca MD Primary Care Provider [phone] Todd Lima DO Primary Care Provider [phone] Diamond Clark NP Primary Care Provider [phone] Jesse Connolly MD Unavailable Mary Bethea MD Unavailable [phone] Erik Gamble DPM Unavailable [phone] Encounter Details Date Type Department Care Team (Latest Contact Info) Description 08/15/2015 Orders Only [facility] ProviderGinny MD [address] [place] [address] Social History Tobacco Use Types Packs/Day Years Used Date Smoking Tobacco: Never Alcohol Use Standard Drinks/Week Comments Yes 0 (1 standard drink = 0.6 oz pur e alcohol) Comments Unknown Sex and Gender Information Value Date Recorded Sex Assigned at Not on file Legal Sex Female 9:33 AM ELEMENTARY PRINCIPAL Gender Identity Not on file Sexual Orientation [...] on filedocumented in this encounter Care Teams Property Insurance Inspector Relationship Specialty Start Date End Date Imelda Trinidad PA PCP - General 07/17/14 01/12/17 Rachel Garces NP [address] [address] PCP - General Nurse Practitioner 01/13/17 07/04/18 Todd Lima DO [address] [address] PCP - General Internal Medicine 07/05/18 10/09/18 Ree Ca MD [address] [facility] [address] [place] [address] PCP - General Internal Medicine 10/10/18 07/03/19 Todd Lima DO [address] [facility] [place] [address] PCP - General Internal Medicine 07/04/19 05/04/20 Diamond Clark NP [address] [place] [address] PCP - General Nurse Practitioner 05/05/20 Jesse Connolly MD [address] [facility] [address] [place] [address] Consulting Physician Cardiology 11/20/21 Mary Bethea MD [address] [place] [id number] Fellow Neurology 11/20/21 Erik Gamble, DPMadiha [address] [address] Consulting Physician Podiatry 11/25/21 documented as of this encounter
== END 2024-08-22 11:30 | disposition home or self-care (01) ==
LOC: CHSIMG 11:30
PROVIDERS: PCP Family Medicine; Visit Provider Family Medicine
DX: Z12.31 Encounter for screening mammogram for malignant neoplasm of breast (principal); Z78.0 Asymptomatic menopausal state; M85.89 Other specified disorders of bone density and structure, multiple sites
CPT/HCPCS: 77063; 77067; 77080

== ENCOUNTER 2024-11-26 13:24 | Outpatient (CLI) | payer BC, SELFPAY ==
--- NOTE | ~2024-11-26 | CT_ITS ---
EXAMINATION: CT cervical spine wo con DATE: 11/26/2024 13:50 INDICATION: Cervical radiculopathy TECHNIQUE: Computed tomography (CT) of the cervical spine was performed without intravenous contrast. Automated exposure control and iterative reconstruction technique were employed. The dose-length pro duct was 458.03 mGy-cm. COMPARISON: 03/20 FINDINGS: Straightening of the normal cervical lordosis. 13 degree dextrocurvature. Vertebral body heights are normal. Severe disc height loss at C5-C6 and C6-C7, moderate disc height loss at C4-C5, T2-T3 and T3- T4 and mild disc height loss at C7-T1 and T1-2. Again seen is some ossification along the posterior l ongitudinal ligament beginning at the cephalad aspect of C4 and extending to the mid level of C7. Pos toperative change of prior left thyroidectomy. Cervical soft tissues are otherwise unremarkable. Visu alized portions of the upper lungs are clear. 3 cardiac pacemaker leads extend from the left subclavi an vein into the visualized proximal inferior vena cava and beyond the margins of the field of imagin g. The following disc levels are specifically discussed: C2-C3: There is no uncovertebral joint osteoarthritis. There is mild right and severe left facet join t osteoarthritis. There is mild left neural foraminal stenosis. There is no central canal stenosis. C3-C4: There is mild right and moderate left uncovertebral joint osteoarthritis. There is moderate ri ght and severe left facet joint osteoarthritis. There is mild left neural foraminal stenosis. There i s mild central canal stenosis. C4-C5: Posterior disc osteophyte complex. There is mild right and severe left uncovertebral joint ost eoarthritis. There is mild right and severe left facet joint osteoarthritis. There is mild left neura l foraminal stenosis. There is mild central canal stenosis. C5-C6: Posterior disc osteophyte complex. There is severe bilateral uncovertebral joint osteoarthriti s. There is severe bilateral facet joint osteoarthritis. There is mild bilateral neural foraminal alex nosis. There is mild central canal stenosis. C6-C7: Posterior disc osteophyte complex. There is severe bilateral uncovertebral joint osteoarthriti s. There is moderate bilateral facet joint osteoarthritis. There is mild bilateral neural foraminal s tenosis. There is mild central canal stenosis. C7-T1: There is mild right uncovertebral joint osteoarthritis. There is are bilateral facet joint ost eoarthritis. There is mild bilateral neural foraminal stenosis. There is no central canal stenosis. IMPRESSION: 1. No significant change in severe cervical spondylosis. Reviewed, dictated and finalized at location B.
--- NOTE | ~2024-11-26 | CT_ITS ---
EXAMINATION: CT thoracic spine wo con DATE: 11/26/2024 13:50 INDICATION: Thoracic pain and radiculopathy TECHNIQUE: Computed tomography (CT) of the thoracic spine was performed without intravenous contrast. Automated exposure control and iterative reconstruction technique were employed. The dose-length pro duct was 1189.83 mGy-cm. COMPARISON: None FINDINGS: Transitional T12 segment with right-sided transverse process and partially fused left-sided transvers e process/hypoplastic riblet. 13 degree upper thoracic levoscoliosis measured between T1 and T6 and 1 5 degree dextroscoliosis measured between T6 and T11. Sagittal alignment is normal. Vertebral body he ights are normal. No fractures. Severe lower cervical spondylosis. See separate cervical spine CT rep ort for further detail. There is disc height loss throughout the thoracic spine, moderate severity at T3-T4 through T8-T9 as well as at T10-T11 with mild disc height loss at remaining thoracic levels. S evere multilevel thoracic facet osteoarthritis. Small posterior endplate osteophytes on the hypertrop hic facet osteoarthritis contributing to mild central canal stenosis at T8-T9 and minimal central can al stenosis at T7-T8. There is also multilevel neural foraminal stenosis, moderate severity on the ri ght at T3-T4 through T6-T7, on the left at T6-T7 and T7-T8 and mild at the remaining thoracic levels. Visualized portions of the lungs are clear. Paravertebral soft tissues are unremarkable. Cardiac pac emaker leads extending into the right atrium and ventricle. IMPRESSION: 1. Moderate thoracic spondylosis. Reviewed, dictated and finalized at location B.
--- OUTSIDE RECORDS SUMMARY | 2024-11-26 13:47 | XMS_ITS | Clinical Summary ---
Author Organization [facility] Address [address] [place] [address] Phone Care Team Providers Care Yeast Distiller Name Role Phone Unavailable Primary Care Provider [...]
--- OUTSIDE RECORDS SUMMARY | 2024-11-26 13:47 | XMS_ITS | Clinical Summary ---
Author Organization [facility] Address Formerly [facility] [place] [place] [address] Care Team Providers Care Veterinary Virus Serum Inspector Name Role Phone Delbert Coleman CALISTA Primary Care Provider [phone] Allergies Active Allergy Reactions Criticality Noted Date [...] total). 022 Active Blood Glucose Monitoring Suppl (Webtrekk VERIO) w/Device KitIndications:Ty pe 2 diabetes mellitus with diabetic polyneuropathy, without long-term current use of insulin ([facility]) Use to check blood glucose daily 1 kit 023 Active Lancets (Webtrekk ULTRASOFT) lancetsIndication s:Type 2 diabetes mellitus with diabetic polyneuropathy, without long-term current use of insulin ([facility]) Use to check blood glucose daily 100 each 2 023 Active Glucose Blood (Webtrekk VERIO) test stripIndications: Type 2 diabetes mellitus with diabetic polyneuropathy, without long-term current use of insulin ([facility]) 1 strip by Other route daily. Use [...] times daily. 16 g 5 024 Active ARIPiprazole (ABILIFY) 10 MG tabletIndications :Mixed anxiety depressive disorder Take 1 tablet (10 mg total) by mouth nightly at bedtime. 90 tablet 3 024 Active semaglutide (OZEMPIC) 1 mg/dose injection (PEN)Indications: Type 2 diabetes mellitus with diabetic polyneuropathy, without long-term current use of insulin ([facility]) Inject 1 mg into the skin once a week. 9 mL 1 Active albuterol sulfate HFA 108 (90 Base) MCG/ACT inhalerIndication s:Mild intermittent asthma, uncomplicated ([facility]) INHALE 2 PUFFS BY MOUTH EVERY 4 TO 6 HOURS NEEDED FOR SHORTNESS OF BREATH OR WHEEZING 8.5 g 1 Active eszopiclone (LUNESTA) 2 MG tablet Take 1 tablet (2 mg total) by mouth nightly at bedtime. at bedtime Active venlafaxine XR (EFFEXOR-XR) 37.5 MG 24 hr capsule Take 1 capsule (37.5 mg total) by mouth daily. Active potassium chloride CR (K-TAB) 20 MEQ tabletIndications :Hypokalemia TAKE 1 TABLET(20 MEQ) BY MOUTH TWICE DAILY 60 tablet 025 Active topiramate (TOPAMAX) 25 MG tabletIndications :Essential tremor TAKE 3 TABLETS(75 MG) BY MOUTH TWICE DAILY 540 tablet 3 025 Active pantoprazole EC (PROTONIX) 40 MG tabletIndications :Gastroesophageal reflux disease, unspecified whether esophagitis present Take 1 tablet (40 mg total) by mouth every morning. 09/11/24: please call office and schedule follow up appointment 90 tablet 025 Active alendronate (FOSAMAX) 70 MG tabletIndications :Osteopenia of multiple sites Take 1 tablet (70 mg total) by mouth every 7 days. 09/11/24: please call office and schedule follow up appointment 4 tablet 025 Active primidone (MYSOLINE) 50 MG tabletIndications :Tremor, essential Take 3 tablets (150 mg total) by mouth 2 (two) times a day. TAKE 3 TABLETS(150 MG) BY MOUTH TWICE DAILY 540 tablet 3 025 2025 Active pravastatin (PRAVACHOL) 40 MG tabletIndications :Mixed hyperlipidemia TAKE 1 TABLET(40 MG) BY MOUTH DAILY 90 tablet 025 Active levothyroxine (SYNTHROID) 100 MCG tabletIndications :Acquired hypothyroidism TAKE 1 TABLET(100 MCG) BY MOUTH EVERY MORNING 90 tablet 1 025 Active levothyroxine (SYNTHROID) 100 MCG tabletIndications :Acquired hypothyroidism Take 1 tablet (100 mcg total) by mouth every morning. 90 tablet 1 024 2024 Discontinued pravastatin (PRAVACHOL) 40 MG tabletIndications :Mixed hyperlipidemia TAKE 1 TABLET(40 MG) BY MOUTH DAILY 90 tablet 025 2024 Discontinued Active Problems Problem Noted Date Diagnosed Date Diarrhea, unspecified type 05/21/2024 Prediabetes 01/25/2024 Cigarette smoker 01/25/2024 Intestinal malabsorption ([facility]/HCC) 10/12/2023 Allergic rhinitis, unspecifi ed seasonality, unspecified trigger 08/16/2023 Osteopenia of multiple sites 08/16/2023 Sacroiliitis 06/28/2023 Facet hypertrophy of lumbar region 06/28/2023 Other intervertebral disc degeneration, lumbar r egion 06/28/2023 Radiculopathy, lumbar region 05/16/2023 Adrenal nodule ([facility]) 12/30/2022 Left adrenal mass ([facility]/HCC) 11/15/2022 Adrenal mass 1 cm to 4 cm in diameter ([facility]) 11/15/2022 Acquired hypothyroidism 09/13/2022 TIA (transient ischemic [...] Dual Pacemaker. Dx; SSS, PAF. DOI 12/22/2010. [place] remote monitoring Q3 mo, office pacer checks [...] Clicking left shoulder 06/25/202205/21 Sick sinus syndrome (CMS/HCC [facility]) 01/07/2022 05/21/2024 Bunion of right foot 11/06/2021 024 Acute cystitis without hematuria 08/25/2021 09/13/2022 Ear popping, left 04/27/2021 05/21/2024 Axillary mass, right 08/13/2020 023 Abscess 08/13/2020 04/27/2021 Abscess of right axilla 08/11/202003/31 Asthma ([facility]) 05/08/2020 04/27/2021 Breast lump 05/08/2020 05/21/2024 Dyspareunia 05/08/2020 05/21/2024 Pain of breast 05/08/2020 04/27/2021 Obesity 05/08/2020 04/27/2021 JELLY (obstructive sleep apnea) 05/08/2020 11/15/2022 Generalized abdominal pain 02/10/2020 1 06/27/2020 Need for immunization against influenza 02/10/2020 02/18/2020 Leukocytes in urine 02/10/2020 11/29/20 21 Drug-induced constipation 02/10/2020 Type 2 diabetes mellitus wit h diabetic polyneuropathy, without long-term current use of insulin ([facility]) 01/06/2020 01/25/2024 Atypical chest pain 07/17/2014 04/27/20 21 Overview (02/07/2020): Atypical chest pain Encounters Date Type Department Care Team Description 10/15/2024 Telephone [facility] Medical [facility] Multispecialty Care - [facility] [address], [address] [place] [address] Rohan Barroso MD Medication Request from Last 3 Months Immunizations Immunization Administration Dates Next Due Arexvy Respiratory Syncytial [...] Sex Assigned at Female 06/19/2024 2:08 PM JANITORIAL MANAGER Legal Sex Female 5:20 PM CDT Gender Identity Female 09/18/2021 9:21 AM CDT Sexual Orientation Not on file Last Filed Vital Signs Vital Sign Reading Time Taken Comments Blood Pressure 116/75 05/21/2024 1:08 PM JANITORIAL MANAGER Pulse 62 05/21/2024 1:08 PM JANITORIAL MANAGER Temperature 36.7 C (98.1 F) 05/21/2024 1:08 PM JANITORIAL MANAGER Respiratory Rate 16 05/21/2024 1:08 PM JANITORIAL MANAGER Oxygen Saturation 95% 05/21/2024 1:08 PM JANITORIAL MANAGER Inhaled Oxygen Concentration - - Weight 99.6 kg (219 lb 9.6 oz) 05/21/2024 1:08 P M JANITORIAL MANAGER Height 152.4 cm (5') 05/21/2024 1:08 PM JANITORIAL MANAGER Body Mass Index 42.89 05/21/2024 1:08 PM JANITORIAL MANAGER Plan of Treatment Upcoming Encounters Date Type Department Care Team (Late st Contact Info) Description 01/02/2025 9:00 AM CDT Office Visit [facility] Medical [facility] Multispecialty Care - [facility] [address], [address] [place] [id number] Elsie Christensen MD [address] [place] [address] 07/15/2025 2:30 PM JANITORIAL MANAGER Appointment [facility] Ultrasound [address] [place] [address] Munir Cheung MD [address] [place] [address] Health Maintenance Due Date Last Done Comments Diabetes: Retinopathy Eye Exam 1978 Hepatitis C 1978 PHQ-2 (Physician [place]) 05/30/2024 08/16/2023 COVID-19 Vaccine ( season) 2024 [...] Zoster Vaccines Completed 11/03/2022, 08/25/2022 Pneumococcal Vaccine: 50+ Years Completed 12/30/2022, 03/17/2021 RSV Immunization or 60+ Years Completed 01/29/2023 Dexa Scan (General) Completed 03/16/2023, 0 Meningococcal B Vaccine Aged Out No l [...] Diagnosis Comments OUTSIDE LAB (SCAN ORDER) Routine 05/14/2024 LIPID [...] to Health Maintenance Results * OUTSIDE LAB (05/14/2024) HGB A1C 4.9 % HS ONBASE 05/14/2024 [facility] Scanned SCANNING Final Resu lt HS ONBASE * (ABNORMAL) LIPID PANEL (08/16/2023 10:17 AM CDT) Pathologist [facility] CHOLESTEROL 195 <200 MG/DL 08/16/2023 8:53 PM CDT [facility] TRIGLYCERIDES 49 <150 MG/DL 08/16/2023 8:53 PM CDT [facility] HDL 75 >40 MG/DL 08/16/2023 8:53 PM CDT [facility] LDL-C 110(H) <100 MG/DL 08/16/2023 8:53 PM CDT [facility] VLDL CALCULATION 10 5 - 28 MG/DL 08/16/2023 8:53 PM CDT [facility] CHOL/HDL RATIO 2.6 0.0 - 4.0 08/16/2023 8:53 PM CDT [facility] LDL/HDL 1.5 0.41 - 2.13 08/16/2023 8:53 PM CDT [facility] NON HDL CHOLESTEROL 120 <140 MG/DL 08/16/2023 8:53 PM CDT [facility] MARIA D RAINEY 08/16/2023 10:1 7 AM CDT Delbert Coleman DEPUTY SHERIFF/INVESTIGATOR LABORATORY Final Result [facility] [place] [address] [place] [address], * BONE DENSITY/DEXA (03/16/2023 3:32 PM CDT) [...] bone mineral density test. For [facility], routine testing is allowed once every 2 [...] Cheung MD, 03/16/2023 10:34 AM Delbert Coleman DEPUTY SHERIFF/INVESTIGATOR DEXA Final Result * MG SCREENING W [...] Joe Manriquez, 03/22/2023 10:18 AM Delbert Coleman DEPUTY SHERIFF/INVESTIGATOR MAMMO Final Result * COLONOSCOPY GENERIC (07/10/2021) 07/10/2021 Narrative 07/10/2021 Ordered by an unspecified provider. us Documents Scanned SCANNING Final Result from Last 3 Months or Most Recently Relevant to Health Maintenance Insurance MEDICARE PART A Care Teams Veterinary Virus Serum Inspector Relationship Specialty Start Date End Date Delbert Coleman FNP [address] [place] [address] PCP - General Nurse Practitioner Family 01/02/20
--- OUTSIDE RECORDS SUMMARY | 2024-11-26 13:48 | XMS_ITS | Encounter Summary ---
Author Organization [facility] Facility Care Team Providers Care Youth Care Professional Name Role Phone Imelda Trinidad Primary Care Pr ovider Rachel Garces PLUMBING SERVICE TECHNICIAN Primary Care Provider Todd Lima DO Primary Care Provider [phone] Ree Ca MD Primary Care Provider [phone] Todd Lima DO Primary Care Provider [phone] Diamond Clark NP Primary Care Provider + [phone] Jesse Connolly MD Unavailable Mary Bethea MD Unavailable [phone]- [phone] Erik Gamble DPM Unavailable [phone] Encounter Details Date Type Department Care Team (Latest Contact Info) Description 01/12/2016 Orders Only [facility] CLINCONV ProviderGinny MD [address] [place] [address] Social History Tobacco Use Types Packs/Day Years Used Date Smoking Tobacco: Never Alcohol Use Standard Drinks/Week Comments Yes 0 (1 standard drink = 0.6 oz pur e alcohol) Comments Unknown Sex and Gender Information Value Date Recorded Sex Assigned at Not on file Legal Sex Female 9:33 AM ENDOCRINOLOGY PHYSICIAN Gender Identity Not on file Sexual Orientation [...] on filedocumented in this encounter Care Teams Youth Care Professional Relationship Specialty Start Date End Date Imelda Trinidad PA PCP - General 07/17/14 01/12/17 Rachel Garces NP [address] [address] PCP - General Nurse Practitioner 01/13/17 07/04/18 Todd Lima DO [address] [address] PCP - General Internal Medicine 07/05/18 10/09/18 Ree Ca MD [address] [place] [address] [place] [address] PCP - General Internal Medicine 10/10/18 07/03/19 Todd Lima DO [address] [place] [address] [place] [place] [address] PCP - General Internal Medicine 07/04/19 05/04/20 Diamond Clark NP [address] [place] [address] PCP - General Nurse Practitioner 05/05/20 Jesse Connolly MD [address] [facility] [address] [place] [address] Consulting Physician Cardiology 11/20/21 Mary Bethea MD [address] [place] [id number] Fellow Neurology 11/20/21 Erik Gamble, DPMadiha [address] [address] Consulting Physician Podiatry 11/25/21 documented as of this encounter
--- OUTSIDE RECORDS SUMMARY | 2024-11-26 13:48 | XMS_ITS | Encounter Summary ---
Author Organization [facility] Address [address] [place] [address] Care Team Providers Care Concrete Pump Operator Name Role Phone Diamond Clark CALIST[place] Primary Care Provider [phone] Encounter Details Date Type Department Care Team (Late Contact Info) Description 11/24/2022 MyChart Message Enc [facility] Medical [facility] [address] [place], [place] [address] [employer] Provider Air Quality Message Social [...] Sex Assigned at Female 06/19/2024 2:08 PM CLINICAL ASSOCIATE Legal Sex Female 5:20 PM CDT Gender Identity Female 09/18/2021 9:21 AM CDT Sexual Orientation Not on file documented as of this encounter Plan of Treatment Upcoming Encounters Date Type Department Care Team (Late Contact Info) Description 01/02/2025 9:00 AM CDT Office Visit [facility] Multispecialty Care - [address], [address] [place] [address] Elsie Christensen MD [address] [place] [address] 07/15/2025 2:30 PM CLINICAL ASSOCIATE Appointment [facility] [place] [address] Munir Cheung MD [address] [place] [phone] documented as of this encounter Visit Diagnoses Not on filedocumented in this encounter Additional Health Concerns Assessment Noted Time PHQ-9 Depression Total Score: 3 06/24/19 23 2:35 PM CLINICAL ASSOCIATE documented as of this encounter Care Teams Concrete Pump Operator Relationship Specialty Start Date End Date Diamond Clark FNP [address] [place] [address] PCP - General Nurse Practitioner Family 01/02/20 documented as of this encounter
--- OUTSIDE RECORDS SUMMARY | 2024-11-26 13:48 | XMS_ITS | Encounter Summary ---
Author Organization [facility] Facility Care Team Providers Care Health Promotion Manager Name Role Phone Imelda Trinidad Primary Care Pr ovider Rachel Garces SENIOR PROPERTY ACCOUNTANT Primary Care Provider Todd Lima DO Primary Care Provider [phone] Ree Ca MD Primary Care Provider [phone] Todd Lima DO Primary Care Provider [phone] Diamond Clark NP Primary Care Provider + [phone] Jesse Connolly MD Unavailable Mary Bethea MD Unavailable [phone]- [phone] Erik GambleM Unavailable [phone] Encounter Details Date Type Department Care Team (Latest Contact Info) Description 12/04/2015 Orders Only [facility] CLINCONV ProviderGinny MD [address] [place] [address] Social History Tobacco Use Types Packs/Day Years Used Date Smoking Tobacco: Never Alcohol Use Standard Drinks/Week Comments Yes 0 (1 standard drink = 0.6 oz pur e alcohol) Comments Unknown Sex and Gender Information Value Date Recorded Sex Assigned at Not on file Legal Sex Female 9:33 AM BUILDINGS AND GROUNDS SUPERVISOR Gender Identity Not on file Sexual [...] on filedocumented in this encounter Care Teams Health Promotion Manager Relationship Specialty Start Date End Date Imelda Trinidad PA PCP - General 07/17/14 01/12/17 Rachel Garces NP [address] [address] PCP - General Nurse Practitioner 01/13/17 07/04/18 Todd Lima DO [address] [address] PCP - General Internal Medicine 07/05/18 10/09/18 Ree Ca MD [address] [address] [place] [address] [place] [address] PCP - General Internal Medicine 10/10/18 07/03/19 Todd Lima DO [address] [facility] [facility] [address] [place] [address] [place] [address] PCP - General Internal Medicine 07/04/19 05/04/20 Diamond Clark NP [address] [place] [address] PCP - General Nurse Practitioner 05/05/20 Jesse Connolly MD [address] [facility] [address] [place] [address] Consulting Physician Cardiology 11/20/21 Mary Bethea MD [address] [place] [id number] Fellow Neurology 11/20/21 Erik Gamble, DPMadiha [address] [address] Consulting Physician Podiatry 11/25/21 documented as of this encounter
--- OUTSIDE RECORDS SUMMARY | 2024-11-26 13:48 | XMS_ITS | Encounter Summary ---
Author Organization [facility] Facility Care Team Providers Care Welder Tech Name Role Phone Imelda Trinidad Primary Care Pr ovider Rachel Garces HEAD OF BIOLOGY Primary Care Provider Todd Lima DO Primary Care Provider [phone] Ree Ca MD Primary Care Provider [phone] Todd Lima DO Primary Care Provider [phone] Diamond Clark NP Primary Care Provider + [phone] Jesse Connolly MD Unavailable Mary Bethea MD Unavailable [phone] Erik Gamble DPM Unavailable [phone] Encounter Details Date Type Department Care Team (Latest Contact Info) Description 08/15/2015 Orders Only [facility] CLINCONV ProviderGinny MD [address] [place] [address] Social History Tobacco Use Types Packs/Day Years Used Date Smoking Tobacco: Never Alcohol Use Standard Drinks/Week Comments Yes 0 (1 standard drink = 0.6 oz pur e alcohol) Comments Unknown Sex and Gender Information Value Date Recorded Sex Assigned at Not on file 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 Gender Identity Not on file Sexual Orientation [...] on filedocumented in this encounter Care Teams Welder Tech Relationship Specialty Start Date End Date Imelda Trinidad PA PCP - General 07/17/14 01/12/17 Rachel Garces NP [address] [address] PCP - General Nurse Practitioner 01/13/17 07/04/18 Todd Lima DO [address] [address] PCP - General Internal Medicine 07/05/18 10/09/18 Ree Ca MD [address] [facility] [address] [place] [address] [place] [address] PCP - General Internal Medicine 10/10/18 07/03/19 Todd Lima DO [address] [facility] [place] [address] PCP - General Internal Medicine 07/04/19 05/04/20 Diamond Clark NP [address] [place] [address] PCP - General Nurse Practitioner 05/05/20 Jesse Connolly MD [address] [facility] [address] [place] [address] Consulting Physician Cardiology 11/20/21 Mary Bethea MD [address] [place] [address] Fellow Neurology 11/20/21 Erik Gamble, DPMadiha [address] [address] Consulting Physician Podiatry 11/25/21 documented as of this encounter
--- OUTSIDE RECORDS SUMMARY | 2024-11-26 13:48 | XMS_ITS | Clinical Summary ---
Author Organization [facility] Address [address] [place] [address] Care Team Providers Care Manager Solar Name Role Phone Diamond Clark NP Primary Care Provider + [phone] Jesse Connolly MD Unavailable Mary Bethea MD Unavailable +- [phone] Erik Gamble DPM Unavailable [phone] Allergies Active Allergy Reactions Criticality Noted Date [...] Take 2 tablets at bedtime. 0 Active rxizlesa-nlw-FE -lycopen-lutein 0.4-300-250 mg-mcg-mcg tabletIndicatio ns:Vitamin Deficiency Prevention [...] 1 tablet (75 mcg total) by mouth profiling machine operator before breakfast Active alendronate (FOSAMAX) 70 mg tablet Take 1 tablet (70 mg total) by mouth once a week 4 Active cetirizine (ZyrTEC) 10 mg tablet Take 1 tablet (10 mg total) by mouth daily Active eszopiclone (LUNESTA) 2 mg tablet Take 1 tablet (2 mg total) by mouth nightly Active kudiipzv-nkp-no on-FA-vit K-lut 8 mg iron-400 mcg-50 mcg tablet 1 tablet(s), Oral, daily, 30 tablet(s), Tablet(s), 0 1 Active hydroCHLOROthia zide (HYDRODIURIL) 25 mg tablet Take 1 tablet (25 mg total) by mouth profiling machine operator before breakfast 4 Active benzonatate (TESSALON) 200 [...] 05/17/2024 Assessment & Plan (05/17/2024 3:14 PM FORGE HAND): Keflex sent in, feeling better H/O papillary adenocarcinoma of thyroid 04/18/20 24 Encounter for weight loss counseling 03/21/2024 Assessment & Plan (05/17/2024 3:21 PM FORGE HAND): Relevant weight management chart notes reviewed. I [...] 03/21/2024 Assessment & Plan (05/17/2024 3:21 PM FORGE HAND): Continue ozempic 2mg and jardiance every other day Acquired hypothyroidism 03/21/2024 Assessment & Plan (05/17/2024 3:14 PM FORGE HAND): Recent labs faxed to PCP to adjust thyroid medication Weight gain due to medication 03/21/2024 Class 3 obesity with alveola r hypoventilation without serious comorbidity with body mass index (BMI) greater than or equal to 70 in adult 03/21/2024 Assessment & Plan (05/17/2024 3:14 PM FORGE HAND): High weight 438 Obesity is one of [...] 03/21/2024 Assessment & Plan (05/17/2024 3:21 PM FORGE HAND): In therapy at [facility] Cardiac pacemaker in situ 11/04/2017 Overview (09/01/2021): Singletary Assurity Dual Pacemaker. Dx; SSS, PAF. Generator Replacement and new RV lead 09/01/2021-Dr Olsen. Chronic A-Lead 12/22/2010. Chronic V-Lead capped. Zenda remote monitoring Q3 mo, office pacer checks Q1 yr. Atypical chest pain 07/17/2014 Overview (09/03/2016): Atypical chest pain Hernia of anterior abdominal wall 07/19/2012 Morbid obesity with BMI of 40.0-44.9, adult 07/01 Mild intermittent asthma, uncomplicated Encounters Date Type Department Care Team Description 09/04/2024 8:00 AM CDT Ancillary Procedure [facility] Cardiology [facility] [address], [place] [address] Cardiac pacemaker in situ; SSS (sick sinus syndrome) (HCC); Paroxysmal atrial fibrillation (HCC) from Last 3 Months Immunizations Immunization [...] L 02/2021 BREAST SURGERY Right per EMR US GUIDED BIOPSY LYMPH NODE SUPERFICIAL LEFT 07/12/2024 N/A Medical History Medical History Date Comments Hypertension [...] on file Legal Sex Female 9:33 AM FORGE HAND Gender Identity Not on file Sexual Orientation Not on file Obstetrics History Last Filed Vital Signs Vital Sign Reading Time Taken Comments Blood Pressure 116/79 04/18/2024 1:10 PM FORGE HAND Pulse 65 04/18/2024 1:10 PM FORGE HAND Temperature 36.3 C (97.4 F) 04/18/2024 1:10 PM FORGE HAND Respiratory Rate 18 04/18/2024 1:10 PM FORGE HAND Oxygen Saturation 98% 04/18/2024 1:10 PM FORGE HAND Inhaled Oxygen Concentration - - Weight 99.9 kg (220 lb 3.2 oz) 04/18/2024 1:10 P M FORGE HAND Height 152.4 cm (5') 04/18/2024 1:10 PM FORGE HAND Body Mass Index 43 04/18/2024 1:10 PM FORGE HAND Plan of Treatment Health Maintenance Due Date Last Done Comments Colon Cancer Screening-Colonoscopy 1960 Hepatitis C Screening 1960 Hepatitis B Screening 1976 Depression Screening 10/11/2019 10/10/2018 Pneumococcal vaccine 65+ (2 of 2 - PCV) 03/17/2022 03/17/2021, 02/11/2012 Fall Risk Assessment 11/25/2022 11/25/2021, 10/11/19 Well Visit 65+ 08/15/2023 Covid-19 Vaccine ( - 2023- 5 season) 2024 06/30/2021, 09/07/2020, 08/12/2020 Breast Cancer Screening-Mammogram 03/16/2024 023, 03/16/2023 Osteoporosis Screening-Bone Density Scan 03/16/2025 03/16/2023, 01/21/2020 DTaP/Tdap/Td Vaccine (3 - Td or Tdap) 05/21/2034 05/21/2024, 08/09/2013 Zoster Vaccine Completed 11/03/2022, 08/25/2022 Influenza Vaccine Completed 02/10/2024, , 04/28/2022, Additional history exists Medical Devices Implanted Type Area Inspector Barrel Device Identifier Shelf Expiration Date Model / Serial / Lot Pacemaker-12/22 Implanted:11/28 (Quantity not on file) Pacemaker Chest [employer] SSS, Afib Knee Components Bilateral : Knee [employer] Fuseforce L10 Mm X W10 Mm Hand Staple Bone Sterile 2 Mm Reamer [id number] - Sn/A - [id number] Implanted:Qty: 1 on 11/25/2021 by Erik Gamble DPM at [facility] Right: Foot [employer] 10/07/2026 [id number] / N/A / [id number] Procedures Procedure Name Priority Date/Time Associated Diagnosis Comments DEVICE CHECK - REMOTE Routine 09/04/2024 10:09 AM CDT Cardiac pacemaker in situ SSS (sick sinus syndrome) (HCC) Paroxysmal atrial fibrillation (HCC) from Last 3 Months Results * DEVICE CHECK - REMOTE (09/04/2024 10:09 AM CDT) Anatomical Region Laterality Modality Other Narrative 09/10/2024 8:14 AM CDT Singletary Assurity Dual Pacemaker. Dx; SSS, PAF. Generator Replacement and new RV lead 09/01/2021-Dr Olsen. Chronic A-Lead 12/22/2010. Chronic V-Lead capped. Reilly remote monitoring Q3 mo, office pacer checks Q1 yr. Routine DDD Pacemaker Remote. Transmission attached. Battery status: 2.99 V, 6.9-7.7 years remaining battery life to CAIT. Stable lead impedances, pacing and sensing thresholds. Presenting rhythm: AP/VS AP-65%, PIGSKIN TRIMMER-< 1% 99 AMS episodes noted, longest episode was 28 seconds in duration, IEGM demonstrates noise on atrial channel. AF Pfeifer < 1%. No Ventricular high rate episodes detected. Medications: ASA 81 mg, hydrochlorothiazide 25 mg See scanned report. Office pacemaker follow up: 12/12/24 Reilly remote f/u 6 months. Raúl Carson, BREONNA Jesse Connolly MD CV CARDIAC SERVICES PROCEDURES F inal Result from Last 3 Months Insurance [employer] [place] [address] [employer] [place] MEDIC[place] Care Teams Manager Solar Relationship Specialty Start Date End Date Diamond Clark NP [address] [place] [address] PCP - General Nurse Practitioner 05/05/20 Jesse Connolly MD [address] [address] Consulting Physician Cardiology 11/20/21 Mary Bethea MD [address] [address] Fellow Neurology 11/20/21 Erik Gamble, ROSEANNE [address] [address] Consulting Physician Podiatry 11/25/21
--- OUTSIDE RECORDS SUMMARY | 2024-11-26 13:48 | XMS_ITS | Encounter Summary ---
Author Organization [facility] Address [address] [address] Care Team Providers Care Marine Fireman Name Role Phone Imelda Trinidad Primary Care Pr ovider Rachel Garces COMPLIANCE COUNSEL Primary Care Provider Todd Lima DO Primary Care Provider [phone] Ree Ca MD Primary Care Provider [phone] Todd Lima DO Primary Care Provider [phone] Diamond Clark COMPLIANCE COUNSEL Primary Care Provider + [phone] Jesse Connolly MD Unavailable Mary eBthea MD Unavailable + [phone] Erik Gamble DPM Unavailable [phone] Encounter Details Date Type Department Care Team (Late st Contact Info) Description 09/07/2016 Orders Only [facility] ProviderGinny MD [address] [place] [address] Social History Tobacco Use Types Packs/Day Years Used Date Smoking Tobacco: Never Alcohol Use Standard Drinks/Week Comments Yes 0 (1 standard drink = 0.6 oz pur e alcohol) Comments Unknown Sex and Gender Information Value Date Recorded Sex Assigned at Not on file 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 Gender Identity Not on file Sexual Orientation [...] on filedocumented in this encounter Care Teams Marine Fireman Relationship Specialty Start Date End Date Imelda Trinidad PA PCP - General 07/17/14 01/12/17 Rachel Garces NP [address] [address] PCP - General Nurse Practitioner 01/13/17 07/04/18 Todd Lima DO [address] [facility] [address] [address]8555 PCP - General Internal Medicine 07/05/18 10/09/18 Ree Ca MD [address] [facility] [address] [place] [address] PCP - General Internal Medicine 10/10/18 07/03/19 Todd Lima DO [address] [facility] [address] [place] [address] PCP - General Internal Medicine 07/04/19 05/04/20 Diamond Clark NP [address] [place] [address] PCP - General Nurse Practitioner 05/05/20 Jesse Connolly MD [address] [address] Consulting Physician Cardiology 11/20/21 Mary Bethea MD [address] [address] Fellow Neurology 11/20/21 Erik Gamble, ROSEANNE [address] [address] Consulting Physician Podiatry 11/25/21 documented as of this encounter
--- OUTSIDE RECORDS SUMMARY | 2024-11-26 13:48 | XMS_ITS | Encounter Summary ---
Author Organization [facility] Address [address] [address] Care Team Providers Care Publicity Agent Name Role Phone Imelda Trinidad Primary Care Pr ovider Rachel Garces FUR TRAPPER Primary Care Provider Todd Lima DO Primary Care Provider [phone] Ree Ca MD Primary Care Provider [phone] Todd Lima DO Primary Care Provider [phone] Diamond Clark FUR TRAPPER Primary Care Provider + [phone] Jesse Connolly MD Unavailable Mary Bethea MD Unavailable + [phone] Erik Gamble DPM Unavailable [phone] Encounter Details Date Type Department Care Team (Late st Contact Info) Description 06/02/2016 Orders Only [facility] ProviderGinny MD [address] [place] [address] Social History Tobacco Use Types Packs/Day Years Used Date Smoking Tobacco: Never Alcohol Use Standard Drinks/Week Comments Yes 0 (1 standard drink = 0.6 oz pur e alcohol) Comments Unknown Sex and Gender Information Value Date Recorded Sex Assigned at Not on file 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 Gender Identity Not on file Sexual Orientation [...] on filedocumented in this encounter Care Teams Publicity Agent Relationship Specialty Start Date End Date Imelda Trinidad PA PCP - General 07/17/14 01/12/17 Rachel Garces NP [address] [address] PCP - General Nurse Practitioner 01/13/17 07/04/18 Todd Lima DO [address] [facility] [address] [id number] PCP - General Internal Medicine 07/05/18 10/09/18 Ree Ca MD [address] [facility] [address] [place] [address] PCP - General Internal Medicine 10/10/18 07/03/19 Todd Lima DO [address] [facility] [address] [place] [address] PCP - General Internal Medicine 07/04/19 05/04/20 Diamond Clark NP [address] [place] [address] PCP - General Nurse Practitioner 05/05/20 Jesse Connolly MD [address] [address] Consulting Physician Cardiology 11/20/21 Mary Bethea MD [address] [address] Fellow Neurology 11/20/21 Erik Gamble, ROSEANNE [address] [address] Consulting Physician Podiatry 11/25/21 documented as of this encounter
--- OUTSIDE RECORDS SUMMARY | 2024-11-26 13:48 | XMS_ITS | Encounter Summary ---
Author Organization [facility] Care Team Providers Care Outside Plant Engineer Name Role Phone Imelda Trinidad Primary Care Pr ovider Rachel Garces SANITARY PLUMBER Primary Care Provider Todd Lima DO Primary Care Provider [phone] Ree Ca MD Primary Care Provider [phone] Todd Lima DO Primary Care Provider [phone] Diamond Clark NP Primary Care Provider + [phone] Jesse Connolly MD Unavailable Mary Bethea MD Unavailable +- [phone] Erik Gamble DPM Unavailable [phone] Encounter Details Date Type Department Care Team (Latest Contact Info) Description 08/19/2016 Orders Only [facility] ProviderGinny MD [address] [place] [address] Social History Tobacco Use Types Packs/Day Years Used Date Smoking Tobacco: Never Alcohol Use Standard Drinks/Week Comments Yes 0 (1 standard drink = 0.6 oz pur e alcohol) Comments Unknown Sex and Gender Information Value Date Recorded Sex Assigned at Not on file 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 Gender Identity Not on file Sexual Orientation [...] on filedocumented in this encounter Care Teams Outside Plant Engineer Relationship Specialty Start Date End Date Imelda Trinidad PA PCP - General 07/17/14 01/12/17 Rachel Garces NP [address] [address] PCP - General Nurse Practitioner 01/13/17 07/04/18 Todd Lima DO [address] [address] PCP - General Internal Medicine 07/05/18 10/09/18 Ree Ca MD [address] [facility] [address] [place] [address] PCP - General Internal Medicine 10/10/18 07/03/19 Todd Lima DO [address] [facility] [place] [address] PCP - General Internal Medicine 07/04/19 05/04/20 Diamond Clark NP [address] [place] [address] PCP - General Nurse Practitioner 05/05/20 Jesse Connolly MD [address] [facility] [address] [place] [address] Consulting Physician Cardiology 11/20/21 Mary Bethea MD [address] [place] [id number] Fellow Neurology 11/20/21 Erik Gamble, DPMadiha [address] [address] Consulting Physician Podiatry 11/25/21 documented as of this encounter
--- OUTSIDE RECORDS SUMMARY | 2024-11-26 13:48 | XMS_ITS | Referral Summary ---
Author Organization [facility] Address [address] [place] [address] Care Team Providers Care Answering Service Agent Name Role Phone Diamond Clark NP Primary Care Provider + [phone] Jesse Connolly MD Unavailable Mary Bethea MD Unavailable +- [phone] Erik GambleM Unavailable [phone] Encounters Date Type Department Care Team Description 09/04/2024 8:00 AM CDT Ancillary Procedure [facility] Cardiology [address] [facility] [address] [place] [address] Cardiac pacemaker in situ; SSS (sick sinus syndrome) ([facility]); Paroxysmal atrial fibrillation (HCC) from Last 3 Months Allergies Active [...] Take 2 tablets at bedtime. 0 Active zvsjcrit-oap-KH -lycopen-lutein 0.4-300-250 mg-mcg-mcg tabletIndicatio ns:Vitamin Deficiency Prevention [...] 1 tablet (75 mcg total) by mouth costume design teacher before breakfast Active alendronate (FOSAMAX) 70 mg tablet Take 1 tablet (70 mg total) by mouth once a week 4 Active cetirizine (ZyrTEC) 10 mg tablet Take 1 tablet (10 mg total) by mouth daily Active eszopiclone (LUNESTA) 2 mg tablet Take 1 tablet (2 mg total) by mouth nightly Active ffxuzsxa-fft-ji on-FA-vit K-lut 8 mg iron-400 mcg-50 mcg tablet 1 tablet(s), Oral, daily, 30 tablet(s), Tablet(s), 0 1 Active hydroCHLOROthia zide (HYDRODIURIL) 25 mg tablet Take 1 tablet (25 mg total) by mouth costume design teacher before breakfast 4 Active benzonatate (TESSALON) 200 [...] 05/17/2024 Assessment & Plan (05/17/2024 3:14 PM AUTO PARTS DELIVERY DRIVER): Keflex sent in, feeling better H/O papillary adenocarcinoma of thyroid 04/18/20 24 Encounter for weight loss counseling 03/21/2024 Assessment & Plan (05/17/2024 3:21 PM AUTO PARTS DELIVERY DRIVER): Relevant weight management chart notes reviewed. I [...] 03/21/2024 Assessment & Plan (05/17/2024 3:21 PM AUTO PARTS DELIVERY DRIVER): Continue ozempic 2mg and jardiance every other day Acquired hypothyroidism 03/21/2024 Assessment & Plan (05/17/2024 3:14 PM AUTO PARTS DELIVERY DRIVER): Recent labs faxed to PCP to adjust thyroid medication Weight gain due to medication 03/21/2024 Class 3 obesity with alveola r hypoventilation without serious comorbidity with body mass index (BMI) greater than or equal to 70 in adult 03/21/2024 Assessment & Plan (05/17/2024 3:14 PM AUTO PARTS DELIVERY DRIVER): High weight 438 Obesity is one of [...] 03/21/2024 Assessment & Plan (05/17/2024 3:21 PM AUTO PARTS DELIVERY DRIVER): In therapy at 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 Gender Identity Not on file Sexual Orientation Not on file Last Filed Vital Signs Vital Sign Reading Time Taken Comments Blood Pressure 116/79 04/18/2024 1:10 PM AUTO PARTS DELIVERY DRIVER Pulse 65 04/18/2024 1:10 PM AUTO PARTS DELIVERY DRIVER Temperature 36.3 C (97.4 F) 04/18/2024 1:10 PM AUTO PARTS DELIVERY DRIVER Respiratory Rate 18 04/18/2024 1:10 PM AUTO PARTS DELIVERY DRIVER Oxygen Saturation 98% 04/18/2024 1:10 PM AUTO PARTS DELIVERY DRIVER Inhaled Oxygen Concentration - - Weight 99.9 kg (220 lb 3.2 oz) 04/18/2024 1:10 P M AUTO PARTS DELIVERY DRIVER Height 152.4 cm (5') 04/18/2024 1:10 PM AUTO PARTS DELIVERY DRIVER Body Mass Index 43 04/18/2024 1:10 PM AUTO PARTS DELIVERY DRIVER Plan of Treatment Not on file Medical Devices Implanted Type Area Combination Window Installer Device Identifier Shelf Expiration Date Model / Serial / Lot Pacemaker-12/22 Implanted:11/28 (Quantity not on file) Pacemaker Chest [employer] SSS, Afib Knee Components Bilateral : Knee [email or web address] Fuseforce L10 Mm X W10 Mm Hand Staple Bone Sterile 2 Mm Reamer [id number] - Sn/A - [id number] Implanted:Qty: 1 on 11/25/2021 by Erik Gamble DPM at [facility] Right: Foot [email or web address] 10/07/2026 [id number] / N/A / [id number] Procedures Procedure Name Priority Date/Time Associated Diagnosis Comments DEVICE CHECK - REMOTE Routine 09/04/2024 10:09 AM CDT Cardiac pacemaker in situ SSS (sick sinus syndrome) (HCC) Paroxysmal atrial fibrillation (HCC) from Last 3 Months Results * DEVICE CHECK - REMOTE (09/04/2024 10:09 AM CDT) Anatomical Region Laterality Modality Other Narrative 09/10/2024 8:14 AM CDT RealCrowd Assurity Dual Pacemaker. Dx; SSS, PAF. Generator Replacement and new RV lead 09/01/2021-Dr Olsen. Chronic A-Lead 12/22/2010. Chronic V-Lead capped. [place] remote monitoring Q3 mo, office pacer checks Q1 yr. Routine DDD Pacemaker Remote. Transmission attached. Battery status: 2.99 V, 6.9-7.7 years remaining battery life to CAIT. Stable lead impedances, pacing and sensing thresholds. Presenting rhythm: AP/VS AP-65%, OPERATOR BEARER SYSTEMS-< 1% 99 AMS episodes noted, longest episode was 28 seconds in duration, IEGM demonstrates noise on atrial channel. AF Lamoure < 1%. No Ventricular high rate episodes detected. Medications: ASA 81 mg, hydrochlorothiazide 25 mg See scanned report. Office pacemaker follow up: 12/12/24 Reilly remote f/u 6 months. Raúl Carson RN Jesse Connolly MD CV CARDIAC SERVICES PROCEDURES F inal Result from Last 3 Months Insurance [employer] [facility] [employer] [place] [employer] [place]IC[place] Care Teams Answering Service Agent Relationship Specialty Start Date End Date Diamond Clark NP [address] [place] [address] PCP - General Nurse Practitioner 05/05/20 Jesse Connolly MD [address] [facility] [address] [place] [address] Consulting Physician Cardiology 11/20/21 Mary Bethea MD [address] [address] Fellow Neurology 11/20/21 Erik Gamble, ROSEANNE [address] [address] Consulting Physician Podiatry 11/25/21
== END 2024-11-26 13:25 | disposition home or self-care (01) ==
PROVIDERS: PCP Family Medicine; Visit Provider Nurse Practitioner Family
DX: M47.814 Spondylosis without myelopathy or radiculopathy, thoracic region (principal); M47.812 Spondylosis without myelopathy or radiculopathy, cervical region
CPT/HCPCS: 72125; 72128

== ENCOUNTER 2025-01-17 00:12 | Day surgery (SDC) | payer BC, SELFPAY ==
[2024-08-29 10:47] VITALS: BMI 42.4
[2025-01-04 13:39] VITALS: BMI 39.2
[2025-01-17 06:48] VITALS: BP 148/70; PULSE 62; RESP 18; TEMP 36.1; O2SAT 99; BMI 38.0
[2025-01-17] MEDS: LACTATED RINGERS 1,000 ML 150 ML IV CONT (07:00)
--- NOTE | 2025-01-17 07:16 | WPDANESEPPF ---
Anes - Initial Pre Proc Eval Procedure: Operation Date: 01/17/25 08:00 Proposed Procedures p Esophagogastroduodenoscopy & Colonoscopy - Yovanny Goldstein MD Date/Time: 01/17/25 07:16 Surgeon: Yovanny Goldstein MD Pre Op Diagnosis: Fecal smearing,GERD,dysphagia,Diarrhea, Patient Data Age: 64 Gender: F Height: 1.52 m Weight: 88.4 kg Last Vital Signs Temp 36.1 C L 01/17/25 06:48 Pulse 62 01/17/25 06:48 Resp 18 01/17/25 06:48 BP 148/70 H 01/17/25 06:48 Pulse Ox 99 01/17/25 06:48 O2 Del Method Room Air 01/17/25 06:48 Allergies Allergy/AdvReac Type Severity Reaction Status Date / Time adhesive tape Allergy Intermediate Other Verified 01/17/25 06:47 morphine Allergy Mild Itching Verified 01/17/25 06:47 Home Medications ?Medication ?Instructions ?Recorded ?Confirmed ?Type aspirin 81 mg tablet,delayed 81 mg PO DAILY 03/23/19 12/25/24 History release (Adult Low Dose Aspirin) methocarbamol 500 mg tablet 500 mg PO BID 03/23/19 12/25/24 History sertraline 100 mg tablet 200 mg PO DAILY 03/23/19 12/25/24 History venlafaxine 150 mg 150 mg PO DAILY 03/23/19 12/25/24 History capsule,extended release 24 hr pravastatin 40 mg tablet 40 mg PO DAILY #90 tabs 09/23/19 12/25/24 Rx primidone 50 mg tablet 150 mg PO BID 08/31/21 12/25/24 History aripiprazole 5 mg tablet 5 mg PO HS 08/04/22 12/25/24 History empagliflozin 10 mg tablet 10 mg PO DAILY 08/04/22 12/25/24 History (Jardiance) fluticasone propionate 50 2 spray intranasal DAILY 08/04/22 12/25/24 History mcg/actuation nasal spray,suspension naloxegol 25 mg tablet (Movantik) 25 mg PO DAILY 08/04/22 12/25/24 History pantoprazole 40 mg tablet,delayed 40 mg PO DAILY 08/04/22 12/25/24 History release levothyroxine 75 mcg tablet 100 mcg PO DAILY 07/10/24 12/25/24 History loperamide 2 mg capsule 2 mg PO BID #60 caps 07/10/24 12/25/24 Rx tirzepatide (weight loss) 7.5 7.5 mg (0.5 mL) subcut WEEKLY #2 mL 12/24/24 01/17/25 Rx mg/0.5 mL subcutaneous pen injector (Zepbound) albuterol sulfate 90 mcg/actuation 2 puff inhalation Q4-6H PRN 01/15/25 Rx aerosol inhaler (ProAir HFA) shortness of breath or wheezing #8.5 grams Patient hx anesthesia problems: none Family hx anesthesia problems: none Results Review: All pre-operative results and documents have been reviewed as part of the pre-operative evaluation. [facility] Past Medical History Medical History Screening mammogram, encounter for Diarrhea Pneumonia Bulging disc Scoliosis Asthma Diabetes Anxiety Pacemaker lead malfunction Pacemaker battery depletion Chronic, continuous use of opioids COPD (chronic obstructive pulmonary disease) Pacemaker Hypothyroidism (acquired) Lumbar spondylosis Depression Hyperlipidemia GERD (gastroesophageal reflux disease) Essential hypertension Surgical History Surgical History H/O total knee replacement bilateral H/O abdominoplasty History of laparoscopic adjustable gastric banding (~2009) insertion and removal History of hernia repair 10/28/84 07/28/00 05/30/04 06/30/06 05/30/12 History of 01/10/78 12/06/80 01/10/82 History of tubal ligation Family History Family History Father Family history of lung cancer Patient's father is Family history of alcoholism Sibling Family history of alcoholism Patient's sister is Mother Family history of Alzheimer's disease Diabetes mellitus Family history of alcoholism Other Family history of coronary artery disease Social History Social History Social History: Smoking packs per day: 0.5 Smoking cigarettes per day: 10.0 Years smoked: 1 Smoking pack-years: 0.50 Smoking status: Current every day smoker Tobacco type: cigarettes Second hand tobacco smoke exposure: Yes Smoking end date: 05/30/75 Alcohol intake: never Substance use: never Substance use type: marijuana Other substance usage details: smoke marijuana Do You Feel Safe in your Home?: Yes Lack of Transportation: No Lack of Food: Never True Current Housing: I Have Housing Concerned About Future Housing: No Difficulty Paying Gas/Electric Bills: No Difficulty Paying for Meds: No Currently Unemployed: No Education: High School Diploma/GED Difficulty w/ Childcare or Family Care: No Living arrangements: other Additional living arrangements comments: Occupation/Education: unemployed Additional occupation/education comments: disabled Gender identity (if verbalized by the patient): Female Sexual Orientation (if Verbalized by the Patient): Straight or Heterosexual Spiritual care concerns: No Anes - Eval Final PreProcedure Day of Procedure 01/17/25 07:16 Patient weight: obese Heart: regular rate and rhythm (paced) Lungs: clear to auscultation Airway: Mallampati scale Neurological: alert and oriented Last oral intake: >/= 8 hours ASA classification: III Emergent: no Anesthetic plan: proceed Anesthesia type and monitoring: general GIVS and standard monitoring Results Review: All pre-operative results and documents have been reviewed as part of the pre-operative evaluation. Informed Consent: The patient's anesthetic plan and its attendant risks and benefits were discussed with the patient/family/POA. Questions were solicited and answers provided to the satisfaction of the patient/family/POA.
--- NOTE | 2025-01-17 07:50 | PM.HPGS ---
History of Present Illness History of Present Illness Consent: Risks, benefits, and alternatives have been discussed and questions answered. Patient agrees to proceed with procedure. Chief complaint: Fecal smearing,GERD,dysphagia,Diarrhea, Narrative: Maribeth Bautista is a 64 year old female with gerd, dysphagia and diarrhea, here for colonoscopy and egd Review of Systems Review of Systems: All systems reviewed & are unremarkable except as noted in HPI and below PMFSH Past Medical History Medical History Screening mammogram, encounter for Diarrhea Pneumonia Bulging disc Scoliosis Asthma Diabetes Anxiety Pacemaker lead malfunction Pacemaker battery depletion Chronic, continuous use of opioids COPD (chronic obstructive pulmonary disease) Pacemaker Hypothyroidism (acquired) Lumbar spondylosis Depression Hyperlipidemia GERD (gastroesophageal reflux disease) Essential hypertension Surgical History Surgical History H/O total knee replacement bilateral H/O abdominoplasty History of laparoscopic adjustable gastric banding (~2009) insertion and removal History of hernia repair 10/28/84 07/28/00 05/30/04 06/30/06 05/30/12 History of 01/10/78 12/06/80 01/10/82 History of tubal ligation Family History Family History Father Family history of lung cancer Patient's father is Family history of alcoholism Sibling Family history of alcoholism Patient's sister is Mother Family history of Alzheimer's disease Diabetes mellitus Family history of alcoholism Other Family history of coronary artery disease Social History Social History Social History: Smoking packs per day: 0.5 Smoking cigarettes per day: 10.0 Years smoked: 1 Smoking pack-years: 0.50 Smoking status: Current every day smoker Tobacco type: cigarettes Second hand tobacco smoke exposure: Yes Smoking end date: 05/30/75 Alcohol intake: never Substance use: never Substance use type: marijuana Other substance usage details: smoke marijuana Do You Feel Safe in your Home?: Yes Lack of Transportation: No Lack of Food: Never True Current Housing: I Have Housing Concerned About Future Housing: No Difficulty Paying Gas/Electric Bills: No Difficulty Paying for Meds: No Currently Unemployed: No Education: High School Diploma/GED Difficulty w/ Childcare or Family Care: No Living arrangements: other Additional living arrangements comments: Occupation/Education: unemployed Additional occupation/education comments: disabled Gender identity (if verbalized by the patient): Female Sexual Orientation (if Verbalized by the Patient): Straight or Heterosexual Spiritual care concerns: No Meds Home Medications and Allergies Home Medications ?Medication ?Instructions ?Recorded ?Confirmed ?Type aspirin 81 mg tablet,delayed 81 mg PO DAILY 03/23/19 12/25/24 History release (Adult Low Dose Aspirin) methocarbamol 500 mg tablet 500 mg PO BID 03/23/19 12/25/24 History sertraline 100 mg tablet 200 mg PO DAILY 03/23/19 12/25/24 History venlafaxine 150 mg 150 mg PO DAILY 03/23/19 12/25/24 History capsule,extended release 24 hr pravastatin 40 mg tablet 40 mg PO DAILY #90 tabs 09/23/19 12/25/24 Rx primidone 50 mg tablet 150 mg PO BID 08/31/21 12/25/24 History aripiprazole 5 mg tablet 5 mg PO HS 08/04/22 12/25/24 History empagliflozin 10 mg tablet 10 mg PO DAILY 08/04/22 12/25/24 History (Jardiance) fluticasone propionate 50 2 spray intranasal DAILY 08/04/22 12/25/24 History mcg/actuation nasal spray,suspension naloxegol 25 mg tablet (Movantik) 25 mg PO DAILY 08/04/22 12/25/24 History pantoprazole 40 mg tablet,delayed 40 mg PO DAILY 08/04/22 12/25/24 History release levothyroxine 75 mcg tablet 100 mcg PO DAILY 07/10/24 12/25/24 History loperamide 2 mg capsule 2 mg PO BID #60 caps 07/10/24 12/25/24 Rx tirzepatide (weight loss) 7.5 7.5 mg (0.5 mL) subcut WEEKLY #2 mL 12/24/24 01/17/25 Rx mg/0.5 mL subcutaneous pen injector (Zepbound) albuterol sulfate 90 mcg/actuation 2 puff inhalation Q4-6H PRN 01/15/25 Rx aerosol inhaler (ProAir HFA) shortness of breath or wheezing #8.5 grams Allergies Allergy/AdvReac Type Severity Reaction Status Date / Time adhesive tape Allergy Intermediate Other Verified 01/17/25 06:47 morphine Allergy Mild Itching Verified 01/17/25 06:47 Vital Signs Vital Signs - 24 hr 01/17/25 06:48 Temperature 97 F L Pulse Rate 62 Respiratory Rate 18 Blood Pressure 148/70 H Pulse Oximetry 99 Oxygen Delivery Room Air Exam Const: General: comfortable and no acute distress HENMT: Face/Nose/Sinus: Normal nares present Eyes: General: appearance normal, both eyes and all related structures Neck: Neck: no JVD Resp: Auscultation: clear to auscultation bilaterally Cardio: Rate: regular rate Rhythm: regular rhythm GI: Inspection: non-distended GI Palp: Yes Soft to palpation Skin: General skin exam: normal color Neuro: Speech: normal speech Extrem: General: normal to inspection Psych: Mental Status: mental status grossly normal Assessment and Plan Assessment and plan (1) GERD (gastroesophageal reflux disease): Qualifiers: Esophagitis presence: esophagitis presence not specified Qualified Code(s): K21.9 - Gastro-esophageal reflux disease without esophagitis Code(s): K21.9 - Gastro-esophageal reflux disease without esophagitis Status: Acute Assessment and Plan: egd (2) Diarrhea: Qualifiers: Diarrhea type: unspecified type Qualified Code(s): R19.7 - Diarrhea, unspecified Code(s): R19.7 - Diarrhea, unspecified Status: Acute Assessment and Plan: colonoscopy (3) Dysphagia: Qualifiers: Dysphagia type: esophageal phase Qualified Code(s): R13.19 - Other dysphagia Code(s): R13.10 - Dysphagia, unspecified Status: Acute
--- NOTE | 2025-01-17 08:03 | S_PTH ---
PATIENT: Maribeth Bautista LOC: [facility]#:[id number] AGE/SX: 64/F ROOM: RE01/17/[address]: Yovanny Goldstein MD : 1960 BED: DIS: 01/17/2025 SPEC #: [id number] RECD: 01/17/25 09:36 STATUS: GAEL CONKLIN #: [id number] ENA: 01/17/25 08:[address]: Yovanny Goldstein DEPT: [facility] Surgical RECD BY: Buffy Henriquez ENTERED: 01/17/25 09:37 SP TYPE: Surgical OTHR DR: Laci Bauman MD Tissues: A - Small Bowel Bx B - Gastric Biopsy C - Esophageal Biopsy D - Colon Biopsy E - Colon Polypectomy Procedures: Hematoxylin and Eosin Stain Gross and Microscopic Level 4
--- NOTE | 2025-01-17 08:09 | SUR.OPER ---
EGD: end 803, COLON: start 808
[2025-01-17 08:30] VITALS: BP 108/69; PULSE 64; RESP 19; O2SAT 100
[2025-01-17 08:40] VITALS: BP 106/75; PULSE 68; RESP 24; O2SAT 100
[2025-01-17 08:50] VITALS: BP 131/74; PULSE 60; RESP 17; O2SAT 100
== END 2025-01-17 08:57 | disposition home or self-care (01) ==
PROVIDERS: PCP Family Medicine; Referring Provider Nurse Practitioner Family; Visit Provider Internal Medicine Gastroenterology
PROC: 0DJ08ZZ Inspection of Upper Intestinal Tract, Via Natural or Artificial Opening Endoscopic (ICD-10-PCS; CPT 45378; principal; 2025-01-17 08:00)
DX: K21.00 Gastro-esophageal reflux disease with esophagitis, without bleeding (principal); K57.30 Diverticulosis of large intestine without perforation or abscess without bleeding; D12.3 Benign neoplasm of transverse colon; K63.5 Polyp of colon; K63.89 Other specified diseases of intestine; E11.9 Type 2 diabetes mellitus without complications; E03.9 Hypothyroidism, unspecified; E78.5 Hyperlipidemia, unspecified; I10 Essential (primary) hypertension; J44.9 Chronic obstructive pulmonary disease, unspecified; F32.A Depression, unspecified; M41.9 Scoliosis, unspecified; F41.9 Anxiety disorder, unspecified; M43.06 Spondylolysis, lumbar region; F17.210 Nicotine dependence, cigarettes, uncomplicated; F12.90 Cannabis use, unspecified, uncomplicated; E66.9 Obesity, unspecified; Z68.38 Body mass index [BMI] 38.0-38.9, adult; Z79.82 Long term (current) use of aspirin; Z79.84 Long term (current) use of oral hypoglycemic drugs; Z79.85 Long-term (current) use of injectable non-insulin antidiabetic drugs; Z79.51 Long term (current) use of inhaled steroids; Z79.891 Long term (current) use of opiate analgesic; Z98.890 Other specified postprocedural states; Z95.0 Presence of cardiac pacemaker; Z98.84 Bariatric surgery status; Z98.51 Tubal ligation status; Z80.1 Family history of malignant neoplasm of trachea, bronchus and lung; Z82.49 Family history of ischemic heart disease and other diseases of the circulatory system
CPT/HCPCS: 43239; 45385; 45380; 88305; J2003; J2704; J7120